=== PATIENT | female | born 1940 | race Hispanic/Latino ===

== ENCOUNTER 2018-05-17 09:57 | Emergency (ER) | payer OTHER ==
--- OUTSIDE RECORDS SUMMARY | 2018-05-17 10:00 | XMS REPORT ---
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 Problem 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
--- OUTSIDE RECORDS SUMMARY | 2018-05-17 10:00 | XMS REPORT ---
:1940 Author Organization eClinicalWorks Care Team Providers Name Role Phone Wills, Na Provider Role Unavailable Allergies, Adverse Reactions, Alerts Substance Reaction Event Type codeine Info Not Available Drug Allergy PCN Info Not Available Drug Allergy Lyrica Info Not Available Drug Allergy Problems Problem Type Condition Code Onset Dates Condition Status Problem Depression with anxiety F41.8 Active Problem Osteoporosis M81.0 Active Problem Psoriasis L40.9 Active Problem Obesity E66.9 Active Assessment Family history of cardiovascular Z82.49 Active disease Problem Rheumatoid arthritis M06.9 Active Assessment 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 Assessment Rheumatoid arthritis M06.9 Active Problem Hyperlipidemia E78.5 Active Problem Hyperglycemia R73.9 Active Problem Anemia D64.9 Active Problem Hypothyroidism E03.9 Active Problem Benign essential HTN I10 Active Assessment Bilateral edema of lower extremity R60.0 Active Problem 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 Assessment Symptomatic spider varicose vein I83.899 Active Assessment Bilateral leg cramps R25.2 Active Problem 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 Problem Tinea versicolor B36.0 Active Problem 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 Problem Degeneration of lumbar or M51.37 Active lumbosacral intervertebral disc Problem 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 Problem Seasonal allergies J30.2 Active Medications Medication Code Code Instructions Start End Status Dosage System Date Levothyroxine [facility] 85857216893 100 MCG Orally Active 1 tablet on Sodium Once a day an empty stomach in the morning Dovonex [facility] 97148764482 0.005 % Nov Active 1 application Externally 21, to affected Twice a day 2018 area Ultram ND 24364891752 50 MG Orally August Active 1 tablet as every 6 hrs 12, 26, needed 2017 2018 Fosamax ND 48036750694 70 MG Orally Active 1 tablet Naprosyn ND 28648093070 500 MG Orally Oct Active 1 tablet with every 12 hrs 11, food or milk 2017 as needed Lasix ND 71472335414 40 MG Orally August Active 1 tablet Once a day 2017 Lisinopril [facility] 47681245736 10 MG Orally Active 1 tablet Once a day Calcipotriene [facility] 23024676311 0.005 % Active 1 application Externally Once to affected a day area Fluticasone [facility] 86017373113 50 MCG/ACT Active USE 2 SPRAY Propionate IN EACH NOSTRIL EVERY DAY Flonase [facility] 51295198116 50 MCG/ACT Active 1 spray in Nasally Once a each nostril day Lidex [facility] 0 Active not defined Zyrtec Allergy [facility] 29873129765 10 MG Orally Active 1 tablet Once a day Pravastatin [facility] 08333108905 20 MG Orally Active 1 tablet Sodium Once a day Coreg [facility] 40392920931 25 MG Orally Active 1 tablet twice daily Protonix [facility] 51382119801 40 MG Orally August Active 1 tablet Once a day 2017 Results No Known Results Summary Purpose eClinicalWorks Submission
--- OUTSIDE RECORDS SUMMARY | 2018-05-17 10:00 | XMS REPORT ---
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
--- OUTSIDE RECORDS SUMMARY | 2018-05-17 10:00 | XMS REPORT ---
[...] Seasonal allergies J30.2 Active Medications Medication Code System Code Instructions Start Date End Date Status Dosage Protonix [facility] 68831268013 40 MG Orally Once August 08, Active 1 tablet a day 2017 Results No Known Results Summary Purpose eClinicalWorks Submission
--- OUTSIDE RECORDS SUMMARY | 2018-05-17 10:00 | XMS REPORT ---
[...] Medications Medication Code System Code Instructions Start End Date Status Dosage Date Naproxen [facility] 84698581275 500 MG Oral Twice Dec 18, Active TAKE 1 a day 2016 TABLET BY MOUTH TWICE A DAY WITH FOOD Results No Known Results Summary Purpose eClinicalWorks Submission
--- OUTSIDE RECORDS SUMMARY | 2018-05-17 10:00 | XMS REPORT ---
[...] Medications Results No Known Results Summary Purpose [employer] Submission
--- OUTSIDE RECORDS SUMMARY | 2018-05-17 10:00 | XMS REPORT ---
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 Assessment Seasonal allergies J30.2 Active Problem Hyperlipidemia E78.5 Active Problem Hyperglycemia R73.9 Active Problem Anemia D64.9 Active Problem Hypothyroidism E03.9 Active Problem Benign essential HTN I10 Active Problem 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 Assessment Benign essential HTN I10 Active Assessment Hypothyroidism E03.9 Active Problem 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 Problem Tinea versicolor B36.0 Active Assessment Rheumatoid arthritis M06.9 Active Problem 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 Problem Degeneration of lumbar or M51.37 Active lumbosacral intervertebral disc Assessment Psoriasis L40.9 Active Problem 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 Problem Seasonal allergies J30.2 Active Medications Medication Code Code Instructions Start End Status Dosage System Date Flonase [facility] 50458879968 50 MCG/ACT Active 1 spray in Nasally Once a each nostril day Levothyroxine ND 87945454294 100 MCG Orally Active 1 tablet on Sodium Once a day an empty stomach in the morning Calcipotriene [facility] 64855486086 0.005 % Active 1 application Externally Once to affected a day area Naprosyn ND 20803117919 500 MG Orally September Active 1 tablet with every 12 hrs 24, food or milk 2018 as needed Pravastatin ND 52922030025 20 MG Orally Active 1 tablet Sodium Once a day Zyrtec Allergy ND 04301049282 10 MG Orally Active 1 tablet Once a day Fosamax ND 77561557618 70 MG Orally Active 1 tablet Lisinopril [facility] 23240820276 10 MG Orally Active 1 tablet Once a day Dovonex [facility] 22298059231 0.005 % Nov Active 1 application Externally 21, to affected Twice a day 2018 area Coreg [facility] 33301222242 25 MG Orally Active 1 tablet twice daily Fluticasone [facility] 65984789019 50 MCG/ACT Active USE 2 SPRAY Propionate IN EACH NOSTRIL EVERY DAY Lidex [facility] 0 Active not defined Results No Known Results Summary Purpose eClinicalWorks Submission
--- OUTSIDE RECORDS SUMMARY | 2018-05-17 10:00 | XMS REPORT ---
:1940 Author Organization eClinicalWorks Care Team Providers Name Role Phone Wills, Na Provider Role Unavailable Allergies No Known Allergies Problems Problem Type Condition Code Onset Dates Condition Status Problem Depression with anxiety F41.8 Active Problem Osteoporosis M81.0 Active Problem Psoriasis L40.9 Active Problem Obesity E66.9 Active Assessment Hyperlipidemia E78.5 Active Problem Rheumatoid arthritis M06.9 Active Assessment Bilateral edema of lower extremity R60.0 Active Problem Hyperlipidemia E78.5 Active Problem Hyperglycemia R73.9 Active Problem Anemia D64.9 Active Problem Hypothyroidism E03.9 Active Problem Benign essential HTN I10 Active Problem 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 Assessment Hypothyroidism E03.9 Active Assessment Benign essential HTN I10 Active Problem 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 Problem Tinea versicolor B36.0 Active Problem 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 Problem Degeneration of lumbar or M51.37 Active lumbosacral intervertebral disc Problem 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 Problem Seasonal allergies J30.2 Active Medications Medication Code Code Instructions Start End Status Dosage System Date Date Fosamax [facility] 10539762846 70 MG Orally Active 1 tablet Once a day Pravastatin [facility] 26564265785 20 MG Orally Active 1 tablet Sodium Once a day Protonix [facility] 64372772430 40 MG Orally Active 1 tablet Once a day Coreg [facility] 16083166559 25 MG Orally Active 1 tablet twice daily Levothyroxine [facility] 46738729130 100 MCG Orally Active 1 tablet Sodium Once a day on an empty stomach in the morning Lasix [facility] 66675885358 40 MG Orally August 13, Active 1 tablet Once a day 2017 Lisinopril [facility] 47414511251 10 MG Orally Active 1 tablet Once a day Results No Known Results Summary Purpose eClinicalWorks Submission
--- OUTSIDE RECORDS SUMMARY | 2018-05-17 10:01 | XMS REPORT ---
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 Problem Primary osteoarthritis of right knee M17.11 Active Problem Rheumatoid arthritis M06.9 Active Problem Hypothyroidism E03.9 Active Problem Hyperlipidemia E78.5 Active Problem Obesity E66.9 Active Problem 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
--- OUTSIDE RECORDS SUMMARY | 2018-05-17 10:01 | XMS REPORT ---
[...] Medications Results No Known Results Summary Purpose [employer] Submission
--- OUTSIDE RECORDS SUMMARY | 2018-05-17 10:01 | XMS REPORT ---
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 Assessment Benign essential HTN I10 Active Problem Primary osteoarthritis of right knee M17.11 Active Problem Rheumatoid arthritis M06.9 Active Problem Hypothyroidism E03.9 Active Problem Hyperlipidemia E78.5 Active Problem Obesity E66.9 Active Problem 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 60813710323 70 MG Oral August 26, Active TAKE 1 Sodium 2017 TABLET BY MOUTH ONCE A WEEK Results No Known Results Summary Purpose [employer]ClinicalWorks Submission
--- OUTSIDE RECORDS SUMMARY | 2018-05-17 10:01 | XMS REPORT ---
[...] Medications Results No Known Results Summary Purpose [employer] Submission
--- OUTSIDE RECORDS SUMMARY | 2018-05-17 10:01 | XMS REPORT ---
[...] Problem Osteoporosis M81.0 Active Medications Medication Code System Code Instructions Start End Date Status Dosage Date Naproxen [facility] 52065575440 500 MG Oral Twice Dec 18, Active TAKE 1 a day prn 2016 TABLET BY MOUTH TWICE A DAY WITH FOOD Results No Known Results Summary Purpose [employer]ClinicalWorks Submission
--- OUTSIDE RECORDS SUMMARY | 2018-05-17 10:01 | XMS REPORT ---
:1940 Author Organization eClinicalWorks Care Team Providers Name Role Phone Wills, Na Provider Role Unavailable Allergies, Adverse Reactions, Alerts Substance Reaction Event Type PCN Info Not Available Drug Allergy Lyrica Info Not Available Drug Allergy Problems Problem Type Condition Code Onset Dates Condition Status Assessment Seasonal allergies J30.2 Active Assessment Elevated alkaline phosphatase level R74.8 Active Assessment CKD stage G3a/A1, GFR 45-59 and N18.3 Active albumin creatinine ratio <30 mg/g Assessment Rheumatoid arthritis M06.9 Active Problem Psoriasis L40.9 Active Assessment Hyperkalemia E87.5 Active Problem Osteoporosis M81.0 Active Assessment Psoriasis L40.9 Active Problem Anemia D64.9 Active Problem Benign essential HTN I10 Active Problem Hyperglycemia R73.9 Active Problem 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 Problem 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 Assessment Benign essential HTN I10 Active Assessment Hyperlipidemia E78.5 Active Problem Primary osteoarthritis of right knee M17.11 Active Assessment 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 Problem Rheumatoid arthritis M06.9 Active Problem Hypothyroidism E03.9 Active Problem Hyperlipidemia E78.5 Active Problem Obesity E66.9 Active Problem 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 Problem 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 Assessment Hypothyroidism E03.9 Active Problem Seasonal allergies J30.2 Active Problem Depression with anxiety F41.8 Active Problem Tinea versicolor B36.0 Active Problem Degeneration of lumbar or M51.37 Active lumbosacral intervertebral disc Medications Medication Code Code Instructions Start End Status Dosage System Date Date Calcipotriene [facility] 70291574033 0.005 % Active 1 application Externally Once to affected a day area Levothyroxine ND 80225464109 100 MCG Orally Active 1 tablet on Sodium Once a day an empty stomach in the morning Protonix ND 21415621514 40 MG Orally Active 1 tablet Once a day Cetirizine HCl ND 27158854391 10 MG Active TAKE 1 TABLET BY MOUTH EVERY DAY NEEDED FOR ALLERGIES Carvedilol [facility] 23532506086 25 MG Orally Active as directed Lasix [facility] 37226455745 40 MG Orally August Active 1 tablet Once a day 2017 Pravastatin [facility] 90323826472 20 MG Orally Active 1 tablet Sodium Once a day Zyrtec Allergy [facility] 98078947272 10 MG Orally Active 1 tablet Once a day Fluticasone [facility] 44985133479 50 MCG/ACT Active USE 2 SPRAY Propionate IN EACH NOSTRIL EVERY DAY Lisinopril [facility] 30202949012 10 MG Orally Active 1 tablet Once a day Fosamax [facility] 10955158022 70 MG Orally Active 1 tablet Once a day Flonase [facility] 32769739931 50 MCG/ACT Active 1 spray in Nasally Once a each nostril day Naproxen [facility] 12983730382 500 MG Oral Dec 18July Active take 1 tablet Twice a day prn 2016 15, by mouth 2018 twice a day with food Lidex ND 0 Active not defined Alendronate [facility] 37463272355 70 MG Oral August Active TAKE 1 TABLET Sodium 25, BY MOUTH ONCE 2016 A WEEK Coreg [facility] 46270470401 25 MG Orally Active 1 tablet twice daily Results No Known Results Summary Purpose eClinicalWorks Submission
--- OUTSIDE RECORDS SUMMARY | 2018-05-17 10:01 | XMS REPORT ---
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 Problem Primary osteoarthritis of right M17.11 Active knee Problem Rheumatoid arthritis M06.9 Active Problem Hypothyroidism E03.9 Active Problem Hyperlipidemia E78.5 Active Problem Obesity E66.9 Active Problem 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 47391010021 10 MG Orally Active 1 tablet Once a day Protonix [facility] 67919261124 40 MG Orally Active 1 tablet Once a day Zyrtec Allergy [facility] 68849260305 10 MG Orally Active 1 tablet Once a day Lidex [facility] 0 Active not defined Levothyroxine [facility] 70357564492 100 MCG Orally Active 1 tablet on Sodium Once a day an empty stomach in the morning Dovonex [facility] 46075367473 0.005 % Nov Active 1 application Externally 21, to affected Twice a day 2018 area Carvedilol [facility] 74637006671 25 MG Orally Active as directed Pravastatin [facility] 82869186842 20 MG Orally Active 1 tablet Sodium Once a day Coreg [facility] 09424125445 25 MG Orally Active 1 tablet twice daily Lasix [facility] 84247805527 40 MG Orally August Active 1 tablet Once a day 2017 Naproxen ND 08775213155 500 MG Oral Dec 18 TAKE 1 TABLET Twice a day 2016 BY MOUTH TWICE A DAY WITH FOOD Cetirizine HCl [facility] 52935409169 10 MG Active TAKE 1 TABLET BY MOUTH EVERY DAY NEEDED FOR ALLERGIES Alendronate ND 26714676680 70 MG Oral August Active TAKE 1 TABLET Sodium 25, BY MOUTH ONCE 2017 A WEEK Calcipotriene [facility] 90247535992 0.005 % Active 1 application Externally Once to affected a day area Fluticasone [facility] 05286462178 50 MCG/ACT Active USE 2 SPRAY Propionate IN EACH NOSTRIL EVERY DAY Fosamax [facility] 01039338347 70 MG Orally Active 1 tablet Once a day Flonase [facility] 44732847856 50 MCG/ACT Active 1 spray in Nasally Once a each nostril day Results No Known Results Summary Purpose eClinicalWorks Submission
--- OUTSIDE RECORDS SUMMARY | 2018-05-17 10:01 | XMS REPORT ---
[...] Start End Status Dosage System Date Date Cetirizine HCl [facility] 77222628805 10 MG Active TAKE 1 TABLET BY MOUTH EVERY DAY NEEDED FOR ALLERGIES Lisinopril [facility] 43732078200 10 MG Orally Active 1 tablet Once a day Fosamax [facility] 75656153790 70 MG Orally Active 1 tablet Once a day Protonix [facility] 62554814499 40 MG Orally Active 1 tablet Once a day Coreg [facility] 44779227711 25 MG Orally Active 1 tablet twice daily Pravastatin [facility] 32141526823 20 MG Orally Active 1 tablet Sodium Once a day Fluticasone [facility] 26921583108 50 MCG/ACT Active USE 2 SPRAY Propionate IN EACH NOSTRIL EVERY DAY Calcipotriene [facility] 21191261531 0.005 % Active 1 application Externally Once to affected a day area Flonase [facility] 95311545531 50 MCG/ACT Active 1 spray in Nasally Once a each nostril day Lidex ND 0 Active not defined Alendronate [facility] 12694784198 70 MG Oral August Active TAKE 1 TABLET Sodium 25, BY MOUTH ONCE 2016 A WEEK Lasix [facility] 55491175373 40 MG Orally August Active 1 tablet Once a day 2017 Levothyroxine [facility] 13117540099 100 MCG Orally Active 1 tablet on Sodium Once a day an empty stomach in the morning Naproxen [facility] 19800874870 500 MG Oral Dec 18July Active take 1 tablet Twice a day prn 2016, by mouth 2018 twice a day with food Carvedilol [facility] 61808483325 25 MG Orally Active as directed Zyrtec Allergy [facility] 80175123416 10 MG Orally Active 1 tablet Once a day Results No Known Results Summary Purpose [employer]Works Submission
--- OUTSIDE RECORDS SUMMARY | 2018-05-17 10:02 | XMS REPORT ---
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 Assessment Hypothyroidism E03.9 Active Assessment Hyperlipidemia E78.5 Active Problem Primary osteoarthritis of right knee M17.11 Active Problem Rheumatoid arthritis M06.9 Active Problem Hypothyroidism E03.9 Active Problem Hyperlipidemia E78.5 Active Problem Obesity E66.9 Active Problem 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 Problem 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 Assessment Seasonal allergies J30.2 Active Problem Seasonal allergies J30.2 Active Problem Depression with anxiety F41.8 Active Problem Tinea versicolor B36.0 Active Problem Psoriasis L40.9 Active Assessment 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 Problem Degeneration of lumbar or M51.37 Active lumbosacral intervertebral disc Problem Osteoporosis M81.0 Active Medications Medication Code Code Instructions Start End Status Dosage System Date Date Fluticasone [facility] 90562136125 50 MCG/ACT Active USE 2 SPRAY Propionate IN EACH NOSTRIL EVERY DAY Calcipotriene ND 09188507179 0.005 % Sept Active 1 application Externally Once , to affected a day 2019 area Naproxen ND 86140418604 500 MG Oral Dec 18August Active take 1 tablet Twice a day prn 2016 05, by mouth 2018 twice a day with food Cetirizine HCl NDC 28613382547 10 MG Orally May Active 1 tablet Once a day 2018 Results No Known Results Summary Purpose eClinicalWorks Submission
--- OUTSIDE RECORDS SUMMARY | 2018-05-17 10:02 | XMS REPORT ---
[...] Start End Date Status Dosage System Date Tizanidine HCl [facility] 48817551822 2 MG Orally at May 13May Active 1 tablet bedtime or every 2018 as needed 12 hrs PRN pain Results No Known Results Summary Purpose eClinicalWorks Submission
[2018-05-17] MEDS ORDERED: ONDANSETRON 4 MG/2 ML VIAL ONE (10:19)
[2018-05-17] MEDS ORDERED: MEPERIDINE HCL 25 MG/0.5 ML ONE (10:19)
[2018-05-17 10:35] LABS: Absolute Lymphocytes (CBC) 1.1 K/uL (0.7-4.9); Absolute Monocytes 0.9 K/uL (0.1-1.3); Absolute Neutrophil 5.5 K/uL (1.8-8.0); Basophils % 0.5 % (0-1.3); Eosinophils % 1.8 % (0-4.4); Lymphocytes % 14.9 % (15.3-44.8); MPV 7.8 fL (7.6-11.3); Monocytes % 11.6 % (3.3-12.3)
[2018-05-17 10:49] LABS: Potassium 4.4 mmol/L (3.5-5.1)
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
[2018-05-17] MEDS ORDERED: MORPHINE 4 MG/ML SYR ONE (12:33)
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
[2018-05-17 15:22] VITALS: BP 179/83; TEMP 97.6; O2SAT 100
== END 2018-05-17 15:12 | disposition short-term general hospital (02) ==
LOC: ER 09:57
DX: S32.512A Fracture of superior rim of left pubis, initial encounter for closed fracture (principal); S32.592A Other specified fracture of left pubis, initial encounter for closed fracture; S32.10XA Unspecified fracture of sacrum, initial encounter for closed fracture; S30.0XXA Contusion of lower back and pelvis, initial encounter; V49.40XA Driver injured in collision with unspecified motor vehicles in traffic accident, initial encounter; I10 Essential (primary) hypertension; Z88.0 Allergy status to penicillin
CPT/HCPCS: 85025; 80048; 36415; 74177; 71045; 72170; 73030; 73552; 51702; 96375; 96374; 99285; Q9967; J2175; J2405

== ENCOUNTER 2021-05-15 09:59 | Emergency (ER) | payer OTHER ==
[2021-05-15] MEDS ORDERED: EPINEPHrine 1 MG/10 ML SYR IV ONE (10:00)
--- OUTSIDE RECORDS SUMMARY | 2021-05-15 10:13 | XMS REPORT | Continuity of Care Document ---
:1940 Author Organization [facility] [place] t Address [address] [place] [address] Care Team Providers Name Role Phone WillsKrzysztof Attending Clinician Unavailable JACQUIE, A Attending Clinician Unavailable Doctor Unassigned, Name Attending Clinician Unavailable Nurse, Surgery Gu Attending Clinician Unavailable Jacquie ENT CONSULTANT, A Attending Clinician Clinic, Cardiology Attending Clinician Leta RAIP, N Attending Clinician LETA N Attending Clinician Unavailable [place] GREY, M Attending Clinician Odilon DORMAN Attending Clinician Carlos PAC, S Attending Clinician Mariel DORMAN, P Attending Clinician Dariusz Quintana MD, J Attending Clinician Hien DORMAN Attending Clinician SHAISTA Attending Clinician Unavailable Dariusz Quintana MD, J Admitting Clinician Payers Payer Name Policy Type Policy Number Effective Date Expiration Date S lonny MEDICARE PART A [id number] 1996 \\T\\ B 00:00:00 [place]ICAID OF [place] [id number] 2004 00:00:00 Problems Condition Condition Condition Status Onset Resolution Last Treating Co mments Source Name Details Category Date Date Treatment Clinician Date Urinary Urinary Disease Active Univers retention retention 5-21 ity of 00:00: [place] 00 Medical Branch History of History of Disease Active U nivers hydronephr hydronephr 5- it y of osis osis 00:00: Medical Branch Cardiac Cardiac Disease Active Univers arrest arrest 06-18 ity of 00:00: Medical Branch Melena Melena Disease Active Overview: Univer s 06-18 Formattin ity of 00:00: g of this note Medical might be Branch different from the original. 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 [place] [facility] [place] Wheel Wheel Disease Active [facility] chair as chair as 11-01 it[place] aid aid 00 [facility] Right knee Right knee Disease Active 2012-03 U nivers pain pain 1-21 ity of 00:00: [place] [facility] Psoriatic Psoriatic Disease Active Uni vers arthritis arthritis 2-21 ity of 00:00: [place] [facility] Diabetic Diabetic Disease Active Unive rs arthropath arthropath 2-21 it y of y y 00:00: Medical Branch Pain in Pain in Disease Active Univers joint, joint, 2- ity of multiple multiple 00:00: [place] sites sites 00 Medical Branch Psoriasis Psoriasis Disease Active Uni vers 2-21 ity of 00:00: Medical Branch HLD HLD Disease Active Overview: Univmello s (hyperlipi (hyperlipi 10-08 Formattin ity of demia) demia) 00:00: g of this [place] 00 note Medical might be Branch different from the original. ICD10 Diagnosis Term Egyptologist Utility Hypothyroi Hypothyroi Disease Active Overview : Univers dism dism 10-08 Formattin ity of 00:00: g of this [place] 00 note Medical might be Branch different from the original. 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 ICD10 Diagnosis Term Egyptologist Utility Essential Essential Disease Active Uni vers hypertensi hypertensi 8-07 it y of on, benign [place], benign 00:[place]: [place] 00 [facility] Allergies, Adverse Reactions, Alerts Allergy Allergy Status Severity Reaction(s) Onset Inactive Treating Comm ents Source Name Type Date Date Clinician Codeine Propensi Active Unknown - 2005-03 Swelling Un mer[place] ty to See comments 2-07 of face ity of adverse 00:00: and body [place] reaction 00 Medical s Branch CODEINE DRUG Active Unknown-Cmnt 2005-03 Uni vers INGREDI 2-07 ity of 00:00: [place] 00 Medical Branch Penicill Propensi Active Unknown - Swelling U nivers ins ty to See comments 6-22 of face ity of adverse 00:00: and body [place] reaction 00 Medical s Branch PENICILL Drug Active Unknown-Cmnt Un [place] INS Class 6-22 ity of 00:00: [place] 00 Medical Branch PCN Adverse Active Info Not [facility] Reaction Available [facility] Lyrica Adverse Active Info Not [facility] Reaction Available [facility] Social History Social Habit Start Date Stop Date Quantity Comments Source Exposure to Not sure [facility] SARS-CoV-2 [facility] (event) [place] History of Cigarette Smoker Universi ty of tobacco use [facility] Tobacco use and 2020-08-17 2020-08-17 Never used Universit y of exposure 00:00:00 00:00:00 [facility] Cigarettes smoked 2020-08-17 2020-08-17 Univers ity of current (pack per 00:00:00 00:00:00 [facility]) - Reported Branch Cigarette 2020-08-17 2020-08-17 University of pack-years 00:00:00 00:00:00 [facility] Alcohol intake 2020-08-17 2020-08-17 Current drinker of Un iversity of 00:00:00 00:00:00 alcohol (finding) [facility] Tobacco Comment 2005-10-08 2005-10-08 quit 3 years ago, Un iversity of 00:00:00 00:00:00 [facility] Alcohol Comment 2005-10-08 2005-10-08 occasionally Univers ity of 00:00:00 00:00:00 [facility] Sex Assigned At [birth year] Universit y of 00:00:00 00:00:00 [facility] Smoking Status Start Date Stop Date Source Former smoker 2020-08-17 00:00:00 2020-08-17 00:00:00 Universi ty [facility] Medications Ordered Filled Start Stop Current Ordering Indication Dosage Frequency Signature Comments Components Source Medication Medication Date Date Medication? Clinician (SIG) Name Name carvedilol Yes [id number] 25mg Take 25 mg Univers (COREG) 6-24 by mouth 2 ity of 12.5 mg 15:19: (two) [place] tablet 12 times Medical daily with Branch meals. pravastatin Yes [id number] 20mg Take 20 mg Univers (PRAVACHOL) 6-24 by mouth ity of 20 mg 15:19: at [place] tablet 12 bedtime. Medical Branch levothyroxi Yes [id number] 100ug Take 100 Univers ne 6-24 mcg by ity of (SYNTHROID) 15:19: mouth [place] 100 mcg 12 daily. Medical tablet Branch alendronate Yes 70mg Take 70 mg Univers (FOSAMAX) 6-24 by mouth ity of 70 mg 15:19: weekly. [place] tablet 12 Medical Branch carvedilol Yes [id number] 25mg Take 25 mg Univers (COREG) 6-24 by mouth 2 ity of 12.5 mg 15:19: (two) [place] tablet 12 times Medical daily with Branch meals. pravastatin 0 Yes [id number] 20mg Take 20 mg Univers (PRAVACHOL) 6-24 by mouth ity of 20 mg 15:19: at [place] tablet 12 bedtime. Medical Branch levothyroxi Yes [id number] 100ug Take 100 Univers ne 6-24 mcg by ity of (SYNTHROID) 15:19: mouth [place] 100 mcg 12 daily. Medical tablet Branch alendronate Yes 70mg Take 70 mg Univers (FOSAMAX) 6-24 by mouth ity of 70 mg 15:19: weekly. [place] tablet 12 Medical Branch traMADoL 50 Yes 50mg Take 50 mg Univers mg tablet 5-21 by mouth ity of 13:51: every 6 [place] 02 (six) Medical hours as Branch needed. traMADoL 50 Yes 50mg Take 50 mg Univers mg tablet 5-21 by mouth ity of 13:51: every 6 [place] 02 (six) Medical hours as Branch needed. traMADoL 50 0 Yes 50mg Take 50 mg Univers mg tablet 5-21 by mouth ity of 13:51: every 6 [place] 02 (six) Medical hours as Branch needed. traMADoL 50 0 Yes 50mg Take 50 mg Univers mg tablet 5-21 by mouth ity of 13:51: every 6 [place] 02 (six) Medical hours as Branch needed. traMADoL 50 0 Yes 50mg Take 50 mg Univers mg tablet 5-21 by mouth ity of 13:51: every 6 [place] 02 (six) Medical hours as Branch needed. traMADoL 50 0 Yes 50mg Take 50 mg Univers mg tablet 5-21 by mouth ity of 13:51: every 6 [place] 02 (six) Medical hours as Branch needed. traMADoL 50 Yes 50mg Take 50 mg Univers mg tablet 5-21 by mouth ity of 13:51: every 6 [place] 02 (six) Medical hours as Branch needed. lanolin Yes Apply to Unive rs alcohol-mo- 4-28 area(s) ity o f w.pet-ceres 00:00: daily. Nicolasa colón Crea cream 00 Medical Branch lidocaine 5 Yes 2{patch Apply 2 Univers % (700 4-28 } Patches to ity of mg/patch) 00:00: area(s) [place] patch 00 daily. Medical Branch polyethylen Yes 17g Take 1 Univ ers e glycol 4-28 Packet by ity of 3350 17 00:00: mouth [place] gram powder 00 daily. Medica l Branch sennosides Yes 8.6mg Take 1 Univ ers 8.6 mg 4-28 tablet by ity of tablet 00:00: mouth [place] 00 daily. Medical Branch tamsulosin Yes .4mg Take 1 Unive rs 0.4 mg 24 4-28 capsule by ity of hr capsule 00:00: mouth [place] 00 daily. Medical Branch lanolin Yes Apply to Unive rs alcohol-mo- 4-28 area(s) ity o f w.pet-ceres 00:00: [place]. [place] Crea cream 00 [facility] lidocaine 5 Yes 2{patch Apply 2 Univers % (700 4-28 } Patches to ity of mg/patch) 00:00: area(s) [place] patch 00 daily. Medical Branch polyethylen Yes 17g Take 1 Univ ers e glycol 4-28 Packet by ity of 3350 17 00:00: mouth [place] gram powder 00 daily. Medica l Branch sennosides Yes 8.6mg Take 1 Univ ers 8.6 mg 4-28 tablet by ity of tablet 00:00: mouth [place] 00 daily. Medical Branch tamsulosin Yes .4mg Take 1 Unive rs 0.4 mg 24 4-28 capsule by ity of hr capsule 00:00: mouth [place] 00 daily. Medical Branch lanolin Yes Apply to Unive rs alcohol-mo- 4-28 area(s) ity o f w.pet-ceres 00:00: daily. [place] Crea cream 00 [facility] Branch lidocaine 5 Yes 2{patch Apply 2 Univers % (700 4-28 } Patches to ity of mg/patch) 00:00: area(s) [place] patch 00 daily. Medical Branch polyethylen Yes 17g Take 1 Univ ers e glycol 4-28 Packet by ity of 3350 17 00:00: mouth [place] gram powder 00 daily. Medica l Branch sennosides Yes 8.6mg Take 1 Univ ers 8.6 mg 4-28 tablet by ity of tablet 00:00: mouth [place] 00 daily. Medical Branch tamsulosin Yes .4mg Take 1 Unive rs 0.4 mg 24 4-28 capsule by ity of hr capsule 00:00: mouth [place] 00 daily. Medical Branch lanolin Yes Apply to Unive rs alcohol-mo- 4-28 area(s) ity o f w.pet-ceres 00:00: daily. [place] Crea cream 00 Medical Branch lidocaine 5 Yes 2{patch Apply 2 Univers % (700 4-28 } Patches to ity of mg/patch) 00:00: area(s) [place] patch 00 daily. Medical Branch polyethylen Yes 17g Take 1 Univ ers e glycol 4-28 Packet by ity of 3350 17 00:00: mouth [place] gram powder 00 daily. Medica l Branch sennosides Yes 8.6mg Take 1 Univ ers 8.6 mg 4-28 tablet by ity of tablet 00:00: mouth [place] 00 daily. Medical Branch tamsulosin Yes .4mg Take 1 Unive rs 0.4 mg 24 4-28 capsule by ity of hr capsule 00:00: mouth [place] 00 daily. Medical Branch lanolin Yes Apply to Unive rs alcohol-mo- 4-28 area(s) ity o f w.pet-ceres 00:00: daily. [place] Crea cream 00 Medical Branch lidocaine 5 Yes 2{patch Apply 2 Univers % (700 4-28 } Patches to ity of mg/patch) 00:00: area(s) [place] patch 00 daily. Medical Branch polyethylen Yes 17g Take 1 Univ ers e glycol 4-28 Packet by ity of 3350 17 00:00: mouth [place] gram powder 00 daily. Medica l Branch sennosides Yes 8.6mg Take 1 Univ ers 8.6 mg 4-28 tablet by ity of tablet 00:00: mouth [place] 00 daily. Medical Branch tamsulosin Yes .4mg Take 1 Unive rs 0.4 mg 24 4-28 capsule by ity of hr capsule 00:00: mouth [place] 00 daily. Medical Branch lanolin Yes Apply to Unive rs alcohol-mo- 4-28 area(s) ity o f w.pet-ceres 00:00: daily. [place] Crea cream 00 [facility] Branch lidocaine 5 Yes 2{patch Apply 2 Univers % (700 4-28 } Patches to ity of mg/patch) 00:00: area(s) [place] patch 00 daily. Medical Branch polyethylen Yes 17g Take 1 Univ ers e glycol 4-28 Packet by ity of 3350 17 00:00: mouth [place] gram powder 00 daily. Medica l Branch sennosides Yes 8.6mg Take 1 Univ ers 8.6 mg 4-28 tablet by ity of tablet 00:00: mouth [place] 00 daily. Medical Branch tamsulosin Yes .4mg Take 1 Unive rs 0.4 mg 24 4-28 capsule by ity of hr capsule 00:00: mouth [place] 00 daily. Medical Branch lanolin Yes Apply to Unive rs alcohol-mo- 4-28 area(s) ity o f w.pet-ceres 00:00: daily. [place] Crea cream 00 Medical Branch lidocaine 5 Yes 2{patch Apply 2 Univers % (700 4-28 } Patches to ity of mg/patch) 00:00: area(s) [place] patch 00 daily. Medical Branch polyethylen Yes 17g Take 1 Univ ers e glycol 4-28 Packet by ity of 3350 17 00:00: mouth [place] gram powder 00 daily. Medica l Branch sennosides Yes 8.6mg Take 1 Univ ers 8.6 mg 4-28 tablet by ity of tablet 00:00: mouth [place] 00 daily. Medical Branch tamsulosin Yes .4mg Take 1 Unive rs 0.4 mg 24 4-28 capsule by ity of hr capsule 00:00: mouth [place] 00 daily. Medical Branch lanolin Yes Apply to Unive rs alcohol-mo- 4-28 area(s) ity o f w.pet-ceres 00:00: daily. [place] Crea cream 00 Medical Branch lidocaine 5 Yes 2{patch Apply 2 Univers % (700 4-28 } Patches to ity of mg/patch) 00:00: area(s) [place] patch 00 daily. Medical Branch polyethylen Yes 17g Take 1 Univ ers e glycol 4-28 Packet by ity of 3350 17 00:00: mouth [place] gram powder 00 daily. Medica l Branch sennosides Yes 8.6mg Take 1 Univ ers 8.6 mg 4-28 tablet by ity of tablet 00:00: mouth [place] 00 daily. Medical Branch tamsulosin Yes .4mg Take 1 Unive rs 0.4 mg 24 4-28 capsule by ity of hr capsule 00:00: mouth [place] 00 daily. Medical Branch lanolin Yes Apply to Unive rs alcohol-mo- 4-28 area(s) ity o f w.pet-ceres 00:00: daily. [place] Crea cream 00 [facility] lidocaine 5 Yes 2{patch Apply 2 Univers % (700 4-28 } Patches to ity of mg/patch) 00:00: area(s) [place] patch 00 daily. Medical Branch polyethylen 0 Yes 17g Take 1 Univ ers e glycol 4-28 Packet by ity of 3350 17 00:00: mouth [place] gram powder 00 daily. Medica l Branch sennosides Yes 8.6mg Take 1 Univ ers 8.6 mg 4-28 tablet by ity of tablet 00:00: mouth [place] 00 daily. Medical Branch tamsulosin Yes .4mg Take 1 Unive rs 0.4 mg 24 4-28 capsule by ity of hr capsule 00:00: mouth [place] 00 daily. Medical Branch lanolin Yes Apply to Unive rs alcohol-mo- 4-28 area(s) ity o f w.pet-ceres 00:00: daily. [place] Crea cream 00 [facility] Branch lidocaine 5 Yes 2{patch Apply 2 Univers % (700 4-28 } Patches to ity of mg/patch) 00:00: area(s) [place] patch 00 daily. Medical Branch polyethylen Yes 17g Take 1 Univ ers e glycol 4-28 Packet by ity of 3350 17 00:00: mouth [place] gram powder 00 daily. Medica l Branch sennosides Yes 8.6mg Take 1 Univ ers 8.6 mg 4-28 tablet by ity of tablet 00:00: mouth [place] 00 daily. Medical Branch tamsulosin Yes .4mg Take 1 Unive rs 0.4 mg 24 4-28 capsule by ity of hr capsule 00:00: mouth [place] 00 daily. Medical Branch lanolin Yes Apply to Unive rs alcohol-mo- 4-28 area(s) ity o f w.pet-ceres 00:00: daily. [place] Crea cream 00 [facility] Branch lidocaine 5 Yes 2{patch Apply 2 Univers % (700 4-28 } Patches to ity of mg/patch) 00:00: area(s) [place] patch 00 daily. Medical Branch polyethylen Yes 17g Take 1 Univ ers e glycol 4-28 Packet by ity of 3350 17 00:00: mouth [place] gram powder 00 daily. Medica l Branch sennosides 0 Yes 8.6mg Take 1 Univ ers 8.6 mg 4-28 tablet by ity of tablet 00:00: mouth [place] 00 daily. Medical Branch tamsulosin Yes .4mg Take 1 Unive rs 0.4 mg 24 4-28 capsule by ity of hr capsule 00:00: mouth [place] 00 daily. Medical Branch carvedilol Yes [id number] 25mg Take 25 mg Univers (COREG) 4-27 by mouth 2 ity of 12.5 mg 23:19: (two) [place] tablet 09 times Medical daily with Branch meals. pravastatin Yes [id number] 20mg Take 20 mg Univers (PRAVACHOL) 4-27 by mouth ity of 20 mg 23:19: at [place] tablet 09 bedtime. Medical Branch levothyroxi Yes [id number] 100ug Take 100 Univers ne 4-27 mcg by ity of (SYNTHROID) 23:19: mouth [place] 100 mcg 09 daily. Medical tablet Branch Cetirizine Yes Take by Uni vers (ZYRTEC) 10 4-27 mouth. ity of mg capsule 23:19: [place] 09 Medical Branch alendronate Yes 70mg Take 70 mg Univers (FOSAMAX) 4-27 by mouth ity of 70 mg 23:19: weekly. [place] tablet 09 Medical Branch traMADoL 50 Yes 50mg Take 50 mg Univers mg tablet 4-27 by mouth ity of 23:19: every 6 [place] 09 (six) Medical hours as Branch needed. carvedilol Yes [id number] 25mg Take 25 mg Univers (COREG) 4-27 by mouth 2 ity of 12.5 mg 23:19: (two) [place] tablet 09 times Medical daily with Branch meals. pravastatin Yes [id number] 20mg Take 20 mg Univers (PRAVACHOL) 4-27 by mouth ity of 20 mg 23:19: at [place] tablet 09 bedtime. Medical Branch levothyroxi 2021-0 Yes [id number] 100ug Take 100 Univers ne 4-27 mcg by ity of (SYNTHROID) 23:19: mouth [place] 100 mcg 09 daily. Medical tablet Branch Cetirizine Yes Take by Uni vers (ZYRTEC) 10 4-27 mouth. ity of mg capsule 23:19: Medical Branch alendronate 0 Yes 70mg Take 70 mg Univers (FOSAMAX) 4-27 by mouth ity of 70 mg 23:19: weekly. [place] tablet Medical Branch traMADoL 50 0 Yes 50mg Take 50 mg Univers mg tablet 4-27 by mouth ity of 23:19: every 6 [place] 09 (six) Medical hours as Branch needed. carvedilol 0 Yes [id number] 25mg Take 25 mg Univers (COREG) 4-27 by mouth 2 ity of 12.5 mg 23:19: (two) [place] tablet 09 times Medical daily with Branch meals. pravastatin 0 Yes [id number] 20mg Take 20 mg Univers (PRAVACHOL) 4-27 by mouth ity of 20 mg 23:19: at [place] tablet 09 bedtime. Medical Branch levothyroxi 0 Yes [id number] 100ug Take 100 Univers ne 4-27 mcg by ity of (SYNTHROID) 23:19: mouth [place] 100 mcg 09 daily. Medical tablet Branch Cetirizine Yes Take by Uni vers (ZYRTEC) 10 4-27 mouth. ity of mg capsule 23:19: Medical Branch alendronate Yes 70mg Take 70 mg Univers (FOSAMAX) 4-27 by mouth ity of 70 mg 23:19: weekly. [place] tablet Medical Branch traMADoL 50 0 Yes 50mg Take 50 mg Univers mg tablet 4-27 by mouth ity of 23:19: every 6 [place] 09 (six) Medical hours as Branch needed. carvedilol 0 Yes [id number] 25mg Take 25 mg Univers (COREG) 4-27 by mouth 2 ity of 12.5 mg 23:19: (two) [place] tablet 09 times Medical daily with Branch meals. pravastatin 0 Yes [id number] 20mg Take 20 mg Univers (PRAVACHOL) 4-27 by mouth ity of 20 mg 23:19: at [place] tablet 09 bedtime. Medical Branch levothyroxi Yes [id number] 100ug Take 100 Univers ne 4-27 mcg by ity of (SYNTHROID) 23:19: mouth [place] 100 mcg 09 daily. Medical tablet Branch Cetirizine Yes Take by Uni vers (ZYRTEC) 10 4-27 mouth. ity of mg capsule 23:19: [place] Medical Branch alendronate Yes 70mg Take 70 mg Univers (FOSAMAX) 4-27 by mouth ity of 70 mg 23:19: weekly. [place] tablet Medical Branch traMADoL 50 Yes 50mg Take 50 mg Univers mg tablet 4-27 by mouth ity of 23:19: every 6 [place] (six) Medical hours as Branch needed. carvedilol Yes [id number] 25mg Take 25 mg Univers (COREG) 4-27 by mouth 2 ity of 12.5 mg 23:19: (two) [place] tablet 09 times Medical daily with Branch meals. pravastatin 0 Yes [id number] 20mg Take 20 mg Univers (PRAVACHOL) 4-27 by mouth ity of 20 mg 23:19: at [place] tablet 09 bedtime. Medical Branch levothyroxi Yes [id number] 100ug Take 100 Univers ne 4-27 mcg by ity of (SYNTHROID) 23:19: mouth [place] 100 mcg 09 daily. Medical tablet Branch Cetirizine Yes Take by Uni vers (ZYRTEC) 10 4-27 mouth. ity of mg capsule 23:19: Medical Branch alendronate Yes 70mg Take 70 mg Univers (FOSAMAX) 4-27 by mouth ity of 70 mg 23:19: weekly. [place] tablet Medical Branch carvedilol Yes [id number] 25mg Take 25 mg Univers (COREG) 4-27 by mouth 2 ity of 12.5 mg 23:19: (two) [place] tablet 09 times Medical daily with Branch meals. pravastatin 2020-0 Yes [id number] 20mg Take 20 mg Univers (PRAVACHOL) 4-27 by mouth ity of 20 mg 23:19: at [place] tablet 09 bedtime. Medical Branch levothyroxi Yes [id number] 100ug Take 100 Univers ne 4-27 mcg by ity of (SYNTHROID) 23:19: mouth [place] 100 mcg 09 daily. Medical tablet Branch Cetirizine Yes Take by Uni vers (ZYRTEC) 10 4-27 mouth. ity of mg capsule 23:19: Medical Branch alendronate Yes 70mg Take 70 mg Univers (FOSAMAX) 4-27 by mouth ity of 70 mg 23:19: weekly. tablet Medical Branch carvedilol Yes [id number] 25mg Take 25 mg Univers (COREG) 4-27 by mouth 2 ity of 12.5 mg 23:19: (two) [place] tablet 09 times Medical daily with Branch meals. pravastatin 0 Yes [id number] 20mg Take 20 mg Univers (PRAVACHOL) 4-27 by mouth ity of 20 mg 23:19: at [place] tablet 09 bedtime. Medical Branch levothyroxi Yes [id number] 100ug Take 100 Univers ne 4-27 mcg by ity of (SYNTHROID) 23:19: mouth [place] 100 mcg 09 daily. Medical tablet Branch Cetirizine Yes Take by Uni vers (ZYRTEC) 10 4-27 mouth. ity of mg capsule 23:19: Medical Branch alendronate Yes 70mg Take 70 mg Univers (FOSAMAX) 4-27 by mouth ity of 70 mg 23:19: weekly. Medical Branch carvedilol Yes [id number] 25mg Take 25 mg Univers (COREG) 4-27 by mouth 2 ity of 12.5 mg 23:19: (two) [place] tablet 09 times Medical daily with Branch meals. pravastatin 2020-0 Yes [id number] 20mg Take 20 mg Univers (PRAVACHOL) 4-27 by mouth ity of 20 mg 23:19: at [place] tablet 09 bedtime. Medical Branch levothyroxi Yes [id number] 100ug Take 100 Univers ne 4-27 mcg by ity of (SYNTHROID) 23:19: mouth [place] 100 mcg 09 daily. Medical tablet Branch Cetirizine Yes Take by Uni vers (ZYRTEC) 10 4-27 mouth. ity of mg capsule 23:19: Medical Branch alendronate Yes 70mg Take 70 mg Univers (FOSAMAX) 4-27 by mouth ity of 70 mg 23:19: weekly. [facility] Branch carvedilol Yes [id number] 25mg Take 25 mg Univers (COREG) 4-27 by mouth 2 ity of 12.5 mg 23:19: (two) [place] tablet 09 times Medical daily with Branch meals. pravastatin Yes [id number] 20mg Take 20 mg Univers (PRAVACHOL) 4-27 by mouth ity of 20 mg 23:19: at [place] tablet 09 bedtime. Medical Branch levothyroxi Yes [id number] 100ug Take 100 Univers ne 4-27 mcg by ity of (SYNTHROID) 23:19: mouth [place] 100 mcg 09 daily. Medical tablet Branch Cetirizine Yes Take by Uni vers (ZYRTEC) 10 4-27 mouth. ity of mg capsule 23:19: [address] alendronate Yes 70mg Take 70 mg Univers (FOSAMAX) 4-27 by mouth ity of 70 mg 23:19: weekly. [place] tablet [facility] Cetirizine Yes Take by Uni vers (ZYRTEC) 10 4-27 mouth. ity of mg capsule 23:19: [address] Cetirizine Yes Take by Uni vers (ZYRTEC) 10 4-27 mouth. ity of mg capsule 23:19: [address] furosemide 2020- No [id number] 40mg Take 40 mg Univers (LASIX) 40 -27 04-27 by mouth ity of mg tablet 18:55: 00:00 daily. [place] 19 :00 [facility] naproxen 2020- No 500mg Take 500 Uni vers (NAPROSYN) 4-27 04-27 mg by ity of 500 mg 18:55: 00:00 mouth 2 [place] tablet 19 :00 (two) Medical times [place] daily with meals. sennosides Yes 8.6mg 8.6 mg, Uni vers (SENOKOT) 4-27 Oral, ity of tablet 8.6 14:15: DAILY, [place] mg 00 First dose Medical on [place] 4/27/21 at 0915, Until Discontinu ed, Routine lanolin 2020-0 Yes Topical, Univer s alcohol-mo- 4-27 DAILY, ity of wWisampet-ceres 14:15: First dose [place] (EUCERIN) 00 on Tue Medical cream 06/28/20 at Branch 0915, Until Discontinu ed, Routine acetaminoph 2021-0 Yes 650mg Take 2 Uni vers en 325 mg 4-27 tablets by ity of tablet 00:00: mouth [place] 00 every 8 Medical (eight) Branch hours. pantoprazol 202-0 Yes 40mg Take 1 Univ ers e 40 mg EC 4-27 tablet by ity of tablet 00:00: mouth 2 [place] 00 (two) Medical times Branch daily. doxycycline 2021-0 Yes 100mg Take 1 Uni vers hyclate 100 4-27 capsule by it y of mg capsule 00:00: mouth [place] 00 every 12 Medical (twelve) Branch hours. furosemide 2020-0 Yes [id number] 40mg Take 1 U nivers (LASIX) 40 4-27 tablet by ity of mg tablet 00:00: mouth once [place] 00 daily as Medical needed Branch (take as needed for edema or SOB). acetaminoph 202-0 Yes 650mg Take 2 Uni vers en 325 mg 4-27 tablets by ity of tablet 00:00: mouth [place] 00 every 8 Medical (eight) Branch hours. pantoprazol 1-0 Yes 40mg Take 1 Univ ers e 40 mg EC 4-27 tablet by ity of tablet 00:00: mouth 2 [place] 00 (two) Medical times Branch daily. doxycycline 1-0 Yes 100mg Take 1 Uni vers hyclate 100 4-27 capsule by it y of mg capsule 00:00: mouth [place] 00 every 12 Medical (twelve) Branch hours. furosemide 2021-0 Yes [id number] 40mg Take 1 U nivers (LASIX) 40 4-27 tablet by ity of mg tablet 00:00: mouth once [place] 00 daily as Medical needed Branch (take as needed for edema or SOB). acetaminoph 2021-0 Yes 650mg Take 2 Uni vers en 325 mg 4-27 tablets by ity of tablet 00:00: mouth [place] 00 every 8 Medical (eight) Branch hours. pantoprazol 2021-0 Yes 40mg Take 1 Univ ers e 40 mg EC 4-27 tablet by ity of tablet 00:00: mouth (two) Medical times Branch daily. doxycycline 2021-0 Yes 100mg Take 1 Uni vers hyclate 100 4-27 capsule by it y of mg capsule 00:00: mouth 00 every 12 Medical (twelve) Branch hours. furosemide 2021-0 Yes [id number] 40mg Take 1 U nivers (LASIX) 40 4-27 tablet by ity of mg tablet 00:00: mouth once [place] 00 daily as Medical needed Branch (take as needed for edema or SOB). acetaminoph 2021-0 Yes 650mg Take 2 Uni vers en 325 mg 4-27 tablets by ity of tablet 00:00: mouth 00 every 8 Medical (eight) Branch hours. pantoprazol 2021-0 Yes 40mg Take 1 Univ ers e 40 mg EC 4-27 tablet by ity of tablet 00:00: mouth (two) Medical times Branch daily. doxycycline 1-0 Yes 100mg Take 1 Uni vers hyclate 100 4-27 capsule by it y of mg capsule 00:00: mouth 00 every 12 Medical (twelve) Branch hours. furosemide 1-0 Yes [id number] 40mg Take 1 U nivers (LASIX) 40 4-27 tablet by ity of mg tablet 00:00: mouth once [place] 00 daily as Medical needed Branch (take as needed for edema or SOB). acetaminoph 2021-0 Yes 650mg Take 2 Uni vers en 325 mg 4-27 tablets by ity of tablet 00:00: mouth 00 every 8 Medical (eight) Branch hours. pantoprazol 2021-0 Yes 40mg Take 1 Univ ers e 40 mg EC 4-27 tablet by ity of tablet 00:00: mouth 2 (two) Medical times Branch daily. doxycycline 2021-0 Yes 100mg Take 1 Uni vers hyclate 100 4-27 capsule by it y of mg capsule 00:00: mouth [place] 00 every 12 Medical (twelve) Branch hours. furosemide 2021-0 Yes [id number] 40mg Take 1 U nivers (LASIX) 40 4-27 tablet by ity of mg tablet 00:00: mouth once [place] 00 daily as Medical needed Branch (take as needed for edema or SOB). acetaminoph 2021-0 Yes 650mg Take 2 Uni vers en 325 mg 4-27 tablets by ity of tablet 00:00: mouth [place] 00 every 8 Medical (eight) Branch hours. pantoprazol 2021-0 Yes 40mg Take 1 Univ ers e 40 mg EC 4-27 tablet by ity of tablet 00:00: mouth 2 (two) Medical times Branch daily. doxycycline 2021-0 Yes 100mg Take 1 Uni vers hyclate 100 4-27 capsule by it y of mg capsule 00:00: mouth [place] 00 every 12 Medical (twelve) Branch hours. furosemide 2021-0 Yes [id number] 40mg Take 1 U nivers (LASIX) 40 4-27 tablet by ity of mg tablet 00:00: mouth once [place] 00 daily as Medical needed Branch (take as needed for edema or SOB). acetaminoph 2021-0 Yes 650mg Take 2 Uni vers en 325 mg 4-27 tablets by ity of tablet 00:00: mouth [place] 00 every 8 Medical (eight) Branch hours. pantoprazol 2021-0 Yes 40mg Take 1 Univ ers e 40 mg EC 4-27 tablet by ity of tablet 00:00: mouth (two) Medical times Branch daily. doxycycline 2021-0 Yes 100mg Take 1 Uni vers hyclate 100 4-27 capsule by it y of mg capsule 00:00: mouth [place] 00 every 12 Medical (twelve) Branch hours. furosemide 2021-0 Yes [id number] 40mg Take 1 U nivers (LASIX) 40 4-27 tablet by ity of mg tablet 00:00: mouth once [place] 00 daily as Medical needed Branch (take as needed for edema or SOB). acetaminoph 2021-0 Yes 650mg Take 2 Uni vers en 325 mg 4-27 tablets by ity of tablet 00:00: mouth [place] 00 every 8 Medical (eight) Branch hours. pantoprazol 2021-0 Yes 40mg Take 1 Univ ers e 40 mg EC 4-27 tablet by ity of tablet 00:00: mouth 2 (two) Medical times Branch daily. doxycycline 2021-0 Yes 100mg Take 1 Uni vers hyclate 100 4-27 capsule by it y of mg capsule 00:00: mouth [place] 00 every 12 Medical (twelve) Branch hours. furosemide 2021-0 Yes [id number] 40mg Take 1 U nivers (LASIX) 40 4-27 tablet by ity of mg tablet 00:00: mouth once [place] 00 daily as Medical needed Branch (take as needed for edema or SOB). acetaminoph 2021-0 Yes 650mg Take 2 Uni vers en 325 mg 4-27 tablets by ity of tablet 00:00: mouth [place] 00 every 8 Medical (eight) Branch hours. pantoprazol 2021-0 Yes 40mg Take 1 Univ ers e 40 mg EC 4-27 tablet by ity of tablet 00:00: mouth 2 (two) Medical times Branch daily. doxycycline 2021-0 Yes 100mg Take 1 Uni vers hyclate 100 4-27 capsule by it y of mg capsule 00:00: mouth 00 every 12 Medical (twelve) Branch hours. furosemide 2021-0 Yes [id number] 40mg Take 1 U nivers (LASIX) 40 4-27 tablet by ity of mg tablet 00:00: mouth once [place] 00 daily as Medical needed Branch (take as needed for edema or SOB). acetaminoph 2021-0 Yes 650mg Take 2 Uni vers en 325 mg 4-27 tablets by ity of tablet 00:00: mouth [place] 00 every 8 Medical (eight) Branch hours. pantoprazol 2021-0 Yes 40mg Take 1 Univ ers e 40 mg EC 4-27 tablet by ity of tablet 00:00: mouth (two) Medical times Branch daily. doxycycline 2021-0 Yes 100mg Take 1 Uni vers hyclate 100 4-27 capsule by it y of mg capsule 00:00: mouth [place] 00 every 12 Medical (twelve) Branch hours. furosemide 2021-0 Yes [id number] 40mg Take 1 U nivers (LASIX) 40 4-27 tablet by ity of mg tablet 00:00: mouth once [place] 00 daily as Medical needed Branch (take as needed for edema or SOB). acetaminoph 2021-0 Yes 650mg Take 2 Uni vers en 325 mg 4-27 tablets by ity of tablet 00:00: mouth [place] 00 every 8 Medical (eight) Branch hours. pantoprazol 2021-0 Yes 40mg Take 1 Univ ers e 40 mg EC 4-27 tablet by ity of tablet 00:00: mouth 2 (two) Medical times Branch daily. doxycycline 2021-0 Yes 100mg Take 1 Uni vers hyclate 100 4-27 capsule by it y of mg capsule 00:00: mouth [place] 00 every 12 Medical (twelve) Branch hours. furosemide Yes [id number] 40mg Take 1 U nivers (LASIX) 40 4-27 tablet by ity of mg tablet 00:00: mouth once [place] 00 daily as Medical needed Branch (take as needed for edema or SOB). doxycycline Yes 100mg 100 mg, [place] hyclate 06-27 Oral, ity of (Vibramycin 23:00: Q12HA2, [place] ) capsule 00 First dose Medi jocelyne 100 mg on Sat Branch 06/27/20 at 1800, Until Discontinu ed, CATIA
Re ason for Anti-Infec tive: Documented Infection< br>Documen farzad Infection Site: Urine
D uration of Therapy: 7 days doxycycline 2020- No 100mg 100 mg, U nivers hyclate 06-26 Oral, ity of (Vibramycin 23:00: 16:45 Q12HA2, 6 [place] ) capsule 00 :45 doses, Medical 100 mg First dose Branch on [place] 06/26/20 at 1800, Last dose on Sat06/29/20 at 0600, CATIA
Re ason for Anti-Infec tive: Empiric Therapy for Suspected Infection< br>Empiric Therapy Site: Urine
D uration of therapy: 7 days cefTRIAXone No 1000mg 1,000 mg, Univers (ROCEPHIN) 06-26 IV ity of 1,000 mg in 20:30: 16:47 [place], [place] NaCl 0.9% 00 :54 Q24H ABX, Medic al (NS) 50 mL First dose Bra nch MINI-BAG on [place] 06/26/20 at 1530, Until Discontinu ed, 50 mL
R mami for Anti-Infec tive: Documented Infection< br>Documen farzad Infection Site: Urine<br&g t;Duration of Therapy: 7 days polyethylen Yes 17g 17 g, Unive rs e glycol - Oral, ity of 3350 powder 15:45: DAILY, [place] 17 g 00 First dose Medical on [facility] 06/26/20 at 1045, Until Discontinu ed, Routine pantoprazol Yes 40mg 40 mg, Univ ers e 4-25 Oral, BID, ity of (PROTONIX) 13:00: First dose [place] EC tablet 00 on [place] Medical 40 mg 06/26/20 at Branch 0800, Until Discontinu ed, Routine tamsulosin Yes .4mg 0.4 mg, Univ ers (FLOMAX) 24 Oral, ity of capsule 0.4 14:00: DAILY, [place] mg 00 First dose Medical on [facility] [place] [facility] 06/25/20 at 0900, Until Discontinu ed, Routine benzonatate 2020- No 100mg 100 mg, U nivers (TESSALON 06-25 Oral, TID, ity of PERLES) 13:45: 15:01 First dose [place] capsule 100 00 :24 on [facility] Medica l mg 06/25/20 at Branch 0845, Until Discontinu ed, Routine guaiFENesin 2020- No 400mg 400 mg, U nivers (FENESIN 06-23 Oral, Q6H, ity of IR) tablet 17:00: 12:03 First dose [place] 400 mg 00 :39 (after Medical last Branch modificati on) on [facility] 06/23/20 at 1200, Until Discontinu ed, Routine lactated No 1000mL at 125 [facility] ers ringers IV 06-23 mL/hr, ity of infusion 16:30: 19:55 1,000 mL, [place] 1,000 mL 00 :00 IV Medical Infusion, [place] ONCE, 1 dose, [facility] 06/23/20 at 1130, Routine guaiFENesin 2020- No 400mg 400 mg, U nivers (FENESIN 06-23 Oral, Q4H, ity of IR) tablet 13:45: 15:22 First dose [place] 400 mg 00 :27 on [facility] 06/23/20 at Branch 0845, Until Discontinu ed, Routine traMADoL Yes 50mg 50 mg, Univers (ULTRAM) 06-22 Oral, ity of tablet 50 19:14: Q6HPRN, [place] mg 43 Starting Medical Sat06/22/20 at 1414, Until Discontinu ed, Routine, Pain (scale 4-6) acetaminoph 0 Yes 650mg 650 mg, [place] en - Oral, Q8H, ity of (TYLENOL) 16:15: First dose [place] tablet 650 00 (after Medical mg last Branch modificati on) on Sat06/22/20 at 1115, Until Discontinu ed, Routine ipratropium Yes 3mL 3 mL, Unive rs -albuteroL 06-22 Inhalation ity of (DUONEB) 01:00: , QID, [place] 0.5 mg-3 00 First dose Medic al mg(2.5 mg on Sat)/3 mL 06/21/20 at nebulizer 2000, solution 3 Until mL Discontinu ed, Routine benzocaine 2020-0 2021- No 1{spray 1 [place], Univers (HURRICAINE 06-21-20 } Oral, ity of ONE) 20 % 23:30: 22:47 ONCE, 1 [place] mucosal 00 :00 dose, Sat Medical spray 1 06/21/20 at Branch [place] 1830, Routine sodium 0 Yes 4mL 4 mL, Univers chloride 7% -20 Inhalation it y of (HYPER-FRANCHESKA) 17:00: , QID, [place] nebulizer 00 First dose Medi jocelyne solution 4 (after Branch mL last modificati on) on Sat06/21/20 at 1200, Until Discontinu ed, Routine sodium 2020-0 2020- No 4mL 4 mL, Univers chloride 7% 06-21 Inhalation i ty of (HYPER-FRANCHESKA) 17:00: 19:15 , QID, [place] nebulizer 00 :38 First dose Medi jocelyne solution 4 (after Branch mL last modificati on) on Sat06/21/20 at 1200, Until Discontinu ed, Routine lidocaine 2020-0 Yes 2{patch 2 Patch, U nivers (LIDODERM) 06-21 } Topical, ity o f 5 % (700 14:00: Administer [place] mg/patch) 00 over 12 Medical patch 2 Hours, Branch Patch DAILY, First dose on Sat06/21/20 at 0900, Until Discontinu ed, Routine lidocaine 2020-0 Yes 2{patch 2 Patch, U nivers (LIDODERM) 06-21 } Topical, ity o f 5 % (700 14:00: Administer [place] mg/patch) 00 over 12 Medical patch 2 Hours, Branch Patch DAILY, First dose on Sat06/21/20 at 0900, Until Discontinu ed, Routine pantoprazol Yes 40mg 40 mg, Univ ers e 06-21 Enteral, ity of (PROTONIX) 13:00: BID, First [place] 2 mg/mL 00 dose on Medical oral Tue Branch suspension 06/21/20 at 40 mg 0800, Until Discontinu ed, Routine pantoprazol 2020- No 40mg 40 mg, Uni vers e 06-21 Enteral, ity of (PROTONIX) 13:00: 11:56 BID, First [place] 2 mg/mL 00 :11 dose on Medical oral Tue Branch suspension 06/21/20 at 40 mg 0800, Until Discontinu ed, Routine acetaminoph Yes 650mg 650 mg, [place] en 06-21 Oral, ity of (TYLENOL) 06:04: Q6HPRN, [place] tablet 650 49 Starting Medic al mg e Branch 06/21/20 at 0104, Until Discontinu ed, Routine, Pain (scale 1-3), Pain (scale 4-6) acetaminoph 2020- No 650mg 650 mg, U nivers en 06-21 Oral, ity of (TYLENOL) 06:04: 16:12 Q6HPRN, [place] tablet 650 49 :24 Starting Medic al mg Tue Branch 06/21/20 at 0104, Until Sat06/22/20 at 1112, Routine, Pain (scale 1-3), Pain (scale 4-6) sodium 2020- No 4mL 4 mL, Univers chloride 7% 06-21 Inhalation i ty of (HYPER-FRANCHESKA) 01:00: 13:21 , BID, [place] nebulizer 00 :11 First dose Medi jocelyne solution 4 (after Branch mL last modificati on) on 06/20/20 at 2000, Until Discontinu ed, Routine pantoprazol 2020- No 40mg 40 mg, IV Univers e 06-21 Piggyback, ity of (PROTONIX) 01:00: 12:54 Q12H, [place] 40 mg in 00 :42 First dose Medic al NaCl 0.9% on Sat Branch (NS) 100 mL 06/20/20 at MINI-BAG 2000, Until Discontinu ed, 100 mL phenol 0 Yes 1{spray 1 [place], Univ ers (SORE -20 } Oral, PRN, ity of THROAT 00:05: Starting [place] (PHENOL)) 37 Mon Medical 1.4 % spray 06/20/20 at Br anch bottle 1 1905, [place] Until Discontinu ed, Routine, Sore throat nitroglycer 2020-0 Yes .4mg 0.4 mg, Uni vers in 06-20 Sublingual ity of (NITROSTAT) 21:12: , Q5MIN [place] sublingual 55 PRN, Medical tablet 0.4 Starting Branc h mg 06/20/20 at 1612, Until Discontinu ed, Routine, Chest pain nitroglycer 2020-0 Yes .4mg 0.4 mg, Uni vers in 06-20 Sublingual ity of (NITROSTAT) 21:12: , Q5MIN [place] sublingual 55 PRN, Medical tablet 0.4 Starting Branc h mg [facility] 06/20/20 at 1612, Until Discontinu ed, Routine, Chest pain perflutren 2020- No [id number] 2mL 2 mL, IV Univers lipid 06-20 Push, ity of microsphere 16:00: 15:36 ONCE, 1 [place] 00 :00 dose, [facility] Medical (DEFINITY) 06/20/20 at [facility] injection 2 1100, mL Routine propofoL IV 2020- No 5ug/kg/ 5-50 [place] infusion 06-20 min mcg/kg/min ity of 14:40: 15:17 ?59 kg [place] 27 :07 (1.77-17.7 Medical mL/hr), IV Branch Infusion, TITRATE, Sedation-R ASS score (0 to -1), Starting Sat06/20/20 at 0940
In itiate infusion at 5 mcg/kg/min and titrate by 5 mcg/kg/min every 30 seconds to 10 minutes to goal sedation score. Maximum dose = 50 mcg/kg/min . If goal not maintained at maximum allowed dose, contact prescriber . &nbs p;Tubing and unused portions of vials should be discarded after 12 hours.
pravastatin Yes 20mg 20 mg, Univ ers (PRAVACHOL) - Enteral, ity of tablet 20 02:00: QHS, First [place] mg [address] [facility] 06/19/20 at 2100, Until Discontinu ed, Routine pravastatin Yes 20mg 20 mg, Univ ers (PRAVACHOL) 06-20 Enteral, ity of tablet 20 02:00: QHS, First [place] mg [address] [facility] 06/19/20 at 2100, Until Discontinu ed, Routine midazolam No 1mg 1 mg, Slow U nivers (VERSED) 06-19 IV Push, ity of injection 1 21:35: 00:06 Q6HPRN, [place] mg 58 :[address] [facility] 06/19/20 at 1635, Until 06/20/20 at 1906, Routine, Sedation to RASS score 0 to -1 FENTanyl PF Yes 50ug 50 mcg, Uni vers (SUBLIMAZE 06-19 Slow IV ity of (PF)) 21:35: Push, [place] injection 46 Q6HPRN, Medical 50 mcg Starting [facility] 06/19/20 at 1635, Until Discontinu ed, Routine, Sedation FENTanyl PF No 50ug 50 mcg, [place] (SUBLIMAZE 06-19 Slow IV ity o f (PF)) 21:35: 23:19 Push, [place] injection 46 :39 Q6HPRN, Medical 50 mcg Starting [facility] 06/19/20 at 1635, Until 06/21/20 at 1819, Routine, Sedation Vancomycin 2020-2020- No 15mg/kg 750 mg U nivers 750 mg in 06-19 (rounded ity o f NaCl 0.9% 20:00: 23:03 from 885 [place] (NS) 250 mL 00 :51 mg = 15 Medic al VIAL-MATE mg/kg ?59 Branc h kg), IV Piggyback, Q24H, First dose on [place] 06/19/20 at 1500, Until Discontinu ed, 250 mL
Reas on for Anti-Infec tive: Empiric Therapy for Suspected Infection< br>Empiric Therapy Site: Abdominal< br>Duratio n of therapy: 72 hours furosemide 2020-0 2020- No 20mg 20 mg, Univ ers (LASIX) 06-19-18 Slow IV ity of injection 16:15: 17:08 [place], [place] 20 mg 00 :00 ONCE, 1 Medical dose, [facility] 06/19/20 at 1115, Routine levothyroxi Yes 100ug 100 mcg, U nivers ne 18 Enteral, ity of (SYNTHROID) 11:00: QAM-0600, [place] tablet 100 00 First dose Med ical mcg on [facility] 06/19/20 at 0600, Until Discontinu ed, Routine levothyroxi Yes 100ug 100 mcg, U nivers ne 06-19 Enteral, ity of (SYNTHROID) 11:00: QAM-0600, [place] tablet 100 00 First dose Med ical mcg on [facility] 06/19/20 at 0600, Until Discontinu ed, Routine meropenem Yes 500mg 500 mg, IV U nivers (MERREM) 06-19 Piggyback, ity o f 500 mg in 07:30: Administer [place] NaCl 0.9% 00 over 60 Medical (NS) 100 mL Minutes, Bran ch MINI-BAG Q12H ABX, First dose on [place] 06/19/20 at 0230, Until Discontinu ed, Routine
Restricte d use approved by: AMARJIT 8TH FLOOR
R mami for Anti-Infec tive: Documented Infection< br>Documen farzad Infection Site: Abdominal< br>Duratio n of Therapy: 7 days meropenem 2020- No 500mg 500 mg, IV Univers (MERREM) 06-19 Piggyback, ity of 500 mg in 07:30: 18:31 Administer [place] NaCl 0.9% 00 :27 over 60 Medical (NS) 100 mL Minutes, Bran ch MINI-BAG Q12H ABX, First dose on [place] 06/19/20 at 0230, Until Discontinu ed, Routine
Restricte d use approved by: AMARJIT 8TH FLOOR
R mami for Anti-Infec tive: Documented Infection< br>Documen farzad Infection Site: Abdominal< br>Duratio n of Therapy: 7 days NaCl 0.9% 0 2020- No 500mL at 100 Univ ers (NS) IV 4-18 04-18 mL/hr, IV ity of infusion 04:25: 09:00 Infusion, [place] 500 mL 00 :00 ONCE, 1 Medical dose, [facility] [place] [facility] 06/18/20 at 2330, Routine Sliding Yes Subcutaneo Univ ers Scale 4-18 us, TID ity of Insulin - 02:00: MEALS+HS, [place] Lispro 00 First dose Medical (HumaLOG) + on [facility] [place] [facility] 06/18/20 at Testing 2100, Until Discontinu ed, Routine atropine Yes 1mg 1 mg, IV Unive rs injection 1 4-18 Push, PRN, it y of mg 01:49: 1 dose, [place] [id number] Starting [facility] 06/18/20 at 204, Until Discontinu ed, Routine, Symptomati c Bradycardi a, below 30 atropine Yes 1mg 1 mg, IV Unive rs injection 1 4-18 Push, PRN, it y of mg 01:49: 1 dose, [place] [id number] Starting [facility] 06/18/20 at 204, Until Discontinu ed, Routine, Symptomati c Bradycardi a, below 30 pravastatin Yes [id number] 20mg Take 20 mg Univers (PRAVACHOL) 4-17 by mouth ity of 20 mg 23:29: at [place] tablet 19 bedtime. Medical Branch levothyroxi Yes [id number] 100ug Take 100 Univers ne 4-17 mcg by ity of (SYNTHROID) 23:29: mouth [place] 100 mcg 19 daily. Medical tablet Branch carvedilol Yes [id number] 25mg Take 25 mg Univers (COREG) 4-17 by mouth 2 ity of 12.5 mg 23:26: (two) [place] tablet 06 times Medical daily with Branch meals. furosemide Yes [id number] 40mg Take 40 mg Univers (LASIX) 40 4-17 by mouth ity o f mg tablet 23:26: daily. [address] Branch Cetirizine Yes Take by Uni vers (ZYRTEC) 10 4-17 mouth. ity of mg capsule 23:26: [address] Branch alendronate Yes 70mg Take 70 mg Univers (FOSAMAX) -17 by mouth ity of 70 mg 23:26: weekly. [place] tablet [address] [place] [address] Branch traMADoL 50 Yes 50mg Take 50 mg Univers mg tablet -17 by mouth ity of 23:26: every 6 [place] [address] (six) Medical hours as Branch needed. naproxen Yes 500mg Take 500 Univ ers (NAPROSYN) 4-17 mg by ity of 500 mg 23:26: mouth 2 [place] tablet (two) Medical times Branch daily with meals. glucagon Yes 1mg 1 mg, Univers (GLUCAGEN 06-18 Intramuscu ity of DIAGNOSTIC 23:20: lar, PRN, [place] KIT) 45 Starting Medical injection 1 [facility] Branch mg 06/18/20 at 1820, Until Discontinu ed, CATIA, Blood Glucose < or = 70 mg/dL and patient is unable to swallow or has mental changes. dextrose 50 Yes 25mL 25 mL, Univ ers % in water 06-18 Slow IV ity of (D50W) 23:20: Push, PRN, [place] injection 45 Starting Medica l 25 mL Sat Branch 06/18/20 at 1820, Until Discontinu ed, CATIA, Blood Glucose < or = 70 mg/dL and patient is unable to swallow or has mental status changes. dextrose 50 0 2020- No 25mL 25 mL, Uni vers % in water 06-1820 Slow IV ity o f (D50W) 23:20: 23:19 Push, PRN, [place] injection 45 :39 Starting Medica l 25 mL Sat Branch 06/18/20 at 1820, Until 06/21/20 at 1819, CATIA, Blood Glucose < or = 70 mg/dL and patient is unable to swallow or has mental status changes. iohexol 0 2020- No [id number] 120mL 120 mL, [place] (OMNIPAQUE 06-18 Intravenou it y of 350 21:00: 20:35 s, ONCE, 1 [place] BULK-150 00 :00 dose, Sat Medica l mL) 06/18/20 at Branch injection 1600, 120 mL Routine pantoprazol 2020- No 8mg/h 8 mg/hr U nivers e 06-18 (50 ity of (PROTONIX) 20:00: 15:16 mL/hr), IV [place] 80 mg in 00 :55 Infusion, Medica l NaCl 0.9% CONTINUOUS Bran ch (NS) 500 mL , Starting infusion 06/18/20 at 1500 meropenem 2020- No 500mg 500 mg, IV Univers (MERREM) 06-18 Piggyback, ity of 500 mg in 20:00: 20:39 Administer [place] NaCl 0.9% 00 :00 over 60 Medical (NS) 100 mL Minutes, Bran ch MINI-BAG ONCE, 1 dose, 06/18/20 at 1500, CATIA
Re stricted use approved by: ADC PROVIDER<b r>Reason for Anti-Infec tive: Documented Infection< br>Documen farzad Infection Site: Urine
D uration of Therapy: Other (see Comments) Vancomycin 2020- No 15mg/kg 750 mg U nivers 750 mg in 06-18 (rounded ity o f NaCl 0.9% 20:00: 20:56 from 885 [place] (NS) 250 mL 00 :00 mg = 15 Medic al VIAL-MATE mg/kg ?59 Branc h kg), IV Piggyback, ONCE, 1 dose, 06/18/20 at 1500, 250 mL
Reas on for Anti-Infec tive: Documented Infection< br>Documen farzad Infection Site: Urine
D uration of Therapy: Other (see Comments) pantoprazol 2020- No 80mg 80 mg, IV Univers e 06-18 Push, ity of (PROTONIX) 20:00: 20:02 ONCE, 1 [place] 80 mg in 00 :00 dose, Sat Medica l NaCl 0.9% 06/18/20 at Bran ch (NS) 20 mL 1500, 20 syringe mL Gabapentin Gabapentin Yes Na [facility] [address] [facility] 10[facility]04 [facility] MethylPREDN MethylPREDN Yes Na [facility] as [facility] ISolone ISolone 1-15 directed [facility]: [facility] Cetirizine Cetirizine Yes Na [facility] [address] [facility] HCl HCl 3-05 [facility] - 00:[facility]: [facility] 00 l [facility] hydroxychlo Yes 200mg Take 1 Uni vers roquine 200 9-10 tablet by ity of mg tablet 00:00: mouth [place] 00 daily. Medical Branch hydroxychlo 2020- No 200mg Take 1 [place] roquine 200 9-10 04-17 tablet by it y of mg tablet 00:00: 00:00 mouth [place] 00 :00 daily. Medical Branch hydroxychlo 2020- No 200mg Take 1 [place] roquine 200 9-10 04-17 tablet by it y of mg tablet 00:00: 00:00 mouth [place] 00 :00 daily. Medical Branch furosemide Yes [id number] 40mg Take 40 mg Univers (LASIX) 40 8-31 by mouth ity o f mg tablet 16:26: daily. [place] 18 Medical Branch pravastatin Yes [id number] 20mg Take 20 mg Univers (PRAVACHOL) 8-31 by mouth ity of 20 mg 15:50: at [place] tablet 47 bedtime. Medical Branch levothyroxi Yes [id number] 100ug Take 100 Univers ne 8-31 mcg by ity of (SYNTHROID) 15:50: mouth [place] 100 mcg 43 daily. Medical tablet Branch carvedilol Yes [id number] 12.5mg Take 12.5 Univers (COREG) 8-31 mg by ity of 12.5 mg 15:50: mouth 2 [place] tablet 40 (two) Medical times Branch daily with meals. tramadol-ac Yes [id number] 1{tbl} Take 1 Univers etaminophen 8-31 tablet by ity of (ULTRACET) 00:00: mouth [place] 37.5-325 mg 00 every 8 Medic al per tablet (eight) Branch hours as needed for Pain. tramadol-ac 2020- No [id number] 1{tbl} Take 1 Univers etaminophen 8-31 04-17 tablet by it y of (ULTRACET) 00:00: 00:00 mouth [place] 37.5-325 mg 00 :00 every 8 Medic al per tablet (eight) Branch hours as needed for Pain. tramadol-ac 2020- No [id number] 1{tbl} Take 1 Univers etaminophen 11-01 04-17 tablet by it y of (ULTRACET) 00:00: 00:00 mouth [place] 37.5-325 mg 00 :00 every 8 Medic al per tablet (eight) Branch hours as needed for Pain. Alendronate Alendronate Yes Na [place] TAKE [address] [facility] Sodium Sodium 6-25 TABLET BY [facility] - 00:00: MOUTH ONCE [facility] 00 A WEEK l [facility] gabapentin 2012-03 Yes 100mg Take 1 Tab Univers (NEURONTIN) 1-21 by mouth ity of 100 mg 00:00: at [place] tablet 00 bedtime. Medical Branch gabapentin 2012-03- No 100mg Take 1 Tab Univers (NEURONTIN) -22 06-17 by mouth ity of 100 mg 00:00: 00:00 at [place] tablet 00 :00 bedtime. Medical Branch gabapentin 2012-03- No 100mg Take 1 Tab Univers (NEURONTIN) -22 06-17 by mouth ity of 100 mg 00:00: 00:00 at [place] tablet 00 :00 bedtime. Medical Branch acetaminoph Yes [id number] 1000mg Take 2 Univers en 2-21 Tabs by ity of (TYLENOL) 00:00: mouth 2 [place] 500 mg 00 (two) Medical tablet times Branch daily as needed for Pain. acetaminoph 2020- No [id number] 1000mg Take 2 Univers en 2-21 04-17 Tabs by ity of (TYLENOL) 00:00: 00:00 mouth 2 [place] 500 mg 00 :00 (two) Medical tablet times Branch daily as needed for Pain. acetaminoph 2020- No [id number] 1000mg Take 2 Univers en 2-21 04-17 Tabs by ity of (TYLENOL) 00:00: 00:00 mouth 2 [place] 500 mg 00 :00 (two) Medical tablet times Branch daily as needed for Pain. Naproxen Naproxen Yes Na [facility] [address] [facility] with food [facility] - or milk as [facility] needed l Outpati ent Clinics Tizanidine Tizanidine Yes Na [facility] [address] [facility] HCl HCl as needed [facility] Acetaminoph Acetaminoph Yes Na [facility] [address] [facility] en en as needed [facility] Lidoderm Lidoderm Yes Na [facility] [address] [facility] skin [facility] - remove [facility] after 12 l hours Outpati ent Clinics Lasix Lasix Yes Na [facility] 2 tabs [facility] and [facility] - then 1 tab [facility] daily x 3 l days prn Outpati swelling ent Clinics Coreg Coreg Yes Na [facility]ills [address] [facility] Fluticasone Fluticasone Yes Na [facility] use [address] [facility] Propionate Propionate spray in [facility] - each [facility] nostril l every day Outpati ent Clinics Keppra Keppra Yes Na [facility] [address] [facility] Protonix Protonix Yes Na [facility] [address] [facility] Lisinopril Lisinopril Yes Na [facility] [address] [facility] Zyrtec Zyrtec Yes Na [facility] [address] [facility] Allergy Allergy [facility] Triamcinolo Triamcinolo Yes Na Wills [address] [facility] ne ne applicatio [facility] Acetonide Acetonide n to [facility] affected l [facility] Levothyroxi Levothyroxi Yes Na Wills [address] [facility] ne Sodium ne Sodium on an Luke s - empty [facility] stomach in l the Outpati morning ent Clinics Gabapentin Gabapentin Yes Na Wills [address] [facility] Fosamax Fosamax Yes Na Wills [address] [facility] HydrOXYzine HydrOXYzine Yes Na Wills TAKE BY [facility] HCl HCl MOUTH 1 [facility] TABLET AT [facility] BEDTIME l NEEDED FOR Outpati ITCHING ent Clinics Furosemide Furosemide Yes Na Wills TAKE [address] [facility] TABLET [facility] ONCE A DAY [facility] NEEDED l FOR LEG Outpati SWELLING X ent 3 DAYS MAY Clinics REPEAT NEEDED Dovonex Dovonex Yes Na Wills [address] [facility] applic[facility] to [facility] affected [facility] Lidex Lidex Yes Na Wills not [facility] defined [facility] Pravastatin Pravastatin Yes Na Wills [address] [facility] Sodium Sodium [facility] Immunizations Ordered Filled Immunization Date Status Comments [facility] e Immunization Name Name FluAD FluAD 2019-01-[address] [facility] Influenza High Dose 2012-02-29 Completed Unive rsity of 00:00:00 [facility] Influenza High Dose 2012-02-29 Completed Unive rsity of 00:00:00 [facility] Influenza High Dose 2012-02-29 Completed Unive rsity of 00:00:00 [facility] Influenza High Dose 2012-02-29 Completed Unive rsity of 00:00:00 [facility] Influenza High Dose 2012-02-29 Completed Unive rsity of 00:00:00 [facility] Influenza High Dose 2012-02-29 Completed Unive rsity of 00:00:00 [facility] Influenza High Dose 2012-02-29 Completed Unive rsity of 00:00:00 [facility] Influenza High Dose 2012-02-29 Completed Unive rsity of 00:00:00 [facility] Influenza High Dose 2012-02-29 Completed Unive rsity of 00:00:00 [facility] Influenza High Dose 2012-02-29 Completed Unive rsity of 00:00:00 [facility] Influenza High Dose 2012-02-29 Completed Unive rsity of 00:00:00 [facility] Influenza High Dose 2012-02-29 Completed Unive rsity of 00:00:00 [facility] Influenza High Dose 2012-02-29 Completed Unive rsity of 00:00:00 [facility] Influenza Virus 2006-01-29 Completed Universit y of Vaccine 00:00:00 [facility] Influenza Virus 2006-01-29 Completed Universit y of Vaccine 00:00:00 [facility] Influenza Virus 2006-01-29 Completed Universit y of Vaccine 00:00:00 [facility] Influenza Virus 2006-01-29 Completed Universit y of Vaccine 00:00:00 [facility] Influenza Virus 2006-01-29 Completed Universit y of Vaccine 00:00:00 [facility] Influenza Virus 2006-01-29 Completed Universit y of Vaccine 00:00:00 [facility] Influenza Virus 2006-01-29 Completed Universit y of Vaccine 00:00:00 [facility] Influenza Virus 2006-01-29 Completed Universit y of Vaccine 00:00:00 [facility] Influenza Virus 2006-01-29 Completed Universit y of Vaccine 00:00:00 [facility] Influenza Virus 2006-01-29 Completed Universit y of Vaccine 00:00:00 [facility] Influenza Virus 2006-01-29 Completed Universit y of Vaccine 00:00:00 [facility] Influenza Virus 2006-01-29 Completed Universit y of Vaccine 00:00:00 [facility] Influenza Virus 2006-01-29 Completed Universit y of Vaccine 00:00:00 [facility] Pneumococcal 2003-12-03 Completed University o f Polysaccharide, 00:00:00 [place] [facility] PPSV23 (PNEUMOVAX) [facility] Pneumococcal 2003-12-03 Completed University o f Polysaccharide, 00:00:00 [place] [facility] PPSV23 (PNEUMOVAX) Branch Pneumococcal 2003-12-03 Completed University o f Polysaccharide, 00:00:00 [place] [facility] PPSV23 (PNEUMOVAX) Branch Pneumococcal 2003-12-03 Completed University o f Polysaccharide, 00:00:00 [place] [facility] PPSV23 (PNEUMOVAX) Branch Pneumococcal 2003-12-03 Completed University o f Polysaccharide, 00:00:00 [place] [facility] PPSV23 (PNEUMOVAX) Branch Pneumococcal 2003-12-03 Completed University o f Polysaccharide, 00:00:00 [place] [facility] PPSV23 (PNEUMOVAX) Branch Pneumococcal 2003-12-03 Completed University o f Polysaccharide, 00:00:00 [place] [facility] PPSV23 (PNEUMOVAX) Branch Pneumococcal 2003-12-03 Completed University o f Polysaccharide, 00:00:00 [place] [facility] PPSV23 (PNEUMOVAX) Branch Pneumococcal 2003-12-03 Completed University o f Polysaccharide, 00:00:00 [place] [facility] PPSV23 (PNEUMOVAX) Branch Pneumococcal 2003-12-03 Completed University o f Polysaccharide, 00:00:00 [place] [facility] PPSV23 (PNEUMOVAX) Branch Pneumococcal 2003-12-03 Completed University o f Polysaccharide, 00:00:00 [place] [facility] PPSV23 (PNEUMOVAX) Branch Pneumococcal 2003-12-03 Completed University o f Polysaccharide, 00:00:00 [place] [facility] PPSV23 (PNEUMOVAX) Branch Pneumococcal 2003-12-03 Completed University o f Polysaccharide, 00:00:00 [facility] ical PPSV23 (PNEUMOVAX) [place] Vital Signs Vital Name Observation Time Observation Value Comments Source Systolic blood 2020-08-25 132 mm[Hg] University of pressure 15:12:00 [facility] Diastolic blood 2020-08-25 69 mm[Hg] University o f pressure 15:12:00 [facility] Heart rate 2020-08-25 74 /min [facility] 15:12:00 [facility] Body temperature 2020-08-25 35.89 Ester University of 15:12:00 [facility] Respiratory rate 2020-08-25 14 /min [place] of 15:12:00 [facility] Oxygen saturation 2020-08-25 99 /min [facility] Arterial blood 15:12:00 [facility] by Pulse oximetry Branch Systolic blood 2020-08-17 146 mm[Hg] University of pressure 18:39:00 [facility] Diastolic blood 2020-08-17 70 mm[Hg] University o f pressure 18:39:00 [facility] Heart rate 2020-08-17 72 /min University of 18:39:00 [facility] Body temperature 2020-08-17 36.44 Ester University of 18:39:00 [facility] Respiratory rate 2020-08-17 18 /min University of 18:39:00 [facility] Body height 2020-08-17 160 cm University of 18:39:00 [facility] Systolic blood 2020-07-22 195 mm[Hg] christiano [facility] [place] of pressure 13:49:00 headache. [facility] Diastolic blood 2020-07-22 78 mm[Hg] christiano SOB, [place] o f pressure 13:49:00 headache. [facility] Heart rate 2020-07-22 70 /min University of 13:49:00 [facility] Body temperature 2020-07-22 36.56 E[place] University of 13:44:00 [facility] Body height 2020-07-22 165.1 cm University of 13:44:00 [facility] Body weight 2020-07-22 74.844 kg University of 13:44:00 [facility] BMI 2020-07-22 27.46 kg/m2 University of 13:44:00 [facility] Heart rate 2020-06-28 75 /min [facility] 21:16:00 [facility] Respiratory rate 2020-06-28 18 /min University of 21:16:00 [facility] Oxygen saturation 2020-06-28 99 /min [facility] in Arterial blood 21:16:00 [facility] by Pulse oximetry Branch Systolic blood 2020-06-28 146 mm[Hg] University of pressure 20:05:00 [facility] Diastolic blood 2020-06-28 73 mm[Hg] University o f pressure 20:05:00 [facility] Body temperature 2020-06-28 35.56 Ester [facility] 20:05:00 [facility] Body weight 2020-06-25 81.9 kg University of 12:30:00 [facility] BMI 2020-06-25 33.23 kg/m2 University of 12:30:00 [facility] Body height 2020-06-21 157 cm [place] of 13:00:00 [facility] Systolic blood 2020-06-20 136 mm[Hg] University of pressure 15:00:00 [facility] Diastolic blood 2020-06-20 59 mm[Hg] University o f pressure 15:00:00 [facility] Heart rate 2020-06-20 63 /min University of 15:00:00 [facility] Respiratory rate 2020-06-20 15 /min [facility] 15:00:00 [facility] Oxygen saturation 2020-06-20 100 /min [facility] in Arterial blood 15:00:00 [facility] by Pulse oximetry Branch Body temperature 2020-06-20 36.61 Ester [facility] 13:50:00 [facility] Body height 2020-06-20 157 cm University of 13:00:00 [facility] Body weight 2020-06-20 86 kg University of 13:00:00 [facility] BMI 2020-06-20 34.08 kg/m2 University 13:00:00 [facility] Procedures Procedure Date / Time Performing Source Performed Clinician REFERRAL- REQUEST/RESPONSE 2020-08-29 [facility] of 05:01:00 Unassigned, No [facility] CONSENT/REFUSAL FOR DIAGNOSIS AND 2020-07-22 [facility] 13:29:59 Unassigned, No [facility] DNR 2020-07-05 [facility] 05:01:00 Unassigned, No [facility] COVID-19 (ID NOW RAPID TESTING) 2020-06-28 [facility] of 19:07:00 [facility] POCT GLUCOSE (AUTOMATED) 2020-06-28 Per Arzola sity of 17:10:00 [facility] POCT GLUCOSE (AUTOMATED) 2020-06-28 Per Arzola sity of 13:10:00 [facility] BASIC METABOLIC PANEL (NA, K, CL, 2020-06-28 Reza Miller [facility] of CO2, GLUCOSE, BUN, CREATININE, CA) 10:21:00 [facility] CBC WITH DIFF 2020-06-28 Jon[facility]ly [facility] of 10:21:00 [facility] POCT GLUCOSE (AUTOMATED) 2020-06-28 Per Arzola sity of 02:58:00 [facility] US RETROPERITONEAL COMPLETE 2020-06-28 [facility] 01:20:07 [facility] POCT GLUCOSE (AUTOMATED) 2020-06-27 Per Arzola sity of 22:50:00 [facility] POCT GLUCOSE (AUTOMATED) 2020-06-27 Per Arzola sity of 18:08:00 [facility] POCT GLUCOSE (AUTOMATED) 2020-06-27 Per Arzola sity of 13:40:00 [facility] BASIC METABOLIC PANEL (NA, K, CL, 2020-06-27 DunlapAkanksha [place] of CO2, GLUCOSE, BUN, CREATININE, CA) 09:56:00 [facility] POCT GLUCOSE (AUTOMATED) 2020-06-27 Per Arzola Univer sity of 08:40:00 [facility] POCT GLUCOSE (AUTOMATED) 2020-06-27 Per Arzola sity of 04:40:00 [facility] POCT GLUCOSE (AUTOMATED) 2020-06-27 Per Arzola sity of 00:35:00 [facility] POCT GLUCOSE (AUTOMATED) 2020-06-26 Per Arzola sity of 16:58:00 [facility] POCT GLUCOSE (AUTOMATED) 2020-06-26 Per Arzola sity of 13:14:00 [facility] SPUTUM CULTURE 2020-06-26 [facility] of 12:32:00 [facility] CBC WITH DIFF 2020-06-26 [facility] of 09:53:00 [facility] BASIC METABOLIC PANEL (NA, K, CL, 2020-06-26 [facility] CO2, GLUCOSE, BUN, CREATININE, CA) 09:52:00 [facility] POCT GLUCOSE (AUTOMATED) 2020-06-26 Per Arzola Univer sity of 09:40:00 [facility] POCT GLUCOSE (AUTOMATED) 2020-06-26 Per Arzola Univer sity of 06:08:00 [facility] POCT GLUCOSE (AUTOMATED) 2020-06-26 Per Arzola sity of 00:48:00 [facility] POCT GLUCOSE (AUTOMATED) 2020-06-25 Per Arzolaer sity of 20:22:00 [facility] POCT GLUCOSE (AUTOMATED) 2020-06-25 Per Arzola Univer sity of 16:11:00 [facility] POCT GLUCOSE (AUTOMATED) 2020-06-25 Per Arzola sity of 12:23:00 [facility] BLOOD CULTURE SCREEN 2020-06-25 [facility] of 10:35:00 [facility] BASIC METABOLIC PANEL (NA, K, CL, 2020-06-25 [facility] CO2, GLUCOSE, BUN, CREATININE, CA) 10:33:00 [facility] CBC WITH DIFF 2020-06-25 [facility] of 10:33:00 [facility] POCT GLUCOSE (AUTOMATED) 2020-06-25 Per Arzola Univer sity of 09:44:00 [facility] POCT GLUCOSE (AUTOMATED) 2020-06-25 Per Arzolaer sity of 04:36:00 [facility] POCT GLUCOSE (AUTOMATED) 2020-06-25 Per Arzola sity of 01:25:00 [facility] POCT GLUCOSE (AUTOMATED) 2020-06-24 Per Arzola Univmello sity of 22:15:00 [facility] CT ABDOMEN PELVIS WO CONTRAST 2020-06-24 [place], [facility] iversity of 19:02:03 [facility] URINE CULTURE 2020-06-24 [place], [facility] of 18:30:00 [facility] FUNGUS (ROUTINE) CULTURE 2020-06-24 [place], [facility] ity of 18:30:00 [facility] BLOOD CULTURE SCREEN 2020-06-24 [place], [facility] of 18:15:00 [facility] PROCALCITONIN 2020-06-24 [place], [facility] of 18:15:00 [facility] POCT GLUCOSE (AUTOMATED) 2020-06-24 Per Arzola sity of 15:02:00 [facility] BASIC METABOLIC PANEL (NA, K, CL, 2020-06-24 [place], [facility] CO2, GLUCOSE, BUN, CREATININE, CA) 10:32:00 [facility] CBC WITH DIFF 2020-06-24 [place], [facility] of 10:32:00 [facility] POCT GLUCOSE (AUTOMATED) 2020-06-24 Per Arzolaer sity of 08:58:00 [facility] POCT GLUCOSE (AUTOMATED) 2020-06-24 Per Arzola sity of 05:13:00 [facility] POCT GLUCOSE (AUTOMATED) 2020-06-24 Per Arzola sity of 02:33:00 [facility] POCT GLUCOSE (AUTOMATED) 2020-06-23 Per Arzola sity of 21:45:00 [facility] POCT GLUCOSE (AUTOMATED) 2020-06-23 Per Arzola sity of 16:36:00 [facility] URINALYSIS 2020-06-23 Angela [facility] of 15:53:00 [facility] URINE CULTURE 2020-06-23 Angela [facility] of 15:53:00 [facility] CREATININE, URINE RANDOM 2020-06-23 [facility]:53[facility]00 [facility] UREA NITROGEN, URINE RANDOM 2020-06-23 [facility], [facility] 15:53:00 [facility] SODIUM, URINE RANDOM 2020-06-23 [place], [facility] of 15:53:00 [facility] POCT GLUCOSE (AUTOMATED) 2020-06-23 Per Arzola [facility] sity of 15:02:00 J [facility] FECES CULTURE 2020-06-23 [facility], [facility] of 14:46:00 [facility] FECAL LEUKOCYTES 2020-06-23 [facility], [facility] of 14:46:00 [facility] CLOSTRIDIUM DIFFICILE TOXIN 2020-06-23 [facility], [facility] ersity of 14:46:00 [facility] FECAL PATHOGENS BY PCR 2020-06-23 [facility], [facility] y of 14:46:00 [facility] XR CHEST 1 VW 2020-06-23 [facility], [facility] of 14:02:00 [facility] BASIC METABOLIC PANEL (NA, K, CL, 2020-06-23 AngelaReza you [facility] of CO2, GLUCOSE, BUN, CREATININE, CA) 13:25:00 [facility] CBC WITHOUT DIFF 2020-06-23 [facility] of 13:25:00 [facility] TROPONIN I 2020-06-22 [facility], [facility] of 09:41:00 [facility] THYROID STIMULATING HORMONE 2020-06-22 [place], [facility] ersity of 09:41:00 [facility] BASIC METABOLIC PANEL (NA, K, CL, 2020-06-22 Emma Ricci [place] of CO2, GLUCOSE, BUN, CREATININE, CA) 09:41:00 [facility] CBC WITH DIFF 2020-06-22 [place], [facility] of 09:41:00 [facility] PROTHROMBIN TIME / INR 2020-06-22 [facility] y of 09:41:00 [facility] POCT GLUCOSE (AUTOMATED) 2020-06-22 Per Arzola [facility] sity of 01:29:00 [facility] POCT GLUCOSE (AUTOMATED) 2020-06-21 Per Arzola [facility] sity of 21:07:00 J [facility] POCT GLUCOSE (AUTOMATED) 2020-06-21 Deena Dinh Univers ity of 17:15:00 [facility] POCT GLUCOSE (AUTOMATED) 2020-06-21 Deena Dinh Univers ity of 17:15:00 [facility] CBC WITHOUT DIFF 2020-06-21 Emma Ricci [place] of 16:06:00 [facility] CBC WITHOUT DIFF 2020-06-21 [facility] of 16:06:00 [facility] POCT GLUCOSE (AUTOMATED) 2020-06-21 Deena Dinh Univers ity of 12:44:00 [facility] POCT GLUCOSE (AUTOMATED) 2020-06-21 Deena Dinh Univers ity of 12:44:00 [facility] TROPONIN I 2020-06-21 [facility] 11:15:00 [facility] TROPONIN I 2020-06-21 Salina Son [facility] 11:15:00 [facility] HB ECG ROUTINE & RHYTHM STRIP 2020-06-21 Salina Son Un iversity of 11:07:29 [facility] POCT GLUCOSE (AUTOMATED) 2020-06-21 Deena Dinh Univers ity of 08:14:00 [facility] POCT GLUCOSE (AUTOMATED) 2020-06-21 Deena Dinh Univers ity of 08:14:00 [facility] TROPONIN I 2020-06-21 Salina Son [facility] 05:08:00 [facility] BASIC METABOLIC PANEL (NA, K, CL, 2020-06-21 [facility] of CO2, GLUCOSE, BUN, CREATININE, CA) 05:08:00 [facility] CBC WITHOUT DIFF 2020-06-21 [facility] 05:08:00 [facility] TROPONIN I 2020-06-21 Salina Son [facility] 05:08:00 [facility] BASIC METABOLIC PANEL (NA, K, CL, 2020-06-21 Keiry [facility] of CO2, GLUCOSE, BUN, CREATININE, CA) 05:08:00 [facility] CBC WITHOUT DIFF 2020-06-21 [facility] of 05:08:00 [facility] POCT GLUCOSE (AUTOMATED) 2020-06-21 Deena Dinh Univers ity of 01:39:00 [facility] POCT GLUCOSE (AUTOMATED) 2020-06-21 Deena Dinh Univers ity of 01:39:00 [facility] POCT GLUCOSE (AUTOMATED) 2020-06-20 Deena Dinh Univers ity of 21:41:00 [facility] POCT GLUCOSE (AUTOMATED) 2020-06-20 Deena Dinh Univers ity of 21:41:00 [facility] TROPONIN I 2020-06-20 Emma Ricci [place] of 21:23:00 [facility] LIPID PANEL (03862)(TOTAL 2020-06-20 Emma Ricci [facility] of CHOLESTEROL, TRIGLYCERIDES, HDL) 21:23:00 [facility] TROPONIN I 2020-06-20 Emma Ricci [place] of 21:23:00 [facility] LIPID PANEL ([id number])(TOTAL 2020-06-20 Emma Ricci [facility] of CHOLESTEROL, TRIGLYCERIDES, HDL) 21:23:00 [facility] HB ECG ROUTINE & RHYTHM STRIP 2020-06-20 Emma Ricci Un iversity of 20:13:53 [facility] ACUTE CARE ARTERIAL BLOOD GAS 2020-06-20 Emma Ricci iversity of 19:22:00 [facility] ACUTE CARE ARTERIAL BLOOD GAS 2020-06-20 Emma Ricci Un iversity of 19:22:00 [facility] ACUTE CARE ARTERIAL BLOOD GAS 2020-06-20 Emma Ricci iversity of 18:47:00 [facility] EGD (ENDO) 2020-06-20 Deena Dinh [place] of 16:54:15 [facility] EGD (ENDO) 2020-06-20 Deena Dinh [place] of 16:54:15 [facility] POCT GLUCOSE (AUTOMATED) 2020-06-20 Deena Dinh Univers ity of 16:42:00 [facility] POCT GLUCOSE (AUTOMATED) 2020-06-20 Deena Dinh Univers ity of 16:42:00 [facility] CBC WITHOUT DIFF 2020-06-20 Viridiana [facility] 16:10:00 [facility] CBC WITHOUT DIFF 2020-06-20 Viridiana [place] of 16:10:00 [facility] TRANSTHORACIC ECHO (TTE) COMPLETE 2020-06-20 Emma Ricci [place] of W/ CONTRAST 15:40:00 [facility] TRANSTHORACIC ECHO (TTE) COMPLETE 2020-06-20 [facility] W/ CONTRAST 15:40:00 [facility] ESOPHAGOGASTRODUODENOSCOPY 2020-06-20 Livan [facility] rsity of 14:35:00 [facility] ESOPHAGOGASTRODUODENOSCOPY 2020-06-20 Livan [facility] rsity of 14:35:00 [facility] POCT GLUCOSE (AUTOMATED) 2020-06-20 Deena Dinh Univers ity of 12:46:00 [facility] POCT GLUCOSE (AUTOMATED) 2020-06-20 Deena Dihn Univers ity of 12:46:00 [facility] PREPARE PACKED RBC 2020-06-20 [facility] 10:42:44 [facility] PREPARE PACKED RBC 2020-06-20 [facility] 10:42:44 [facility] CBC WITHOUT DIFF 2020-06-20 [facility] of 09:58:00 [facility] CBC WITHOUT DIFF 2020-06-20 Keiry [facility] of 09:58:00 [facility] CBC WITHOUT DIFF 2020-06-20 Keiry [facility] of 08:38:00 [facility] CBC WITHOUT DIFF 2020-06-20 Keiry [facility] of 08:38:00 [facility] BASIC METABOLIC PANEL (NA, K, CL, 2020-06-20 Keiry [facility] of CO2, GLUCOSE, BUN, CREATININE, CA) 08:37:00 [facility] TROPONIN I 2020-06-20 [facility] of 08:37:00 [facility] BASIC METABOLIC PANEL (NA, K, CL, 2020-06-20 Keiry [facility] of CO2, GLUCOSE, BUN, CREATININE, CA) 08:37:00 [facility] CBC WITHOUT DIFF 2020-06-20 Keiry [facility] of 01:36:00 [facility] CBC WITHOUT DIFF 2020-06-20 Keiry [facility] of 01:36:00 [facility] POCT GLUCOSE (AUTOMATED) 2020-06-20 Deena Dinh Univers ity of 01:35:00 [facility] POCT GLUCOSE (AUTOMATED) 2020-06-20 Deena Dinh Univers ity of 01:35:00 [facility] SPUTUM CULTURE 2020-06-20 Emma Ricci [place] of 01:24:00 [facility] SPUTUM CULTURE 2020-06-20 Keiry [facility] of 01:24:00 [facility] URINE CULTURE 2020-06-19 Keiry [facility] of 19:43:00 [facility] URINE CULTURE 2020-06-19 Keiry [facility] of 19:43:00 [facility] TROPONIN I 2020-06-19 Salina Son, [facility] 19:14:00 [facility] BASIC METABOLIC PANEL (NA, K, CL, 2020-06-19 [facility], [place] of CO2, GLUCOSE, BUN, CREATININE, CA) 19:14:00 [facility] CBC WITHOUT DIFF 2020-06-19 Keiry [facility] of 19:14:00 [facility] TROPONIN I 2020-06-19 [facility] 19:14[facility]00 [facility] BASIC METABOLIC PANEL (NA, K, CL, 2020-06-19 [facility], [place] of CO2, GLUCOSE, BUN, CREATININE, CA) 19:14:00 [facility] CBC WITHOUT DIFF 2020-06-19 Keiry [facility] of 19:14:00 [facility] POCT GLUCOSE (AUTOMATED) 2020-06-19 Deena Dinh [facility] of 17:02:00 [facility] POCT GLUCOSE (AUTOMATED) 2020-06-19 Deena Dinh [facility] of 17:02:00 [facility] TROPONIN I 2020-06-19 Salina Son [facility] 12:52:00 [facility] CBC WITHOUT DIFF 2020-06-19 Emma Ricci [place] of 12:52:00 [facility] TROPONIN I 2020-06-19 Salina Son [facility] 12:52:00 [facility] CBC WITHOUT DIFF 2020-06-19 Emma Ricci [place] of 12:52:00 [facility] POCT GLUCOSE (AUTOMATED) 2020-06-19 Deena Dinh [facility] of 12:43:00 [facility] POCT GLUCOSE (AUTOMATED) 2020-06-19 Deena Dinh [facility] of 12:43:00 [facility] US RETROPERITONEAL LIMITED 2020-06-19 Sharee Patel rsity [facility] 10:40[facility] 2020-06-19 Sharee Patel rsity of 10:40:00 [facility] TROPONIN I 2020-06-19 Keiry [facility] of 06:33:00 [facility] BASIC METABOLIC PANEL (NA, K, CL, 2020-06-19 Keiry, [facility] of CO2, GLUCOSE, BUN, CREATININE, CA) 06:33:00 [facility] CBC WITHOUT DIFF 2020-06-19 Keiry [facility] of 06:33:00 [facility] PROTHROMBIN TIME / INR 2020-06-19 Keiry, [facility] y of 06:33:00 [facility] FIBRINOGEN 2020-06-19 Keiry, [facility] of 06:33:00 [facility] TROPONIN I 2020-06-19 Keiry, [facility] of 06:33:00 [facility] BASIC METABOLIC PANEL (NA, K, CL, 2020-06-19 Keiry, [facility] of CO2, GLUCOSE, BUN, CREATININE, CA) 06:33:00 [facility] CBC WITHOUT DIFF 2020-06-19 Keiry [facility] of 06:33:00 [facility] PROTHROMBIN TIME / INR 2020-06-19 Keiry [facility] y of 06:33:00 [facility] FIBRINOGEN 2020-06-19 Keiry [facility] of 06:33:00 [facility] URINE DRUG (IMMUNOASSAY) - 2020-06-19 Emma Ricci [facility] rsity of COMPREHENSIVE DRUG SCREEN 01:10:00 [facility] URINALYSIS 2020-06-19 Keiry [facility] of 01:10:00 [facility] CREATININE, URINE RANDOM 2020-06-19 [facility] of 01:10:00 [facility] UREA NITROGEN, URINE RANDOM 2020-06-19 Keiry [facility] ersity of 01:10:00 [facility] URINE DRUG (IMMUNOASSAY) - 2020-06-19 [facility] of COMPREHENSIVE DRUG SCREEN 01:10:00 [facility] URINALYSIS 2020-06-19 Keiry [facility] of 01:10:00 [facility] CREATININE, URINE RANDOM 2020-06-19 Keiry Count includes the [facility] of 01:10:00 [facility] UREA NITROGEN, URINE RANDOM 2020-06-19 Emma Ricci [facility] ersity of 01:10:00 [facility] POCT GLUCOSE (AUTOMATED) 2020-06-19 Deena Dinh [facility] of 01:02:00 [facility] POCT GLUCOSE (AUTOMATED) 2020-06-19 Deena Dinh [facility] of 01:02:00 [facility] XR ABDOMEN 1 VW 2020-06-18 Keiry Emma [place] of 23:50:00 [facility] XR CHEST 1 VW 2020-06-18 Keiry [facility] of 23:50:00 [facility] XR ABDOMEN 1 VW 2020-06-18 Keiry, [facility] of 23:50:00 [facility] XR CHEST 1 VW 2020-06-18 Keiry Emma [place] of 23:50:00 [facility] AC PANEL 20 + LACTIC ACID 2020-06-18 Keiry [facility] sity of 23:34:00 [facility] AC PANEL 20 + LACTIC ACID 2020-06-18 Keiry [facility] sity of 23:34:00 [facility] AMMONIA, PLASMA 2020-06-18 Keiry [facility] of 23:31:00 [facility] VITAMIN B12, LEVEL 2020-06-18 Keiry [facility] of 23:31:00 [facility] FOLATE 2020-06-18 Keiry [facility] of 23:31:00 [facility] TROPONIN I 2020-06-18 Keiry [facility] of 23:31:00 [facility] HEPATIC FUNCTION PANEL (74672) 2020-06-18 Emma Ricci niversity of (ALB,T.PRO,BILI 23:31:00 [facility],BU/BC,ALT,AST,ALK PHOS) Branch BASIC METABOLIC PANEL (NA, K, CL, 2020-06-18 Emma Ricci of CO2, GLUCOSE, BUN, CREATININE, CA) 23:31:00 [facility] ACETAMINOPHEN 2020-06-18 Keiry [facility] of 23:31:00 [facility] CBC WITH DIFF 2020-06-18 Keiry [facility] of 23:31:00 [facility] GLYCOSYLATED HEMOGLOBIN (A1C) 2020-06-18 Emma Ricci iversity of 23:31:00 [facility] PROTHROMBIN TIME / INR 2020-06-[address] [facility] y of 23:31:00 [facility] ACTIVATED PARTIAL THRMPLAS CATRINA 2020-06-18 Emma Ricci niversity of 23:31:00 [facility] FIBRINOGEN 2020-06-18 Keiry, [facility] of 23:31:00 [facility] PROCALCITONIN 2020-06-18 Keiry, [facility] of 23:31:00 [facility] MRSA / MSSA SCREEN BY PCR, NARBERTIN 2020-06-18 Keiry, [facility] of 23:31:00 [facility] AMMONIA, PLASMA 2020-06-18 Keiry, [facility] of 23:31:00 [facility] VITAMIN B12, LEVEL 2020-06-18 Keiry, [facility] of 23:31:00 [facility] FOLATE 2020-06-18 Keiry, [facility] of :31:00 [facility] TROPONIN I 2020-06-18 Keiry, [facility] of 23:31:00 [facility] HEPATIC FUNCTION PANEL ([id number]) 2020-06-18 Emma Ricci niversity of (ALB,T.PRO,BILI 23:31:00 [facility],BU/BC,ALT,AST,ALK PHOS) [place] BASIC METABOLIC PANEL (NA, K, CL, 2020-06-18 Emma Ricci of CO2, GLUCOSE, BUN, CREATININE, CA) 23:31:00 [facility] ACETAMINOPHEN 2020-06-18 Keiry [facility] of 23:31:00 [facility] CBC WITH DIFF 2020-06-18 Keiry [facility] of 23:31:00 [facility] GLYCOSYLATED HEMOGLOBIN (A1C) 2020-06-18 Emma Ricci iversity of 23:31:00 [facility] PROTHROMBIN TIME / INR 2020-06-[address] [facility] y of 23:31:00 [facility] ACTIVATED PARTIAL THRMPLAS CATRINA 2020-06-18 Emma Ricci niversity of 23:31:00 [facility] FIBRINOGEN 2020-06-18 Keiry [facility] of 23:31:00 [facility] PROCALCITONIN 2020-06-18 Keiry [facility] of 23:31:00 [facility] MRSA / MSSA SCREEN BY PCR, PENELOPE 2020-06-18 Keiry, [facility] of 23:31:00 [facility] HB ABO GROUPING 2020-06-18 Keiry [facility] of 23:30:00 [facility] HB ABO GROUPING 2020-06-18 Keiry Emma [place] of 23:30:00 [facility] TRANSFUSE PACKED RBC 2020-06-18 Sanjay Day [place] of 22:12:13 [facility] TRANSFUSE PACKED RBC 2020-06-18 Sanjay Day [place] of 22:12:13 [facility] AC PANEL 20 + LACTIC ACID 2020-06-18 Isaias Donald [facility] sity of 21:35:00 [facility] AC PANEL 20 + LACTIC ACID 2020-06-18 Isaias Donald [facility] sity of 21:35:00 [facility] TX INSERT EMERGENCY ENDOTRACH 2020-06-18 Isaias Donald Un iversity of AIRWAY 21:34:37 [facility] TX INSERT EMERGENCY ENDOTRACH 2020-06-18 Isaias Donald Un iversity of AIRWAY 21:34:37 [facility] MAGNESIUM 2020-06-18 [facility] of 21:13:00 [facility] FERRITIN SERUM 2020-06-18 Emma Ricci [place] of 21:13:00 [facility] TROPONIN I 2020-06-18 Sanjay Day [place] of 21:13:00 [facility] BASIC METABOLIC PANEL (NA, K, CL, 2020-06-18 Sanjay Day [place] of CO2, GLUCOSE, BUN, CREATININE, CA) 21:13:00 [facility] CBC WITH DIFF 2020-06-18 Sanjay Day [place] of 21:13:00 [facility] MAGNESIUM 2020-06-18 [facility] of 21:13:00 [facility] FERRITIN SERUM 2020-06-18 Emma Ricci [place] of 21:13:00 [facility] TROPONIN I 2020-06-18 Sanjay Day [place] of 21:13:00 [facility] BASIC METABOLIC PANEL (NA, K, CL, 2020-06-18 Sanjay Day [place] of CO2, GLUCOSE, BUN, CREATININE, CA) 21:13:00 [facility] CBC WITH DIFF 2020-06-18 Sanjay Day [place] of 21:13:00 [facility] XR CHEST 1 VW 2020-06-18 Sanjay Day [place] of 21:05:58 [facility] XR CHEST 1 VW 2020-06-18 Sanjay Day [place] of 21:05:58 [facility] PREPARE PACKED RBC 2020-06-18 Sanjay Day [place] of 21:02:40 [facility] PREPARE PACKED RBC 2020-06-18 Sanjay Day [place] of 21:02:40 [facility] POCT GLUCOSE (AUTOMATED) 2020-06-18 Sanjay Day [facility] it[facility] of 20:52:00 [facility] POCT GLUCOSE (AUTOMATED) 2020-06-18 Sanjay Day [facility] ity of 20:52:00 [facility] CT ABDOMEN PELVIS W WO CONTRAST 2020-06-18 Sanjay Day [place] of 20:48:58 [facility] CT ABDOMEN PELVIS W WO CONTRAST 2020-06-18 Sanjay Day [place] of 20:48:58 [facility] CT CERVICAL SPINE WO CONTRAST 2020-06-18 Sanjay Day Un iversity of 20:48:31 [facility] CT HEAD WO CONTRAST 2020-06-18 Sanjay Day [place] o f 20:48:31 [facility] CT LUMBAR SPINE WO CONTRAST 2020-06-18 Sanjay Day Univ ersity of 20:48:31 [facility] CT THORACIC SPINE WO CONTRAST 2020-06-18 Sanjay Day Un iversity of 20:48:31 [facility] CT THORAX WO CONTRAST 2020-06-18 Sanjay Day [place] of 20:48:31 [facility] CT CERVICAL SPINE WO CONTRAST 2020-06-18 Sanjay Day Un iversity of 20:48:31 [facility] CT HEAD WO CONTRAST 2020-06-18 Sanjay Day [place] o f 20:48:31 [facility] CT LUMBAR SPINE WO CONTRAST 2020-06-18 Sanjay Day Univ ersity of 20:48:31 [facility] CT THORACIC SPINE WO CONTRAST 2020-06-18 Sanjay Day Un iversity of 20:48:31 [facility] CT THORAX WO CONTRAST 2020-06-18 Sanjay Day [place] of 20:48:31 [facility] CRITICAL CARE 2020-06-18 Isaias Donald of 19:57:42 [facility] CRITICAL CARE 2020-06-18 Isaias Donald of 19:57:42 [facility] [place] INSERT NON-TUNNEL CV CATH 2020-06-18 Isaias Donald Uni versity of 19:47:24 [facility] TX INSERT NON-TUNNEL CV CATH 2020-06-18 Isaias Donald Uni versity of 19:47:24 [facility] XR CHEST 1 VW 2020-06-18 Sanjay Day of 19:39:30 [facility] XR CHEST 1 VW 2020-06-18 Sanjay Day of 19:39:30 [facility] ABORH CONFIRMATION 2020-06-18 Isaias Donald of 19:10:00 [facility] ABORH CONFIRMATION 2020-06-18 Isaias Donald of 19:10:00 [facility] XR CHEST 1 VW 2020-06-18 Sanjay Day [place] of 17:51:57 [facility] XR CHEST 1 VW 2020-06-18 Sanjay Day [place] of 17:51:57 [facility] LACTIC ACID WHOLE BLOOD 2020-06-18 Sanjay Day [facility] ty of 17:42:00 [facility] LACTIC ACID WHOLE BLOOD 2020-06-18 Sanjay Day [facility] ty of 17:42:00 [facility] BLOOD CULTURE SCREEN 2020-06-18 Sanjay Day [place] of 17:41:00 [facility] LIPASE 2020-06-18 Sanjay Day [place] of 17:41:00 [facility] TROPONIN I 2020-06-18 Sanjay Day [place] of 17:41:00 [facility] COMP. METABOLIC PANEL (37294) 2020-06-18 Sanjay Day Un iversity of 17:41:00 [facility] CBC WITH DIFF 2020-06-18 Sanjay Day [place] of 17:41:00 [facility] N-TERMINAL PRO-BNP 2020-06-18 Sanjay Day [place] of 17:41:00 [facility] COVID-19 (ID NOW RAPID TESTING) 2020-06-18 Sanjay Day [place] of 17:41:00 [facility] LAB ONLY COVID INTERPRETATION 2020-06-18 Sanjay Day Un iversity of 17:41:00 [facility] BLOOD CULTURE SCREEN 2020-06-18 Sanjay Day University of 17:41:00 [facility] LIPASE 2020-06-18 Sanjay Day [place] of 17:41:00 [facility] TROPONIN I 2020-06-18 Sanjay Day [place] of 17:41:00 [facility] COMP. METABOLIC PANEL ([id number]) 2020-06-18 Sanjay Day Un iversity of 17:41:00 [facility] CBC WITH DIFF 2020-06-18 Sanjay Day [place] of 17:41:00 [facility] N-TERMINAL PRO-BNP 2020-06-18 Sanjay Day [place] of 17:41:00 [facility] COVID-19 (ID NOW RAPID TESTING) 2020-06-18 Sanjay Day [place] of 17:41:00 [facility] LAB ONLY COVID INTERPRETATION 2020-06-18 Sanjay Day Un iversity of 17:41:00 [facility] URINALYSIS 2020-06-18 Sanjay Day [place] of 17:40:00 [facility] HB ABO GROUPING 2020-06-18 Sanjay Day [place] of 17:40:00 [facility] URINALYSIS 2020-06-18 Sanjay Day [place] of 17:40:00 [facility] HB ABO GROUPING 2020-06-18 Sanjay Day [place] of 17:40:00 [facility] BLOOD CULTURE SCREEN 2020-06-18 Sanjay Day [place] of 17:30:00 [facility] BLOOD CULTURE SCREEN 2020-06-18 Sanjay Day [facility] 17:30:00 [facility] EMERGENCY DEPARTMENT DOCUMENTS 2020-06-18 Doctor U niversity of 05:01:00 Unassigned, No [facility] EMERGENCY DEPARTMENT DOCUMENTS 2020-06-18 Doctor U niversity of 05:01:00 Unassigned, No [facility] DISCLOSURE AND CONSENT, MEDICAL 2020-06-18 Doctor [place] of AND SURGICAL PROCEDURES 05:01:00 Unassigned, No [facility] EXTERNAL PROVIDER RECORDS 2019-08-24 Doctor Macarena ray of 05:01:00 Unassigned, No [place] [facility] Encounters Start End Encounter Admission Attending Care Care Encounter Source Date/Time Date/Time Type Type Clinicians Facility Department ID 2021-05-11 Outpatient Shobha Wills [facility]ML[facility] ST[facility] [id number] [facility] 08:25:01 [id number] [facility] 2021-04-19 Outpatient Elma Na STLMLC STLMLC [id number] [facility] 08:55:00 [id number] [facility] 2021-03-29 Outpatient Elma, Na STLMLC STLMLC [id number] [facility] 14:31:09 [facility] 2021-03-29 Outpatient Elma, Na STLMLC STLMLC [id number] [facility] 14:23:25 [id number] [facility] 2021-03-29 Outpatient Elma, Na STLMLC STLMLC [id number] [facility] 14:20:23 [id number] [facility] 2021-03-29 Outpatient Elma, Na STLMLC STLMLC [id number] [facility] 14:19:35 [id number] [facility] 2021-03-29 Outpatient Elma, Na STLMLC STLMLC [id number] [facility] 14:03:01 [id number] [facility] 2021-03-29 Outpatient Elma, Na STLMLC STLMLC [id number] [facility] 13:59:36 [id number] [facility] 2021-03-29 Outpatient Wills, Na STLMLC STLMLC [id number] [facility] 13:41:28 [id number] [facility] 2021-03-29 Outpatient Wills, Na STLMLC STLMLC [id number] [facility] 13:40:46 [id number] [facility] 2021-03-29 Outpatient Wills, Na STLMLC STLMLC [id number] [facility] 13:40:32 [id number] [facility] 2021-03-29 Outpatient Wills, Na STLMLC STLMLC [id number] [facility] 13:38:30 [id number] [facility] 2021-03-29 Outpatient Wills, Na STLMLC STLMLC [id number] [facility] 13:36:07 [id number] [facility] 2021-03-29 Outpatient Wills, Na STLMLC STLMLC [id number] [facility] [address] 12:37:47 [id number] [facility] 2021-03-29 Outpatient Wills, Na STLMLC STLMLC [id number] [facility] 12:37:09 [id number] [facility] 2021-03-29 Outpatient Wills, Na STLMLC STLMLC [id number] [facility] 12:10:40 [id number] [facility] 2021-03-29 Outpatient Wills, Na STLMLC STLMLC [id number] [facility] 11:53:41 [id number] [facility] 2021-03-29 Outpatient Wills, Na STLMLC STLMLC [id number] [facility] [address] 11:37:05 [id number] [facility] 2021-03-29 Outpatient Wills, Na STLMLC STLMLC [id number] 11:32:59 [id number] [facility] 2021-03-29 Outpatient Wills, Na STLMLC STLMLC [id number] [facility] 11:26:40 [id number] [facility] 2021-03-29 Outpatient Wills, Na STLMLC STLMLC [id number] [facility] 11:17:39 [id number] [facility] 2021-03-29 Outpatient Wills, Na STLMLC STLMLC [id number] [facility] 11:08:12 [id number] [facility] 2021-03-29 Outpatient Wills, Na STLMLC STLMLC [id number] 11:00:23 [id number] [facility] 2021-01-01 Emergency [facility] [id number] Univers 13:34:55 [facility] 2021-05-12 2021-05-12 ambulatory [facility] [id number] [facility]00 [facility] 2021-04-17 2021-04-17 ambulatory [facility] [id number] [facility]00 [facility] 2021-03-29 2021-03-29 ambulatory [facility] [id number] [facility]00 [facility] 2021-03-16 2021-03-16 ambulatory [facility] [id number] [facility]00 [facility] 2021-03-16 2021-03-16 ambulatory [facility] [id number] [facility]00 [facility] 2021-03-06 2021-03-06 ambulatory [facility] [id number] [facility]00 [facility] 2021-02-13 2021-02-13 ambulatory [facility] [id number] [facility]00 [facility] 2021-02-01 2021-02-01 ambulatory [facility] [id number] [facility]00 [facility] 2021-01-13 2021-01-13 ambulatory [facility] [id number] [facility]00 [facility] 2021-01-10 2021-01-10 ambulatory [facility] [id number] [facility]00 [facility] 2021-01-09 2021-01-09 ambulatory [facility] [id number] [facility] 2020-12-19 2020-12-19 Outpatient [facility] [id number] [facility] 2020-12-15 2020-12-15 Outpatient [facility] [id number] [facility] 2020-12-08 2020-12-08 Outpatient [facility] [id number] [facility] 2020-12-01 2020-12-01 Outpatient [facility] [id number] Univers 00:00:00 00:00:00 [facility] 2020-11-29 2020-11-29 Outpatient [facility] [id number] [facility]00 [facility] 2020-11-18 2020-11-18 Outpatient [facility] [id number] [facility]00 [facility] 2020-11-14 2020-11-14 Outpatient [facility] [id number] [facility]00 [facility] 2020-11-08 2020-11-08 Outpatient [facility] [id number] [facility]00 [facility] 2020-11-04 2020-11-04 Outpatient [facility] [id number] [facility]00 [facility] 2020-11-03 2020-11-03 Outpatient [facility] [id number] [facility]00 [facility] 2020-11-03 2020-11-03 Outpatient [facility] [id number] [facility] 2020-10-31 2020-10-31 Outpatient [facility] [id number] [facility]00 [facility] 2020-10-27 2020-10-27 Outpatient [facility] [id number] [facility] 2020-10-19 2020-10-19 Outpatient R GRAMM, [facility] [id number] Univers 10:00:00 10:00:00 NEREYDA [id number] [facility] 2020-10-19 2020-10-19 Outpatient R GRAMM, [facility] [id number] Univers 10:00:00 10:00:00 [facility] 2020-10-14 2020-10-14 Outpatient [facility] [id number] [facility]00 [facility] 2020-10-12 2020-10-12 Outpatient R GRAMM, [facility] [id number] Univers 13:00:00 13:00:00 NEREYDA [id number] [facility] 2020-10-12 2020-10-12 Outpatient R GRAMM, [facility] [id number] Univers 13:00:00 13:00:00 [facility] 2020-10-10 2020-10-10 Outpatient [facility] [id number] [facility]00 [facility] 2020-10-04 2020-10-04 Outpatient [facility] [id number] [facility]00 [facility] 2020-08-29 2020-08-29 Orders Doctor NINOSKA [id number] Univers 00:00:00 00:00:00 Only Unassigned, DESIRE [id number] [facility] [id number] Caleb as [id number] [address] 2020-08-25 2020-08-25 Nurse Nurse, [facility] Surgery [facility] 1.2. [id number] Univers 09:27:10 10:09:53 Visit Nereyda Carrillo Jean Claude [id number] [place] [id number] [place] [id number] Ak dical nal [address] [facility] 2020-08-25 2020-08-25 Outpatient R [facility] [id number] Univers 09:30:00 09:30:00 [id number] ity [facility] 2020-08-25 2020-08-25 Outpatient R [facility] [id number] Univers 09:30:00 09:30:00 ity of [facility] 2020-08-24 2020-08-24 Outpatient R [facility] [id number] Univers 10:30:00 10:30:00 [id number] ity [facility] 2020-08-24 2020-08-24 Outpatient R JACQUIE, [facility] [id number] Univers 10:30:00 10:30:00 NEREYDA ity [facility] 2020-08-17 2020-08-17 Outpatient R GRAMM, [facility] [id number] Univers 15:30:00 15:30:00 NEREYDA [id number] [facility] 2020-08-17 2020-08-17 Outpatient R GRAMM, [facility] [id number] Univers 15:30:00 15:30:00 [facility]-08-17 2020-08-17 [facility] [id number] Univers 13:29:06 13:52:45 Visit Nereyda [place] Jean Claude [id number] it[place] Profess[place] [phone] Ak dical nal 204 [facility] 2020-07-27 2020-07-27 Letter Clinic, UNIVERSIT [id number] Univers 00:00:00 00:00:00 (Out) [facility] HEALTH [id number] i ty of Cardiology CLINICS 4.2.7.2.686 [place] [phone] [facility] 059 Branch 2020-07-22 2020-07-22 Office ADRIAN PisanoIT 1.2.840.114 [id number] Univers 08:33:40 09:52:28 Visit Serena [place] [id number] it[place] of CLINICS [place] [phone] [facility] 204 Branch 2020-07-22 2020-07-22 Outpatient R [facility] [id number] Univers 08:00:00 08:00:00 SERENA [id number] ity [facility] 2020-07-22 2020-07-22 Outpatient R [facility] [id number] Univers 08:00:00 08:00:00 SERENA [facility] 2020-07-22 2020-07-22 Orders Doctor NINOSKA [id number] [id number] Univers 00:00:00 00:00:00 Only Unassigned, DESIRE 350.1.13.10 [facility] 4.2.7.2.686 Caleb as [phone] [facility] 009 Branch 2020-07-07 2020-07-07 Outpatient STLMLC [facility] [id number] [facility]00 [facility] 2020-07-05 2020-07-05 Orders Doctor NINOSKA [id number] [id number] Univers 00:00:00 00:00:00 Only Unassigned, DESIRE 350.1.13.10 [facility] 4.2.7.2.686 Caleb as [phone] [facility] 009 Branch 2020-06-29 2020-06-29 Transition Alex Ghotra 1.2.840.114 [id number] Univers 00:00:00 00:00:00 of Care Bernie Tran 350.1.13.10 i ty of [place]2.7.2.[place] [phone] [facility] 403 Branch 2020-06-18 2020-06-28 Hospital Isaias Donald [id number] Univers 11:52:00 18:15:00 Encounter Sanjay Dayy 350.1.13.10 ity [facility] 4.2.7.2.686 Per Hassan [phone] Medical 100 Branch 2020-06-20 2020-06-20 Surgery Hien, [facility] [id number] Univers 09:35:00 10:09:00 Livan ICAL 350.1.13.10 it of [facility] 4.2.7.2.686 [facility] BLDG [phone] [place] [address] Branch 2020-05-18 2020-05-18 Outpatient STLMLC [facility] [id number] [facility] 2020-05-17 2020-05-17 Outpatient STLMLC [facility] [id number] [facility] 2020-05-10 2020-05-10 Outpatient [facility]MLC [facility] [id number] [facility] 2020-04-14 2020-04-14 Outpatient [facility]MLC [facility] [id number] [facility] 2020-03-28 2020-03-28 Outpatient STLMLC [facility] [id number] [facility] 2020-03-16 2020-03-16 Outpatient [facility]LMLC [facility] [id number] [facility] 2020-03-07 2020-03-07 Outpatient [facility]MLC [facility] [id number] [facility] 2020-02-19 2020-02-19 Outpatient [facility]LMLC [facility] [id number] [facility] 2020-02-15 2020-02-15 Outpatient STLMLC [facility] [id number] [facility] 2020-02-11 2020-02-11 Outpatient [facility]LMLC [facility] [id number] [facility] 2020-02-04 2020-02-04 Outpatient [facility]LMLC [facility] [id number] [facility] 2020-02-01 2020-02-01 Outpatient STLMLC [facility] [id number] [facility] 2020-01-26 2020-01-26 Outpatient STLMLC [facility] [id number] [facility] 2020-01-25 2020-01-25 Outpatient [facility]MLC [facility] [id number] [facility] 2020-01-22 2020-01-22 Outpatient [facility]LMLC [facility] [id number] [facility] 2020-01-11 2020-01-11 Outpatient [facility]MLC [facility] [id number] [facility] 2020-01-09 2020-01-09 Outpatient [facility]MLC [facility] [id number] [facility] 2020-01-09 2020-01-09 Outpatient [facility]MLC [facility] [id number] [facility] 2020-01-07 2020-01-07 Outpatient [facility]LMLC [facility] [id number] [facility] 2020-01-04 2020-01-04 Outpatient STLMLC [facility] [id number] [facility] 2020-01-01 2020-01-01 Outpatient STLMLC STLC [id number] [facility] 2019-12-29 2019-12-29 Outpatient STLMLC [facility] [id number] [facility] 2019-12-17 2019-12-17 Outpatient STLMLC [facility] [id number] [facility] 2019-12-02 2019-12-02 Outpatient STLMLC STLC [id number] [facility] 2019-11-20 2019-11-20 Outpatient STLMLC STLC [id number] [facility] 2019-11-10 2019-11-10 [facility] [id number] [address] 08:20:00 08:20:00 t Cylinder Lagiar s - Drive [facility] Medicine l Medicine Outpati ent Clinics 2019-10-30 2019-10-30 [facility] [id number] 10:30:00 10:30:00 t Vizibility s - [email or web address] [facility] Medicine l Medicine Outpati ent Clinics 2019-10-28 2019-10-28 [facility] [id number] 09:58:00 09:58:00 t Cylinder Lagiar s - Drive [facility] Family Medicine l Medicine Outpati ent Clinics 2019-10-23 2019-10-23 [facility] [id number] 09:27:00 09:27:00 t Cylinder Lagiar s - Drive [facility] Family Medicine l Medicine Outpati ent Clinics 2019-10-21 2019-10-21 [facility] [id number] 08:48:00 08:48:00 t Cylinder Lagiar s - [email or web address] [facility] Medicine l Medicine Outpati ent Clinics 2019-10-19 2019-10-19 [facility] [id number] 12:17:00 12:17:00 t Cylinder Lagiar s - Drive [facility] Family Medicine l Medicine Outpati ent Clinics 2019-10-09 2019-10-09 Outpatient Mayito NOONAN [facility] [id number] Univers 09:45:00 09:45:00 DAYAN young [facility] 2019-10-09 2019-10-09 Outpatient Mayito NOONAN [facility] [id number] Univers 09:45:00 09:45:00 DAYAN young [facility] 2019-10-05 2019-10-05 [facility] [id number] [facility] 14:31:00 14:31:00 t Cylinder [facility] [employer] s - Drive [facility] Medicine l Medicine Outpati ent Clinics 2019-10-05 2019-10-05 [facility] [id number] [facility] 10:25:00 10:25:00 [facility] [address] [facility] Medicine l Medicine Outpati ent Clinics 2019-09-29 2019-09-29 [facility] [id number] 09:40:00 09:40:00 t Cylinder [facility] Luke s - Drive [facility] Family Medicine l Medicine Outpati ent Clinics 2019-09-25 2019-09-25 [facility] [id number] [facility] 10:36:00 10:36:00 t Cylinder [facility] [employer] s - Drive [facility] Medicine l Medicine Outpati ent Clinics 2019-09-24 2019-09-24 [facility] [id number] 16:17:00 16:17:00 t Cylinder [facility] Luke s - Drive [facility] Medicine l Medicine Outpati ent Clinics 2019-09-23 2019-09-23 [facility] [id number] 16:46:00 16:46:00 t Cylinder [facility] [employer] s - Drive [facility] Medicine l Medicine Outpati ent Clinics 2019-09-15 2019-09-15 [facility] [id number] 08:47:00 08:47:00 t Cylinder [facility] [employer] s - Drive [facility] Medicine l Medicine Outpati ent Clinics 2019-09-04 2019-09-04 Outpatient Mayito NOONAN [facility] [id number] Univers 09:00:00 09:00:00 DAYAN rosey o f [facility] 2019-09-04 2019-09-04 Outpatient Mayito NOONAN [facility] [id number] Univers 09:00:00 09:00:00 DAYAN young [facility] 2019-09-02 2019-09-02 [facility] [id number] 15:56:00 15:56:00 t Vizibility s - [email or web address] [facility] Medicine Outpati ent Clinics 2019-08-28 2019-08-28 [facility] [id number] 15:32:00 15:32:00 t Vizibility s [place] [facility] Medicine Outpati ent Clinics 2019-08-24 2019-08-24 Orders Doctor XIAO [id number] 00:00:00 00:00:00 Only Unassigned, DESIRE 350.1.13.10 [place] [facility] 4.2.7.2.686 Caleb as [phone] [address] 2019-08-18 2019-08-18 [facility] [id number] 14:08:00 14:08:00 t Vizibility s - [email or web address] [facility] Medicine Outpati ent Clinics 2019-07-16 2019-07-16 [facility] [id number] [address] 11:35:00 11:35:00 t Vizibility s - [email or web address] [facility] Medicine Medicine Outpati ent Clinics 2019-06-17 2019-06-17 [facility] [id number] [facility] 15:30:00 15:30:00 t Vizibility s [place] [facility] Medicine Medicine Outpati ent Clinics 2019-06-16 2019-06-16 [facility] [id number] 09:40:00 09:40:00 t [employer] [facility] Medicine Outpati ent Clinics 2019-05-27 2019-05-27 [facility] [id number] 08:37:00 08:37:00 t Vizibility s - [email or web address] [facility] Medicine Outpati ent Clinics 2019-05-21 2019-05-21 [facility] [id number] 16:46:00 16:46:00 t Cylinder Lagiar s - Drive [facility] Family Medicine l Medicine Outpati ent Clinics 2019-05-15 2019-05-15 [facility] [id number] 09:20:00 09:20:00 t Cylinder Lagiar s - Drive [facility] Medicine l Medicine Outpati ent Clinics 2019-04-29 2019-04-29 [facility] [id number] 16:16:00 16:16:00 t Cylinder Lagiar s - Drive [facility] Medicine l Medicine Outpati ent Clinics 2019-04-07 2019-04-07 [facility] [id number] 09:16:00 09:16:00 t Cylinder Lagiar s - [email or web address] [facility] l Medicine Outpati ent Clinics 2019-03-25 2019-03-25 [facility] [id number] 15:49:00 15:49:00 t Cylinder Lagiar s - [email or web address] [facility] Medicine l Medicine Outpati ent Clinics 2019-03-18 2019-03-18 [facility] [id number] 09:36:00 09:36:00 t Cylinder Lagiar s - [email or web address] [facility] Medicine l Medicine Outpati ent Clinics 2019-03-17 2019-03-17 [facility] [id number] 09:40:00 09:40:00 t Cylinder Lagiar s - [email or web address] [facility] Medicine l Medicine Outpati ent Clinics 2019-03-11 2019-03-11 [facility] [id number] 08:28:00 08:28:00 t Cylinder Lagiar s - Drive [facility] Medicine l Medicine Outpati ent Clinics 2019-02-23 2019-02-23 [facility] [id number] [facility] 10:01:00 10:01:00 t Cylinder Lagiar s - Drive [facility] Medicine l Medicine Outpati ent Clinics 2019-02-12 2019-02-12 [facility] [id number] 10:37:00 10:37:00 t Cylinder Lagiar s [place] [facility] Medicine Outpati ent Clinics 2019-01-23 2019-01-23 [facility] [id number] [facility] 08:41:00 08:41:[address] Luke s - Drive [facility] Medicine Outpati ent Clinics 2019-01-20 2019-01-20 [facility] [id number] [facility] 09:20:00 09:20:[address] Luke s - Drive [facility] Medicine Outpati ent Clinics 2018-12-24 2018-12-24 [facility] [id number] 09:03:00 09:03:[address] Luke s - Drive [facility] Medicine Outpati ent Clinics 2018-12-18 2018-12-18 [facility] [id number] [facility] 08:43:00 08:43:[address] Luke s - Drive [facility] Medicine Outpati ent Clinics 2018-12-11 2018-12-11 [facility] [id number] 09:21:00 09:21:[address] Luke s - Drive [facility] Medicine Outpati ent Clinics 2018-11-17 2018-11-17 [facility] [id number] 11:04:00 11:04:00 t Cylinder Cylinder [email or web address] Luke s - Drive [facility] Medicine Outpati ent Clinics 2018-09-29 2018-09-29 [facility] [id number] [facility] 09:00:00 09:00:00 t [facility] 2018-09-10 2018-09-10 [facility] [id number] 14:53:00 14:53:00 [facility] 2018 2018 [facility] [id number] 13:37:00 13:37:[address] Luke s - Drive [facility] Medicine Outpati ent Clinics 2018-09-02 2018-09-02 [facility] [id number] 14:43:00 14:43:00 t Urgent Urgent Care L uk - Care Clinic [facility] l Outpati ent Clinics 2018-09-02 2018-09-02 [facility] [id number] 13:00:00 13:00:00 t Cylinder Cylinder [email or web address] s - Drive [facility] Medicine l Medicine Outpati ent Clinics 2018-09-02 2018-09-02 [facility] [id number] 08:54:00 08:54:00 t Cylinder Cylinder [email or web address] s - Drive [facility] Medicine l Medicine Outpati ent Clinics 2018-08-08 2018-08-08 [facility] [id number] 09:19:00 09:19:00 t Cylinder Cylinder [employer] s - Drive [facility] l Medicine Outpati ent Clinics 2018-07-11 2018-07-11 [facility] [id number] 10:02:00 10:02:00 t Cylinder Cylinder [employer] s - Drive [facility] l Medicine Outpati ent Clinics 2018-07-07 2018-07-07 [facility] [id number] 08:16:00 08:16:00 t Cylinder Cylinder [employer] s - Drive [facility] Medicine l Medicine Outpati ent Clinics 2018-06-13 2018-06-13 [facility] [id number] 11:20:00 11:20:00 t Cylinder Cylinder [employer] s - Drive [facility] l Medicine Outpati ent Clinics 2018-05-30 2018-05-30 [facility] [id number] [facility] 10:00:00 10:00:00 t Cylinder Cylinder [employer] s - Drive [facility] Medicine l Medicine Outpati ent Clinics 2018-05-21 2018-05-21 [facility] [id number] [facility] 09:19:00 09:19:00 t Cylinder Cylinder [employer] s - Drive [facility] Medicine l Medicine Outpati ent Clinics 2018-05-13 2018-05-13 [facility] [id number] [facility] 11:20:00 11:20:00 t Cylinder Cylinder [email or web address] s - Drive [facility] Medicine l Medicine Outpati ent Clinics 2018-05-13 2018-05-13 [facility] [id number] 09:24:00 09:24:00 t [employer] [facility] ent Clinics 2018-05-06 2018-05-06 [facility] [id number] 13:08:00 13:08:00 t [employer] [facility] ent Clinics 2018-04-21 2018-04-21 [facility] [id number] [facility] 11:00:00 11:00:00 t [facility] ent Clinics 2018-04-17 2018-04-17 [facility] [id number] 11:15:00 11:15:00 t [employer] [facility] ent Clinics 2018-04-02 2018-04-02 [facility] [id number] [facility] 16:08:00 16:08:00 t Cylinder [facility] ent Clinics 2018-03-28 2018-03-28 [facility] [id number] 08:47:00 08:47:00 t Bone [facility] ent Clinics 2018-02-10 2018-02-10 [facility] [id number] 08:35:00 08:35:00 t [employer] [facility] ent Clinics 2018-02-10 2018-02-10 [facility] [id number] 08:28:00 08:28:00 t Cylinder [facility] ent Clinics 2017-12-09 2017-12-09 [facility] [id number] [facility] 10:00:00 10:00:00 t Bone [facility] ent Clinics 2017-10-25 2017-10-25 [facility] [id number] [facility] 08:09:00 08:09:[address] Luke s - Drive [facility] Medicine Medicine Outpati ent Clinics 2017-10-17 2017-10-17 [facility] [id number] [facility] 15:03:00 15:03:[address] Luke s - Drive [facility] Medicine l Medicine Outpati ent Clinics 2017-10-15 2017-10-15 [facility] [id number] 13:40:00 13:40:00 t Cylinder Cylinder [email or web address] Luke s - Drive [facility] Medicine Medicine Outpati ent Clinics 2017-09-13 2017-09-13 [facility] [id number] 14:52:00 14:52:00 t Cylinder Cylinder [email or web address] s - Drive [facility] Medicine Outpati ent Clinics 2017-09-10 2017-09-10 [facility] [id number] 16:37:00 16:37:00 t Cylinder Cylinder [email or web address] s - Drive [facility] Medicine Outpati ent Clinics 2017-08-20 2017-08-20 [facility] [id number] 10:34:00 10:34:00 t Cylinder Cylinder [email or web address] Luke s - Drive [facility] Medicine Medicine Outpati ent Clinics 2017-08-13 2017-08-13 [facility] [id number] 10:00:00 10:00:00 t Cylinder Cylinder [email or web address] s - Drive [facility] Medicine Outpati ent Clinics 2017-08-12 2017-08-12 [facility] [id number] 08:45:00 08:45:00 t Cylinder Cylinder [email or web address] Luke s - Drive [facility] Medicine Medicine Outpati ent Clinics 2017-08-06 2017-08-06 [facility] [id number] [facility] 08:33:00 08:33:00 t Cylinder Cylinder [email or web address] s - Drive [facility] Medicine Outpati ent Clinics 2017-07-26 2017-07-26 [facility] [id number] 10:45:00 10:45:00 t Cylinder Cylinder [employer] s - Drive [facility] Medicine Outpati ent Clinics Results Test Description Test Time Test Comments Results Result Comments Source COVID-19 (ID NOW RAPID TESTING) 2020-06-28 19:45:24 Test Item Value Reference Range Interpretation Comme nts SARS-CoV-2 Rapid ID NOW (test code Not Detected Not Detected = 60398-5) AMANDA (test code = AMANDA) ID NOW COVID-19 Assay is an isothermal nucleic acid amplification test intended for the qualitative detection of nucleic acid from SARS-CoV-2 viral RNA in nasopharyngeal (ORTHOTIC FITTER) specimens. It is used under Emergency Use Authorization (EUA) by FDA. The limit of detection (LOD) of the assay is 125 Genome Equivalents/mL. A positive result is indicative of the presence of SARS-CoV-2 RNA. ?Clinical correlation with patient history and other diagnostic information is necessary to determine patient infection status. A negative (Not Detected) result does not preclude SARS-CoV-2 infection. In patients with clinical symptoms and other tests that are consistent with SARS-CoV-2 infection, negative results should be treated as presumptive negative and a new specimen should be tested with alternative PCR molecular test. Invalid: Please collect a new specimen for repeat patient testing if clinically indicated. Lab Interpretation (test code = Normal 03968-3) [facility] [id number] 18:22:06 Test Item Value Reference Range Interpretation Comments SPUTUM CULTURE 3+ Respiratory mohsen: (test code = 622-1) Commensal upper respiratory microorganisms only. Gram stain (test Occasional (Rare) code = 664-3) Epithelial cells AMANDA (test code = Bacterial pathogens AMANDA) associated with lower respiratory infections were not identified, which include Pseudomonas aeruginosa and Staphylococcus aureus (MRSA or MSSA). [facility] Center[facility] GL[facility]SE (AUTOMATED)2020-06-28 17:13:43 Test Item Value Reference Range Interpretation Comments POCT GLU (test code = 9751764662) 110 mg/dL 70-110 Lab Interpretation (test code = Normal 86499-6) [facility] CenterUS RETROPERITONEAL [id number] 15:27:16 Limited exam due to patient body habitus and reported inability to holdbreath. Interval improvement with near resolution of bilateral hydronephrosis. Mildresidual right hydronephrosis versus pelviectasis. Preliminary Report Dictated by Resident: Terence Oliveros MD., have reviewed this study and agree with theabove report.HISTORY: evaluation of hydronephrosis post day . RENAL ULTRASOUND COMPARISON: CT abdomen pelvis dated 06/24/2020. FINDINGS: The kidneys are slightly echogenic. The right kidney measures 8.9 x 5.0 x 6.7 cm and the left kidney mpizpqhy87.1 x 4.7 x 4.0 cm.There has been interval improvement in the previouslydepicted bilateral hydronephrosis with residualmild pelviectasis on theright. The urinary bladder is decompressed with a Day catheter. [facility], Radiant Results Inft User - 06/28/2020 10:28 AM CDTHISTORY: evaluation of hydronephrosis post day . RENAL ULTRASOUNDCOMPARISON: CT abdomen pelvis dated 06/24/2020.FINDINGS: The kidneys are slightly echogenic.The right kidney measures 8.9 x 5.0 x 6.7 cm and the left kidney .1 x 4.7 x 4.0 cm. There has been interval improvement in the previouslydepicted bilateral hydronephrosis with residual mildpelviectasis on theright.The urinary bladder is decompressed with a Day catheter.IMPRESSIONLimitedexam due to patient body habitus and reported inability to holdbreath.Interval improvement with nearresolution of bilateral hydronephrosis. Mildresidual right hydronephrosis versus pelviectasis.Prelimi nary Report Dictated by Resident: Yossi Calvo, Terence Ruiz MD., have reviewed this study and agree with theabove report.[facility] 13:12:24 Test Item Value Reference Range Interpretation Comments POCT GLU (test code = 3653034581) 95 mg/dL 70-110 Lab Interpretation (test code = Normal 08819-8) [facility] (NA, K, CL, CO2, GLUCOSE, BUN, CREATININE, CA)2020-06-28 11:29:41 Test Item Value Reference Range Interpretation Comments NA (test code = 140 mmol/L 135-145 1044970821) K (test code = 4.6 mmol/L 3.5-5.0 2472191600) CL (test code = 107 mmol/L 98-108 6684601079) CO2 TOTAL (test code = 29 mmol/L 23-31 4980190195) AGAP (test code = 2-16 8947560226) BUN (test code = 29 mg/dL 7-23 H 5984680777) GLUCOSE (test code = 101 mg/dL 70-110 7606388336) CREATININE (test code = 1.16 mg/dL 0.50-1.04 H 8803220790) CALCIUM (test code = 8.6 mg/dL 8.6-10.6 3280001792) eGFR (test code = mL/min/1.73m2 3411412794) AMANDA (test code = AMANDA) Association of Glomerular Filtration Rate (GFR) and Staging of Kidney Disease* + --+ --+ ------+| GFR (mL/min/1.73 m2) ?| With Kidney Damage ?| ?Without Kidney Damage+ --------+ --------+ +| ?>90 ?| ?Stage one ?| ? Normal ?+ ---+ ---+ -------+| ?60-89 ?| ?Stage two ?| ? Decreased GFR ? + --+ --+ ------+| ?30-59 ?| ?Stage three ?| ? Stage three ? + --+ --+ ------+| ?15-29 ?| ?Stage four ? | ? Stage four ?+ ---+ ---+ -------+| ?<15 (or dialysis) ? ?| ?Stage five ? | ? Stage five ?+ ---+ ---+ -------+ *Each stage assumes the associated GFR level has been in effect for at least three months. ?Stages 1 to 5, with or without kidney disease, indicate chronic kidney disease. Notes: Determination of stages one and two (with eGFR >59mL/min/1.73 m2) requires estimation of kidney damage for at least three months as defined by structural or functional abnormalities of the kidney, manifested by either:Pathological abnormalities or Markers of kidney damage (including abnormalities in the composition of the blood or urine or abnormalities in imaging tests). Lab Interpretation Abnormal (test code = 57633-0) [facility] WITH [id number] 11:02:34 Test Item Value Reference Range Interpretation Comments WBC (test code = See_Comment [Automated 0790-2) message] The sy stem which generated this result transmitted reference range : 4.30 - 11.10 10*3/?L. The reference range was not used to interpret this result as normal/abnormal . RBC (test code = See_Comment L [Automated 789-8) message] The sy stem which generated this result transmitted reference range : 3.93 - 5.25 10*6/?L. The reference range was not used to interpret this result as normal/abnormal . HGB (test code = 8.0 g/dL 11.6-15.0 L 718-7) HCT (test code = 24.7 % 35.7-45.2 L 4544-3) MCV (test code = 93.9 fL 80.6-95.5 787-2) MCH (test code = 30.4 pg 25.9-32.8 785-6) MCHC (test code = 32.4 g/dL 31.6-35.1 786-4) RDW-SD (test code = 50.3 fL 39.0-49.9 H 84810-4) RDW-CV (test code = 14.7 % 12.0-15.5 788-0) PLT (test code = See_Comment [Automated 777-3) message] The sy stem which generated this result transmitted reference range : 166 - 358 10*3/ ?L. The reference r jourdan was not used to interpret this result as normal/abnormal . MPV (test code = 9.1 fL 9.5-12.9 L 45004-8) NRBC/100 WBC (test See_Comment [Automat ed code = 2470392578) message] The system which generated this result transmitted reference range : 0.0 - 10.0 /100 WBCs. The refer ence range was not u sed to interpret th is result as normal/abnormal . NRBC x10^3 (test code <0.01 See_Comment [Auto mated = 6452642373) message] The s ystem which generated this result transmitted reference range : 10*3/?L. The reference range was not used to interpret this result as normal/abnormal . GRAN MAT (NEUT) % 65.3 % (test code = 770-8) IMM GRAN % (test code 0.40 % = 6116448907) LYMPH % (test code = 18.8 % 736-9) MONO % (test code = 9.4 % 5905-5) EOS % (test code = 5.5 % 713-8) BASO % (test code = 0.6 % 706-2) GRAN MAT x10^3(ANC) 4.60 10*3/uL 1.88-7.09 (test code = 7681414429) IMM GRAN x10^3 (test 0.03 10*3/uL 0.00-0.06 code = 8011440406) LYMPH x10^3 (test code 1.32 10*3/uL 1.32-3.29 = 731-0) MONO x10^3 (test code 0.66 10*3/uL 0.33-0.92 = 742-7) EOS x10^3 (test code = 0.39 10*3/uL 0.03-0.39 711-2) BASO x10^3 (test code 0.04 10*3/uL 0.01-0.07 = 704-7) Lab Interpretation Abnormal (test code = 76680-4) [facility] GLUCOSE (AUTOMATED)2020-06-28 02:58:45 Test Item Value Reference Range Interpretation Comments POCT GLU (test code = 2744987598) 120 mg/dL 70-110 H Lab Interpretation (test code = Abnormal 00033-0) [facility] GLUCOSE (AUTOMATED)2020-06-27 22:53:12 Test Item Value Reference Range Interpretation Comments POCT GLU (test code = 2551427265) 116 mg/dL 70-110 H Lab Interpretation (test code = Abnormal 93008-4) [facility] GLUCOSE (AUTOMATED)2020-06-27 18:10:13 Test Item Value Reference Range Interpretation Comments POCT GLU (test code = 0644955105) 113 mg/dL 70-110 H Lab Interpretation (test code = Abnormal 68315-6) [facility] GLUCOSE (AUTOMATED)2020-06-27 13:49:09 Test Item Value Reference Range Interpretation Comments POCT GLU (test code = 9389640201) 109 mg/dL 70-110 Lab Interpretation (test code = Normal 91819-6) [facility] METABOLIC PANEL (NA, K, CL, CO2, GLUCOSE, BUN, CREATININE, CA)2020-06-27 10:36:44 Test Item Value Reference Range Interpretation Comments NA (test code = 139 mmol/L 135-145 9264633781) K (test code = 5.0 mmol/L 3.5-5.0 6671255265) CL (test code = 106 mmol/L 98-108 2849974926) CO2 TOTAL (test code = 28 mmol/L 23-31 5669070548) AGAP (test code = 2-16 4107691032) BUN (test code = 37 mg/dL 7-23 H 3540579926) GLUCOSE (test code = 108 mg/dL 70-110 9550977359) CREATININE (test code = 1.39 mg/dL 0.50-1.04 H 4883560653) CALCIUM (test code = 8.5 mg/dL 8.6-10.6 L 1204640680) eGFR (test code = mL/min/1.73m2 4454173701) AMANDA (test code = AMANDA) Association of Glomerular Filtration Rate (GFR) and Staging of Kidney Disease* + --+ --+ ------+| GFR (mL/min/1.73 m2) ?| With Kidney Damage ?| ?Without Kidney Damage+ --------+ --------+ +| ?>90 ?| ?Stage one ?| ? Normal ?+ ---+ ---+ -------+| ?60-89 ?| ?Stage two ?| ? Decreased GFR ? + --+ --+ ------+| ?30-59 ?| ?Stage three ?| ? Stage three ? + --+ --+ ------+| ?15-29 ?| ?Stage four ? | ? Stage four ?+ ---+ ---+ -------+| ?<15 (or dialysis) ? ?| ?Stage five ? | ? Stage five ?+ ---+ ---+ -------+ *Each stage assumes the associated GFR level has been in effect for at least three months. ?Stages 1 to 5, with or without kidney disease, indicate chronic kidney disease. Notes: Determination of stages one and two (with eGFR >59mL/min/1.73 m2) requires estimation of kidney damage for at least three months as defined by structural or functional abnormalities of the kidney, manifested by either:Pathological abnormalities or Markers of kidney damage (including abnormalities in the composition of the blood or urine or abnormalities in imaging tests). Lab Interpretation Abnormal (test code = 11760-5) [facility] GLUCOSE (AUTOMATED)2020-06-27 08:41:43 Test Item Value Reference Range Interpretation Comments POCT GLU (test code = 9236954824) 122 mg/dL 70-110 H Lab Interpretation (test code = Abnormal 59496-8) [facility] GLUCOSE (AUTOMATED)2020-06-27 04:40:39 Test Item Value Reference Range Interpretation Comments POCT GLU (test code = 7656016043) 116 mg/dL 70-110 H Lab Interpretation (test code = Abnormal 37827-6) [facility] GLUCOSE (AUTOMATED)2020-06-27 00:35:48 Test Item Value Reference Range Interpretation Comments POCT GLU (test code = 6273618526) 139 mg/dL 70-110 H Lab Interpretation (test code = Abnormal 04005-2) [facility] GLUCOSE (AUTOMATED)2020-06-26 16:59:38 Test Item Value Reference Range Interpretation Comments POCT GLU (test code = 3255212025) 135 mg/dL 70-110 H Lab Interpretation (test code = Abnormal 31841-3) [facility] [place] [id number] 15:31:02 Test Item Value Reference Range Interpretation Comments Feces Culture (test No Salmonella, No code = 625-4) Shigella, No Campylobacter, and No E. coli 0157 isolated. AMANDA (test code = AMANDA) Feces specimens are routinely cultured for Salmonella, Shigella, Campylobacter, and E. coli 0157. [facility] GLUCOSE (AUTOMATED)2020-06-26 13:16:16 Test Item Value Reference Range Interpretation Comments POCT GLU (test code = 6202693533) 127 mg/dL 70-110 H Lab Interpretation (test code = Abnormal 02562-2) [facility] (NA, K, CL, CO2, GLUCOSE, BUN, CREATININE, CA)2020-06-26 10:30:02 Test Item Value Reference Range Interpretation Comments NA (test code = 138 mmol/L 135-145 6893450884) K (test code = 4.7 mmol/L 3.5-5.0 7689641779) CL (test code = 106 mmol/L 98-108 7063767643) CO2 TOTAL (test code = 27 mmol/L 23-31 6991767304) AGAP (test code = 2-16 8840583246) BUN (test code = 48 mg/dL 7-23 H 1468434787) GLUCOSE (test code = 126 mg/dL 70-110 H 1766015569) CREATININE (test code = 1.81 mg/dL 0.50-1.04 H 5040263307) CALCIUM (test code = 8.4 mg/dL 8.6-10.6 L 0570448938) eGFR (test code = mL/min/1.73m2 7393985595) AMANDA (test code = AMANDA) Association of Glomerular Filtration Rate (GFR) and Staging of Kidney Disease* + --+ --+ ------+| GFR (mL/min/1.73 m2) ?| With Kidney Damage ?| ?Without Kidney Damage+ --------+ --------+ +| ?>90 ?| ?Stage one ?| ? Normal ?+ ---+ ---+ -------+| ?60-89 ?| ?Stage two ?| ? Decreased GFR ? + --+ --+ ------+| ?30-59 ?| ?Stage three ?| ? Stage three ? + --+ --+ ------+| ?15-29 ?| ?Stage four ? | ? Stage four ?+ ---+ ---+ -------+| ?<15 (or dialysis) ? ?| ?Stage five ? | ? Stage five ?+ ---+ ---+ -------+ *Each stage assumes the associated GFR level has been in effect for at least three months. ?Stages 1 to 5, with or without kidney disease, indicate chronic kidney disease. Notes: Determination of stages one and two (with eGFR >59mL/min/1.73 m2) requires estimation of kidney damage for at least three months as defined by structural or functional abnormalities of the kidney, manifested by either:Pathological abnormalities or Markers of kidney damage (including abnormalities in the composition of the blood or urine or abnormalities in imaging tests). Lab Interpretation Abnormal (test code = 38355-7) [facility] WITH [id number] 10:10:59 Test Item Value Reference Range Interpretation Comments WBC (test code = See_Comment [Automated 6690-2) message] The sy stem which generated this result transmitted reference range : 4.30 - 11.10 10*3/?L. The reference range was not used to interpret this result as normal/abnormal . RBC (test code = See_Comment L [Automated 789-8) message] The sy stem which generated this result transmitted reference range : 3.93 - 5.25 10*6/?L. The reference range was not used to interpret this result as normal/abnormal . HGB (test code = 7.9 g/dL 11.6-15.0 L 718-7) HCT (test code = 24.0 % 35.7-45.2 L 4544-3) MCV (test code = 94.1 fL 80.6-95.5 787-2) MCH (test code = 31.0 pg 25.9-32.8 785-6) MCHC (test code = 32.9 g/dL 31.6-35.1 786-4) RDW-SD (test code = 50.6 fL 39.0-49.9 H 48304-8) RDW-CV (test code = 14.9 % 12.0-15.5 788-0) PLT (test code = See_Comment [Automated 777-3) message] The sy stem which generated this result transmitted reference range : 166 - 358 10*3/ ?L. The reference r jourdan was not used to interpret this result as normal/abnormal . MPV (test code = 9.4 fL 9.5-12.9 L 30933-2) NRBC/100 WBC (test See_Comment [Automat ed code = 6475676577) message] The system which generated this result transmitted reference range : 0.0 - 10.0 /100 WBCs. The refer ence range was not u sed to interpret th is result as normal/abnormal . NRBC x10^3 (test code See_Comment [Auto mated = 7754016576) message] The s ystem which generated this result transmitted reference range : 10*3/?L. The reference range was not used to interpret this result as normal/abnormal . GRAN MAT (NEUT) % 77.4 % (test code = 770-8) IMM GRAN % (test code 0.60 % = 8194270806) LYMPH % (test code = 11.9 % 736-9) MONO % (test code = 6.4 % 5905-5) EOS % (test code = 3.2 % 713-8) BASO % (test code = 0.5 % 706-2) GRAN MAT x10^3(ANC) 8.36 10*3/uL 1.88-7.09 H (test code = 7588595015) IMM GRAN x10^3 (test 0.07 10*3/uL 0.00-0.06 H code = 4388829954) LYMPH x10^3 (test code 1.28 10*3/uL 1.32-3.29 L = 731-0) MONO x10^3 (test code 0.69 10*3/uL 0.33-0.92 = 742-7) EOS x10^3 (test code = 0.34 10*3/uL 0.03-0.39 711-2) BASO x10^3 (test code 0.05 10*3/uL 0.01-0.07 = 704-7) Lab Interpretation Abnormal (test code = 00219-2) [facility] GLUCOSE (AUTOMATED)2020-06-26 09:41:56 Test Item Value Reference Range Interpretation Comments POCT GLU (test code = 3161584992) 153 mg/dL 70-110 H Lab Interpretation (test code = Abnormal 09912-0) [facility] GLUCOSE (AUTOMATED)2020-06-26 06:09:14 Test Item Value Reference Range Interpretation Comments POCT GLU (test code = 3168014484) 148 mg/dL 70-110 H Lab Interpretation (test code = Abnormal 91723-4) [facility] GLUCOSE (AUTOMATED)2020-06-26 00:55:30 Test Item Value Reference Range Interpretation Comments POCT GLU (test code = 9790291203) 136 mg/dL 70-110 H Lab Interpretation (test code = Abnormal 06073-8) [facility] GLUCOSE (AUTOMATED)2020-06-25 20:31:00 Test Item Value Reference Range Interpretation Comments POCT GLU (test code = 0029827129) 122 mg/dL 70-110 H Lab Interpretation (test code = Abnormal 99928-3) [facility] GLUCOSE (AUTOMATED)2020-06-25 16:12:46 Test Item Value Reference Range Interpretation Comments POCT GLU (test code = 9071996552) 99 mg/dL 70-110 Lab Interpretation (test code = Normal 76450-4) [facility] GLUCOSE (AUTOMATED)2020-06-25 12:24:31 Test Item Value Reference Range Interpretation Comments POCT GLU (test code = 2612543358) 96 mg/dL 70-110 Lab Interpretation (test code = Normal 66848-5) [facility] METABOLIC PANEL (NA, K, CL, CO2, GLUCOSE, BUN, CREATININE, CA)2020-06-25 12:11:14 Test Item Value Reference Range Interpretation Comments NA (test code = 135 mmol/L 135-145 6068905325) K (test code = 4.6 mmol/L 3.5-5.0 4517065482) CL (test code = 107 mmol/L 98-108 4072595654) CO2 TOTAL (test code = 22 mmol/L 23-31 L 3290896051) AGAP (test code = 2-16 0380873852) BUN (test code = 60 mg/dL 7-23 H 9745300278) GLUCOSE (test code = 80 mg/dL 70-110 4512645221) CREATININE (test code = 2.19 mg/dL 0.50-1.04 H 1469380327) CALCIUM (test code = 8.2 mg/dL 8.6-10.6 L 1590609182) eGFR (test code = mL/min/1.73m2 4356426043) AMANDA (test code = AMANDA) Association of Glomerular Filtration Rate (GFR) and Staging of Kidney Disease* + --+ --+ ------+| GFR (mL/min/1.73 m2) ?| With Kidney Damage ?| ?Without Kidney Damage+ --------+ --------+ +| ?>90 ?| ?Stage one ?| ? Normal ?+ ---+ ---+ -------+| ?60-89 ?| ?Stage two ?| ? Decreased GFR ? + --+ --+ ------+| ?30-59 ?| ?Stage three ?| ? Stage three ? + --+ --+ ------+| ?15-29 ?| ?Stage four ? | ? Stage four ?+ ---+ ---+ -------+| ?<15 (or dialysis) ? ?| ?Stage five ? | ? Stage five ?+ ---+ ---+ -------+ *Each stage assumes the associated GFR level has been in effect for at least three months. ?Stages 1 to 5, with or without kidney disease, indicate chronic kidney disease. Notes: Determination of stages one and two (with eGFR >59mL/min/1.73 m2) requires estimation of kidney damage for at least three months as defined by structural or functional abnormalities of the kidney, manifested by either:Pathological abnormalities or Markers of kidney damage (including abnormalities in the composition of the blood or urine or abnormalities in imaging tests). Lab Interpretation Abnormal (test code = 70057-8) [facility] WITH [id number] 11:53:55 Test Item Value Reference Range Interpretation Comments WBC (test code = See_Comment H [Automated 2490-2) message] The system which generated this result transmit farzad reference range : 4.30 - 11.10 10*3/?L. The reference range was not used to interpret this result as normal/abnormal . RBC (test code = See_Comment L [Automated 139-8) message] The system which generated this result transmit farzad reference range : 3.93 - 5.25 10*6/?L. The reference range was not used to interpret this result as normal/abnormal . HGB (test code = 8.0 g/dL 11.6-15.0 L 718-7) HCT (test code = 24.5 % 35.7-45.2 L 4544-3) MCV (test code = 94.2 fL 80.6-95.5 787-2) MCH (test code = 30.8 pg 25.9-32.8 785-6) MCHC (test code = 32.7 g/dL 31.6-35.1 786-4) RDW-SD (test code = 49.7 fL 39.0-49.9 42556-1) RDW-CV (test code = 14.9 % 12.0-15.5 788-0) PLT (test code = See_Comment [Automated 777-3) message] The system which generated this result transmit farzad reference range : 166 - 358 10*3/ ?L. The reference range was not u sed to interpret th is result as normal/abnormal . MPV (test code = 9.6 fL 9.5-12.9 63534-1) NRBC/100 WBC (test See_Comment [Automat ed code = 9948721574) message] The system which generated this result transmit farzad reference range : 0.0 - 10.0 /100 WBCs. The reference range was not used to interpret this result as normal/abnormal . NRBC x10^3 (test code <0.01 See_Comment [Auto mated = 8552554210) message] The system which generated this result transmit farzad reference range : 10*3/?L. The reference range was not used to interpret this result as normal/abnormal . GRAN MAT (NEUT) % 82.0 % (test code = 770-8) IMM GRAN % (test code 0.70 % = 3810800479) LYMPH % (test code = 9.0 % 736-9) MONO % (test code = 5.7 % 5905-5) EOS % (test code = 2.2 % 713-8) BASO % (test code = 0.4 % 706-2) GRAN MAT x10^3(ANC) 12.29 10*3/uL 1.88-7.09 H (test code = 7341397925) IMM GRAN x10^3 (test 0.10 10*3/uL 0.00-0.06 H code = 8159735054) LYMPH x10^3 (test code 1.35 10*3/uL 1.32-3.29 = 731-0) MONO x10^3 (test code 0.85 10*3/uL 0.33-0.92 = 742-7) EOS x10^3 (test code = 0.33 10*3/uL 0.03-0.39 711-2) BASO x10^3 (test code 0.06 10*3/uL 0.01-0.07 = 704-7) Lab Interpretation Abnormal (test code = 24946-0) [facility] GLUCOSE (AUTOMATED)2020-06-25 09:45:28 Test Item Value Reference Range Interpretation Comments POCT GLU (test code = 4591627493) 97 mg/dL 70-110 Lab Interpretation (test code = Normal 29038-0) [facility] GLUCOSE (AUTOMATED)2020-06-25 04:37:24 Test Item Value Reference Range Interpretation Comments POCT GLU (test code = 0838397462) 104 mg/dL 70-110 Lab Interpretation (test code = Normal 59939-0) [facility] GLUCOSE (AUTOMATED)2020-06-25 01:26:12 Test Item Value Reference Range Interpretation Comments POCT GLU (test code = 8837132549) 116 mg/dL 70-110 H Lab Interpretation (test code = Abnormal 90439-0) [facility] [id number] 01:17:42 Test Item Value Reference Range Interpretation Comments NA URINE (test code = 3310777070) 65 mmol/L [facility] CenterCREAT[facility], URINE [id number] 01:17:42 Test Item Value Reference Range Interpretation Comments CREAT U (test code = 8572870084) 41.1 mg/dL [facility] CenterUREA NITROGEN, URINE [id number] 01:17:42 Test Item Value Reference Range Interpretation Comments UREA N UR (test code = 3458507286) 510 mg/dL [facility] GLUCOSE (AUTOMATED)2020-06-24 22:16:15 Test Item Value Reference Range Interpretation Comments POCT GLU (test code = 4541022688) 114 mg/dL 70-110 H Lab Interpretation (test code = Abnormal 56956-9) [facility] ABDOMEN PELVIS WO [id number] 22:14:46 1. ?Interval development of bilateral hydronephrosis, right greater thanleft; with distended urinary bladder can be seen with acute urinaryretention or outlet obstruction. No nephrolithiasis. 2. ?Interval development of bilateral small pleural effusions and abdominalwall edema. 3. ?Severe osteoarthrosis of the bilateral hips as described above. Chronicdeformity of the right proximal femur with suspected right hip jointeffusion. Preliminary Report Dictated by Resident: Bharti Liu ?MD. Ynady, have reviewed this study and agree with theabove report.EXAM: CT ABDOMEN PELVIS WO CONTRAST HISTORY: 79 years -old Female , ?requesting evaluation for hydronephrosis,patient with unexplained UA+ but UCx neg COMPARISON: Correlation with CT abdomen pelvis with and without contrastfrom 06/18/2020TECHNIQUE AND FINDINGS: Contiguous axial imaging from the level of the lungbases through the mid thighs was performed without the intravenousadministration of contrast. Coronal and sagittal reconstructions wereobtained. ?Auto mA and/or iterative reconstruction were used to reduceradiation dose. FINDINGS: LOWER THORAX: Interval development of bilateral pleural effusions withassociated atelectasis of the lower lobes. Cardiomegaly appears stable. Limited evaluation of solid organs in the absence of IV contrast. LIVER: Normal liver contour. GALLBLADDER AND BILIARY TREE: No biliary ductal dilation. Priorcholecystectomy and prominent extra hepatic CBD. SPLEEN: No splenomegaly. A splenule is present in the splenic hilum. PANCREAS: Atrophic pancreas. No ductal dilation or masses. ADRENAL GLANDS: No adrenal nodules. KIDNEYS: Moderate right and mild left hydronephrosis with moderatedistention of the urinary bladder. Distention of the right urinary pelvisappears out of proportion to the hydronephrosis and may be secondary to acrossing vessel. No nephrolithiasis. Perinephric stranding about bilateralkidneys appear similar to prior. GI TRACT: No dilation or wall thickening. Scattered colon diverticulosis without evidence of diverticulitis. PERITONEUM AND RETROPERITONEUM: Small amount of fluid is seen inthepelvis. No extraluminal free air. LYMPH NODES: No lymphadenopathy. PELVIS/BLADDER: The urinary bladder is moderately distended with thesuperior wall extending to the L5 vertebral body. Hyperdense con tentslikely represents excreted contrast material from prior CT. VESSELS: Moderate atherosclerotic calcified plaque affects the aortoiliacvessels and their branches. BONES AND SOFT TISSUES: Diffuse body wall edema. Compression deformity ofL1 and L2 again seen. 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 Chronic deformity of the rightproximal femur with suspected right hip joint effusion.Widening joint spaceand likely synovial proliferation. Right acetabular protrusio. Remotefracture of the left inferior pubic ramus and chronic remodeling withsuspected remote fracture of the right superior pubic ramus. [facility], Radiant Results Inft User - 06/24/2020 5:15 PM CDTEXAM: CT ABDOMEN PELVIS WO CONTRASTHISTORY: 79 years -old Female , requesting evaluation for hy dronephrosis,patient with unexplained UA+ but UCx neg COMPARISON: Correlation with CT abdomen pelviswith and without contrastfrom 06/18/2020TECHNIQUE AND FINDINGS: Contiguous axial imaging from the level of the lungbases through the mid thighs was performed without the intravenousadministration of contrast. Coronal and sagittal reconstructions wereobtained. Auto mA and/or iterative reconstruction were used to reduceradiation dose.FINDINGS:LOWER THORAX: Interval development of bilateral pleural effusions withassociated atelectasis of the lower lobes. Cardiomegaly appears stable. Limited evaluation of solid organs in the absence of IV contrast.LIVER: Normal liver contour.GALLBLADDER AND BILIARY TREE: No biliary ductal dilation. Priorcholecystectomy and prominent extra hepatic CBD.SPLEEN: No splenomegaly. A splenule is present in the splenic hilum.PANCREAS: Atrophic pancreas. No ductal dilation ormasses.ADRENAL GLANDS: No adrenal nodules.KIDNEYS: Moderate right and mild left hydronephrosis with m oderatedistention of the urinary bladder. Distention of the right urinary pelvisappears out of proportion to the hydronephrosis and may be secondary to acrossing vessel. No nephrolithiasis. Perinephricstranding about bilateralkidneys appear similar to prior. GI TRACT: No dilation or wall thickening. Scattered colon diverticulosiswithout evidence of diverticulitis.PERITONEUM AND RETROPERITONEUM: Small amount of fluid is seen in thepelvis. No extraluminal free air.LYMPH NODES: No lymphadenopathy.PELVI S/BLADDER: The urinary bladder is moderately distended with thesuperior wall extending to the L5 vertebral body. Hyperdense contentslikely represents excreted contrast material from prior CT.VESSELS: Moderate atherosclerotic calcified plaque affects the aortoiliacvessels and their branches.BONES AND SOFT TISSUES: Diffuse body wall edema. Compression deformity ofL1 and L2 again seen. 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 Chronic deformity of the rightproximal femur with suspected right hip joint effusion.Widening joint spaceand likely synovial proliferation. Right acetabular protrusio. Remotefracture of the left inferior pubic ramus and chronic remodeling withsuspected remote fracture of the right superior pubic ramus.IMPRESSION1. Interval development of bilateral hydronephrosis, right greater thanleft; with distended urinary bladder can be seenwith acute urinaryretention or outlet obstruction. No nephrolithiasis.2. Interval development of bilateral small pleural effusions and abdominalwall edema.3. Severe osteoarthrosis of the bilateral hips as described above. Chronicdeformity of the right proximal femur with suspected right hip jointeffusion.Preliminary Report Dictated by Resident: Bharti Isabel MD., have reviewed this study and agree with theabove report.[facility] [id number] 19:56:14 Test Item Value Reference Range Interpretation Comments Procalcitonin (test 0.22 ng/mL <0.07 H code = 8338862141) AMANDA (test code = AMANDA) INTERPRETATION OF PROCALCITONIN RESULTS IN ADULTS >= 18 YEARS OF AGE Initiation and discontinuation of antibiotics on patients with suspected or confirmed Lower Respiratory Tract Infection in Adults >= 18 years of age. + +-------- --------+ + -----+|Procalcitonin |Interpretation ?|Antibiotic ? ? |Considerations ? |ng/mL ? | ?|recommendation | ? + +-------- --------+ + -----+| <0.1 ? | Bacterial ? ? ?| Strongly ? ? ?| ? | ?| infection very | discouraged ? | Overruling: ? | ?| unlikely ? ? ? | ? | ? Clinically unstable ? ? ? + +-------- --------+ + ? High risk for adverse ? ? | <0.25 ?| Bacterial ? ? ?| Discouraged ? | ? outcome ? | ?| infection ? ? ?| ? | ? SEE IMPORTANT NOTE ?| ?| unlikely ? ? ? | ? | ? + +-------- --------+ + -----+| >=0.25 ? ? ? | Bacterial ? ? ?| Encouraged ? ?| ? | ?| infection ? ? ?| ? | ? | ?| likely ? | ? | Consider treatment failure ?+ +------- ---------+ -+ if levels does not decrease | >0.5 ? | Bacterial ? ? ?| Strongly ? ? ?| appropriately ? | ?| infection very | encouraged ? ?| ? | ?| likely ? | ? | ? + +-------- --------+ + -----+ Discontinuation of antibiotics in high-acuity patients with suspected or confirmed sepsis in Adults >= 18 years of age. + +-------- --------+ + -----+|Procalcitonin |Interpretation ?|Antibiotic ? ? |Considerations ? |ng/mL ? | ?|recommendation | ? + +-------- --------+ + -----+| <0.25 ?| Bacterial ? ? ?| Strongly ? ? ?| ? | ?| infection very | discouraged ? | Overruling: ? | ?| unlikely ? ? ? | ? | ? Clinically unstable ? ? ? + +-------- --------+ + ? High risk for adverse ? ? | <0.5 or drop | Bacterial ? ? ?| Discouraged ? | ? outcome ? | >80% from ? ?| infection ? ? ?| ? | ? SEE IMPORTANT NOTE ?| highest PCT ?| unlikely ? ? ? | ? | ? | level ?| ?| ? | ? + +-------- --------+ + -----+| >=0.5 ?| Bacterial ? ? ?| Encouraged ? ?| ? | ?| infection ? ? ?| ? | ? | ?| likely ? | ? | Consider treatment failure ?+ +------- ---------+ -+ if levels does not decrease | >1.0 ? | Bacterial ? ? ?| Strongly ? ? ?| appropriately ? | ?| infection very | encouraged ? ?| ? | ?| likely ? | ? | ? + +-------- --------+ + -----+ Percentage of drop of Procalcitonin calculation for Discontinuation of antibiotics in high-acuity patients with suspected or confirmed sepsis in Adults >= 18 years of age. ? Procalcitonin highest{}-Procalcitonin current{}Delta Procalcitonin = x100% ? Procalcitonin current {} IMPORTANT NOTE: Procalcitonin may be elevated without bacterial infection by physiologic stress related to trauma, aguilar, chronic dialysis, metastatic cancer, surgery in the past seven days, malaria, some fungal infections, and some forms of vasculitis. The interpretation algorithm may not apply to patients with immunosuppression (equivalent of >10 mg of prednisone daily), HIV with CD4 cell count < 350 cells/mm3, active malignancy on systemic chemotherapy, solid organ transplant or hematopoietic stem cell transplantation, or hospital acquired pneumonia. Additionally, some clinical trials of procalcitonin have excluded patients with shock requiring vasopressor use, acute respiratory failure requiring mechanical ventilation, or those with known lung abscess/empyema. For further information please refer to:[email or web address] Lab Interpretation Abnormal (test code = 27443-8) [facility] CenterCLOSTRIDIUM DIFFICILE [id number] 17:58:49 Test Item Value Reference Range Interpretation Comments Clostridioides (Clostridium) Negative Negative difficile (test code = 45781-5) Lab Interpretation (test code = Normal 43169-8) [facility] CenterFECAL PATHOGENS BY [id number] 16:39:46 Test Item Value Reference Range Interpretation Comments Campylobacter (jejuni, Negative Negative, coli and upsaliensis) Indeterminate, (test code = 18833-1) See comment Plesiomonas shigelloides Negative Negative, (test code = 83138-3) Indeterminate, See comment Salmonella (test code = Negative Negative, 36694-9) Indeterminate, See comment Yersinia enterocolitica Negative Negative, (test code = 86452-8) Indeterminate, See comment Vibrio (test code = Negative Negative, 53398-8) Indeterminate, See comment Vibrio cholerae (test Negative Negative, code = 64880-2) Indeterminate, See comment Enteroaggregative E. coli Negative Negative, (EAEC) (test code = Indeterminate, 50017-7) See comment Enteropathogenic E. coli Negative Negative, N/A, (EPEC) (test code = Indeterminate, 96038-7) See comment Enterotoxigenic E. coli Negative Negative, (ETEC) (test code = Indeterminate, 99246-4) See comment Shiga toxin-Producing E. Negative Negative, coli (STEC) (test code = Indeterminate, 27251-3) See comment Shigella/Enteroinvasive Negative Negative, E. coli (EIEC) (test code Indeterminate, = 16768-5) See comment Cryptosporidium (test Negative Negative, code = 12355-2) Indeterminate, See comment Cyclospora cayetanensis Negative Negative, (test code = 21783-7) Indeterminate, See comment Entamoeba histolytica Negative Negative, (test code = 02314-4) Indeterminate, See comment Giardia lamblia (test Negative Negative, code = 48368-2) Indeterminate, See comment Adenovirus F 40/41 (test Negative Negative, code = 30069-4) Indeterminate, See comment Astrovirus (test code = Negative Negative, 83222-3) Indeterminate, See comment Norovirus GI/GII (test Negative Negative, code = 98996-8) Indeterminate, See comment Rotavirus A (test code = Negative Negative, 01616-6) Indeterminate, See comment Sapovirus (test code = Negative Negative, 46583-0) Indeterminate, See comment AMANDA (test code = AMANDA) Negative:A negative result does not rule-out infection. ?This assay does not test for all potential infectious agents of diarrheal disease. Positive:A positive test result does not necessarily indicate the presence of viable organism. Lab Interpretation (test Normal code = 35062-1) [facility] CenterPO[facility] GLUCOSE (AUTOMATED)2020-06-24 15:04:00 Test Item Value Reference Range Interpretation Comments POCT GLU (test code = 3514250585) 113 mg/dL 70-110 H Lab Interpretation (test code = Abnormal 97746-3) [facility] CenterURINE [id number] 12:21:30 Test Item Value Reference Range Interpretation Comments URINE CULTURE (test No aerobic growth (< code = 630-4) 1000 CFU/mL) [facility] WITH [id number] 11:25:44 Test Item Value Reference Range Interpretation Comments WBC (test code = See_Comment H [Automated 6690-2) message] The system which generated this result transmit farzad reference range : 4.30 - 11.10 10*3/?L. The reference range was not used to interpret this result as normal/abnormal . RBC (test code = See_Comment L [Automated 789-8) message] The system which generated this result transmit farzad reference range : 3.93 - 5.25 10*6/?L. The reference range was not used to interpret this result as normal/abnormal . HGB (test code = 8.4 g/dL 11.6-15.0 L 718-7) HCT (test code = 25.3 % 35.7-45.2 L 4544-3) MCV (test code = 91.7 fL 80.6-95.5 787-2) MCH (test code = 30.4 pg 25.9-32.8 785-6) MCHC (test code = 33.2 g/dL 31.6-35.1 786-4) RDW-SD (test code = 49.8 fL 39.0-49.9 38608-2) RDW-CV (test code = 15.2 % 12.0-15.5 788-0) PLT (test code = See_Comment [Automated 777-3) message] The system which generated this result transmit farzad reference range : 166 - 358 10*3/ ?L. The reference range was not u sed to interpret th is result as normal/abnormal . MPV (test code = 9.3 fL 9.5-12.9 L 98252-1) NRBC/100 WBC (test See_Comment [Automat ed code = 2240179855) message] The system which generated this result transmit farzad reference range : 0.0 - 10.0 /100 WBCs. The reference range was not used to interpret this result as normal/abnormal . NRBC x10^3 (test code <0.01 See_Comment [Auto mated = 6233431707) message] The system which generated this result transmit farzad reference range : 10*3/?L. The reference range was not used to interpret this result as normal/abnormal . GRAN MAT (NEUT) % 84.3 % (test code = 770-8) IMM GRAN % (test code 1.00 % = 6754249348) LYMPH % (test code = 7.0 % 736-9) MONO % (test code = 5.6 % 5905-5) EOS % (test code = 1.9 % 713-8) BASO % (test code = 0.2 % 706-2) GRAN MAT x10^3(ANC) 17.24 10*3/uL 1.88-7.09 H (test code = 8312790789) IMM GRAN x10^3 (test 0.20 10*3/uL 0.00-0.06 H code = 3486579131) LYMPH x10^3 (test code 1.44 10*3/uL 1.32-3.29 = 731-0) MONO x10^3 (test code 1.15 10*3/uL 0.33-0.92 H = 742-7) EOS x10^3 (test code = 0.39 10*3/uL 0.03-0.39 711-2) BASO x10^3 (test code 0.05 10*3/uL 0.01-0.07 = 704-7) BASO STIPPLING (test Present A code = 703-9) TOXIC CHANGES (test Present A code = 803-7) Lab Interpretation Abnormal (test code = 14391-2) [facility] METABOLIC PANEL (NA, K, CL, CO2, GLUCOSE, BUN, CREATININE, CA)2020-06-24 11:22:30 Test Item Value Reference Range Interpretation Comments NA (test code = 135 mmol/L 135-145 9375405860) K (test code = 4.4 mmol/L 3.5-5.0 2737033173) CL (test code = 106 mmol/L 98-108 6053164376) CO2 TOTAL (test code = 20 mmol/L 23-31 L 9789932726) AGAP (test code = 2-16 8748112073) BUN (test code = 66 mg/dL 7-23 H 8128237906) GLUCOSE (test code = 97 mg/dL 70-110 9882573638) CREATININE (test code = 2.31 mg/dL 0.50-1.04 H 3849955095) CALCIUM (test code = 8.5 mg/dL 8.6-10.6 L 3283373618) eGFR (test code = mL/min/1.73m2 2720556658) AMANDA (test code = AMANDA) Association of Glomerular Filtration Rate (GFR) and Staging of Kidney Disease* + --+ --+ ------+| GFR (mL/min/1.73 m2) ?| With Kidney Damage ?| ?Without Kidney Damage+ --------+ --------+ +| ?>90 ?| ?Stage one ?| ? Normal ?+ ---+ ---+ -------+| ?60-89 ?| ?Stage two ?| ? Decreased GFR ? + --+ --+ ------+| ?30-59 ?| ?Stage three ?| ? Stage three ? + --+ --+ ------+| ?15-29 ?| ?Stage four ? | ? Stage four ?+ ---+ ---+ -------+| ?<15 (or dialysis) ? ?| ?Stage five ? | ? Stage five ?+ ---+ ---+ -------+ *Each stage assumes the associated GFR level has been in effect for at least three months. ?Stages 1 to 5, with or without kidney disease, indicate chronic kidney disease. Notes: Determination of stages one and two (with eGFR >59mL/min/1.73 m2) requires estimation of kidney damage for at least three months as defined by structural or functional abnormalities of the kidney, manifested by either:Pathological abnormalities or Markers of kidney damage (including abnormalities in the composition of the blood or urine or abnormalities in imaging tests). Lab Interpretation Abnormal (test code = 22610-1) [facility] GLUCOSE (AUTOMATED)2020-06-24 08:59:09 Test Item Value Reference Range Interpretation Comments POCT GLU (test code = 1432308535) 125 mg/dL 70-110 H Lab Interpretation (test code = Abnormal 34292-2) [facility] GLUCOSE (AUTOMATED)2020-06-24 05:14:11 Test Item Value Reference Range Interpretation Comments POCT GLU (test code = 6325503027) 89 mg/dL 70-110 Lab Interpretation (test code = Normal 28892-8) [facility] GLUCOSE (AUTOMATED)2020-06-24 02:34:02 Test Item Value Reference Range Interpretation Comments POCT GLU (test code = 0921785168) 93 mg/dL 70-110 Lab Interpretation (test code = Normal 11365-4) [facility] GLUCOSE (AUTOMATED)2020-06-23 21:46:50 Test Item Value Reference Range Interpretation Comments POCT GLU (test code = 5674347863) 104 mg/dL 70-110 Lab Interpretation (test code = Normal 40199-8) [facility] [id number] 20:48:06 Test Item Value Reference Range Interpretation Comments Fecal Leukocytes (test code = Negative Negative 1570182433) Lab Interpretation (test code = Normal 19897-8) [facility] CULTURE [id number] 18:01:38 Test Item Value Reference Range Interpretation Comments Blood Culture-Aerobic No organisms No growth Previo us (test code = 59471-9) isolated prelim inary verified result was Culture In Progress on 06/18/2020 at 16 CDTPrevious preliminary verified result was No growth a t 24 hours on 06/19/2020 at 13 CDTPrevious preliminary verified result was No growth a t 48 hours on 06/20/2020 at 13 02 CDTPrevious preliminary verified result was No growth a t 72 hours on 06/21/2020 at 13 01 CDT Blood No organisms No growth Previous Culture-Anaerobic isolated preliminar y (test code = 75012-0) verifi ed result was Culture In Progress on 06/18/2020 at 16 01 CDTPrevious preliminary verified result was No growth a t 24 hours on 06/19/2020 at 13 01 CDTPrevious preliminary verified result was No growth a t 48 hours on 06/20/2020 at 13 02 CDTPrevious preliminary verified result was No growth a t 72 hours on 06/21/2020 at 13 01 CDT Lab Interpretation Normal (test code = 20660-4) [facility] CULTURE [id number] 18:01:38 Test Item Value Reference Range Interpretation Comments Blood Culture-Aerobic No organisms No growth Previo us (test code = 10090-4) isolated prelim inary verified result was Culture In Progress on 06/18/2020 at 16 01 CDTPrevious preliminary verified result was No growth a t 24 hours on 06/19/2020 at 13 01 CDTPrevious preliminary verified result was No growth a t 48 hours on 06/20/2020 at 13 02 CDTPrevious preliminary verified result was No growth a t 72 hours on 06/21/2020 at 13 01 CDT Blood No organisms No growth Previous Culture-Anaerobic isolated preliminar y (test code = 26471-4) verifi ed result was Culture In Progress on 06/18/2020 at 16 01 CDTPrevious preliminary verified result was No growth a t 24 hours on 06/19/2020 at 13 01 CDTPrevious preliminary verified result was No growth a t 48 hours on 06/20/2020 at 13 02 CDTPrevious preliminary verified result was No growth a t 72 hours on 06/21/2020 at 13 01 CDT Lab Interpretation Normal (test code = 53492-8) [facility] Center[facility] GLU[facility]SE (AUTOMATED)2020-06-23 16:36:49 Test Item Value Reference Range Interpretation Comments POCT GLU (test code = 1740410276) 89 mg/dL 70-110 Lab Interpretation (test code = Normal 51991-1) [facility] CenterURINALYSIS2021-04-22 16:15:01 Test Item Value Reference Range Interpretation Comments APPEARANCE (test code = Cloudy Clear A 2649029694) COLOR (test code = Mary Yellow A 1943698487) PH (test code = 4.8-8.0 3692466754) SP GRAVITY (test code = 1.003-1.030 3190293632) GLU U QUAL (test code = Normal Normal 3853783789) BLOOD (test code = 3+ Negative A 0578859165) KETONES (test code = Negative Negative 4558388641) PROTEIN (test code = 100 mg/dL Negative A 2887-8) UROBILIN (test code = Normal Normal 2731494720) BILIRUBIN (test code = Negative Negative 3213457566) NITRITE (test code = Negative Negative 0013096416) LEUK ROCHELLE (test code = 500/uL Negative A 0139172891) RBC/HPF (test code = >182 See_Comment H [Autom ated message] 7018901457) The system [employer] generated this result transmit farzad reference range : 0 - 3 HPF. The refe rence range was not u sed to interpret th is result as normal/abnormal . WBC/HPF (test code = >182 See_Comment H [Autom ated message] 5255232704) The system [employer] generated this result transmit farzad reference range : 0 - 5 HPF. The refe rence range was not u sed to interpret th is result as normal/abnormal . BACTERIA (test code = Many Negative A 5401509196) WBC CLUMPS (test code = See_Comment H [Au tomated message] 3078627464) The system [employer] generated this result transmit farzad reference range : <=1 HPF. The refere nce range was not u sed to interpret th is result as normal/abnormal . Lab Interpretation (test Abnormal code = 30830-0) [facility] CenterXR CHEST 1 [id number] 15:46:27EXAM: XR CHEST 1 VW HISTORY: cough with sputum COMPARISON: None. FINDINGS: The heart is slightly enlarged to the left. Mild hilar vascular congestionmay be present but the lungs are satisfactorily expanded and clearotherwise. ? [facility], Radiant Results Inft User - 06/23/2020 10:47 AM CDTEXAM: XR CHEST 1 VWHISTORY: cough with sputum COMPARISON: None.FINDINGS:The heart is slightly enlarged to the lef t. Mild hilar vascular congestionmay be present but the lungs are satisfactorily expanded and clearotherwise.[facility] Center[facility] GLU[facility] (AUTOMATED)2020-06-23 15:05:56 Test Item Value Reference Range Interpretation Comments POCT GLU (test code = 7666482090) 96 mg/dL 70-110 Lab Interpretation (test code = Normal 36325-7) [facility] CenterBASIC METABOLIC PANEL (NA, K, CL, CO2, GLUCOSE, BUN, CREATININE, CA)2020-06-23 14:13:01 Test Item Value Reference Range Interpretation Comments NA (test code = 134 mmol/L 135-145 L 4019660636) K (test code = 4.4 mmol/L 3.5-5.0 0273396046) CL (test code = 106 mmol/L 98-108 2410882362) CO2 TOTAL (test code = 19 mmol/L 23-31 L 1397469866) AGAP (test code = 2-16 7112141688) BUN (test code = 69 mg/dL 7-23 H 3222658342) GLUCOSE (test code = 37 mg/dL 70-110 LL 9683858750) CREATININE (test code = 2.33 mg/dL 0.50-1.04 H 8918251182) CALCIUM (test code = 8.4 mg/dL 8.6-10.6 L 3309002223) eGFR (test code = mL/min/1.73m2 7294044186) AMANDA (test code = AMANDA) Association of Glomerular Filtration Rate (GFR) and Staging of Kidney Disease* + --+ --+ ------+| GFR (mL/min/1.73 m2) ?| With Kidney Damage ?| ?Without Kidney Damage+ --------+ --------+ +| ?>90 ?| ?Stage one ?| ? Normal ?+ ---+ ---+ -------+| ?60-89 ?| ?Stage two ?| ? Decreased GFR ? + --+ --+ ------+| ?30-59 ?| ?Stage three ?| ? Stage three ? + --+ --+ ------+| ?15-29 ?| ?Stage four ? | ? Stage four ?+ ---+ ---+ -------+| ?<15 (or dialysis) ? ?| ?Stage five ? | ? Stage five ?+ ---+ ---+ -------+ *Each stage assumes the associated GFR level has been in effect for at least three months. ?Stages 1 to 5, with or without kidney disease, indicate chronic kidney disease. Notes: Determination of stages one and two (with eGFR >59mL/min/1.73 m2) requires estimation of kidney damage for at least three months as defined by structural or functional abnormalities of the kidney, manifested by either:Pathological abnormalities or Markers of kidney damage (including abnormalities in the composition of the blood or urine or abnormalities in imaging tests). Lab Interpretation Abnormal (test code = 98614-0) [facility] WITHOUT [id number] 13:32:57 Test Item Value Reference Range Interpretation Comments WBC (test code = 6690-2) See_Comment H [A utomated message] The system [employer] generated this result transmit farzad reference range : 4.30 - 11.10 10*3/?L. The reference range was not used to interpret this result as normal/abnormal . RBC (test code = 789-8) See_Comment L [Au tomated message] The system [employer] generated this result transmit farzad reference range : 3.93 - 5.25 10* 6/?L. The reference r jourdan was not used to interpret this result as normal/abnormal . HGB (test code = 718-7) 8.8 g/dL 11.6-15.0 L HCT (test code = 4544-3) 26.7 % 35.7-45.2 L MCH (test code = 785-6) 30.6 pg 25.9-32.8 MCV (test code = 787-2) 92.7 fL 80.6-95.5 MCHC (test code = 786-4) 33.0 g/dL 31.6-35.1 PLT (test code = 777-3) See_Comment [Au tomated message] The system [facility] generated this result transmit farzad reference range : 166 - 358 10*3/?L. The reference range was not used to interpret this result as normal/abnormal . MPV (test code = 9.3 fL 9.5-12.9 L 22297-1) RDW-CV (test code = 15.0 % 12.0-15.5 788-0) RDW-SD (test code = 50.4 fL 39.0-49.9 H 80003-3) NRBC x10^3 (test code = See_Comment [Au tomated message] 0520429946) The system [facility] generated this result transmit farzad reference range : 10*3/?L. The reference range was not used to interpret this result as normal/abnormal . NRBC/100 WBC (test code See_Comment [Au tomated message] = 9901032651) The system [facility] generated this result transmit farzad reference range : 0.0 - 10.0 /100 WBC s. The reference r jourdan was not used to interpret this result as normal/abnormal . IPF % (test code = 6959575527) Lab Interpretation (test Abnormal code = 90637-8) [facility] CenterTHYROID STIMULATING [id number] 06:16:16 Test Item Value Reference Range Interpretation Comments TSH (test code = See_Comment Biotin has been 1935242374) reported to cau se a negative bias, interpret resul ts relative to naomie gardner's use of biotin. [Automated mess age] The system [employer] generated this result transmitted ref erence range: 0.45 - 4 .70 mIU/L. The refe rence range was not u sed to interpret this result as normal/abnor mal. Lab Interpretation (test Normal code = 46357-1) [facility] Center[facility].2020-06-23 04:04:32 Test Item Value Reference Range Interpretation Comments PH (test code = 2) 7.35-7.45 L PCO2 (test code = See_Comment [Automat ed message] 5957784579) The system [employer] generated this result transmitted ref erence range: 35 - 45 mmHg. The reference r jourdan was not used to interpret this result as normal/abnor mal. PO2 (test code = See_Comment LL [Automated message] 7930178222) The system [employer] generated this result transmitted ref erence range: 80 - 100 mmHg. The reference r jourdan was not used to interpret this result as normal/abnor mal. HCO3 (test code = See_Comment L [Automate d message] 3261921444) The system [employer] generated this result transmitted ref erence range: 22 - 26 mEq/L. The reference r jourdan was not used to interpret this result as normal/abnor mal. BE (test code = See_Comment L [Automated message] 0403538693) The system [employer] generated this result transmitted ref erence range: -3.0 - 3 .0 mEq/L. The refe rence range was not u sed to interpret this result as normal/abnor mal. Lab Interpretation (test Abnormal code = 01244-4) [facility] CenterTROPONIN [id number] 14:29:07 Test Item Value Reference Range Interpretation Comments TROPONIN I (test 0.113 ng/mL See_Comment H [Automated code = [id number]) message] The system which generated this result transmitted reference range : <=0.034. The reference range was not used to interpret this result as normal/abnormal . AMANDA (test code = Equal or Less than AMANDA) 0.034 ng/ml---Normal ?Note: Cardiac troponin begins to rise 3-4 hours after the onset of ischemia. Repeat in 4-6 hours if the sample was drawn within 3-4 hours of the onset of the symptom and found normal. Between 0.035 and 0.120 ng/mL--- Borderline. Questionable myocardial injury or necrosis ? ?Note: Serial measurement may be necessary to confirm or exclude the diagnosis of myocardial injury or necrosis; Clinical correlation (symptoms, EKGs, imaging studies, and others) required; Repeat in 4-6 hours if clinically indicated. ? Equal or Higher than 0.121 ng/mL---Abnormal. Myocardial Injury or Necrosis Likely ? Biotin has been reported to cause a negative bias, interpret results relative to patient's use of biotin. ? Lab Interpretation Abnormal (test code = 75392-2) [facility] [id number] 14:23:31 Test Item Value Reference Range Interpretation Comments SPUTUM CULTURE 2+ Respiratory mohsen: (test code = 622-1) Commensal upper respiratory microorganisms only. Gram stain (test Moderate Epithelial cells code = 664-3) AMANDA (test code = Bacterial pathogens AMANDA) associated with lower respiratory infections were not identified, which include Pseudomonas aeruginosa and Staphylococcus aureus (MRSA or MSSA). [facility] WITH [id number] 10:45:45 Test Item Value Reference Range Interpretation Comments WBC (test code = See_Comment H [Automated 9790-2) message] The system which generated this result transmit farzad reference range : 4.30 - 11.10 10*3/?L. The reference range was not used to interpret this result as normal/abnormal . RBC (test code = See_Comment L [Automated 739-8) message] The system which generated this result transmit farzad reference range : 3.93 - 5.25 10*6/?L. The reference range was not used to interpret this result as normal/abnormal . HGB (test code = 7.8 g/dL 11.6-15.0 L 718-7) HCT (test code = 23.3 % 35.7-45.2 L 4544-3) MCV (test code = 92.5 fL 80.6-95.5 787-2) MCH (test code = 31.0 pg 25.9-32.8 785-6) MCHC (test code = 33.5 g/dL 31.6-35.1 786-4) RDW-SD (test code = 50.3 fL 39.0-49.9 H 60134-8) RDW-CV (test code = 15.0 % 12.0-15.5 788-0) PLT (test code = See_Comment [Automated 777-3) message] The system which generated this result transmit farzad reference range : 166 - 358 10*3/ ?L. The reference range was not u sed to interpret th is result as normal/abnormal . MPV (test code = 9.9 fL 9.5-12.9 18554-0) NRBC/100 WBC (test See_Comment [Automat ed code = 8252738769) message] The system which generated this result transmit farzad reference range : 0.0 - 10.0 /100 WBCs. The reference range was not used to interpret this result as normal/abnormal . NRBC x10^3 (test code See_Comment [Auto mated = 4446344801) message] The system which generated this result transmit farzad reference range : 10*3/?L. The reference range was not used to interpret this result as normal/abnormal . GRAN MAT (NEUT) % 84.7 % (test code = 770-8) IMM GRAN % (test code 1.00 % = 9793613366) LYMPH % (test code = 6.9 % 736-9) MONO % (test code = 6.0 % 5905-5) EOS % (test code = 1.2 % 713-8) BASO % (test code = 0.2 % 706-2) GRAN MAT x10^3(ANC) 15.15 10*3/uL 1.88-7.09 H (test code = 1900498315) IMM GRAN x10^3 (test 0.17 10*3/uL 0.00-0.06 H code = 1226869306) LYMPH x10^3 (test code 1.23 10*3/uL 1.32-3.29 L = 731-0) MONO x10^3 (test code 1.08 10*3/uL 0.33-0.92 H = 742-7) EOS x10^3 (test code = 0.21 10*3/uL 0.03-0.39 711-2) BASO x10^3 (test code 0.03 10*3/uL 0.01-0.07 = 704-7) REACT LYMPHS (test Rare code = 6243088817) TOXIC CHANGES (test Present A code = 803-7) Lab Interpretation Abnormal (test code = 76515-6) [facility] METABOLIC PANEL (NA, K, CL, CO2, GLUCOSE, BUN, CREATININE, CA)2020-06-22 10:11:39 Test Item Value Reference Range Interpretation Comments NA (test code = 134 mmol/L 135-145 L 7353757432) K (test code = 4.4 mmol/L 3.5-5.0 3037361261) CL (test code = 108 mmol/L 98-108 6837828025) CO2 TOTAL (test code = 20 mmol/L 23-31 L 7901636890) AGAP (test code = 2-16 7297984629) BUN (test code = 75 mg/dL 7-23 H 7214820050) GLUCOSE (test code = 68 mg/dL 70-110 L 3850596473) CREATININE (test code = 1.97 mg/dL 0.50-1.04 H 2249226416) CALCIUM (test code = 8.2 mg/dL 8.6-10.6 L 3483603388) eGFR (test code = mL/min/1.73m2 6393938251) AMANDA (test code = AMANDA) Association of Glomerular Filtration Rate (GFR) and Staging of Kidney Disease* + --+ --+ ------+| GFR (mL/min/1.73 m2) ?| With Kidney Damage ?| ?Without Kidney Damage+ --------+ --------+ +| ?>90 ?| ?Stage one ?| ? Normal ?+ ---+ ---+ -------+| ?60-89 ?| ?Stage two ?| ? Decreased GFR ? + --+ --+ ------+| ?30-59 ?| ?Stage three ?| ? Stage three ? + --+ --+ ------+| ?15-29 ?| ?Stage four ? | ? Stage four ?+ ---+ ---+ -------+| ?<15 (or dialysis) ? ?| ?Stage five ? | ? Stage five ?+ ---+ ---+ -------+ *Each stage assumes the associated GFR level has been in effect for at least three months. ?Stages 1 to 5, with or without kidney disease, indicate chronic kidney disease. Notes: Determination of stages one and two (with eGFR >59mL/min/1.73 m2) requires estimation of kidney damage for at least three months as defined by structural or functional abnormalities of the kidney, manifested by either:Pathological abnormalities or Markers of kidney damage (including abnormalities in the composition of the blood or urine or abnormalities in imaging tests). Lab Interpretation Abnormal (test code = 47016-4) [facility] CenterPROTHROMBIN TIME / [id number] 10:00:33 Test Item Value Reference Range Interpretation Comments PROTIME PATIENT (test See_Comment H [Auto mated message] code = 5964-2) The system wh ich generated this result transmitted ref erence range: 10.1 - 1 2.6 Seconds. The reference range was not used to int erpret this result as normal/abnormal . INR (test code = 6301-6) Nor mal INR <1.1; Warfarin Therap eutic range 2.0 to 3. 0 or 2.5 to 3.5, dep ending upon the indica tions. Lab Interpretation (test Abnormal code = 21274-4) [facility]2020-06-22 01:30:17 Test Item Value Reference Range Interpretation Comments POCT GLU (test code = 3256463467) 97 mg/dL 70-110 Lab Interpretation (test code = Normal 11360-5) [facility] CenterTROPONIN [id number] 00:13:45 Test Item Value Reference Range Interpretation Comments TROPONIN I (test 0.049 ng/mL See_Comment H [Automated code = 3891793375) message] The system which generated this result transmitted reference range : <=0.034. The reference range was not used to interpret this result as normal/abnormal . AMANDA (test code = Equal or Less than AMANDA) 0.034 ng/ml---Normal ?Note: Cardiac troponin begins to rise 3-4 hours after the onset of ischemia. Repeat in 4-6 hours if the sample was drawn within 3-4 hours of the onset of the symptom and found normal. Between 0.035 and 0.120 ng/mL--- Borderline. Questionable myocardial injury or necrosis ? ?Note: Serial measurement may be necessary to confirm or exclude the diagnosis of myocardial injury or necrosis; Clinical correlation (symptoms, EKGs, imaging studies, and others) required; Repeat in 4-6 hours if clinically indicated. ? Equal or Higher than 0.121 ng/mL---Abnormal. Myocardial Injury or Necrosis Likely ? Biotin has been reported to cause a negative bias, interpret results relative to patient's use of biotin. ? Lab Interpretation Abnormal (test code = 36298-6) [facility] GLUCOSE (AUTOMATED)2020-06-21 21:08:23 Test Item Value Reference Range Interpretation Comments POCT GLU (test code = 0450609093) 82 mg/dL 70-110 Lab Interpretation (test code = Normal 53337-3) [facility] GLUCOSE (AUTOMATED)2020-06-21 17:17:29 Test Item Value Reference Range Interpretation Comments POCT GLU (test code = 1943352650) 101 mg/dL 70-110 Lab Interpretation (test code = Normal 60280-5) [facility] GLUCOSE (AUTOMATED)2020-06-21 17:17:29 Test Item Value Reference Range Interpretation Comments POCT GLU (test code = 9583591443) 101 mg/dL 70-110 Lab Interpretation (test code = Normal 73979-5) [facility] Center[facility] 1 View - To confirm nasogastric tube placement.2020-06-21 16:33:39FINDINGS / IMPRESSION: The enteric tube with the tip and sidehole terminates at the gastric body. Preliminary Report Dictated by Resident: May Yan I reviewed this study and agree. I, Ozzy Tavares MD., have reviewed this study and agree with theabove report.EXAM: XR ABDOMEN 1 VW HISTORY: 79years-old Female presenting with NGT verification S/SX, Dx: ?Toconfirm nasogastric tube tube placement. COMPARISON: No prior studies available for comparison. TECHNIQUE: Single abdominal view. [facility], Radiant Results Inft User - 06/21/2020 11:34 AM CDTEXAM: XR ABDOMEN 1 VWHISTORY: 79 years-old Female presenting with NGT verification S/SX, Dx: Toconfirm nasogastric tube tube placement.COMPARISON: No prior studies available for comparison. TECHNIQUE: Single abdominal view.IMPRESSIONFINDINGS / IMPRESSION:The enteric tube with the tip and sidehole terminates at the gastric body.Preliminary Report Dictated by Resident: May Dotson reviewed this study and agree.Ozzy Graham MD., have reviewed this study and agree with theabove report.[facility] - To confirm nasogastric tube placement.2020-06-21 16:33:39FINDINGS / IMPRESSION: The enteric tube with the tip and sidehole terminates at the gastric body. Preliminary Report Dictated by Resident: May Yan I reviewed this study and agree. Ozzy Graham MD., have reviewed this study and agree with theabove report.EXAM: XR ABDOMEN 1 VW HISTORY: 79years-old Female presenting with NGT verification S/SX, Dx: ?Toconfirm nasogastric tube tube placement. COMPARISON: No prior studies available for comparison. TECHNIQUE: Single abdominal view. [facility], Radiant Results Inft User - 06/21/2020 11:34 AM CDTEXAM: XR ABDOMEN 1 VWHISTORY: 79 years-old Female presenting with NGT verification S/SX, Dx: Toconfirm nasogastric tube tube placement.COMPARISON: No prior studies available for comparison. TECHNIQUE: Single abdominal view.IMPRESSIONFINDINGS / IMPRESSIO N:The enteric tube with the tip and sidehole terminates at the gastric body.Preliminary Report Dictated by Resident: May Dotson reviewed this study and agree.Ozzy Graham MD., have reviewed this study and agree with theabove report.[facility] WITHOUT [id number] 16:17:16 Test Item Value Reference Range Interpretation Comments WBC (test code = 6690-2) See_Comment H [A utomated message] The system [facility] generated this result transmit farzad reference range : 4.30 - 11.10 10*3/?L. The reference range was not used to interpret this result as normal/abnormal . RBC (test code = 789-8) See_Comment L [Au tomated message] The system [facility] generated this result transmit farzad reference range : 3.93 - 5.25 10* 6/?L. The reference r jourdan was not used to interpret this result as normal/abnormal . HGB (test code = 718-7) 8.0 g/dL 11.6-15.0 L HCT (test code = 4544-3) 24.3 % 35.7-45.2 L MCH (test code = 785-6) 30.7 pg 25.9-32.8 MCV (test code = 787-2) 93.1 fL 80.6-95.5 MCHC (test code = 786-4) 32.9 g/dL 31.6-35.1 PLT (test code = 777-3) See_Comment [Au tomated message] The system [facility] generated this result transmit farzad reference range : 166 - 358 10*3/?L. The reference range was not used to interpret this result as normal/abnormal . MPV (test code = 10.0 fL 9.5-12.9 04436-0) RDW-CV (test code = 15.0 % 12.0-15.5 788-0) RDW-SD (test code = 51.0 fL 39.0-49.9 H 56450-9) NRBC x10^3 (test code = See_Comment [Au tomated message] 2561214456) The system [facility] generated this result transmit farzad reference range : 10*3/?L. The reference range was not used to interpret this result as normal/abnormal . NRBC/100 WBC (test code See_Comment [Au tomated message] = 2133279049) The system [facility] generated this result transmit farzad reference range : 0.0 - 10.0 /100 WBC s. The reference r jourdan was not used to interpret this result as normal/abnormal . IPF % (test code = 8064804428) Lab Interpretation (test Abnormal code = 16639-7) [facility] WITHOUT [id number] 16:17:16 Test Item Value Reference Range Interpretation Comments WBC (test code = 6690-2) See_Comment H [A utomated message] The system [employer] generated this result transmit farzad reference range : 4.30 - 11.10 10*3/?L. The reference range was not used to interpret this result as normal/abnormal . RBC (test code = 789-8) See_Comment L [Au tomated message] The system [employer] generated this result transmit farzad reference range : 3.93 - 5.25 10* 6/?L. The reference r jourdan was not used to interpret this result as normal/abnormal . HGB (test code = 718-7) 8.0 g/dL 11.6-15.0 L HCT (test code = 4544-3) 24.3 % 35.7-45.2 L MCH (test code = 785-6) 30.7 pg 25.9-32.8 MCV (test code = 787-2) 93.1 fL 80.6-95.5 MCHC (test code = 786-4) 32.9 g/dL 31.6-35.1 PLT (test code = 777-3) See_Comment [Au tomated message] The system [employer] generated this result transmit farzad reference range : 166 - 358 10*3/?L. The reference range was not used to interpret this result as normal/abnormal . MPV (test code = 10.0 fL 9.5-12.9 01128-0) RDW-CV (test code = 15.0 % 12.0-15.5 788-0) RDW-SD (test code = 51.0 fL 39.0-49.9 H 25113-0) NRBC x10^3 (test code = See_Comment [Au tomated message] 6569741847) The system [employer] generated this result transmit farzad reference range : 10*3/?L. The reference range was not used to interpret this result as normal/abnormal . NRBC/100 WBC (test code See_Comment [Au tomated message] = 1785296506) The system [facility] generated this result transmit farzad reference range : 0.0 - 10.0 /100 WBC s. The reference r jourdan was not used to interpret this result as normal/abnormal . IPF % (test code = 9248820723) Lab Interpretation (test Abnormal code = 70989-9) [facility] GLUCOSE (AUTOMATED)2020-06-21 12:46:18 Test Item Value Reference Range Interpretation Comments POCT GLU (test code = 4651084450) 83 mg/dL 70-110 Lab Interpretation (test code = Normal 51040-3) [facility] GLUCOSE (AUTOMATED)2020-06-21 12:46:18 Test Item Value Reference Range Interpretation Comments POCT GLU (test code = 7004193392) 83 mg/dL 70-110 Lab Interpretation (test code = Normal 16982-0) [id number] 12:12[facility]46 Test Item Value Reference Range Interpretation Comments TROPONIN I (test 0.140 ng/mL See_Comment H [Automated code = 3572634585) message] The system which generated this result transmitted reference range : <=0.034. The reference range was not used to interpret this result as normal/abnormal . AMANDA (test code = Equal or Less than AMANDA) 0.034 ng/ml---Normal ?Note: Cardiac troponin begins to rise 3-4 hours after the onset of ischemia. Repeat in 4-6 hours if the sample was drawn within 3-4 hours of the onset of the symptom and found normal. Between 0.035 and 0.120 ng/mL--- Borderline. Questionable myocardial injury or necrosis ? ?Note: Serial measurement may be necessary to confirm or exclude the diagnosis of myocardial injury or necrosis; Clinical correlation (symptoms, EKGs, imaging studies, and others) required; Repeat in 4-6 hours if clinically indicated. ? Equal or Higher than 0.121 ng/mL---Abnormal. Myocardial Injury or Necrosis Likely ? Biotin has been reported to cause a negative bias, interpret results relative to patient's use of biotin. ? Lab Interpretation Abnormal (test code = 23040-8) [facility] [id number] 12:12:46 Test Item Value Reference Range Interpretation Comments TROPONIN I (test 0.140 ng/mL See_Comment H [Automated code = 9993205208) message] The system which generated this result transmitted reference range : <=0.034. The reference range was not used to interpret this result as normal/abnormal . AMANDA (test code = Equal or Less than AMANDA) 0.034 ng/ml---Normal ?Note: Cardiac troponin begins to rise 3-4 hours after the onset of ischemia. Repeat in 4-6 hours if the sample was drawn within 3-4 hours of the onset of the symptom and found normal. Between 0.035 and 0.120 ng/mL--- Borderline. Questionable myocardial injury or necrosis ? ?Note: Serial measurement may be necessary to confirm or exclude the diagnosis of myocardial injury or necrosis; Clinical correlation (symptoms, EKGs, imaging studies, and others) required; Repeat in 4-6 hours if clinically indicated. ? Equal or Higher than 0.121 ng/mL---Abnormal. Myocardial Injury or Necrosis Likely ? Biotin has been reported to cause a negative bias, interpret results relative to patient's use of biotin. ? Lab Interpretation Abnormal (test code = 71218-4) [facility] GLUCOSE (AUTOMATED)2020-06-21 08:18:28 Test Item Value Reference Range Interpretation Comments POCT GLU (test code = 6436231718) 86 mg/dL 70-110 Lab Interpretation (test code = Normal 66801-1) [facility] GLUCOSE (AUTOMATED)2020-06-21 08:18:28 Test Item Value Reference Range Interpretation Comments POCT GLU (test code = 1866822913) 86 mg/dL 70-110 Lab Interpretation (test code = Normal 83916-9) [facility] [id number] 06:15:38 Test Item Value Reference Range Interpretation Comments TROPONIN I (test 0.139 ng/mL See_Comment H [Automated code = 9441479475) message] The system which generated this result transmitted reference range : <=0.034. The reference range was not used to interpret this result as normal/abnormal . AMANDA (test code = Equal or Less than AMANDA) 0.034 ng/ml---Normal ?Note: Cardiac troponin begins to rise 3-4 hours after the onset of ischemia. Repeat in 4-6 hours if the sample was drawn within 3-4 hours of the onset of the symptom and found normal. Between 0.035 and 0.120 ng/mL--- Borderline. Questionable myocardial injury or necrosis ? ?Note: Serial measurement may be necessary to confirm or exclude the diagnosis of myocardial injury or necrosis; Clinical correlation (symptoms, EKGs, imaging studies, and others) required; Repeat in 4-6 hours if clinically indicated. ? Equal or Higher than 0.121 ng/mL---Abnormal. Myocardial Injury or Necrosis Likely ? Biotin has been reported to cause a negative bias, interpret results relative to patient's use of biotin. ? Lab Interpretation Abnormal (test code = 82976-9) [facility] [id number] 06:15:38 Test Item Value Reference Range Interpretation Comments TROPONIN I (test 0.139 ng/mL See_Comment H [Automated code = 6337974196) message] The system which generated this result transmitted reference range : <=0.034. The reference range was not used to interpret this result as normal/abnormal . AMANDA (test code = Equal or Less than AMANDA) 0.034 ng/ml---Normal ?Note: Cardiac troponin begins to rise 3-4 hours after the onset of ischemia. Repeat in 4-6 hours if the sample was drawn within 3-4 hours of the onset of the symptom and found normal. Between 0.035 and 0.120 ng/mL--- Borderline. Questionable myocardial injury or necrosis ? ?Note: Serial measurement may be necessary to confirm or exclude the diagnosis of myocardial injury or necrosis; Clinical correlation (symptoms, EKGs, imaging studies, and others) required; Repeat in 4-6 hours if clinically indicated. ? Equal or Higher than 0.121 ng/mL---Abnormal. Myocardial Injury or Necrosis Likely ? Biotin has been reported to cause a negative bias, interpret results relative to patient's use of biotin. ? Lab Interpretation Abnormal (test code = 08324-4) [facility] METABOLIC PANEL (NA, K, CL, CO2, GLUCOSE, BUN, CREATININE, CA)2020-06-21 05:49:55 Test Item Value Reference Range Interpretation Comments NA (test code = 138 mmol/L 135-145 3486102621) K (test code = 4.4 mmol/L 3.5-5.0 3501190558) CL (test code = 111 mmol/L 98-108 H 0169125211) CO2 TOTAL (test code = 19 mmol/L 23-31 L 1686869656) AGAP (test code = 2-16 9690159229) BUN (test code = 85 mg/dL 7-23 H 3840357711) GLUCOSE (test code = 60 mg/dL 70-110 L 4919204128) CREATININE (test code = 2.43 mg/dL 0.50-1.04 H 2846640717) CALCIUM (test code = 8.1 mg/dL 8.6-10.6 L 8054628412) eGFR (test code = mL/min/1.73m2 5512770599) AMANDA (test code = AMANDA) Association of Glomerular Filtration Rate (GFR) and Staging of Kidney Disease* + --+ --+ ------+| GFR (mL/min/1.73 m2) ?| With Kidney Damage ?| ?Without Kidney Damage+ --------+ --------+ +| ?>90 ?| ?Stage one ?| ? Normal ?+ ---+ ---+ -------+| ?60-89 ?| ?Stage two ?| ? Decreased GFR ? + --+ --+ ------+| ?30-59 ?| ?Stage three ?| ? Stage three ? + --+ --+ ------+| ?15-29 ?| ?Stage four ? | ? Stage four ?+ ---+ ---+ -------+| ?<15 (or dialysis) ? ?| ?Stage five ? | ? Stage five ?+ ---+ ---+ -------+ *Each stage assumes the associated GFR level has been in effect for at least three months. ?Stages 1 to 5, with or without kidney disease, indicate chronic kidney disease. Notes: Determination of stages one and two (with eGFR >59mL/min/1.73 m2) requires estimation of kidney damage for at least three months as defined by structural or functional abnormalities of the kidney, manifested by either:Pathological abnormalities or Markers of kidney damage (including abnormalities in the composition of the blood or urine or abnormalities in imaging tests). Lab Interpretation Abnormal (test code = 97928-6) [facility] METABOLIC PANEL (NA, K, CL, CO2, GLUCOSE, BUN, CREATININE, CA)2020-06-21 05:49:55 Test Item Value Reference Range Interpretation Comments NA (test code = 138 mmol/L 135-145 3541846262) K (test code = 4.4 mmol/L 3.5-5.0 8712910242) CL (test code = 111 mmol/L 98-108 H 8855984993) CO2 TOTAL (test code = 19 mmol/L 23-31 L 2640234891) AGAP (test code = 2-16 1055501346) BUN (test code = 85 mg/dL 7-23 H 5059222370) GLUCOSE (test code = 60 mg/dL 70-110 L 9221390007) CREATININE (test code = 2.43 mg/dL 0.50-1.04 H 9791800988) CALCIUM (test code = 8.1 mg/dL 8.6-10.6 L 7701967746) eGFR (test code = mL/min/1.73m2 6861254274) AMANDA (test code = AMANDA) Association of Glomerular Filtration Rate (GFR) and Staging of Kidney Disease* + --+ --+ ------+| GFR (mL/min/1.73 m2) ?| With Kidney Damage ?| ?Without Kidney Damage+ --------+ --------+ +| ?>90 ?| ?Stage one ?| ? Normal ?+ ---+ ---+ -------+| ?60-89 ?| ?Stage two ?| ? Decreased GFR ? + --+ --+ ------+| ?30-59 ?| ?Stage three ?| ? Stage three ? + --+ --+ ------+| ?15-29 ?| ?Stage four ? | ? Stage four ?+ ---+ ---+ -------+| ?<15 (or dialysis) ? ?| ?Stage five ? | ? Stage five ?+ ---+ ---+ -------+ *Each stage assumes the associated GFR level has been in effect for at least three months. ?Stages 1 to 5, with or without kidney disease, indicate chronic kidney disease. Notes: Determination of stages one and two (with eGFR >59mL/min/1.73 m2) requires estimation of kidney damage for at least three months as defined by structural or functional abnormalities of the kidney, manifested by either:Pathological abnormalities or Markers of kidney damage (including abnormalities in the composition of the blood or urine or abnormalities in imaging tests). Lab Interpretation Abnormal (test code = 70085-8) [facility] WITHOUT [id number] 05:25:11 Test Item Value Reference Range Interpretation Comments WBC (test code = 6690-2) See_Comment H [A utomated message] The system [employer] generated this result transmit farzad reference range : 4.30 - 11.10 10*3/?L. The reference range was not used to interpret this result as normal/abnormal . RBC (test code = 789-8) See_Comment L [Au tomated message] The system [employer] generated this result transmit farzad reference range : 3.93 - 5.25 10* 6/?L. The reference r jourdan was not used to interpret this result as normal/abnormal . HGB (test code = 718-7) 7.8 g/dL 11.6-15.0 L HCT (test code = 4544-3) 23.9 % 35.7-45.2 L MCH (test code = 785-6) 30.4 pg 25.9-32.8 MCV (test code = 787-2) 93.0 fL 80.6-95.5 MCHC (test code = 786-4) 32.6 g/dL 31.6-35.1 PLT (test code = 777-3) See_Comment [Au tomated message] The system [employer] generated this result transmit farzad reference range : 166 - 358 10*3/?L. The reference range was not used to interpret this result as normal/abnormal . MPV (test code = 9.7 fL 9.5-12.9 96064-1) RDW-CV (test code = 14.9 % 12.0-15.5 788-0) RDW-SD (test code = 50.1 fL 39.0-49.9 H 83949-5) NRBC x10^3 (test code = See_Comment [Au tomated message] [id number]) The system [employer] generated this result transmit farzad reference range : 10*3/?L. The reference range was not used to interpret this result as normal/abnormal . NRBC/100 WBC (test code See_Comment [Au tomated message] = [id number]) The system [facility] generated this result transmit farzad reference range : 0.0 - 10.0 /100 WBC s. The reference r jourdan was not used to interpret this result as normal/abnormal . IPF % (test code = 7858628221) Lab Interpretation (test Abnormal code = 62190-9) [facility] WITHOUT [id number] 05:25:11 Test Item Value Reference Range Interpretation Comments WBC (test code = 6690-2) See_Comment H [A utomated message] The system [facility] generated this result transmit farzad reference range : 4.30 - 11.10 10*3/?L. The reference range was not used to interpret this result as normal/abnormal . RBC (test code = 789-8) See_Comment L [Au tomated message] The system [facility] generated this result transmit farzad reference range : 3.93 - 5.25 10* 6/?L. The reference r jourdan was not used to interpret this result as normal/abnormal . HGB (test code = 718-7) 7.8 g/dL 11.6-15.0 L HCT (test code = 4544-3) 23.9 % 35.7-45.2 L MCH (test code = 785-6) 30.4 pg 25.9-32.8 MCV (test code = 787-2) 93.0 fL 80.6-95.5 MCHC (test code = 786-4) 32.6 g/dL 31.6-35.1 PLT (test code = 777-3) See_Comment [Au tomated message] The system [employer] generated this result transmit farzad reference range : 166 - 358 10*3/?L. The reference range was not used to interpret this result as normal/abnormal . MPV (test code = 9.7 fL 9.5-12.9 83855-3) RDW-CV (test code = 14.9 % 12.0-15.5 788-0) RDW-SD (test code = 50.1 fL 39.0-49.9 H 13409-7) NRBC x10^3 (test code = See_Comment [Au tomated message] [id number]) The system [employer] generated this result transmit farzad reference range : 10*3/?L. The reference range was not used to interpret this result as normal/abnormal . NRBC/100 WBC (test code See_Comment [Au tomated message] = [id number]) The system [employer] generated this result transmit farzad reference range : 0.0 - 10.0 /100 WBC s. The reference r jourdan was not used to interpret this result as normal/abnormal . IPF % (test code = 9826160710) Lab Interpretation (test Abnormal code = 22935-3) [facility] [id number] 02:48:08COVID DMT InterpretationInterpretation/Recommendations: Molecular NAAT Tests for Active Infection with the SARS-CoV-2 Virus: The patient has currently tested negative for the SARS-CoV-2 virus that causes COVID-19 illness. This most likely indicates that the patient does not have an active infection with the SARS-CoV-2 virus. However, infection is not completely ruled out as the false negative rate for molecular NAAT testing using a nasopharyngeal sample can be up to 30%, mostly dependent on the timing of sample collection in relation to illness onset and any deficiencies in sampling techniques. If the patient has symptoms concerning for COVID-19 illness, a repeat NAAT test (PCR, Rapid ID Now, etc.) should be performed, at which time the SARS-CoV-2 virus - if present - may have reached a detectable viral load (usually peaking by the end of the first week of symptoms). Tests for IgM and/or IgGAntibodies to the SARS-CoV-2 Virus: If the patient develops COVID-19 illness in the future, testingfor IgM and IgG antibodies approximately 3 weeks after illness onset will likely indicate if the patient has produced antibodies to the SARS-CoV-2 virus. However, some patients may take longer to develop detectable antibodies, while some patients who were infected with SARS-CoV-2 may never develop antibodies. While antibodies to SARS-CoV-2 may provide some degree of immunity, at this time the strength and duration of the antibody response is unknown. ? ? Interpretation Result Comments:These interpretation comments are based upon all COVID-19 testing the patient has had at [facility], including molecular NAAT testing (more commonlyknown as PCR testing and Rapid ID Now testing) and antibody testing. It does not take into account any testing that a patient has had outside of the [facility] medical record. [facility] LABORATORY SERVICESCOVID FxyuyrvOTIX-KfL-5 Rapid ID NOW (no units) ? ? Date ? Value ? 06/18/2020 ? Not Detected ? [facility]Un[facility] COVID INTERPRETATION 2020-06-21 02:48:08COVID DMT InterpretationInterpretation/Recommendations: Molecular NAAT Tests for Active Infection with the SARS-CoV-2 Virus: The patient has currently tested negative for the SARS-CoV-2 virus that causes COVID-19 illness. This most likely indicates that the patient does not have an active infection with the SARS-CoV-2 virus. However, infection is not completely ruled out as the false negative rate for molecular NAAT testing using a nasopharyngeal sample can be up to 30%, mostly dependent on the timing of sample collection in relation to illness onset and any deficiencies in sampling techniques. If the patient has symptoms concerning for COVID-19 illness, a repeat NAAT test (PCR, Rapid ID Now, etc.) should be performed, at which time the SARS-CoV-2 virus - if present - may have reached a detectable viral load (usually peaking by the end of the first week of symptoms). Tests for IgM and/or IgGAntibodies to the SARS-CoV-2 Virus: If the patient develops COVID-19 illness in the future, testingfor IgM and IgG antibodies approximately 3 weeks after illness onset will likely indicate if the patient has produced antibodies to the SARS-CoV-2 virus. However, some patients may take longer to develop detectable antibodies, while some patients who were infected with SARS-CoV-2 may never develop antibodies. While antibodies to SARS-CoV-2 may provide some degree of immunity, at this time the strength and duration of the antibody response is unknown. ? ? Interpretation Result Comments:These interpretation comments are based upon all COVID-19 testing the patient has had at [facility], including molecular NAAT testing (more commonlyknown as PCR testing and Rapid ID Now testing) and antibody testing. It does not take into account any testing that a patient has had outside of the [facility] medical record. [facility] LABORATORY [id number]-OlK-9 Rapid ID NOW (no units) ? ? Date ? Value ? 06/18/2020 ? Not Detected ? [facility] 2020-06-21 01:40:15 Test Item Value Reference Range Interpretation Comments POCT GLU (test code = 2369402481) 75 mg/dL 70-110 Lab Interpretation (test code = Normal 97807-0) [facility] GLUCOSE (AUTOMATED)2020-06-21 01:40:15 Test Item Value Reference Range Interpretation Comments POCT GLU (test code = 4772876399) 75 mg/dL 70-110 Lab Interpretation (test code = Normal 54957-4) [facility] Center[facility]IP[facility] (85691)(TOTAL CHOLESTEROL, TRIGLYCERIDES, HDL)2020-06-20 22:53:29 Test Item Value Reference Range Interpretation Comments CHOL (test code = 73 mg/dL 120-200 L 0454065155) HDL (test code = 20 mg/dL >50 L 7172765254) HDLC RATIO (test code = See_Comment [Au tomated message] 7080187357) The system [employer] generated this result transmit farzad reference range : <=4.5. The refe rence range was not u sed to interpret th is result as normal/abnormal . TRIG (test code = 126 mg/dL 30-170 8727824285) LDL CHOL (test code = 28 mg/dL See_Comment [Auto mated message] 06712-2) The system [employer] generated this result transmit farzad reference range : <=160. The refe rence range was not u sed to interpret th is result as normal/abnormal . VLDL (test code = 25 mg/dL 5-60 3283941359) Lab Interpretation (test Abnormal code = 29545-5) [facility] CenterLIP[facility] PAN[facility] (30467)(TOTAL CHOLESTEROL, TRIGLYCERIDES, HDL)2020-06-20 22:53:29 Test Item Value Reference Range Interpretation Comments CHOL (test code = 73 mg/dL 120-200 L 1937751519) HDL (test code = 20 mg/dL >50 L 9817589957) HDLC RATIO (test code = See_Comment [Au tomated message] 9489426215) The system [employer] generated this result transmit farzad reference range : <=4.5. The refe rence range was not u sed to interpret th is result as normal/abnormal . TRIG (test code = 126 mg/dL 30-170 5606070860) LDL CHOL (test code = 28 mg/dL See_Comment [Auto mated message] 64490-4) The system [employer] generated this result transmit farzad reference range : <=160. The refe rence range was not u sed to interpret th is result as normal/abnormal . VLDL (test code = 25 mg/dL 5-60 2717412511) Lab Interpretation (test Abnormal code = 16414-0) [facility] CenterTROPONIN [id number] 21:55:30 Test Item Value Reference Range Interpretation Comments TROPONIN I (test 0.075 ng/mL See_Comment H [Automated code = 0364533979) message] The system which generated this result transmitted reference range : <=0.034. The reference range was not used to interpret this result as normal/abnormal . AMANDA (test code = Equal or Less than AMANDA) 0.034 ng/ml---Normal ?Note: Cardiac troponin begins to rise 3-4 hours after the onset of ischemia. Repeat in 4-6 hours if the sample was drawn within 3-4 hours of the onset of the symptom and found normal. Between 0.035 and 0.120 ng/mL--- Borderline. Questionable myocardial injury or necrosis ? ?Note: Serial measurement may be necessary to confirm or exclude the diagnosis of myocardial injury or necrosis; Clinical correlation (symptoms, EKGs, imaging studies, and others) required; Repeat in 4-6 hours if clinically indicated. ? Equal or Higher than 0.121 ng/mL---Abnormal. Myocardial Injury or Necrosis Likely ? Biotin has been reported to cause a negative bias, interpret results relative to patient's use of biotin. ? Lab Interpretation Abnormal (test code = 24228-3) [facility] CenterTRCHASEKarlie [id number] 21:55:30 Test Item Value Reference Range Interpretation Comments TROPONIN I (test 0.075 ng/mL See_Comment H [Automated code = 6002669367) message] The system which generated this result transmitted reference range : <=0.034. The reference range was not used to interpret this result as normal/abnormal . AMANDA (test code = Equal or Less than AMANDA) 0.034 ng/ml---Normal ?Note: Cardiac troponin begins to rise 3-4 hours after the onset of ischemia. Repeat in 4-6 hours if the sample was drawn within 3-4 hours of the onset of the symptom and found normal. Between 0.035 and 0.120 ng/mL--- Borderline. Questionable myocardial injury or necrosis ? ?Note: Serial measurement may be necessary to confirm or exclude the diagnosis of myocardial injury or necrosis; Clinical correlation (symptoms, EKGs, imaging studies, and others) required; Repeat in 4-6 hours if clinically indicated. ? Equal or Higher than 0.121 ng/mL---Abnormal. Myocardial Injury or Necrosis Likely ? Biotin has been reported to cause a negative bias, interpret results relative to patient's use of biotin. ? Lab Interpretation Abnormal (test code = 06154-6) [facility] GLUCOSE (AUTOMATED)2020-06-20 21:42:37 Test Item Value Reference Range Interpretation Comments POCT GLU (test code = 6068196568) 84 mg/dL 70-110 Lab Interpretation (test code = Normal 85491-1) [facility] GLUCOSE (AUTOMATED)2020-06-20 21:42:37 Test Item Value Reference Range Interpretation Comments POCT GLU (test code = 4552685721) 84 mg/dL 70-110 Lab Interpretation (test code = Normal 77359-3) [facility] Arterial Blood Gas.2020-06-20 19:28:08 Test Item Value Reference Range Interpretation Comments PH (test code = 2) 7.35-7.45 PCO2 (test code = See_Comment L [Automat ed message] 3697025709) The system [employer] generated this result transmitted ref erence range: 35 - 45 mmHg. The reference r jourdan was not used to interpret this result as normal/abnor mal. PO2 (test code = See_Comment H [Automated message] 1168100733) The system [facility] [facility] generated this result transmitted ref erence range: 80 - 100 mmHg. The reference r jourdan was not used to interpret this result as normal/abnor mal. HCO3 (test code = See_Comment L [Automate d message] 0871284596) The system [facility] generated this result transmitted ref erence range: 22 - 26 mEq/L. The reference r jourdan was not used to interpret this result as normal/abnor mal. BE (test code = See_Comment L [Automated message] 7945499424) The system [employer] generated this result transmitted ref erence range: -3.0 - 3 .0 mEq/L. The refe rence range was not u sed to interpret this result as normal/abnor mal. Lab Interpretation (test Abnormal code = 53888-5) [facility] Arterial Blood Gas.2020-06-20 19:28:08 Test Item Value Reference Range Interpretation Comments PH (test code = 2) 7.35-7.45 PCO2 (test code = See_Comment L [Automat ed message] 7310322107) The system [employer] generated this result transmitted ref erence range: 35 - 45 mmHg. The reference r jourdan was not used to interpret this result as normal/abnor mal. PO2 (test code = See_Comment H [Automated message] 1654852056) The system [employer] generated this result transmitted ref erence range: 80 - 100 mmHg. The reference r jourdan was not used to interpret this result as normal/abnor mal. HCO3 (test code = See_Comment L [Automate d message] 0057604026) The system [employer] generated this result transmitted ref erence range: 22 - 26 mEq/L. The reference r jourdan was not used to interpret this result as normal/abnor mal. BE (test code = See_Comment L [Automated message] 9088649162) The system [employer] generated this result transmitted ref erence range: -3.0 - 3 .0 mEq/L. The refe rence range was not u sed to interpret this result as normal/abnor mal. Lab Interpretation (test Abnormal code = 32513-6) [facility] CenterURINE [id number] 17:08:35 Test Item Value Reference Range Interpretation Comments URINE CULTURE (test No aerobic growth (< code = 630-4) 1000 CFU/mL) [facility] [id number] 17:08:35 Test Item Value Reference Range Interpretation Comments URINE CULTURE (test No aerobic growth (< code = 630-4) 1000 CFU/mL) [facility] GLUCOSE (AUTOMATED)2020-06-20 16:44:35 Test Item Value Reference Range Interpretation Comments POCT GLU (test code = 3064146264) 86 mg/dL 70-110 Lab Interpretation (test code = Normal 87715-2) [facility] CenterPO[facility] (AUTOMATED)2020-06-20 16:44:35 Test Item Value Reference Range Interpretation Comments POCT GLU (test code = 4487194893) 86 mg/dL 70-110 Lab Interpretation (test code = Normal 77103-6) [facility] CenterCBC WITHOUT [id number] 16:37:46 Test Item Value Reference Range Interpretation Comments WBC (test code = 6690-2) See_Comment H [A utomated message] The system [employer] generated this result transmit farzad reference range : 4.30 - 11.10 10*3/?L. The reference range was not used to interpret this result as normal/abnormal . RBC (test code = 789-8) See_Comment L [Au tomated message] The system [employer] generated this result transmit farzad reference range : 3.93 - 5.25 10* 6/?L. The reference r jourdan was not used to interpret this result as normal/abnormal . HGB (test code = 718-7) 8.2 g/dL 11.6-15.0 L HCT (test code = 4544-3) 24.7 % 35.7-45.2 L MCH (test code = 785-6) 30.4 pg 25.9-32.8 MCV (test code = 787-2) 91.5 fL 80.6-95.5 MCHC (test code = 786-4) 33.2 g/dL 31.6-35.1 PLT (test code = 777-3) See_Comment [Au tomated message] The system [employer] generated this result transmit farzad reference range : 166 - 358 10*3/?L. The reference range was not used to interpret this result as normal/abnormal . MPV (test code = 10.0 fL 9.5-12.9 89935-7) RDW-CV (test code = 14.5 % 12.0-15.5 788-0) RDW-SD (test code = 48.3 fL 39.0-49.9 11869-6) NRBC x10^3 (test code = <0.01 See_Comment [Au tomated message] 5438246133) The system [employer] generated this result transmit farzad reference range : 10*3/?L. The reference range was not used to interpret this result as normal/abnormal . NRBC/100 WBC (test code See_Comment [Au tomated message] = 8968129912) The system [employer] generated this result transmit farzad reference range : 0.0 - 10.0 /100 WBC s. The reference r jourdan was not used to interpret this result as normal/abnormal . IPF % (test code = 4031621614) Lab Interpretation (test Abnormal code = 79750-9) [facility] WITHOUT [id number] 16:37:46 Test Item Value Reference Range Interpretation Comments WBC (test code = 6690-2) See_Comment H [A utomated message] The system [employer] generated this result transmit farzad reference range : 4.30 - 11.10 10*3/?L. The reference range was not used to interpret this result as normal/abnormal . RBC (test code = 789-8) See_Comment L [Au tomated message] The system [employer] generated this result transmit farzad reference range : 3.93 - 5.25 10* 6/?L. The reference r jourdan was not used to interpret this result as normal/abnormal . HGB (test code = 718-7) 8.2 g/dL 11.6-15.0 L HCT (test code = 4544-3) 24.7 % 35.7-45.2 L MCH (test code = 785-6) 30.4 pg 25.9-32.8 MCV (test code = 787-2) 91.5 fL 80.6-95.5 MCHC (test code = 786-4) 33.2 g/dL 31.6-35.1 PLT (test code = 777-3) See_Comment [Au tomated message] The system [employer] generated this result transmit farzad reference range : 166 - 358 10*3/?L. The reference range was not used to interpret this result as normal/abnormal . MPV (test code = 10.0 fL 9.5-12.9 64904-0) RDW-CV (test code = 14.5 % 12.0-15.5 788-0) RDW-SD (test code = 48.3 fL 39.0-49.9 42802-7) NRBC x10^3 (test code = <0.01 See_Comment [Au tomated message] [id number]) The system [employer] generated this result transmit farzad reference range : 10*3/?L. The reference range was not used to interpret this result as normal/abnormal . NRBC/100 WBC (test code See_Comment [Au tomated message] = 4283401266) The system [employer] generated this result transmit farzad reference range : 0.0 - 10.0 /100 WBC s. The reference r jourdan was not used to interpret this result as normal/abnormal . IPF % (test code = 7732096807) Lab Interpretation (test Abnormal code = 07754-8) [facility] RETROPERITONEAL [id number] 15:28:05 Unremarkable sonographic appearance of the kidneys. No nephrolithiasis orhydronephrosis. IBarbara MD., have reviewed this study and agree with the abovereport.EXAM: US RETROPERITONEAL LIMITEDHISTORY: 79 years-old Female with alina vs ckd . TECHNIQUE: Survey ultrasound of the kidneys was performed with grayscaleand selected color Doppler imaging. Video Coordinator images were obtained forthe record. COMPARISON: CT abdomen pelvis with and without contrast 06/18/2020. FINDINGS: RIGHT KIDNEY:Size:The right kidney measures 9.5 x 4.1 x 4.1 cm.Parenchyma: The renal parenchyma exhibits normal cortical echogenicity andthickness. The kidney shows a lobulated contour. No focal solid or cysticrenal lesion is detected.Collecting System: No hydronephrosis is seen. LEFT KIDNEY:Size: The left kidney measures 9.8 x 3.6 x 4.2 cm.Parenchyma: The renal parenchyma exhibits normal cortical echogenicity andthickness. The kidney shows a lobulated contour. No focal solid or cysticrenal lesion is detected.Collecting System: No hydronephrosis is seen. OTHER: None. [facility], Radiant Results Inft User - 06/20/2020 10:29 AM CDTEXAM: US RETROPERITONEAL LIMITEDHISTORY: 79 years-old Female with alina vs ckd .TECHNIQUE: Survey ultrasound of the kidneys was performed with grayscaleand selected color Doppler imaging. Video Coordinator images were obtained forthe record.COMPARISON: CT abdomen pelvis with and without contrast 06/18/2020.FINDINGS: RIGHT KIDNEY:Size: The right kidney measures 9.5 x 4.1 x 4.1 cm.Parenchyma: The renal parenchyma exhibits normal cortical echogenicity andthickness. The kidney shows a lobulated contour. No focal solid or cysticrenal lesion is detected.Collecting System: No hydronephrosis is seen.LEFT KIDNEY:Size: The left kidney measures 9.8 x 3.6 x 4.2 cm.Parenchyma: The renal parenchyma exhibits normal cortical echogenicity andthickness. The kidney shows a lobulated contour. No focal solid or cysti crenal lesion is detected.Collecting System: No hydronephrosis is seen.OTHER: None.IMPRESSIONUnremarkable sonographic appearance of the kidneys. No nephrolithiasis orhydronephrosis.Barbara Graham MD., have reviewed this study and agree with the abovereport.[facility] RETROPERITONEAL [id number] 15:28:05 Unremarkable sonographic appearance of the kidneys. No nephrolithiasis orhydronephrosis. Barbara Graham MD., have reviewed this study and agree with the abovereport.EXAM: US RETROPERITONEAL LIMITEDHISTORY: 79 years-old Female with alina vs ckd . TECHNIQUE: Survey ultrasound of the kidneys was performed with grayscaleand selected color Doppler imaging. Video Coordinator images were obtained forthe record. COMPARISON: CT abdomen pelvis with and without contrast 06/18/2020. FINDINGS: RIGHT KIDNEY:Size:The right kidney measures 9.5 x 4.1 x 4.1 cm.Parenchyma: The renal parenchyma exhibits normal cortical echogenicity andthickness. The kidney shows a lobulated contour. No focal solid or cysticrenal lesion is detected.Collecting System: No hydronephrosis is seen. LEFT KIDNEY:Size: The left kidney measures 9.8 x 3.6 x 4.2 cm.Parenchyma: The renal parenchyma exhibits normal cortical echogenicity andthickness. The kidney shows a lobulated contour. No focal solid or cysticrenal lesion is detected.Collecting System: No hydronephrosis is seen. OTHER: None. [facility], Radiant Results Inft User - 06/20/2020 10:29 AM CDTEXAM: US RETROPERITONEAL LIMITEDHISTORY: 79 years-old Female with alina vs ckd .TECHNIQUE: Survey ultrasound of the kidneys was performed with grayscaleand selected color Doppler imaging. Video Coordinator images were obtained forthe record.COMPARISON: CT abdomen pelvis with and without contrast 06/18/2020.FINDINGS: RIGHT KIDNEY:Size: The right kidney measures 9.5 x 4.1 x 4.1 cm.Parenchyma: The renal parenchyma exhibits normal cortical echogenicity andthickness. The kidney shows a lobulated contour. No focal solid or cysticrenal lesion is detected.Collecting System: No hydronephrosis is seen.LEFT KIDNEY:Size: The left kidney measures 9.8 x 3.6 x 4.2 cm.Parenchyma: The renal parenchyma exhibits normal cortical echogenicity andthickness. The kidney shows a lobulated contour. No focal solid or cysticrenal lesion is detected.Collecting System: No hydronephrosis is seen.OTHER: None.IMPRESSIONUnremarkable sonographic appearance of the kidneys. No nephrolithiasis orhydronephrosis.I, Barbara Abreu MD., have reviewed this study and agree with the abovereport.[facility] [id number] 14:12:00 Test Item Value Reference Range Interpretation Comments Procalcitonin (test 0.45 ng/mL <0.07 H code = 9719065900) AMANDA (test code = AMANDA) INTERPRETATION OF PROCALCITONIN RESULTS IN ADULTS >= 18 YEARS OF AGE Initiation and discontinuation of antibiotics on patients with suspected or confirmed Lower Respiratory Tract Infection in Adults >= 18 years of age. + +-------- --------+ + -----+|Procalcitonin |Interpretation ?|Antibiotic ? ? |Considerations ? |ng/mL ? | ?|recommendation | ? + +-------- --------+ + -----+| <0.1 ? | Bacterial ? ? ?| Strongly ? ? ?| ? | ?| infection very | discouraged ? | Overruling: ? | ?| unlikely ? ? ? | ? | ? Clinically unstable ? ? ? + +-------- --------+ + ? High risk for adverse ? ? | <0.25 ?| Bacterial ? ? ?| Discouraged ? | ? outcome ? | ?| infection ? ? ?| ? | ? SEE IMPORTANT NOTE ?| ?| unlikely ? ? ? | ? | ? + +-------- --------+ + -----+| >=0.25 ? ? ? | Bacterial ? ? ?| Encouraged ? ?| ? | ?| infection ? ? ?| ? | ? | ?| likely ? | ? | Consider treatment failure ?+ +------- ---------+ -+ if levels does not decrease | >0.5 ? | Bacterial ? ? ?| Strongly ? ? ?| appropriately ? | ?| infection very | encouraged ? ?| ? | ?| likely ? | ? | ? + +-------- --------+ + -----+ Discontinuation of antibiotics in high-acuity patients with suspected or confirmed sepsis in Adults >= 18 years of age. + +-------- --------+ + -----+|Procalcitonin |Interpretation ?|Antibiotic ? ? |Considerations ? |ng/mL ? | ?|recommendation | ? + +-------- --------+ + -----+| <0.25 ?| Bacterial ? ? ?| Strongly ? ? ?| ? | ?| infection very | discouraged ? | Overruling: ? | ?| unlikely ? ? ? | ? | ? Clinically unstable ? ? ? + +-------- --------+ + ? High risk for adverse ? ? | <0.5 or drop | Bacterial ? ? ?| Discouraged ? | ? outcome ? | >80% from ? ?| infection ? ? ?| ? | ? SEE IMPORTANT NOTE ?| highest PCT ?| unlikely ? ? ? | ? | ? | level ?| ?| ? | ? + +-------- --------+ + -----+| >=0.5 ?| Bacterial ? ? ?| Encouraged ? ?| ? | ?| infection ? ? ?| ? | ? | ?| likely ? | ? | Consider treatment failure ?+ +------- ---------+ -+ if levels does not decrease | >1.0 ? | Bacterial ? ? ?| Strongly ? ? ?| appropriately ? | ?| infection very | encouraged ? ?| ? | ?| likely ? | ? | ? + +-------- --------+ + -----+ Percentage of drop of Procalcitonin calculation for Discontinuation of antibiotics in high-acuity patients with suspected or confirmed sepsis in Adults >= 18 years of age. ? Procalcitonin highest{}-Procalcitonin current{}Delta Procalcitonin = x100% ? Procalcitonin current {} IMPORTANT NOTE: Procalcitonin may be elevated without bacterial infection by physiologic stress related to trauma, aguilar, chronic dialysis, metastatic cancer, surgery in the past seven days, malaria, some fungal infections, and some forms of vasculitis. The interpretation algorithm may not apply to patients with immunosuppression (equivalent of >10 mg of prednisone daily), HIV with CD4 cell count < 350 cells/mm3, active malignancy on systemic chemotherapy, solid organ transplant or hematopoietic stem cell transplantation, or hospital acquired pneumonia. Additionally, some clinical trials of procalcitonin have excluded patients with shock requiring vasopressor use, acute respiratory failure requiring mechanical ventilation, or those with known lung abscess/empyema. For further information please refer to:[email or web address] Lab Interpretation Abnormal (test code = 92345-4) [facility] 14:12:00 Test Item Value Reference Range Interpretation Comments Procalcitonin (test 0.45 ng/mL <0.07 H code = 9043092493) AMANDA (test code = AMANDA) INTERPRETATION OF PROCALCITONIN RESULTS IN ADULTS >= 18 YEARS OF AGE Initiation and discontinuation of antibiotics on patients with suspected or confirmed Lower Respiratory Tract Infection in Adults >= 18 years of age. + +-------- --------+ + -----+|Procalcitonin |Interpretation ?|Antibiotic ? ? |Considerations ? |ng/mL ? | ?|recommendation | ? + +-------- --------+ + -----+| <0.1 ? | Bacterial ? ? ?| Strongly ? ? ?| ? | ?| infection very | discouraged ? | Overruling: ? | ?| unlikely ? ? ? | ? | ? Clinically unstable ? ? ? + +-------- --------+ + ? High risk for adverse ? ? | <0.25 ?| Bacterial ? ? ?| Discouraged ? | ? outcome ? | ?| infection ? ? ?| ? | ? SEE IMPORTANT NOTE ?| ?| unlikely ? ? ? | ? | ? + +-------- --------+ + -----+| >=0.25 ? ? ? | Bacterial ? ? ?| Encouraged ? ?| ? | ?| infection ? ? ?| ? | ? | ?| likely ? | ? | Consider treatment failure ?+ +------- ---------+ -+ if levels does not decrease | >0.5 ? | Bacterial ? ? ?| Strongly ? ? ?| appropriately ? | ?| infection very | encouraged ? ?| ? | ?| likely ? | ? | ? + +-------- --------+ + -----+ Discontinuation of antibiotics in high-acuity patients with suspected or confirmed sepsis in Adults >= 18 years of age. + +-------- --------+ + -----+|Procalcitonin |Interpretation ?|Antibiotic ? ? |Considerations ? |ng/mL ? | ?|recommendation | ? + +-------- --------+ + -----+| <0.25 ?| Bacterial ? ? ?| Strongly ? ? ?| ? | ?| infection very | discouraged ? | Overruling: ? | ?| unlikely ? ? ? | ? | ? Clinically unstable ? ? ? + +-------- --------+ + ? High risk for adverse ? ? | <0.5 or drop | Bacterial ? ? ?| Discouraged ? | ? outcome ? | >80% from ? ?| infection ? ? ?| ? | ? SEE IMPORTANT NOTE ?| highest PCT ?| unlikely ? ? ? | ? | ? | level ?| ?| ? | ? + +-------- --------+ + -----+| >=0.5 ?| Bacterial ? ? ?| Encouraged ? ?| ? | ?| infection ? ? ?| ? | ? | ?| likely ? | ? | Consider treatment failure ?+ +------- ---------+ -+ if levels does not decrease | >1.0 ? | Bacterial ? ? ?| Strongly ? ? ?| appropriately ? | ?| infection very | encouraged ? ?| ? | ?| likely ? | ? | ? + +-------- --------+ + -----+ Percentage of drop of Procalcitonin calculation for Discontinuation of antibiotics in high-acuity patients with suspected or confirmed sepsis in Adults >= 18 years of age. ? Procalcitonin highest{}-Procalcitonin current{}Delta Procalcitonin = x100% ? Procalcitonin current {} IMPORTANT NOTE: Procalcitonin may be elevated without bacterial infection by physiologic stress related to trauma, aguilar, chronic dialysis, metastatic cancer, surgery in the past seven days, malaria, some fungal infections, and some forms of vasculitis. The interpretation algorithm may not apply to patients with immunosuppression (equivalent of >10 mg of prednisone daily), HIV with CD4 cell count < 350 cells/mm3, active malignancy on systemic chemotherapy, solid organ transplant or hematopoietic stem cell transplantation, or hospital acquired pneumonia. Additionally, some clinical trials of procalcitonin have excluded patients with shock requiring vasopressor use, acute respiratory failure requiring mechanical ventilation, or those with known lung abscess/empyema. For further information please refer to:[email or web address] Lab Interpretation Abnormal (test code = 51811-6) [facility] WO [id number] 13:42:55 No acute thoracic traumatic injury. Preliminary Report Dictated by Resident: Zohra Gan MD., have reviewed this study and agree with theabove report.PROCEDURE: CT CHEST WITHOUT CONTRAST - CHEST PROTOCOL CLINICAL INDICATION: Chest pain or SOB, pleurisy or effusion suspected.Head trauma. Comparison: ?None TECHNIQUE: Volumetric images of the chest were acquired (from lung apicesto bases) without administration of intravenous contrast. Images werereconstructed at 1.25 mm slice thickness. MIP axial images, coronal andsagittal reformats were also submitted for interpretation. FINDINGS: Devices: The right subclavian approach central line terminates in thecavoatrial junction. LUNGS AND PLEURA: The lungs are well-expanded and clear. Subsegmentalatelectasis in the left lowerlobe. Scattered micronodules (less than 3 mm.A 3 mm subpleural calcified granuloma in the left lowerlobe (2:44). Nopleural abnormality detected. LYMPH NODES: No evidence of intrathoracic lymphadenopathy. MEDIASTINUM AND LOWER NECK: No central airway lesions are detected. Theesophagus is within normallimits. The included thyroid gland appearsnormal. HEART AND GREAT VESSELS: Mild cardiomegaly with biatrial enlargement..Decreased attenuation of cardiac chambers compared to myometrium suggestiveof anemia. No pericardial abnormalities are identified. The RV to LV isnormal. Mild aortic annular calcifications. Atherosclerotic calcificationsaffect the thoracic aorta, which is normal in caliber. The pulmo nary trunkis normal in caliber. Severe multivessel coronary artery calcifications. VISUALIZED UPPER ABDOMEN: Prior cholecystectomy. A splenule is seen in thesplenic hilum. Small type I hiatal hernia. Please refer to the concurrentlyobtained, separately dictated, CT abdomen/pelvis report for detailedintra-abdominal findings. OSSEOUS STRUCTURES AND SOFT TISSUES: Bilateral supraclavicular subcutaneousand venous gas bubbles are likely iatrogenic related to intra-venousinjection. Multiple remote upper left posterior and lateral rib fractures.No acute osseous abnormality. The soft tissues are unremarkable. [facility], Radiant Results Inft User - 06/20/2020 8:44 AM CDTPROCEDURE: CT CHEST WITHOUT CONTRAST - CHEST PROTOCOLCLINICAL INDICATION: Chest pain or SOB, pleurisy or effusion suspected .Head trauma.Comparison: NoneTECHNIQUE: Volumetric images of the chest were acquired (from lung apicesto bases) without administration of intravenous contrast. Images werereconstructed at 1.25 mm slice thickness. MIP axial images, coronal andsagittal reformats were also submitted for interpretation.FINDINGS:Devices: The right subclavian approach central line terminates in thecavoatrial junction. LUNGS AND PLEURA: The lungs are well- expanded and clear. Subsegmentalatelectasis in the left lower lobe. Scattered micronodules (less than 3 mm.A 3 mm subpleural calcified granuloma in the left lower lobe (2:44). Nopleural abnormality detected.LYMPH NODES: No evidence of intrathoracic lymphadenopathy.MEDIASTINUM AND LOWER NECK: No central airway lesions are detected. Theesophagus is within normal limits. The included thyroid gland appearsnormal.HEART AND GREAT VESSELS: Mild cardiomegaly with biatrial enlargement..Decreased attenuation of cardiac chambers compared to myometrium suggestiveof anemia. No pericardial abnormalities are identified. The RV to LV isnormal. Mild aortic annular calcifications. Atherosclerotic calci ficationsaffect the thoracic aorta, which is normal in caliber. The pulmonary trunkis normal in caliber. Severe multivessel coronary artery calcifications.VISUALIZED UPPER ABDOMEN: Prior cholecystectomy. A splenule is seen in thesplenic hilum. Small type I hiatal hernia. Please refer to the concurrentlyobtained, separately dictated, CT abdomen/pelvis report for detailedintra-abdominal findings.OSSEOUS STRUCTURES AND SOFT TISSUES: Bilateral supraclavicular subcutaneousand venous gas bubbles are likely iatrogenic related to intra-venousinjection. Multiple remote upper left posterior and lateral rib fractures.No acute osseous abnormality. The soft tissues are unremarkable.IMPRESSIONNo acute thoracic traumatic injury.Preliminary Report Dictated by Resident: Elton Charles, Zohra Pitts MD., have reviewed this study and agree with theabove report.[facility] TH[facility] [id number] 13:42:55 No acute thoracic traumatic injury. Preliminary Report Dictated by Resident: Elton Zamarripa I, Zohra ?MD Hong., have reviewed this study and agree with theabove report.PROCEDURE: CT CHEST WITHOUT CONTRAST - CHEST PROTOCOL CLINICAL INDICATION: Chest pain or SOB, pleurisy or effusion suspected.Head trauma. Comparison: ?None TECHNIQUE: Volumetric images of the chest were acquired (from lung apicesto bases) without administration of intravenous contrast. Images werereconstructed at 1.25 mm sl ice thickness. MIP axial images, coronal andsagittal reformats were also submitted for interpretation. FINDINGS: Devices: The right subclavian approach central line terminates in thecavoatrial junction. LUNGS AND PLEURA: The lungs are well-expanded and clear. Subsegmentalatelectasis in the left lowerlobe. Scattered micronodules (less than 3 mm.A 3 mm subpleural calcified granuloma in the left lowerlobe (2:44). Nopleural abnormality detected. LYMPH NODES: No evidence of intrathoracic lymphadenopathy. MEDIASTINUM AND LOWER NECK: No central airway lesions are detected. Theesophagus is within normallimits. The included thyroid gland appearsnormal. HEART AND GREAT VESSELS: Mild cardiomegaly with biatrial enlargement..Decreased attenuation of cardiac chambers compared to myometrium suggestiveof anemia. No pericardial abnormalities are identified. The RV to LV isnormal. Mild aortic annular calcifications. Atherosclerotic calcificationsaffect the thoracic aorta, which is normal in caliber. The pulmo nary trunkis normal in caliber. Severe multivessel coronary artery calcifications. VISUALIZED UPPER ABDOMEN: Prior cholecystectomy. A splenule is seen in thesplenic hilum. Small type I hiatal hernia. Please refer to the concurrentlyobtained, separately dictated, CT abdomen/pelvis report for detailedintra-abdominal findings. OSSEOUS STRUCTURES AND SOFT TISSUES: Bilateral supraclavicular subcutaneousand venous gas bubbles are likely iatrogenic related to intra-venousinjection. Multiple remote upper left posterior and lateral rib fractures.No acute osseous abnormality. The soft tissues are unremarkable. [facility], Radiant Results Inft User - 06/20/2020 8:44 AM CDTPROCEDURE: CT CHEST WITHOUT CONTRAST - CHEST PROTOCOLCLINICAL INDICATION: Chest pain or SOB, pleurisy or effusion suspected .Head trauma.Comparison: NoneTECHNIQUE: Volumetric images of the chest were acquired (from lung apicesto bases) without administration of intravenous contrast. Images werereconstructed at 1.25 mm slice thickness. MIP axial images, coronal andsagittal reformats were also submitted for interpretation.FINDINGS:Devices: The right subclavian approach central line terminates in thecavoatrial junction. LUNGS AND PLEURA: The lungs are well- expanded and clear. Subsegmentalatelectasis in the left lower lobe. Scattered micronodules (less than 3 mm.A 3 mm subpleural calcified granuloma in the left lower lobe (2:44). Nopleural abnormality detected.LYMPH NODES: No evidence of intrathoracic lymphadenopathy.MEDIASTINUM AND LOWER NECK: No central airway lesions are detected. Theesophagus is within normal limits. The included thyroid gland appearsnormal.HEART AND GREAT VESSELS: Mild cardiomegaly with biatrial enlargement..Decreased attenuation of cardiac chambers compared to myometrium suggestiveof anemia. No pericardial abnormalities are identified. The RV to LV isnormal. Mild aortic annular calcifications. Atherosclerotic calci ficationsaffect the thoracic aorta, which is normal in caliber. The pulmonary trunkis normal in caliber. Severe multivessel coronary artery calcifications.VISUALIZED UPPER ABDOMEN: Prior cholecystectomy. A splenule is seen in thesplenic hilum. Small type I hiatal hernia. Please refer to the concurrentlyobtained, separately dictated, CT abdomen/pelvis report for detailedintra-abdominal findings.OSSEOUS STRUCTURES AND SOFT TISSUES: Bilateral supraclavicular subcutaneousand venous gas bubbles are likely iatrogenic related to intra-venousinjection. Multiple remote upper left posterior and lateral rib fractures.No acute osseous abnormality. The soft tissues are unremarkable.IMPRESSIONNo acute thoracic traumatic injury.Preliminary Report Dictated by Resident: Zohra Mcmahan MD., have reviewed this study and agree with theabove report.[facility] GLUCOSE (AUTOMATED)2020-06-20 12:52:53 Test Item Value Reference Range Interpretation Comments POCT GLU (test code = 5340304168) 94 mg/dL 70-110 Lab Interpretation (test code = Normal 34524-1) [facility] GLUCOSE (AUTOMATED)2020-06-20 12:52:53 Test Item Value Reference Range Interpretation Comments POCT GLU (test code = 0670554221) 94 mg/dL 70-110 Lab Interpretation (test code = Normal 67540-0) [facility] Packed RBC (in units), 1 Units 2020-06-20 10:42:44 Test Item Value Reference Range Interpretation Comments Cross Match Result Compatible (test code = 4409) ISBT Blood Type Code (test code = 434305) Unit Blood Type (test O Pos code = 4410) Unit Number (test [id number] code = 4411) Blood Expiration Date & Time (test code = 432635) Status Information Issued (test code = 4412) Product Red Blood Cells Identification (test code = 4413) Product Code (test [id number] Performed at [facility] code = 4414) Laboratory Services [facility] Blood [address] [place] [address] Free: [phone] A No. [id number] [facility] Packed RBC (in units), 1 Units 2020-06-20 10:42:44 Test Item Value Reference Range Interpretation Comments Cross Match Result Compatible (test code = 4409) ISBT Blood Type Code (test code = 406166) Unit Blood Type (test O Pos code = 4410) Unit Number (test [id number] code = 4411) Blood Expiration Date & Time (test code = 743171) Status Information Issued (test code = 4412) Product Red Blood Cells Identification (test code = 4413) Product Code (test [id number] Performed at [facility] code = 4414) Laboratory Services [facility] Blood [address] [place] [address] Free: [phone] A No. [id number] [facility] WITHOUT [id number] 10:07:50 Test Item Value Reference Range Interpretation Comments WBC (test code = 6690-2) See_Comment H [A utomated message] The system [employer] generated this result transmit farzad reference range : 4.30 - 11.10 10*3/?L. The reference range was not used to interpret this result as normal/abnormal . RBC (test code = 789-8) See_Comment L [Au tomated message] The system [employer] generated this result transmit farzad reference range : 3.93 - 5.25 10* 6/?L. The reference r jourdan was not used to interpret this result as normal/abnormal . HGB (test code = 718-7) 7.0 g/dL 11.6-15.0 L HCT (test code = 4544-3) 20.2 % 35.7-45.2 L MCH (test code = 785-6) 31.8 pg 25.9-32.8 MCV (test code = 787-2) 91.8 fL 80.6-95.5 MCHC (test code = 786-4) 34.7 g/dL 31.6-35.1 PLT (test code = 777-3) See_Comment [Au tomated message] The system [employer] generated this result transmit farzad reference range : 166 - 358 10*3/?L. The reference range was not used to interpret this result as normal/abnormal . MPV (test code = 10.2 fL 9.5-12.9 89577-1) RDW-CV (test code = 14.5 % 12.0-15.5 788-0) RDW-SD (test code = 48.6 fL 39.0-49.9 91844-3) NRBC x10^3 (test code = <0.01 See_Comment [Au tomated message] [id number]) The system [employer] generated this result transmit farzad reference range : 10*3/?L. The reference range was not used to interpret this result as normal/abnormal . NRBC/100 WBC (test code See_Comment [Au tomated message] = 8903552084) The system [facility] generated this result transmit farzad reference range : 0.0 - 10.0 /100 WBC s. The reference r jourdan was not used to interpret this result as normal/abnormal . IPF % (test code = 9021281397) Lab Interpretation (test Abnormal code = 66612-5) [facility] WITHOUT [id number] 10:07:50 Test Item Value Reference Range Interpretation Comments WBC (test code = 6690-2) See_Comment H [A utomated message] The system [employer] generated this result transmit farzad reference range : 4.30 - 11.10 10*3/?L. The reference range was not used to interpret this result as normal/abnormal . RBC (test code = 789-8) See_Comment L [Au tomated message] The system [employer] generated this result transmit farzad reference range : 3.93 - 5.25 10* 6/?L. The reference r jourdan was not used to interpret this result as normal/abnormal . HGB (test code = 718-7) 7.0 g/dL 11.6-15.0 L HCT (test code = 4544-3) 20.2 % 35.7-45.2 L MCH (test code = 785-6) 31.8 pg 25.9-32.8 MCV (test code = 787-2) 91.8 fL 80.6-95.5 MCHC (test code = 786-4) 34.7 g/dL 31.6-35.1 PLT (test code = 777-3) See_Comment [Au tomated message] The system [facility] generated this result transmit farzad reference range : 166 - 358 10*3/?L. The reference range was not used to interpret this result as normal/abnormal . MPV (test code = 10.2 fL 9.5-12.9 86752-3) RDW-CV (test code = 14.5 % 12.0-15.5 788-0) RDW-SD (test code = 48.6 fL 39.0-49.9 16150-5) NRBC x10^3 (test code = <0.01 See_Comment [Au tomated message] [id number]) The system [facility] generated this result transmit farzad reference range : 10*3/?L. The reference range was not used to interpret this result as normal/abnormal . NRBC/100 WBC (test code See_Comment [Au tomated message] = 1677100746) The system [facility] generated this result transmit farzad reference range : 0.0 - 10.0 /100 WBC s. The reference r jourdan was not used to interpret this result as normal/abnormal . IPF % (test code = 3183347811) Lab Interpretation (test Abnormal code = 87507-9) [facility] METABOLIC PANEL (NA, K, CL, CO2, GLUCOSE, BUN, CREATININE, CA)2020-06-20 09:35:49 Test Item Value Reference Range Interpretation Comments NA (test code = 136 mmol/L 135-145 3480105456) K (test code = 4.3 mmol/L 3.5-5.0 2682941266) CL (test code = 108 mmol/L 98-108 2507892759) CO2 TOTAL (test code = 20 mmol/L 23-31 L 8623951373) AGAP (test code = 2-16 5448152579) BUN (test code = 93 mg/dL 7-23 H 1249018214) GLUCOSE (test code = 85 mg/dL 70-110 8995405622) CREATININE (test code = 2.60 mg/dL 0.50-1.04 H 2417620501) CALCIUM (test code = 7.9 mg/dL 8.6-10.6 L 5408912578) eGFR (test code = mL/min/1.73m2 6869269865) AMANDA (test code = AMANDA) Association of Glomerular Filtration Rate (GFR) and Staging of Kidney Disease* + --+ --+ ------+| GFR (mL/min/1.73 m2) ?| With Kidney Damage ?| ?Without Kidney Damage+ --------+ --------+ +| ?>90 ?| ?Stage one ?| ? Normal ?+ ---+ ---+ -------+| ?60-89 ?| ?Stage two ?| ? Decreased GFR ? + --+ --+ ------+| ?30-59 ?| ?Stage three ?| ? Stage three ? + --+ --+ ------+| ?15-29 ?| ?Stage four ? | ? Stage four ?+ ---+ ---+ -------+| ?<15 (or dialysis) ? ?| ?Stage five ? | ? Stage five ?+ ---+ ---+ -------+ *Each stage assumes the associated GFR level has been in effect for at least three months. ?Stages 1 to 5, with or without kidney disease, indicate chronic kidney disease. Notes: Determination of stages one and two (with eGFR >59mL/min/1.73 m2) requires estimation of kidney damage for at least three months as defined by structural or functional abnormalities of the kidney, manifested by either:Pathological abnormalities or Markers of kidney damage (including abnormalities in the composition of the blood or urine or abnormalities in imaging tests). Lab Interpretation Abnormal (test code = 00696-3) [facility] METABOLIC PANEL (NA, K, CL, CO2, GLUCOSE, BUN, CREATININE, CA)2020-06-20 09:35:49 Test Item Value Reference Range Interpretation Comments NA (test code = 136 mmol/L 135-145 9498664534) K (test code = 4.3 mmol/L 3.5-5.0 0581943478) CL (test code = 108 mmol/L 98-108 2667619976) CO2 TOTAL (test code = 20 mmol/L 23-31 L 5889615838) AGAP (test code = 2-16 2367517291) BUN (test code = 93 mg/dL 7-23 H 0985213491) GLUCOSE (test code = 85 mg/dL 70-110 4095469117) CREATININE (test code = 2.60 mg/dL 0.50-1.04 H 5197462089) CALCIUM (test code = 7.9 mg/dL 8.6-10.6 L 4080675593) eGFR (test code = mL/min/1.73m2 9719464482) AMANDA (test code = AMANDA) Association of Glomerular Filtration Rate (GFR) and Staging of Kidney Disease* + --+ --+ ------+| GFR (mL/min/1.73 m2) ?| With Kidney Damage ?| ?Without Kidney Damage+ --------+ --------+ +| ?>90 ?| ?Stage one ?| ? Normal ?+ ---+ ---+ -------+| ?60-89 ?| ?Stage two ?| ? Decreased GFR ? + --+ --+ ------+| ?30-59 ?| ?Stage three ?| ? Stage three ? + --+ --+ ------+| ?15-29 ?| ?Stage four ? | ? Stage four ?+ ---+ ---+ -------+| ?<15 (or dialysis) ? ?| ?Stage five ? | ? Stage five ?+ ---+ ---+ -------+ *Each stage assumes the associated GFR level has been in effect for at least three months. ?Stages 1 to 5, with or without kidney disease, indicate chronic kidney disease. Notes: Determination of stages one and two (with eGFR >59mL/min/1.73 m2) requires estimation of kidney damage for at least three months as defined by structural or functional abnormalities of the kidney, manifested by either:Pathological abnormalities or Markers of kidney damage (including abnormalities in the composition of the blood or urine or abnormalities in imaging tests). Lab Interpretation Abnormal (test code = 03875-3) [facility] WITHOUT [id number] 09:19:09 Test Item Value Reference Range Interpretation Comments WBC (test code = 6690-2) See_Comment H [A utomated message] The system [employer] generated this result transmit farzad reference range : 4.30 - 11.10 10*3/?L. The reference range was not used to interpret this result as normal/abnormal . RBC (test code = 789-8) See_Comment L [Au tomated message] The system [employer] generated this result transmit farzad reference range : 3.93 - 5.25 10* 6/?L. The reference r juordan was not used to interpret this result as normal/abnormal . HGB (test code = 718-7) 6.7 g/dL 11.6-15.0 L HCT (test code = 4544-3) 19.8 % 35.7-45.2 L MCH (test code = 785-6) 31.0 pg 25.9-32.8 MCV (test code = 787-2) 91.7 fL 80.6-95.5 MCHC (test code = 786-4) 33.8 g/dL 31.6-35.1 PLT (test code = 777-3) See_Comment [Au tomated message] The system [employer] generated this result transmit farzad reference range : 166 - 358 10*3/?L. The reference range was not used to interpret this result as normal/abnormal . MPV (test code = 10.3 fL 9.5-12.9 24346-2) RDW-CV (test code = 14.5 % 12.0-15.5 788-0) RDW-SD (test code = 47.8 fL 39.0-49.9 52283-4) NRBC x10^3 (test code = <0.01 See_Comment [Au tomated message] [id number]) The system [employer] generated this result transmit farzad reference range : 10*3/?L. The reference range was not used to interpret this result as normal/abnormal . NRBC/100 WBC (test code See_Comment [Au tomated message] = 9446167119) The system [facility] [facility] generated this result transmit farzad reference range : 0.0 - 10.0 /100 WBC s. The reference r jourdan was not used to interpret this result as normal/abnormal . IPF % (test code = 7827652796) Lab Interpretation (test Abnormal code = 88605-4) [facility] WITHOUT [id number] 09:19:09 Test Item Value Reference Range Interpretation Comments WBC (test code = 6690-2) See_Comment H [A utomated message] The system [employer] generated this result transmit farzad reference range : 4.30 - 11.10 10*3/?L. The reference range was not used to interpret this result as normal/abnormal . RBC (test code = 789-8) See_Comment L [Au tomated message] The system [employer] generated this result transmit farzad reference range : 3.93 - 5.25 10* 6/?L. The reference r jourdan was not used to interpret this result as normal/abnormal . HGB (test code = 718-7) 6.7 g/dL 11.6-15.0 L HCT (test code = 4544-3) 19.8 % 35.7-45.2 L MCH (test code = 785-6) 31.0 pg 25.9-32.8 MCV (test code = 787-2) 91.7 fL 80.6-95.5 MCHC (test code = 786-4) 33.8 g/dL 31.6-35.1 PLT (test code = 777-3) See_Comment [Au tomated message] The system [employer] generated this result transmit farzad reference range : 166 - 358 10*3/?L. The reference range was not used to interpret this result as normal/abnormal . MPV (test code = 10.3 fL 9.5-12.9 34777-9) RDW-CV (test code = 14.5 % 12.0-15.5 788-0) RDW-SD (test code = 47.8 fL 39.0-49.9 54183-6) NRBC x10^3 (test code = <0.01 See_Comment [Au tomated message] [id number]) The system [employer] generated this result transmit farzad reference range : 10*3/?L. The reference range was not used to interpret this result as normal/abnormal . NRBC/100 WBC (test code See_Comment [Au tomated message] = 8427052137) The system [facility] generated this result transmit farzad reference range : 0.0 - 10.0 /100 WBC s. The reference r jourdan was not used to interpret this result as normal/abnormal . IPF % (test code = 0037300625) Lab Interpretation (test Abnormal code = 32751-5) [facility] WITHOUT [id number] 01:51:37 Test Item Value Reference Range Interpretation Comments WBC (test code = 6690-2) See_Comment H [A utomated message] The system [employer] generated this result transmit farzad reference range : 4.30 - 11.10 10*3/?L. The reference range was not used to interpret this result as normal/abnormal . RBC (test code = 789-8) See_Comment L [Au tomated message] The system [employer] generated this result transmit farzad reference range : 3.93 - 5.25 10* 6/?L. The reference r jourdan was not used to interpret this result as normal/abnormal . HGB (test code = 718-7) 8.0 g/dL 11.6-15.0 L HCT (test code = 4544-3) 23.7 % 35.7-45.2 L MCH (test code = 785-6) 30.9 pg 25.9-32.8 MCV (test code = 787-2) 91.5 fL 80.6-95.5 MCHC (test code = 786-4) 33.8 g/dL 31.6-35.1 PLT (test code = 777-3) See_Comment [Au tomated message] The system [employer] generated this result transmit farzad reference range : 166 - 358 10*3/?L. The reference range was not used to interpret this result as normal/abnormal . MPV (test code = 10.1 fL 9.5-12.9 85939-6) RDW-CV (test code = 14.3 % 12.0-15.5 788-0) RDW-SD (test code = 47.2 fL 39.0-49.9 98714-5) NRBC x10^3 (test code = <0.01 See_Comment [Au tomated message] [id number]) The system [employer] generated this result transmit farzad reference range : 10*3/?L. The reference range was not used to interpret this result as normal/abnormal . NRBC/100 WBC (test code See_Comment [Au tomated message] = 5600727143) The system [employer] generated this result transmit farzad reference range : 0.0 - 10.0 /100 WBC s. The reference r jourdan was not used to interpret this result as normal/abnormal . IPF % (test code = 6603200474) Lab Interpretation (test Abnormal code = 80574-8) [facility] WITHOUT [id number] 01:51:37 Test Item Value Reference Range Interpretation Comments WBC (test code = 6690-2) See_Comment H [A utomated message] The system [employer] generated this result transmit farzad reference range : 4.30 - 11.10 10*3/?L. The reference range was not used to interpret this result as normal/abnormal . RBC (test code = 789-8) See_Comment L [Au tomated message] The system [employer] generated this result transmit farzad reference range : 3.93 - 5.25 10* 6/?L. The reference r jourdan was not used to interpret this result as normal/abnormal . HGB (test code = 718-7) 8.0 g/dL 11.6-15.0 L HCT (test code = 4544-3) 23.7 % 35.7-45.2 L MCH (test code = 785-6) 30.9 pg 25.9-32.8 MCV (test code = 787-2) 91.5 fL 80.6-95.5 MCHC (test code = 786-4) 33.8 g/dL 31.6-35.1 PLT (test code = 777-3) See_Comment [Au tomated message] The system [employer] generated this result transmit farzad reference range : 166 - 358 10*3/?L. The reference range was not used to interpret this result as normal/abnormal . MPV (test code = 10.1 fL 9.5-12.9 78627-9) RDW-CV (test code = 14.3 % 12.0-15.5 788-0) RDW-SD (test code = 47.2 fL 39.0-49.9 78318-1) NRBC x10^3 (test code = <0.01 See_Comment [Au tomated message] [id number]) The system [employer] generated this result transmit farzad reference range : 10*3/?L. The reference range was not used to interpret this result as normal/abnormal . NRBC/100 WBC (test code See_Comment [Au tomated message] = 5089055105) The system [employer] generated this result transmit farzad reference range : 0.0 - 10.0 /100 WBC s. The reference r jourdan was not used to interpret this result as normal/abnormal . IPF % (test code = 3172068291) Lab Interpretation (test Abnormal code = 34915-0) [facility] GLUCOSE (AUTOMATED)2020-06-20 01:46:55 Test Item Value Reference Range Interpretation Comments POCT GLU (test code = 9598386670) 92 mg/dL 70-110 Lab Interpretation (test code = Normal 20574-9) [facility] GLUCOSE (AUTOMATED)2020-06-20 01:46:55 Test Item Value Reference Range Interpretation Comments POCT GLU (test code = 3436952242) 92 mg/dL 70-110 Lab Interpretation (test code = Normal 24764-6) [facility] [id number] 19:46:58 Test Item Value Reference Range Interpretation Comments TROPONIN I (test 0.055 ng/mL See_Comment H [Automated code = 5340298682) message] The system which generated this result transmitted reference range : <=0.034. The reference range was not used to interpret this result as normal/abnormal . AMANDA (test code = Equal or Less than AMANDA) 0.034 ng/ml---Normal ?Note: Cardiac troponin begins to rise 3-4 hours after the onset of ischemia. Repeat in 4-6 hours if the sample was drawn within 3-4 hours of the onset of the symptom and found normal. Between 0.035 and 0.120 ng/mL--- Borderline. Questionable myocardial injury or necrosis ? ?Note: Serial measurement may be necessary to confirm or exclude the diagnosis of myocardial injury or necrosis; Clinical correlation (symptoms, EKGs, imaging studies, and others) required; Repeat in 4-6 hours if clinically indicated. ? Equal or Higher than 0.121 ng/mL---Abnormal. Myocardial Injury or Necrosis Likely ? Biotin has been reported to cause a negative bias, interpret results relative to patient's use of biotin. ? Lab Interpretation Abnormal (test code = 13792-1) [facility] [id number] 19:46:58 Test Item Value Reference Range Interpretation Comments TROPONIN I (test 0.055 ng/mL See_Comment H [Automated code = 9810293790) message] The system which generated this result transmitted reference range : <=0.034. The reference range was not used to interpret this result as normal/abnormal . AMANDA (test code = Equal or Less than AMANDA) 0.034 ng/ml---Normal ?Note: Cardiac troponin begins to rise 3-4 hours after the onset of ischemia. Repeat in 4-6 hours if the sample was drawn within 3-4 hours of the onset of the symptom and found normal. Between 0.035 and 0.120 ng/mL--- Borderline. Questionable myocardial injury or necrosis ? ?Note: Serial measurement may be necessary to confirm or exclude the diagnosis of myocardial injury or necrosis; Clinical correlation (symptoms, EKGs, imaging studies, and others) required; Repeat in 4-6 hours if clinically indicated. ? Equal or Higher than 0.121 ng/mL---Abnormal. Myocardial Injury or Necrosis Likely ? Biotin has been reported to cause a negative bias, interpret results relative to patient's use of biotin. ? Lab Interpretation Abnormal (test code = 91701-2) [facility] METABOLIC PANEL (NA, K, CL, CO2, GLUCOSE, BUN, CREATININE, CA)2020-06-19 19:32:35 Test Item Value Reference Range Interpretation Comments NA (test code = 134 mmol/L 135-145 L 9926131506) K (test code = 4.8 mmol/L 3.5-5.0 3397170926) CL (test code = 106 mmol/L 98-108 9162841954) CO2 TOTAL (test code = 20 mmol/L 23-31 L 3281832848) AGAP (test code = 2-16 2824305948) BUN (test code = 94 mg/dL 7-23 H 0827680846) GLUCOSE (test code = 102 mg/dL 70-110 2600285169) CREATININE (test code = 2.60 mg/dL 0.50-1.04 H 6576819085) CALCIUM (test code = 8.2 mg/dL 8.6-10.6 L 6268289324) eGFR (test code = mL/min/1.73m2 4848047512) AMANDA (test code = AMANDA) Association of Glomerular Filtration Rate (GFR) and Staging of Kidney Disease* + --+ --+ ------+| GFR (mL/min/1.73 m2) ?| With Kidney Damage ?| ?Without Kidney Damage+ --------+ --------+ +| ?>90 ?| ?Stage one ?| ? Normal ?+ ---+ ---+ -------+| ?60-89 ?| ?Stage two ?| ? Decreased GFR ? + --+ --+ ------+| ?30-59 ?| ?Stage three ?| ? Stage three ? + --+ --+ ------+| ?15-29 ?| ?Stage four ? | ? Stage four ?+ ---+ ---+ -------+| ?<15 (or dialysis) ? ?| ?Stage five ? | ? Stage five ?+ ---+ ---+ -------+ *Each stage assumes the associated GFR level has been in effect for at least three months. ?Stages 1 to 5, with or without kidney disease, indicate chronic kidney disease. Notes: Determination of stages one and two (with eGFR >59mL/min/1.73 m2) requires estimation of kidney damage for at least three months as defined by structural or functional abnormalities of the kidney, manifested by either:Pathological abnormalities or Markers of kidney damage (including abnormalities in the composition of the blood or urine or abnormalities in imaging tests). Lab Interpretation Abnormal (test code = 65680-9) [facility] METABOLIC PANEL (NA, K, CL, CO2, GLUCOSE, BUN, CREATININE, CA)2020-06-19 19:32:35 Test Item Value Reference Range Interpretation Comments NA (test code = 134 mmol/L 135-145 L 9084983178) K (test code = 4.8 mmol/L 3.5-5.0 5808132135) CL (test code = 106 mmol/L 98-108 8542634906) CO2 TOTAL (test code = 20 mmol/L 23-31 L 7661978613) AGAP (test code = 2-16 9250375440) BUN (test code = 94 mg/dL 7-23 H 8283552461) GLUCOSE (test code = 102 mg/dL 70-110 0035184582) CREATININE (test code = 2.60 mg/dL 0.50-1.04 H 3027624707) CALCIUM (test code = 8.2 mg/dL 8.6-10.6 L 2225255463) eGFR (test code = mL/min/1.73m2 7579943001) AMANDA (test code = AMANDA) Association of Glomerular Filtration Rate (GFR) and Staging of Kidney Disease* + --+ --+ ------+| GFR (mL/min/1.73 m2) ?| With Kidney Damage ?| ?Without Kidney Damage+ --------+ --------+ +| ?>90 ?| ?Stage one ?| ? Normal ?+ ---+ ---+ -------+| ?60-89 ?| ?Stage two ?| ? Decreased GFR ? + --+ --+ ------+| ?30-59 ?| ?Stage three ?| ? Stage three ? + --+ --+ ------+| ?15-29 ?| ?Stage four ? | ? Stage four ?+ ---+ ---+ -------+| ?<15 (or dialysis) ? ?| ?Stage five ? | ? Stage five ?+ ---+ ---+ -------+ *Each stage assumes the associated GFR level has been in effect for at least three months. ?Stages 1 to 5, with or without kidney disease, indicate chronic kidney disease. Notes: Determination of stages one and two (with eGFR >59mL/min/1.73 m2) requires estimation of kidney damage for at least three months as defined by structural or functional abnormalities of the kidney, manifested by either:Pathological abnormalities or Markers of kidney damage (including abnormalities in the composition of the blood or urine or abnormalities in imaging tests). Lab Interpretation Abnormal (test code = 24705-9) [facility] WITHOUT [id number] 19:23:16 Test Item Value Reference Range Interpretation Comments WBC (test code = 6690-2) See_Comment H [A utomated message] The system [employer] generated this result transmit farzad reference range : 4.30 - 11.10 10*3/?L. The reference range was not used to interpret this result as normal/abnormal . RBC (test code = 789-8) See_Comment L [Au tomated message] The system [employer] generated this result transmit farzad reference range : 3.93 - 5.25 10* 6/?L. The reference r ojurdan was not used to interpret this result as normal/abnormal . HGB (test code = 718-7) 7.1 g/dL 11.6-15.0 L HCT (test code = 4544-3) 21.0 % 35.7-45.2 L MCH (test code = 785-6) 30.7 pg 25.9-32.8 MCV (test code = 787-2) 90.9 fL 80.6-95.5 MCHC (test code = 786-4) 33.8 g/dL 31.6-35.1 PLT (test code = 777-3) See_Comment [Au tomated message] The system [employer] generated this result transmit farzad reference range : 166 - 358 10*3/?L. The reference range was not used to interpret this result as normal/abnormal . MPV (test code = 9.9 fL 9.5-12.9 43894-9) RDW-CV (test code = 14.2 % 12.0-15.5 788-0) RDW-SD (test code = 47.2 fL 39.0-49.9 92810-7) NRBC x10^3 (test code = See_Comment [Au tomated message] 1595791253) The system [employer] generated this result transmit farzad reference range : 10*3/?L. The reference range was not used to interpret this result as normal/abnormal . NRBC/100 WBC (test code See_Comment [Au tomated message] = 7715969808) The system [employer] generated this result transmit farzad reference range : 0.0 - 10.0 /100 WBC s. The reference r jourdan was not used to interpret this result as normal/abnormal . IPF % (test code = 3139044483) Lab Interpretation (test Abnormal code = 79746-3) [facility] WITHOUT [id number] 19:23:16 Test Item Value Reference Range Interpretation Comments WBC (test code = 6690-2) See_Comment H [A utomated message] The system [employer] generated this result transmit farzad reference range : 4.30 - 11.10 10*3/?L. The reference range was not used to interpret this result as normal/abnormal . RBC (test code = 789-8) See_Comment L [Au tomated message] The system [employer] generated this result transmit farzad reference range : 3.93 - 5.25 10* 6/?L. The reference r jourdan was not used to interpret this result as normal/abnormal . HGB (test code = 718-7) 7.1 g/dL 11.6-15.0 L HCT (test code = 4544-3) 21.0 % 35.7-45.2 L MCH (test code = 785-6) 30.7 pg 25.9-32.8 MCV (test code = 787-2) 90.9 fL 80.6-95.5 MCHC (test code = 786-4) 33.8 g/dL 31.6-35.1 PLT (test code = 777-3) See_Comment [Au tomated message] The system [employer] generated this result transmit farzad reference range : 166 - 358 10*3/?L. The reference range was not used to interpret this result as normal/abnormal . MPV (test code = 9.9 fL 9.5-12.9 72380-1) RDW-CV (test code = 14.2 % 12.0-15.5 788-0) RDW-SD (test code = 47.2 fL 39.0-49.9 29639-1) NRBC x10^3 (test code = See_Comment [Au tomated message] 7713551461) The system [employer] generated this result transmit farzad reference range : 10*3/?L. The reference range was not used to interpret this result as normal/abnormal . NRBC/100 WBC (test code See_Comment [Au tomated message] = 1778490838) The system [employer] generated this result transmit farzad reference range : 0.0 - 10.0 /100 WBC s. The reference r jourdan was not used to interpret this result as normal/abnormal . IPF % (test code = 0148407466) Lab Interpretation (test Abnormal code = 16656-5) [facility] GLUCOSE (AUTOMATED)2020-06-19 17:07:11 Test Item Value Reference Range Interpretation Comments POCT GLU (test code = 9894619342) 107 mg/dL 70-110 Lab Interpretation (test code = Normal 93549-6) [facility] GLUCOSE (AUTOMATED)2020-06-19 17:07:11 Test Item Value Reference Range Interpretation Comments POCT GLU (test code = 1734764622) 107 mg/dL 70-110 Lab Interpretation (test code = Normal 05016-3) [facility]A [facility] by PCR, [id number] 17:04:08 Test Item Value Reference Range Interpretation Comments MSSA Screen by PCR, Nares (test code Negative Negative = 20418-1) MRSA/MSSA Positive? (test code = No No 8931945272) Lab Interpretation (test code = Normal 05844-6) [facility] MSSA Screen by PCR, [id number] 17:04:08 Test Item Value Reference Range Interpretation Comments MSSA Screen by PCR, Nares (test code Negative Negative = 77828-1) MRSA/MSSA Positive? (test code = No No 7872314600) Lab Interpretation (test code = Normal 75406-3) [facility] CenterXR CHEST 1 [id number] 15:50:37 Minimal interstitial abnormality bilaterally is nonspecific and mayrepresent small degree of interstitial edema with central vascularcongestion. Atypical infection can have similar appearance. Preliminary Report Dictated by Resident: Terence Abad MD., have reviewed this study and agree with theabove report.EXAM: XR CHEST 1 VW COMPARISON: None. HISTORY: cough ? TECHNIQUE: Frontal view of the chest was obtained. FINDINGS: Lungs/pleura: ?Minimal bilateral interstitial abnormalities nonspecific. Nofocal consolidation identified. No pleural effusion or pneumothorax isidentified. Heart/Mediastinum: Heart is enlarged. No acute osseous abnormality. Chronic deformities of left lateral upper andmid ribs. Subchondral cystic changes at the left glenoid. [facility], [facility] Results Inft User- 06/19/2020 10:51 AM CDTEXAM: XR CHEST 1 VWCOMPARISON: None.HISTORY: cough TECHNIQUE: Frontal viewof the chest was obtained.FINDINGS:Lungs/pleura: Minimal bilateral interstitial abnormalities nonspecific. Nofocal consolidation identified. No pleural effusion or pneumothorax isidentified.Heart/Mediastinum: Heart is enlarged.No acute osseous abnormality. Chronic deformities of left lateral upper andmid ribs. Subchondral cystic changes at the left glenoid.IMPRESSIONMinimal interstitial abnormality b ilaterally is nonspecific and mayrepresent small degree of interstitial edema with central vascularcongestion. Atypical infection can have similar appearance. Preliminary Report Dictated by Resident: Terence Mo MD., have reviewed this study and agree with theabove report.[facility] 1 [id number] 15:50:37 Minimal interstitial abnormality bilaterally is nonspecific and mayrepresent small degree of interstitial edema with central vascularcongestion. Atypical infection can have similar appearance. Preliminary Report Dictated by Resident: Terence Abad MD., have reviewed this study and agree with theabove report.EXAM: XR CHEST 1 VW COMPARISON: None. HISTORY: cough ? TECHNIQUE: Frontal view of the chest was obtained. FINDINGS: Lungs/pleura: ?Minimal bilateral interstitial abnormalities nonspecific. Nofocal consolidation identified. No pleural effusion or pneumothorax isidentified. Heart/Mediastinum: Heart is enlarged. No acute osseous abnormality. Chronic deformities of left lateral upper andmid ribs. Subchondral cystic changes at the left glenoid. [facility], [facility] Results Inft User- 06/19/2020 10:51 AM CDTEXAM: XR CHEST 1 VWCOMPARISON: None.HISTORY: cough TECHNIQUE: Frontal viewof the chest was obtained.FINDINGS:Lungs/pleura: Minimal bilateral interstitial abnormalities nonspecific. Nofocal consolidation identified. No pleural effusion or pneumothorax isidentified.Heart/Mediastinum: Heart is enlarged.No acute osseous abnormality. Chronic deformities of left lateral upper andmid ribs. Subchondral cystic changes at the left glenoid.IMPRESSIONMinimal interstitial abnormality bilaterally is nonspecific and mayrepresent small degree of interstitial edema with central vascularco ngestion. Atypical infection can have similar appearance. Preliminary Report Dictated by Resident: Terence Mo MD., have reviewed this study and agree with theabove report.[facility] [id number] 13:54:48 Test Item Value Reference Range Interpretation Comments TROPONIN I (test 0.058 ng/mL See_Comment H [Automated code = 8496183047) message] The system which generated this result transmitted reference range : <=0.034. The reference range was not used to interpret this result as normal/abnormal . AMANDA (test code = Equal or Less than AMANDA) 0.034 ng/ml---Normal ?Note: Cardiac troponin begins to rise 3-4 hours after the onset of ischemia. Repeat in 4-6 hours if the sample was drawn within 3-4 hours of the onset of the symptom and found normal. Between 0.035 and 0.120 ng/mL--- Borderline. Questionable myocardial injury or necrosis ? ?Note: Serial measurement may be necessary to confirm or exclude the diagnosis of myocardial injury or necrosis; Clinical correlation (symptoms, EKGs, imaging studies, and others) required; Repeat in 4-6 hours if clinically indicated. ? Equal or Higher than 0.121 ng/mL---Abnormal. Myocardial Injury or Necrosis Likely ? Biotin has been reported to cause a negative bias, interpret results relative to patient's use of biotin. ? Lab Interpretation Abnormal (test code = 58017-9) [facility] [id number] 13:54:48 Test Item Value Reference Range Interpretation Comments TROPONIN I (test 0.058 ng/mL See_Comment H [Automated code = 2977634943) message] The system which generated this result transmitted reference range : <=0.034. The reference range was not used to interpret this result as normal/abnormal . AMANDA (test code = Equal or Less than AMANDA) 0.034 ng/ml---Normal ?Note: Cardiac troponin begins to rise 3-4 hours after the onset of ischemia. Repeat in 4-6 hours if the sample was drawn within 3-4 hours of the onset of the symptom and found normal. Between 0.035 and 0.120 ng/mL--- Borderline. Questionable myocardial injury or necrosis ? ?Note: Serial measurement may be necessary to confirm or exclude the diagnosis of myocardial injury or necrosis; Clinical correlation (symptoms, EKGs, imaging studies, and others) required; Repeat in 4-6 hours if clinically indicated. ? Equal or Higher than 0.121 ng/mL---Abnormal. Myocardial Injury or Necrosis Likely ? Biotin has been reported to cause a negative bias, interpret results relative to patient's use of biotin. ? Lab Interpretation Abnormal (test code = 33571-4) [facility] WITHOUT [id number] 13:05:46 Test Item Value Reference Range Interpretation Comments WBC (test code = 6690-2) See_Comment H [A utomated message] The system [employer] generated this result transmit farzad reference range : 4.30 - 11.10 10*3/?L. The reference range was not used to interpret this result as normal/abnormal . RBC (test code = 789-8) See_Comment L [Au tomated message] The system [employer] generated this result transmit farzad reference range : 3.93 - 5.25 10* 6/?L. The reference r jourdan was not used to interpret this result as normal/abnormal . HGB (test code = 718-7) 7.1 g/dL 11.6-15.0 L HCT (test code = 4544-3) 20.7 % 35.7-45.2 L MCH (test code = 785-6) 31.1 pg 25.9-32.8 MCV (test code = 787-2) 90.8 fL 80.6-95.5 MCHC (test code = 786-4) 34.3 g/dL 31.6-35.1 PLT (test code = 777-3) See_Comment [Au tomated message] The system [facility] generated this result transmit farzad reference range : 166 - 358 10*3/?L. The reference range was not used to interpret this result as normal/abnormal . MPV (test code = 9.9 fL 9.5-12.9 91671-8) RDW-CV (test code = 14.1 % 12.0-15.5 788-0) RDW-SD (test code = 46.5 fL 39.0-49.9 12645-7) NRBC x10^3 (test code = See_Comment [Au tomated message] [id number]) The system [facility] generated this result transmit farzad reference range : 10*3/?L. The reference range was not used to interpret this result as normal/abnormal . NRBC/100 WBC (test code See_Comment [Au tomated message] = 0679929571) The system [facility] generated this result transmit farzad reference range : 0.0 - 10.0 /100 WBC s. The reference r jourdan was not used to interpret this result as normal/abnormal . IPF % (test code = 5453253063) Lab Interpretation (test Abnormal code = 23118-5) [facility] WITHOUT [id number] 13:05:46 Test Item Value Reference Range Interpretation Comments WBC (test code = 6690-2) See_Comment H [A utomated message] The system [facility] generated this result transmit farzad reference range : 4.30 - 11.10 10*3/?L. The reference range was not used to interpret this result as normal/abnormal . RBC (test code = 789-8) See_Comment L [Au tomated message] The system [employer] generated this result transmit farzad reference range : 3.93 - 5.25 10* 6/?L. The reference r jourdan was not used to interpret this result as normal/abnormal . HGB (test code = 718-7) 7.1 g/dL 11.6-15.0 L HCT (test code = 4544-3) 20.7 % 35.7-45.2 L MCH (test code = 785-6) 31.1 pg 25.9-32.8 MCV (test code = 787-2) 90.8 fL 80.6-95.5 MCHC (test code = 786-4) 34.3 g/dL 31.6-35.1 PLT (test code = 777-3) See_Comment [Au tomated message] The system [employer] generated this result transmit farzad reference range : 166 - 358 10*3/?L. The reference range was not used to interpret this result as normal/abnormal . MPV (test code = 9.9 fL 9.5-12.9 93600-2) RDW-CV (test code = 14.1 % 12.0-15.5 788-0) RDW-SD (test code = 46.5 fL 39.0-49.9 00234-1) NRBC x10^3 (test code = See_Comment [Au tomated message] [id number]) The system [employer] generated this result transmit farzad reference range : 10*3/?L. The reference range was not used to interpret this result as normal/abnormal . NRBC/100 WBC (test code See_Comment [Au tomated message] = 8741174557) The system [employer] generated this result transmit farzad reference range : 0.0 - 10.0 /100 WBC s. The reference r jourdan was not used to interpret this result as normal/abnormal . IPF % (test code = 9122739847) Lab Interpretation (test Abnormal code = 11095-5) [facility] (AUTOMATED)2020-06-19 12:48:51 Test Item Value Reference Range Interpretation Comments POCT GLU (test code = 5148238223) 112 mg/dL 70-110 H Lab Interpretation (test code = Abnormal 60734-3) [facility] CenterPONM GLUCOSE (AUTOMATED)2020-06-19 12:48:51 Test Item Value Reference Range Interpretation Comments POCT GLU (test code = 1216579182) 112 mg/dL 70-110 H Lab Interpretation (test code = Abnormal 45668-0) [facility] [id number] 07:17:14 Test Item Value Reference Range Interpretation Comments TROPONIN I (test 0.051 ng/mL See_Comment H [Automated code = 4557725160) message] The system which generated this result transmitted reference range : <=0.034. The reference range was not used to interpret this result as normal/abnormal . AMANDA (test code = Equal or Less than AMANDA) 0.034 ng/ml---Normal ?Note: Cardiac troponin begins to rise 3-4 hours after the onset of ischemia. Repeat in 4-6 hours if the sample was drawn within 3-4 hours of the onset of the symptom and found normal. Between 0.035 and 0.120 ng/mL--- Borderline. Questionable myocardial injury or necrosis ? ?Note: Serial measurement may be necessary to confirm or exclude the diagnosis of myocardial injury or necrosis; Clinical correlation (symptoms, EKGs, imaging studies, and others) required; Repeat in 4-6 hours if clinically indicated. ? Equal or Higher than 0.121 ng/mL---Abnormal. Myocardial Injury or Necrosis Likely ? Biotin has been reported to cause a negative bias, interpret results relative to patient's use of biotin. ? Lab Interpretation Abnormal (test code = 93352-2) [facility] E0080 07:17:14 Test Item Value Reference Range Interpretation Comments TROPONIN I (test 0.051 ng/mL See_Comment H [Automated code = 7893533128) message] The system which generated this result transmitted reference range : <=0.034. The reference range was not used to interpret this result as normal/abnormal . AMANDA (test code = Equal or Less than AMANDA) 0.034 ng/ml---Normal ?Note: Cardiac troponin begins to rise 3-4 hours after the onset of ischemia. Repeat in 4-6 hours if the sample was drawn within 3-4 hours of the onset of the symptom and found normal. Between 0.035 and 0.120 ng/mL--- Borderline. Questionable myocardial injury or necrosis ? ?Note: Serial measurement may be necessary to confirm or exclude the diagnosis of myocardial injury or necrosis; Clinical correlation (symptoms, EKGs, imaging studies, and others) required; Repeat in 4-6 hours if clinically indicated. ? Equal or Higher than 0.121 ng/mL---Abnormal. Myocardial Injury or Necrosis Likely ? Biotin has been reported to cause a negative bias, interpret results relative to patient's use of biotin. ? Lab Interpretation Abnormal (test code = 30617-6) [facility] (NA, K, CL, CO2, GLUCOSE, BUN, CREATININE, CA)2020-06-19 07:03:34 Test Item Value Reference Range Interpretation Comments NA (test code = 136 mmol/L 135-145 9504599667) K (test code = 5.3 mmol/L 3.5-5.0 H 3680478710) CL (test code = 106 mmol/L 98-108 8195435282) CO2 TOTAL (test code = 20 mmol/L 23-31 L 3866453896) AGAP (test code = 2-16 1265496406) BUN (test code = 97 mg/dL 7-23 H 8140038618) GLUCOSE (test code = 131 mg/dL 70-110 H 5039803981) CREATININE (test code = 2.56 mg/dL 0.50-1.04 H 4146826064) CALCIUM (test code = 8.3 mg/dL 8.6-10.6 L 5254941885) eGFR (test code = mL/min/1.73m2 4074786824) AMANDA (test code = AMANDA) Association of Glomerular Filtration Rate (GFR) and Staging of Kidney Disease* + --+ --+ ------+| GFR (mL/min/1.73 m2) ?| With Kidney Damage ?| ?Without Kidney Damage+ --------+ --------+ +| ?>90 ?| ?Stage one ?| ? Normal ?+ ---+ ---+ -------+| ?60-89 ?| ?Stage two ?| ? Decreased GFR ? + --+ --+ ------+| ?30-59 ?| ?Stage three ?| ? Stage three ? + --+ --+ ------+| ?15-29 ?| ?Stage four ? | ? Stage four ?+ ---+ ---+ -------+| ?<15 (or dialysis) ? ?| ?Stage five ? | ? Stage five ?+ ---+ ---+ -------+ *Each stage assumes the associated GFR level has been in effect for at least three months. ?Stages 1 to 5, with or without kidney disease, indicate chronic kidney disease. Notes: Determination of stages one and two (with eGFR >59mL/min/1.73 m2) requires estimation of kidney damage for at least three months as defined by structural or functional abnormalities of the kidney, manifested by either:Pathological abnormalities or Markers of kidney damage (including abnormalities in the composition of the blood or urine or abnormalities in imaging tests). Lab Interpretation Abnormal (test code = 83875-1) [facility] METABOLIC PANEL (NA, K, CL, CO2, GLUCOSE, BUN, CREATININE, CA)2020-06-19 07:03:34 Test Item Value Reference Range Interpretation Comments NA (test code = 136 mmol/L 135-145 3837250653) K (test code = 5.3 mmol/L 3.5-5.0 H 9654535599) CL (test code = 106 mmol/L 98-108 5218226591) CO2 TOTAL (test code = 20 mmol/L 23-31 L 5246106942) AGAP (test code = 2-16 3790914585) BUN (test code = 97 mg/dL 7-23 H 8088971905) GLUCOSE (test code = 131 mg/dL 70-110 H 5136747577) CREATININE (test code = 2.56 mg/dL 0.50-1.04 H 4153019498) CALCIUM (test code = 8.3 mg/dL 8.6-10.6 L 1787402221) eGFR (test code = mL/min/1.73m2 5084229302) AMANDA (test code = AMANDA) Association of Glomerular Filtration Rate (GFR) and Staging of Kidney Disease* + --+ --+ ------+| GFR (mL/min/1.73 m2) ?| With Kidney Damage ?| ?Without Kidney Damage+ --------+ --------+ +| ?>90 ?| ?Stage one ?| ? Normal ?+ ---+ ---+ -------+| ?60-89 ?| ?Stage two ?| ? Decreased GFR ? + --+ --+ ------+| ?30-59 ?| ?Stage three ?| ? Stage three ? + --+ --+ ------+| ?15-29 ?| ?Stage four ? | ? Stage four ?+ ---+ ---+ -------+| ?<15 (or dialysis) ? ?| ?Stage five ? | ? Stage five ?+ ---+ ---+ -------+ *Each stage assumes the associated GFR level has been in effect for at least three months. ?Stages 1 to 5, with or without kidney disease, indicate chronic kidney disease. Notes: Determination of stages one and two (with eGFR >59mL/min/1.73 m2) requires estimation of kidney damage for at least three months as defined by structural or functional abnormalities of the kidney, manifested by either:Pathological abnormalities or Markers of kidney damage (including abnormalities in the composition of the blood or urine or abnormalities in imaging tests). Lab Interpretation Abnormal (test code = 51479-7) [facility] CenterPROTHROMBIN TIME / [id number] 06:50:34 Test Item Value Reference Range Interpretation Comments PROTIME PATIENT (test See_Comment H [Auto mated message] code = 5964-2) The system [employer] generated this result transmitted ref erence range: 10.1 - 1 2.6 Seconds. The reference range was not used to int erpret this result as normal/abnormal . INR (test code = 6301-6) Nor mal INR <1.1; Warfarin Therap eutic range 2.0 to 3. 0 or 2.5 to 3.5, dep ending upon the indica tions. Lab Interpretation (test Abnormal code = 00342-4) [facility] CenterFIBRINOGEN2021-04-18 06:50:34 Test Item Value Reference Range Interpretation Comments Fibrinogen (test code = 8587864827) 278 mg/dL 167-453 Lab Interpretation (test code = Normal 15646-8) [facility] CenterPROTHROMBIN TIME / [id number] 06:50:34 Test Item Value Reference Range Interpretation Comments PROTIME PATIENT (test See_Comment H [Auto mated message] code = 5964-2) The system [employer] generated this result transmitted ref erence range: 10.1 - 1 2.6 Seconds. The reference range was not used to int erpret this result as normal/abnormal . INR (test code = 6301-6) Nor mal INR <1.1; Warfarin Therap eutic range 2.0 to 3. 0 or 2.5 to 3.5, dep ending upon the indica tions. Lab Interpretation (test Abnormal code = 33920-7) [facility] CenterFIBRINOGEN2021-04-18 06:50:34 Test Item Value Reference Range Interpretation Comments Fibrinogen (test code = 0538794426) 278 mg/dL 167-453 Lab Interpretation (test code = Normal 57625-6) [facility] CenterCBC WITHOUT [id number] 06:43:53 Test Item Value Reference Range Interpretation Comments WBC (test code = 6690-2) See_Comment H [A utomated message] The system [employer] generated this result transmit farzad reference range : 4.30 - 11.10 10*3/?L. The reference range was not used to interpret this result as normal/abnormal . RBC (test code = 789-8) See_Comment L [Au tomated message] The system [employer] generated this result transmit farzad reference range : 3.93 - 5.25 10* 6/?L. The reference r jourdan was not used to interpret this result as normal/abnormal . HGB (test code = 718-7) 7.8 g/dL 11.6-15.0 L HCT (test code = 4544-3) 23.2 % 35.7-45.2 L MCH (test code = 785-6) 31.0 pg 25.9-32.8 MCV (test code = 787-2) 92.1 fL 80.6-95.5 MCHC (test code = 786-4) 33.6 g/dL 31.6-35.1 PLT (test code = 777-3) See_Comment [Au tomated message] The system [employer] generated this result transmit farzad reference range : 166 - 358 10*3/?L. The reference range was not used to interpret this result as normal/abnormal . MPV (test code = 10.2 fL 9.5-12.9 71975-9) RDW-CV (test code = 13.9 % 12.0-15.5 788-0) RDW-SD (test code = 46.9 fL 39.0-49.9 43057-8) NRBC x10^3 (test code = <0.01 See_Comment [Au tomated message] 2513231618) The system [employer] generated this result transmit farzad reference range : 10*3/?L. The reference range was not used to interpret this result as normal/abnormal . NRBC/100 WBC (test code See_Comment [Au tomated message] = 7795321981) The system [facility] generated this result transmit farzad reference range : 0.0 - 10.0 /100 WBC s. The reference r jourdan was not used to interpret this result as normal/abnormal . IPF % (test code = 5458043848) Lab Interpretation (test Abnormal code = 56817-0) [facility] WITHOUT [id number] 06:43:53 Test Item Value Reference Range Interpretation Comments WBC (test code = 6690-2) See_Comment H [A utomated message] The system [facility] generated this result transmit farzad reference range : 4.30 - 11.10 10*3/?L. The reference range was not used to interpret this result as normal/abnormal . RBC (test code = 789-8) See_Comment L [Au tomated message] The system [facility] generated this result transmit farzad reference range : 3.93 - 5.25 10* 6/?L. The reference r jourdan was not used to interpret this result as normal/abnormal . HGB (test code = 718-7) 7.8 g/dL 11.6-15.0 L HCT (test code = 4544-3) 23.2 % 35.7-45.2 L MCH (test code = 785-6) 31.0 pg 25.9-32.8 MCV (test code = 787-2) 92.1 fL 80.6-95.5 MCHC (test code = 786-4) 33.6 g/dL 31.6-35.1 PLT (test code = 777-3) See_Comment [Au tomated message] The system [employer] generated this result transmit farzad reference range : 166 - 358 10*3/?L. The reference range was not used to interpret this result as normal/abnormal . MPV (test code = 10.2 fL 9.5-12.9 32612-8) RDW-CV (test code = 13.9 % 12.0-15.5 788-0) RDW-SD (test code = 46.9 fL 39.0-49.9 35549-1) NRBC x10^3 (test code = <0.01 See_Comment [Au tomated message] 6977886310) The system [employer] generated this result transmit farzad reference range : 10*3/?L. The reference range was not used to interpret this result as normal/abnormal . NRBC/100 WBC (test code See_Comment [Au tomated message] = 5378622689) The system [employer] generated this result transmit farzad reference range : 0.0 - 10.0 /100 WBC s. The reference r jourdan was not used to interpret this result as normal/abnormal . IPF % (test code = 6937633614) Lab Interpretation (test Abnormal code = 64003-8) [facility] CenterFERPATIN [id number] 06:39:12 Test Item Value Reference Range Interpretation Comments FERRITIN (test code = 122.0 ng/mL 11.0-264.0 1960580535) AMANDA (test code = AMANDA) Biotin has been reported to cause a negative bias, interpret results relative to patient's use of biotin. Lab Interpretation (test Normal code = 65446-0) [facility] [id number] 06:39:12 Test Item Value Reference Range Interpretation Comments FERRITIN (test code = 122.0 ng/mL 11.0-264.0 2315306266) AMANDA (test code = AMANDA) Biotin has been reported to cause a negative bias, interpret results relative to patient's use of biotin. Lab Interpretation (test Normal code = 07148-2) [facility] CenterXR CHEST 1 [id number] 02:36:01 1. Support lines and tubes in place as described above with no evidence ofpneumothorax.2. Left lower lobe atelectasis versus infiltrate. RL: 135 [facility]: [id number] ORDERING PHYSICIAN: Shelly MILLER HISTORY: s/p intubation and CVC placement ? COMPARISON: none FINDINGS: Single frontal view of the chest. Endotracheal tube is seen in place withtip 4 cm above the level of the daxa. NG tube is seen in place with tipin the stomach. Right subclavian central venous catheter seen in place withtip in the SVC. Heart is normal in size. ?There is no pulmonary edema. Left lower lobeatelectasis versus infiltrate is seen. There is no pneumothorax. ?Thereareno pleural effusions. Osseous structures are unremarkable. ? Please note that chest radiography is not a sensitive modality for thedetection of masses. [facility], Radiant Results Inft User - 19:37 PM CDTORDERING PHYSICIAN: DEENA DINH HISTORY: s/p intubation and CVC placement COMPARISON:noneFINDINGS:Single frontal view of the chest. Endotracheal tube is seen in place withtip 4 cm above the level of the daxa. NG tube is seen in place with tipin the stomach. Right subclavian central venous catheter seen in place withtip in the SVC.Heart is normal in size. There is no pulmonary edema. Left lower lobeatelectasis versus infiltrate is seen. There is no pneumothorax. There areno pleural effusions. Osseous structures are unremarkable. Please note that chest radiography is not a sensitive modality for thedetection of masses.IMPRESSION1. Support lines and tubes in place as described above with no evidence ofpneumothorax.2. Left lower lobe atelectasis versus infiltrate.RL: 135[facility]: [id number] signed by Karie Wu MD at 06/18/2020 9:36 PMUnF[facility] ClinicXR [facility] 1 [id number] 02:36:01 1. Support lines and tubes in place as described above with no evidence ofpneumothorax.2. Left lower lobe atelectasis versus infiltrate. RL: 135 [facility]: [id number] ORDERING PHYSICIAN: Shelly MILLER HISTORY: s/p intubation and CVC placement ? COMPARISON: none FINDINGS: Single frontal view of the chest. Endotracheal tube is seen in place withtip 4 cm above the level of the daxa. NG tube is seen in place with tipin the stomach. Right subclavian central venous catheter seen in place withtip in the SVC. Heart is normal in size. ?There is no pulmonary edema. Left lower lobeatelectasis versus infiltrate is seen. There is no pneumothorax. ?Thereareno pleural effusions. Osseous structures are unremarkable. ? Please note that chest radiography is not a sensitive modality for thedetection of masses. [facility], Radiant Results Inft User - 19:37 PM CDTORDERING PHYSICIAN: DEENA DINH HISTORY: s/p intubation and CVC placement COMPARISON:noneFINDINGS:Single frontal view of the chest. Endotracheal tube is seen in place withtip 4 cm abovethe level of the daxa. NG tube is seen in place with tipin the stomach. Right subclavian central venous catheter seen in place withtip in the SVC.Heart is normal in size. There is no pulmonary edema. Left lower lobeatelectasis versus infiltrate is seen. There is no pneumothorax. There areno pleural effusions. Osseous structures are unremarkable. Please note that chest radiography is not a sensitive modality for thedetection of masses.IMPRESSION1. Support lines and tubes in place as described above with no evidence ofpneumothorax.2. Left lower lobe atelectasis versus infiltrate.RL: 135C: [id number] signed by Karie Wu MD at 06/18/2020 9:36 PM [facility] CenterURINE DRUG (IMMUNOASSAY) - COMPREHENSIVE DRUG [id number] 02:24:15 Test Item Value Reference Range Interpretation Comments AMPHET (test code = Negative Negative 3099129256) RODY U (test code = Negative Negative 4301956309) BENZO U (test code = Negative Negative 8457925203) Cocaine Metabolite (test Negative Negative code = 2464149738) METHADONE (test code = Negative Negative 6753279733) OPIATES (test code = Negative Negative 5374538702) PCP (test code = Negative Negative 0468543381) THC (test code = Negative Negative 9399567576) AAMNDA (test code = AMANDA) Urine Drug Cutoff Ranges Cocaine: ? 150 ng/mLBenzodiazepines: ? ? 200 ng/mLMethadone: ? 300 ng/mLAmphetamine: ? 1,000 ng/mLOpiates: ? 300 ng/mLCannabinoids: ?50 ng/mLPhencyclidine: ? ? ? 25 ng/mLBarbiturates: ?200 ng/mL The results are to be used only for medical (i.e., treatment) purposes. Unconfirmed screening results must not be used for non-medical purposes (e.g., employment testing, legal testing). Lab Interpretation (test Normal code = 90306-1) [facility] Center[facility] (IMMUNOASSAY) - COMPREHENSIVE DRUG [id number] 02:24:15 Test Item Value Reference Range Interpretation Comments AMPHET (test code = Negative Negative 9224155961) RODY U (test code = Negative Negative 9989449550) BENZO U (test code = Negative Negative 6760333025) Cocaine Metabolite (test Negative Negative code = 6532448349) METHADONE (test code = Negative Negative 2997636701) OPIATES (test code = Negative Negative 5579390383) PCP (test code = Negative Negative 6060800478) THC (test code = Negative Negative 7175013883) AMANDA (test code = AMANDA) Urine Drug Cutoff Ranges Cocaine: ? 150 ng/mLBenzodiazepines: ? ? 200 ng/mLMethadone: ? 300 ng/mLAmphetamine: ? 1,000 ng/mLOpiates: ? 300 ng/mLCannabinoids: ?50 ng/mLPhencyclidine: ? ? ? 25 ng/mLBarbiturates: ?200 ng/mL The results are to be used only for medical (i.e., treatment) purposes. Unconfirmed screening results must not be used for non-medical purposes (e.g., employment testing, legal testing). Lab Interpretation (test Normal code = 43174-4) [facility] CenterFOLATE2021-04-18 02:06:04 Test Item Value Reference Range Interpretation Comments FOLATE SER (test code = 10.0 ng/mL 3.0-20.0 1429704764) Lab Interpretation (test code = Normal 39538-7) [facility] CenterFOLATE2021-04-18 02:06:04 Test Item Value Reference Range Interpretation Comments FOLATE SER (test code = 10.0 ng/mL 3.0-20.0 5411495329) Lab Interpretation (test code = Normal 31482-9) [facility] CenterUREA NITROGEN, URINE [id number] 01:39:20 Test Item Value Reference Range Interpretation Comments UREA N UR (test code = 2756757289) 411 mg/dL [facility] CenterCREATININE, URINE [id number] 01:39:20 Test Item Value Reference Range Interpretation Comments CREAT U (test code = 9963399135) 42.1 mg/dL [facility] CenterUREA NITROGEN, URINE [id number] 01:39:20 Test Item Value Reference Range Interpretation Comments UREA N UR (test code = 0035738204) 411 mg/dL [facility] CenterCREATININE, URINE [id number] 01:39:20 Test Item Value Reference Range Interpretation Comments CREAT U (test code = 0826679924) 42.1 mg/dL [facility] CenterVITAMIN B12, [id number] 01:31:02 Test Item Value Reference Range Interpretation Comments VIT B12 (test code = 939 pg/mL 240-930 H 5106704556) AMANDA (test code = AMANDA) Biotin has been reported to cause a positive bias, interpret results relative to patient's use of biotin. Lab Interpretation (test Abnormal code = 27822-0) [facility], [id number] 01:31:02 Test Item Value Reference Range Interpretation Comments VIT B12 (test code = 939 pg/mL 240-930 H 5719460120) AMANDA (test code = AMANDA) Biotin has been reported to cause a positive bias, interpret results relative to patient's use of biotin. Lab Interpretation (test Abnormal code = 89104-8) [facility] 01:25:19 Test Item Value Reference Range Interpretation Comments APPEARANCE (test code = Cloudy Clear A 2343650352) COLOR (test code = Yellow Yellow 5171407889) PH (test code = 4.8-8.0 3369077938) SP GRAVITY (test code = 1.003-1.030 0699652656) GLU U QUAL (test code = Normal Normal 7851902527) BLOOD (test code = 3+ Negative A 3056177344) KETONES (test code = Negative Negative 5137724087) PROTEIN (test code = 100 mg/dL Negative A 2887-8) UROBILIN (test code = Normal Normal 7291449115) BILIRUBIN (test code = Negative Negative 3492118548) NITRITE (test code = Negative Negative 2391763689) LEUK ROCHELLE (test code = 250/uL Negative A 0131110966) RBC/HPF (test code = See_Comment H [Autom ated message] 4475811152) The system [employer] generated this result transmit farzad reference range : 0 - 3 HPF. The refe rence range was not u sed to interpret th is result as normal/abnormal . WBC/HPF (test code = >182 See_Comment H [Autom ated message] 9389932440) The system [employer] generated this result transmit farzad reference range : 0 - 5 HPF. The refe rence range was not u sed to interpret th is result as normal/abnormal . BACTERIA (test code = Moderate Negative A 4575461436) WBC CLUMPS (test code = See_Comment H [Au tomated message] 3612131849) The system [employer] generated this result transmit farzad reference range : <=1 HPF. The refere nce range was not u sed to interpret th is result as normal/abnormal . Lab Interpretation (test Abnormal code = 13390-1) [facility] 01:25:19 Test Item Value Reference Range Interpretation Comments APPEARANCE (test code = Cloudy Clear A 5083662545) COLOR (test code = Yellow Yellow 0368635891) PH (test code = 4.8-8.0 0873148311) SP GRAVITY (test code = 1.003-1.030 2794876477) GLU U QUAL (test code = Normal Normal 2501505846) BLOOD (test code = 3+ Negative A 6490000721) KETONES (test code = Negative Negative 5373175894) PROTEIN (test code = 100 mg/dL Negative A 2887-8) UROBILIN (test code = Normal Normal 9266839522) BILIRUBIN (test code = Negative Negative 6396792599) NITRITE (test code = Negative Negative 8274941365) LEUK ROCHELLE (test code = 250/uL Negative A 0536101880) RBC/HPF (test code = See_Comment H [Autom ated message] 5821253447) The system [employer] generated this result transmit farzad reference range : 0 - 3 HPF. The refe rence range was not u sed to interpret th is result as normal/abnormal . WBC/HPF (test code = >182 See_Comment H [Autom ated message] 1346777996) The system [employer] generated this result transmit farzad reference range : 0 - 5 HPF. The refe rence range was not u sed to interpret th is result as normal/abnormal . BACTERIA (test code = Moderate Negative A 9252484588) WBC CLUMPS (test code = See_Comment H [Au tomated message] 2632491122) The system [employer] generated this result transmit farzad reference range : <=1 HPF. The refere nce range was not u sed to interpret th is result as normal/abnormal . Lab Interpretation (test Abnormal code = 57623-9) [facility] CenterGLYCOSYLATED HEMOGLOBIN (A1C)2020-06-19 01:19:02 Test Item Value Reference Range Interpretation Comments HGB A1C (test code = 5.6 % 4.0-5.7 4548-4) AMANDA (test code = AMANDA) Reference RangesNormal: <5.7%Prediabetes: 5.7 - 6.4%Diabetes: > 6.5% Lab Interpretation (test Normal code = 64226-2) [facility] CenterGLYCOSYLATED HEMOGLOBIN (A1C)2020-06-19 01:19:02 Test Item Value Reference Range Interpretation Comments HGB A1C (test code = 5.6 % 4.0-5.7 4548-4) AMANDA (test code = AMANDA) Reference RangesNormal: <5.7%Prediabetes: 5.7 - 6.4%Diabetes: > 6.5% Lab Interpretation (test Normal code = 47971-4) [facility] GLUCOSE (AUTOMATED)2020-06-19 01:03:17 Test Item Value Reference Range Interpretation Comments POCT GLU (test code = 7785734187) 172 mg/dL 70-110 H Lab Interpretation (test code = Abnormal 37579-2) [facility] GLUCOSE (AUTOMATED)2020-06-19 01:03:17 Test Item Value Reference Range Interpretation Comments POCT GLU (test code = 6024376380) 172 mg/dL 70-110 H Lab Interpretation (test code = Abnormal 27556-4) [facility] [id number] 00:53:02 Test Item Value Reference Range Interpretation Comments TROPONIN I (test 0.021 ng/mL See_Comment [Automated code = 1067804709) message] The system which generated this result transmitted reference range : <=0.034. The reference range was not used to interpret this result as normal/abnormal . AMANDA (test code = Equal or Less than AMANDA) 0.034 ng/ml---Normal ?Note: Cardiac troponin begins to rise 3-4 hours after the onset of ischemia. Repeat in 4-6 hours if the sample was drawn within 3-4 hours of the onset of the symptom and found normal. Between 0.035 and 0.120 ng/mL--- Borderline. Questionable myocardial injury or necrosis ? ?Note: Serial measurement may be necessary to confirm or exclude the diagnosis of myocardial injury or necrosis; Clinical correlation (symptoms, EKGs, imaging studies, and others) required; Repeat in 4-6 hours if clinically indicated. ? Equal or Higher than 0.121 ng/mL---Abnormal. Myocardial Injury or Necrosis Likely ? Biotin has been reported to cause a negative bias, interpret results relative to patient's use of biotin. ? Lab Interpretation Normal (test code = 75807-0) [facility] [id number] 00:53:02 Test Item Value Reference Range Interpretation Comments TROPONIN I (test 0.021 ng/mL See_Comment [Automated code = 9190766488) message] The system which generated this result transmitted reference range : <=0.034. The reference range was not used to interpret this result as normal/abnormal . AMANDA (test code = Equal or Less than AMANDA) 0.034 ng/ml---Normal ?Note: Cardiac troponin begins to rise 3-4 hours after the onset of ischemia. Repeat in 4-6 hours if the sample was drawn within 3-4 hours of the onset of the symptom and found normal. Between 0.035 and 0.120 ng/mL--- Borderline. Questionable myocardial injury or necrosis ? ?Note: Serial measurement may be necessary to confirm or exclude the diagnosis of myocardial injury or necrosis; Clinical correlation (symptoms, EKGs, imaging studies, and others) required; Repeat in 4-6 hours if clinically indicated. ? Equal or Higher than 0.121 ng/mL---Abnormal. Myocardial Injury or Necrosis Likely ? Biotin has been reported to cause a negative bias, interpret results relative to patient's use of biotin. ? Lab Interpretation Normal (test code = 83205-8) [facility] CenterACETAMINOPHEN2021-04-18 00:43:48 Test Item Value Reference Range Interpretation Comments ACETAMINOP (test code = <10.0 10.0-30.0 L 9448196356) AMANDA (test code = AMANDA) Toxic: Greater than 200 ug/mL @ 4 hour post ingestion or greater than 50 ug/mL @ 12 hour post ingestion Lab Interpretation (test Abnormal code = 24239-8) [facility] CenterACETAMINOPHEN2021-04-18 00:43:48 Test Item Value Reference Range Interpretation Comments ACETAMINOP (test code = <10.0 10.0-30.0 L 1340077076) AMANDA (test code = AMANDA) Toxic: Greater than 200 ug/mL @ 4 hour post ingestion or greater than 50 ug/mL @ 12 hour post ingestion Lab Interpretation (test Abnormal code = 10139-0) [facility] CenterHEPATIC FUNCTION PANEL (04369) (ALB,T.PRO,BILI T,BU/BC,ALT,AST,ALK PHOS)2020-06-19 00:41:03 Test Item Value Reference Range Interpretation Comments TOTAL BILI (test code = 4043684712) 1.4 mg/dL 0.1-1.1 H BILI UNCON (test code = 2063308988) 0.3 mg/dL 0.1-1.1 BILI CONJ (test code = 7132229238) 0.0 mg/dL 0.0-0.3 T PROTEIN (test code = 8013262801) 5.5 g/dL 6.3-8.2 L ALBUMIN (test code = 0295554816) 2.5 g/dL 3.5-5.0 L ALK PHOS (test code = 2733052846) 117 U/L 34-122 ALTv (test code = 1742-6) 21 U/L 5-35 AST(SGOT) (test code = 9472655581) 72 U/L 13-40 H Lab Interpretation (test code = Abnormal 34571-9) [facility] CenterHEP[facility] FUNCTION PAN[facility] (75804) (ALB,T.PRO,BILI T,BU/BC,ALT,AST,ALK PHOS)2020-06-19 00:41:03 Test Item Value Reference Range Interpretation Comments TOTAL BILI (test code = 6371391365) 1.4 mg/dL 0.1-1.1 H BILI UNCON (test code = 2019307171) 0.3 mg/dL 0.1-1.1 BILI CONJ (test code = 4944298714) 0.0 mg/dL 0.0-0.3 T PROTEIN (test code = 7144731350) 5.5 g/dL 6.3-8.2 L ALBUMIN (test code = 2976588320) 2.5 g/dL 3.5-5.0 L ALK PHOS (test code = 5618137115) 117 U/L 34-122 ALTv (test code = 1742-6) 21 U/L 5-35 AST(SGOT) (test code = 4763363976) 72 U/L 13-40 H Lab Interpretation (test code = Abnormal 40806-1) [facility] CenterBASIC METABOLIC PANEL (NA, K, CL, CO2, GLUCOSE, BUN, CREATININE, CA)2020-06-19 00:40:57 Test Item Value Reference Range Interpretation Comments NA (test code = 133 mmol/L 135-145 L 9613402981) K (test code = 5.4 mmol/L 3.5-5.0 H 8407554920) CL (test code = 103 mmol/L 98-108 6024462949) CO2 TOTAL (test code = 17 mmol/L 23-31 L 0369179699) AGAP (test code = 2-16 9850642009) BUN (test code = 93 mg/dL 7-23 H 3161764353) GLUCOSE (test code = 152 mg/dL 70-110 H 2413921224) CREATININE (test code = 2.53 mg/dL 0.50-1.04 H 8284531939) CALCIUM (test code = 8.5 mg/dL 8.6-10.6 L 9637228173) eGFR (test code = mL/min/1.73m2 4283784016) AMANDA (test code = AMANDA) Association of Glomerular Filtration Rate (GFR) and Staging of Kidney Disease* + --+ --+ ------+| GFR (mL/min/1.73 m2) ?| With Kidney Damage ?| ?Without Kidney Damage+ --------+ --------+ +| ?>90 ?| ?Stage one ?| ? Normal ?+ ---+ ---+ -------+| ?60-89 ?| ?Stage two ?| ? Decreased GFR ? + --+ --+ ------+| ?30-59 ?| ?Stage three ?| ? Stage three ? + --+ --+ ------+| ?15-29 ?| ?Stage four ? | ? Stage four ?+ ---+ ---+ -------+| ?<15 (or dialysis) ? ?| ?Stage five ? | ? Stage five ?+ ---+ ---+ -------+ *Each stage assumes the associated GFR level has been in effect for at least three months. ?Stages 1 to 5, with or without kidney disease, indicate chronic kidney disease. Notes: Determination of stages one and two (with eGFR >59mL/min/1.73 m2) requires estimation of kidney damage for at least three months as defined by structural or functional abnormalities of the kidney, manifested by either:Pathological abnormalities or Markers of kidney damage (including abnormalities in the composition of the blood or urine or abnormalities in imaging tests). Lab Interpretation Abnormal (test code = 72163-2) [facility] METABOLIC PANEL (NA, K, CL, CO2, GLUCOSE, BUN, CREATININE, CA)2020-06-19 00:40:57 Test Item Value Reference Range Interpretation Comments NA (test code = 133 mmol/L 135-145 L 4057856450) K (test code = 5.4 mmol/L 3.5-5.0 H 2052820404) CL (test code = 103 mmol/L 98-108 2722970054) CO2 TOTAL (test code = 17 mmol/L 23-31 L 7994246033) AGAP (test code = 2-16 4471375630) BUN (test code = 93 mg/dL 7-23 H 9354974054) GLUCOSE (test code = 152 mg/dL 70-110 H 1335486173) CREATININE (test code = 2.53 mg/dL 0.50-1.04 H 3643136343) CALCIUM (test code = 8.5 mg/dL 8.6-10.6 L 1764924075) eGFR (test code = mL/min/1.73m2 0912993812) AMANDA (test code = AMANDA) Association of Glomerular Filtration Rate (GFR) and Staging of Kidney Disease* + --+ --+ ------+| GFR (mL/min/1.73 m2) ?| With Kidney Damage ?| ?Without Kidney Damage+ --------+ --------+ +| ?>90 ?| ?Stage one ?| ? Normal ?+ ---+ ---+ -------+| ?60-89 ?| ?Stage two ?| ? Decreased GFR ? + --+ --+ ------+| ?30-59 ?| ?Stage three ?| ? Stage three ? + --+ --+ ------+| ?15-29 ?| ?Stage four ? | ? Stage four ?+ ---+ ---+ -------+| ?<15 (or dialysis) ? ?| ?Stage five ? | ? Stage five ?+ ---+ ---+ -------+ *Each stage assumes the associated GFR level has been in effect for at least three months. ?Stages 1 to 5, with or without kidney disease, indicate chronic kidney disease. Notes: Determination of stages one and two (with eGFR >59mL/min/1.73 m2) requires estimation of kidney damage for at least three months as defined by structural or functional abnormalities of the kidney, manifested by either:Pathological abnormalities or Markers of kidney damage (including abnormalities in the composition of the blood or urine or abnormalities in imaging tests). Lab Interpretation Abnormal (test code = 76471-2) [facility] CenterPROTHROMBIN TIME / [id number] 00:35:36 Test Item Value Reference Range Interpretation Comments PROTIME PATIENT (test See_Comment H [Auto mated message] code = 5964-2) The system [employer] generated this result transmitted ref erence range: 10.1 - 1 2.6 Seconds. The reference range was not used to int erpret this result as normal/abnormal . INR (test code = 6301-6) Nor mal INR <1.1; Warfarin Therap eutic range 2.0 to 3. 0 or 2.5 to 3.5, dep ending upon the indica tions. Lab Interpretation (test Abnormal code = 69832-5) [facility] CenterFIBRINOGEN2021-04-18 00:35:36 Test Item Value Reference Range Interpretation Comments Fibrinogen (test code = 4851076018) 282 mg/dL 167-453 Lab Interpretation (test code = Normal 06332-0) [facility] CenterACTIVATED PARTIAL THRMPLAS [id number] 00:35:36 Test Item Value Reference Range Interpretation Comments APTT Patient (test code = See_Comment [ Automated message] 3173-2) The system [employer] generated this result transmitted ref erence range: 26 - 36 Seconds. The re ference range was not u sed to interpret this result as normal/abnor mal. Lab Interpretation (test Normal code = 62401-5) [facility] CenterPROTHROMBIN TIME / [id number] 00:35:36 Test Item Value Reference Range Interpretation Comments PROTIME PATIENT (test See_Comment H [Auto mated message] code = 5964-2) The system [employer] generated this result transmitted ref erence range: 10.1 - 1 2.6 Seconds. The reference range was not used to int erpret this result as normal/abnormal . INR (test code = 6301-6) Nor mal INR <1.1; Warfarin Therap eutic range 2.0 to 3. 0 or 2.5 to 3.5, dep ending upon the indica tions. Lab Interpretation (test Abnormal code = 40691-3) [facility] CenterFIBRINOGEN2021-04-18 00:35:36 Test Item Value Reference Range Interpretation Comments Fibrinogen (test code = 4135979783) 282 mg/dL 167-453 Lab Interpretation (test code = Normal 52962-6) [facility] CenterACTIVATED PARTIAL THRMPLAS [id number] 00:35:36 Test Item Value Reference Range Interpretation Comments APTT Patient (test code = See_Comment [ Automated message] 3173-2) The system [employer] generated this result transmitted ref erence range: 26 - 36 Seconds. The re ference range was not u sed to interpret this result as normal/abnor mal. Lab Interpretation (test Normal code = 19974-0) [facility] CenterType and Screen - ONCE [id number] 00:20:44 Test Item Value Reference Range Interpretation Comments ABO & RH (test code O POSITIVE Performe d at [facility] = 20) Laboratory [facility] [place] [address]77[address]Zrtd Free: [phone] A No. [id number] IAT (test code = Negative Performed a t [facility] 1185) Laboratory [facility] [address] [place] [address] [id number] Free: [phone] A No. [id number] [facility] CenterType and Screen - ONCE [id number] 00:20:44 Test Item Value Reference Range Interpretation Comments ABO & RH (test code O POSITIVE Performe d at [facility] = 20) Laboratory [facility] [address] [place] [address] s [id number] Free: [phone] A No. [id number] IAT (test code = Negative Performed a t [facility] 1185) Laboratory [facility] [address] [place] [address] s [address]Tnic Free: [phone] A No. [id number] [facility], [id number] 23:50:48 Test Item Value Reference Range Interpretation Comments AMMONIA (test code = 4314339488) <9 9-33 L Lab Interpretation (test code = Abnormal 19390-4) [facility], [id number] 23:50:48 Test Item Value Reference Range Interpretation Comments AMMONIA (test code = 9371572840) <9 9-33 L Lab Interpretation (test code = Abnormal 31227-2) [facility] WITH [id number] 23:43:51 Test Item Value Reference Range Interpretation Comments WBC (test code = See_Comment H [Automated 6690-2) message] The system which generated this result transmit farzad reference range : 4.30 - 11.10 10*3/?L. The reference range was not used to interpret this result as normal/abnormal . RBC (test code = See_Comment L [Automated 789-8) message] The system which generated this result transmit farzad reference range : 3.93 - 5.25 10*6/?L. The reference range was not used to interpret this result as normal/abnormal . HGB (test code = 7.5 g/dL 11.6-15.0 L 718-7) HCT (test code = 23.0 % 35.7-45.2 L 4544-3) MCV (test code = 94.7 fL 80.6-95.5 787-2) MCH (test code = 30.9 pg 25.9-32.8 785-6) MCHC (test code = 32.6 g/dL 31.6-35.1 786-4) RDW-SD (test code = 48.7 fL 39.0-49.9 91819-6) RDW-CV (test code = 14.0 % 12.0-15.5 788-0) PLT (test code = See_Comment [Automated 777-3) message] The system which generated this result transmit farzad reference range : 166 - 358 10*3/ ?L. The reference range was not u sed to interpret th is result as normal/abnormal . MPV (test code = 10.2 fL 9.5-12.9 31765-8) NRBC/100 WBC (test See_Comment [Automat ed code = 3512850086) message] The system which generated this result transmit farzad reference range : 0.0 - 10.0 /100 WBCs. The reference range was not used to interpret this result as normal/abnormal . NRBC x10^3 (test code <0.01 See_Comment [Auto mated = 0339911322) message] The system which generated this result transmit farzad reference range : 10*3/?L. The reference range was not used to interpret this result as normal/abnormal . GRAN MAT (NEUT) % 84.3 % (test code = 770-8) IMM GRAN % (test code 1.90 % = 4302707862) LYMPH % (test code = 7.5 % 736-9) MONO % (test code = 6.0 % 5905-5) EOS % (test code = 0.1 % 713-8) BASO % (test code = 0.2 % 706-2) GRAN MAT x10^3(ANC) 13.56 10*3/uL 1.88-7.09 H (test code = 3285799682) IMM GRAN x10^3 (test 0.30 10*3/uL 0.00-0.06 H code = 1911841636) LYMPH x10^3 (test code 1.20 10*3/uL 1.32-3.29 L = 731-0) MONO x10^3 (test code 0.96 10*3/uL 0.33-0.92 H = 742-7) EOS x10^3 (test code = <0.03 0.03-0.39 L 711-2) BASO x10^3 (test code 0.03 10*3/uL 0.01-0.07 = 704-7) Lab Interpretation Abnormal (test code = 19519-4) [facility] WITH [id number] 23:43:51 Test Item Value Reference Range Interpretation Comments WBC (test code = See_Comment H [Automated 6690-2) message] The system which generated this result transmit farzad reference range : 4.30 - 11.10 10*3/?L. The reference range was not used to interpret this result as normal/abnormal . RBC (test code = See_Comment L [Automated 789-8) message] The system which generated this result transmit farzad reference range : 3.93 - 5.25 10*6/?L. The reference range was not used to interpret this result as normal/abnormal . HGB (test code = 7.5 g/dL 11.6-15.0 L 718-7) HCT (test code = 23.0 % 35.7-45.2 L 4544-3) MCV (test code = 94.7 fL 80.6-95.5 787-2) MCH (test code = 30.9 pg 25.9-32.8 785-6) MCHC (test code = 32.6 g/dL 31.6-35.1 786-4) RDW-SD (test code = 48.7 fL 39.0-49.9 43370-3) RDW-CV (test code = 14.0 % 12.0-15.5 788-0) PLT (test code = See_Comment [Automated 777-3) message] The system which generated this result transmit farzad reference range : 166 - 358 10*3/ ?L. The reference range was not u sed to interpret th is result as normal/abnormal . MPV (test code = 10.2 fL 9.5-12.9 85352-1) NRBC/100 WBC (test See_Comment [Automat ed code = 1079321773) message] The system which generated this result transmit farzad reference range : 0.0 - 10.0 /100 WBCs. The reference range was not used to interpret this result as normal/abnormal . NRBC x10^3 (test code <0.01 See_Comment [Auto mated = 4247148878) message] The system which generated this result transmit farzad reference range : 10*3/?L. The reference range was not used to interpret this result as normal/abnormal . GRAN MAT (NEUT) % 84.3 % (test code = 770-8) IMM GRAN % (test code 1.90 % = 9221071962) LYMPH % (test code = 7.5 % 736-9) MONO % (test code = 6.0 % 5905-5) EOS % (test code = 0.1 % 713-8) BASO % (test code = 0.2 % 706-2) GRAN MAT x10^3(ANC) 13.56 10*3/uL 1.88-7.09 H (test code = 1689752512) IMM GRAN x10^3 (test 0.30 10*3/uL 0.00-0.06 H code = 7535265780) LYMPH x10^3 (test code 1.20 10*3/uL 1.32-3.29 L = 731-0) MONO x10^3 (test code 0.96 10*3/uL 0.33-0.92 H = 742-7) EOS x10^3 (test code = <0.03 0.03-0.39 L 711-2) BASO x10^3 (test code 0.03 10*3/uL 0.01-0.07 = 704-7) Lab Interpretation Abnormal (test code = 77637-0) [facility] + LACTIC [id number] 23:42:50 Test Item Value Reference Range Interpretation Comments PH (test code = 2) 7.35-7.45 H PCO2 (test code = See_Comment L [Automat ed 5641035190) message] The sy stem which generated this result transmitted reference range : 35 - 45 mmHg. The reference range was not used to interpret this result as normal/abnormal . PO2 (test code = See_Comment H [Automated 1618802598) message] The sy stem which generated this result transmitted reference range : 80 - 100 mmHg. The reference range was not used to interpret this result as normal/abnormal . HCO3 (test code = See_Comment L [Automate d 9545797843) message] The sy stem which generated this result transmitted reference range : 22 - 26 mEq/L. The reference range was not used to interpret this result as normal/abnormal . BE (test code = See_Comment L [Automated 4346243159) message] The sy stem which generated this result transmitted reference range : -3.0 - 3.0 mEq/ L. The reference r jourdan was not used to interpret this result as normal/abnormal . THB (test code = 11.0 g/dL 12.0-16.0 L 2023630143) %O2HB (test code = 99.1 % 94.0-99.0 H 1818991686) %COHB ART (test code = 0.3 % 0.0-1.5 9219281679) %METHB ART (test code = 0.3 % 0.4-1.5 L 3476144630) VOL%O2 ART (test code = 16.7 % 15.0-23.0 5227551893) NA (test code = 131 mmol/L 135-145 L 0134857929) K+ (test code = 5.2 mmol/L 3.5-5.0 H 0139696305) AC CA IONZ (test code = 4.40 mg/dL 4.50-5.30 L 2500158732) GLUCOSE (test code = 154 mg/dL 70-110 H 2232234199) LACTIC ACID (test code 1.32 mmol/L 0.50-2.20 = 1025660984) Lab Interpretation Abnormal (test code = 92847-9) [facility] + LACTIC [id number] 23:42:50 Test Item Value Reference Range Interpretation Comments PH (test code = 2) 7.35-7.45 H PCO2 (test code = See_Comment L [Automat ed 8675421872) message] The sy stem which generated this result transmitted reference range : 35 - 45 mmHg. The reference range was not used to interpret this result as normal/abnormal . PO2 (test code = See_Comment H [Automated 2818854793) message] The sy stem which generated this result transmitted reference range : 80 - 100 mmHg. The reference range was not used to interpret this result as normal/abnormal . HCO3 (test code = See_Comment L [Automate d 2014338703) message] The sy stem which generated this result transmitted reference range : 22 - 26 mEq/L. The reference range was not used to interpret this result as normal/abnormal . BE (test code = See_Comment L [Automated 4702658035) message] The sy stem which generated this result transmitted reference range : -3.0 - 3.0 mEq/ L. The reference r jourdan was not used to interpret this result as normal/abnormal . THB (test code = 11.0 g/dL 12.0-16.0 L 5293926772) %O2HB (test code = 99.1 % 94.0-99.0 H 8503917357) %COHB ART (test code = 0.3 % 0.0-1.5 4307153302) %METHB ART (test code = 0.3 % 0.4-1.5 L 6420589758) VOL%O2 ART (test code = 16.7 % 15.0-23.0 7566153919) NA (test code = 131 mmol/L 135-145 L 1335794993) K+ (test code = 5.2 mmol/L 3.5-5.0 H 4562753924) AC CA IONZ (test code = 4.40 mg/dL 4.50-5.30 L 3169574386) GLUCOSE (test code = 154 mg/dL 70-110 H 5553416965) LACTIC ACID (test code 1.32 mmol/L 0.50-2.20 = 1402377015) Lab Interpretation Abnormal (test code = 59302-0) [facility] Test Item Value Reference Range Interpretation Comments MAGNESIUM (test code = 2896802791) 2.3 mg/dL 1.7-2.4 Lab Interpretation (test code = Normal 00245-2) [facility] Test Item Value Reference Range Interpretation Comments MAGNESIUM (test code = 3531240572) 2.3 mg/dL 1.7-2.4 Lab Interpretation (test code = Normal 94843-8) [facility] [id number] 21:50:03 Test Item Value Reference Range Interpretation Comments TROPONIN I (test 0.004 ng/mL See_Comment [Automated code = 8673791548) message] The system which generated this result transmitted reference range : <=0.034. The reference range was not used to interpret this result as normal/abnormal . AMANDA (test code = Equal or Less than AMANDA) 0.034 ng/ml---Normal ?Note: Cardiac troponin begins to rise 3-4 hours after the onset of ischemia. Repeat in 4-6 hours if the sample was drawn within 3-4 hours of the onset of the symptom and found normal. Between 0.035 and 0.120 ng/mL--- Borderline. Questionable myocardial injury or necrosis ? ?Note: Serial measurement may be necessary to confirm or exclude the diagnosis of myocardial injury or necrosis; Clinical correlation (symptoms, EKGs, imaging studies, and others) required; Repeat in 4-6 hours if clinically indicated. ? Equal or Higher than 0.121 ng/mL---Abnormal. Myocardial Injury or Necrosis Likely ? Biotin has been reported to cause a negative bias, interpret results relative to patient's use of biotin. ? Lab Interpretation Normal (test code = 31780-4) [facility] [id number] 21:50:03 Test Item Value Reference Range Interpretation Comments TROPONIN I (test 0.004 ng/mL See_Comment [Automated code = 5825339972) message] The system which generated this result transmitted reference range : <=0.034. The reference range was not used to interpret this result as normal/abnormal . AMANDA (test code = Equal or Less than AMANDA) 0.034 ng/ml---Normal ?Note: Cardiac troponin begins to rise 3-4 hours after the onset of ischemia. Repeat in 4-6 hours if the sample was drawn within 3-4 hours of the onset of the symptom and found normal. Between 0.035 and 0.120 ng/mL--- Borderline. Questionable myocardial injury or necrosis ? ?Note: Serial measurement may be necessary to confirm or exclude the diagnosis of myocardial injury or necrosis; Clinical correlation (symptoms, EKGs, imaging studies, and others) required; Repeat in 4-6 hours if clinically indicated. ? Equal or Higher than 0.121 ng/mL---Abnormal. Myocardial Injury or Necrosis Likely ? Biotin has been reported to cause a negative bias, interpret results relative to patient's use of biotin. ? Lab Interpretation Normal (test code = 78429-1) [facility] (NA, K, CL, CO2, GLUCOSE, BUN, CREATININE, CA)2020-06-18 21:38:20 Test Item Value Reference Range Interpretation Comments NA (test code = 130 mmol/L 135-145 L 3850734094) K (test code = 5.4 mmol/L 3.5-5.0 H 3432239652) CL (test code = 103 mmol/L 98-108 6251085868) CO2 TOTAL (test code = 16 mmol/L 23-31 L 6700464341) AGAP (test code = 2-16 5665370518) BUN (test code = 96 mg/dL 7-23 H 1203773073) GLUCOSE (test code = 192 mg/dL 70-110 H 4305189376) CREATININE (test code = 2.48 mg/dL 0.50-1.04 H 4228707719) CALCIUM (test code = 7.9 mg/dL 8.6-10.6 L 2156154784) eGFR (test code = mL/min/1.73m2 1791080577) AMANDA (test code = AMANDA) Association of Glomerular Filtration Rate (GFR) and Staging of Kidney Disease* + --+ --+ ------+| GFR (mL/min/1.73 m2) ?| With Kidney Damage ?| ?Without Kidney Damage+ --------+ --------+ +| ?>90 ?| ?Stage one ?| ? Normal ?+ ---+ ---+ -------+| ?60-89 ?| ?Stage two ?| ? Decreased GFR ? + --+ --+ ------+| ?30-59 ?| ?Stage three ?| ? Stage three ? + --+ --+ ------+| ?15-29 ?| ?Stage four ? | ? Stage four ?+ ---+ ---+ -------+| ?<15 (or dialysis) ? ?| ?Stage five ? | ? Stage five ?+ ---+ ---+ -------+ *Each stage assumes the associated GFR level has been in effect for at least three months. ?Stages 1 to 5, with or without kidney disease, indicate chronic kidney disease. Notes: Determination of stages one and two (with eGFR >59mL/min/1.73 m2) requires estimation of kidney damage for at least three months as defined by structural or functional abnormalities of the kidney, manifested by either:Pathological abnormalities or Markers of kidney damage (including abnormalities in the composition of the blood or urine or abnormalities in imaging tests). Lab Interpretation Abnormal (test code = 23725-7) [facility] METABOLIC PANEL (NA, K, CL, CO2, GLUCOSE, BUN, CREATININE, CA)2020-06-18 21:38:20 Test Item Value Reference Range Interpretation Comments NA (test code = 130 mmol/L 135-145 L 6912955980) K (test code = 5.4 mmol/L 3.5-5.0 H 4747072922) CL (test code = 103 mmol/L 98-108 2201837495) CO2 TOTAL (test code = 16 mmol/L 23-31 L 3807747869) AGAP (test code = 2-16 5856003580) BUN (test code = 96 mg/dL 7-23 H 5575828912) GLUCOSE (test code = 192 mg/dL 70-110 H 1167254415) CREATININE (test code = 2.48 mg/dL 0.50-1.04 H 1345863361) CALCIUM (test code = 7.9 mg/dL 8.6-10.6 L 4874179688) eGFR (test code = mL/min/1.73m2 3076651663) AMANDA (test code = AMANDA) Association of Glomerular Filtration Rate (GFR) and Staging of Kidney Disease* + --+ --+ ------+| GFR (mL/min/1.73 m2) ?| With Kidney Damage ?| ?Without Kidney Damage+ --------+ --------+ +| ?>90 ?| ?Stage one ?| ? Normal ?+ ---+ ---+ -------+| ?60-89 ?| ?Stage two ?| ? Decreased GFR ? + --+ --+ ------+| ?30-59 ?| ?Stage three ?| ? Stage three ? + --+ --+ ------+| ?15-29 ?| ?Stage four ? | ? Stage four ?+ ---+ ---+ -------+| ?<15 (or dialysis) ? ?| ?Stage five ? | ? Stage five ?+ ---+ ---+ -------+ *Each stage assumes the associated GFR level has been in effect for at least three months. ?Stages 1 to 5, with or without kidney disease, indicate chronic kidney disease. Notes: Determination of stages one and two (with eGFR >59mL/min/1.73 m2) requires estimation of kidney damage for at least three months as defined by structural or functional abnormalities of the kidney, manifested by either:Pathological abnormalities or Markers of kidney damage (including abnormalities in the composition of the blood or urine or abnormalities in imaging tests). Lab Interpretation Abnormal (test code = 45095-5) [facility] + LACTIC [id number] 21:38:00 Test Item Value Reference Range Interpretation Comments PH (test code = 2) 7.35-7.45 PCO2 (test code = See_Comment L [Automat ed 1926016489) message] The sy stem which generated this result transmitted reference range : 35 - 45 mmHg. The reference range was not used to interpret this result as normal/abnormal . PO2 (test code = See_Comment H [Automated 4932801495) message] The sy stem which generated this result transmitted reference range : 80 - 100 mmHg. The reference range was not used to interpret this result as normal/abnormal . HCO3 (test code = See_Comment L [Automate d 3430019120) message] The sy stem which generated this result transmitted reference range : 22 - 26 mEq/L. The reference range was not used to interpret this result as normal/abnormal . BE (test code = See_Comment L [Automated 6810774170) message] The sy stem which generated this result transmitted reference range : -3.0 - 3.0 mEq/ L. The reference r jourdan was not used to interpret this result as normal/abnormal . THB (test code = 6.1 g/dL 12.0-16.0 LL 4784902609) %O2HB (test code = 98.1 % 94.0-99.0 5444371071) %COHB ART (test code = 1.5 % 0.0-1.5 9238450924) %METHB ART (test code = 0.1 % 0.4-1.5 L 5229588697) VOL%O2 ART (test code = 9.7 % 15.0-23.0 L 1730576886) NA (test code = 130 mmol/L 135-145 L 3400464593) K+ (test code = 5.4 mmol/L 3.5-5.0 H 1411088106) AC CA IONZ (test code = 4.40 mg/dL 4.50-5.30 L 0140314958) GLUCOSE (test code = 168 mg/dL 70-110 H 9278623698) LACTIC ACID (test code 2.09 mmol/L 0.50-2.20 = 9184241149) Lab Interpretation Abnormal (test code = 14460-4) [facility] + LACTIC [id number] 21:38:00 Test Item Value Reference Range Interpretation Comments PH (test code = 2) 7.35-7.45 PCO2 (test code = See_Comment L [Automat ed 0120923945) message] The sy stem which generated this result transmitted reference range : 35 - 45 mmHg. The reference range was not used to interpret this result as normal/abnormal . PO2 (test code = See_Comment H [Automated 6100814047) message] The sy stem which generated this result transmitted reference range : 80 - 100 mmHg. The reference range was not used to interpret this result as normal/abnormal . HCO3 (test code = See_Comment L [Automate d 8729129579) message] The sy stem which generated this result transmitted reference range : 22 - 26 mEq/L. The reference range was not used to interpret this result as normal/abnormal . BE (test code = See_Comment L [Automated 8227657317) message] The sy stem which generated this result transmitted reference range : -3.0 - 3.0 mEq/ L. The reference r jourdan was not used to interpret this result as normal/abnormal . THB (test code = 6.1 g/dL 12.0-16.0 LL 0395210151) %O2HB (test code = 98.1 % 94.0-99.0 6486822807) %COHB ART (test code = 1.5 % 0.0-1.5 0778993255) %METHB ART (test code = 0.1 % 0.4-1.5 L 9557873288) VOL%O2 ART (test code = 9.7 % 15.0-23.0 L 5001503291) NA (test code = 130 mmol/L 135-145 L 1626859831) K+ (test code = 5.4 mmol/L 3.5-5.0 H 5455237948) AC CA IONZ (test code = 4.40 mg/dL 4.50-5.30 L 7534197052) GLUCOSE (test code = 168 mg/dL 70-110 H 2818774487) LACTIC ACID (test code 2.09 mmol/L 0.50-2.20 = 8021051380) Lab Interpretation Abnormal (test code = 07476-7) [facility] WITH [id number] 21:35:59 Test Item Value Reference Range Interpretation Comments WBC (test code = See_Comment H [Automated 6690-2) message] The sy stem which generated this result transmitted reference range : 4.30 - 11.10 10*3/?L. The reference range was not used to interpret this result as normal/abnormal . RBC (test code = See_Comment L [Automated 789-8) message] The sy stem which generated this result transmitted reference range : 3.93 - 5.25 10*6/?L. The reference range was not used to interpret this result as normal/abnormal . HGB (test code = 4.9 g/dL 11.6-15.0 LL 718-7) HCT (test code = 15.1 % 35.7-45.2 L 4544-3) MCV (test code = 95.6 fL 80.6-95.5 H 787-2) MCH (test code = 31.0 pg 25.9-32.8 785-6) MCHC (test code = 32.5 g/dL 31.6-35.1 786-4) RDW-SD (test code = 50.7 fL 39.0-49.9 H 11604-5) RDW-CV (test code = 14.6 % 12.0-15.5 788-0) PLT (test code = See_Comment L [Automated 777-3) message] The sy stem which generated this result transmitted reference range : 166 - 358 10*3/ ?L. The reference r jourdan was not used to interpret this result as normal/abnormal . MPV (test code = 10.9 fL 9.5-12.9 64628-4) NRBC/100 WBC (test See_Comment [Automat ed code = 9251194521) message] The system which generated this result transmitted reference range : 0.0 - 10.0 /100 WBCs. The refer ence range was not u sed to interpret th is result as normal/abnormal . NRBC x10^3 (test code See_Comment [Auto mated = 4844093090) message] The s ystem which generated this result transmitted reference range : 10*3/?L. The reference range was not used to interpret this result as normal/abnormal . GRAN MAT (NEUT) % 60.7 % (test code = 770-8) IMM GRAN % (test code 4.70 % = 9901846732) LYMPH % (test code = 28.4 % 736-9) MONO % (test code = 5.8 % 5905-5) EOS % (test code = 0.2 % 713-8) BASO % (test code = 0.2 % 706-2) GRAN MAT x10^3(ANC) 9.13 10*3/uL 1.88-7.09 H (test code = 8510842796) IMM GRAN x10^3 (test 0.70 10*3/uL 0.00-0.06 H code = 7187600937) LYMPH x10^3 (test code 4.27 10*3/uL 1.32-3.29 H = 731-0) MONO x10^3 (test code 0.87 10*3/uL 0.33-0.92 = 742-7) EOS x10^3 (test code = 0.03 10*3/uL 0.03-0.39 711-2) BASO x10^3 (test code 0.03 10*3/uL 0.01-0.07 = 704-7) Lab Interpretation Abnormal (test code = 95499-7) [facility] WITH [id number] 21:35:59 Test Item Value Reference Range Interpretation Comments WBC (test code = See_Comment H [Automated 6690-2) message] The sy stem which generated this result transmitted reference range : 4.30 - 11.10 10*3/?L. The reference range was not used to interpret this result as normal/abnormal . RBC (test code = See_Comment L [Automated 119-8) message] The sy stem which generated this result transmitted reference range : 3.93 - 5.25 10*6/?L. The reference range was not used to interpret this result as normal/abnormal . HGB (test code = 4.9 g/dL 11.6-15.0 LL 718-7) HCT (test code = 15.1 % 35.7-45.2 L 4544-3) MCV (test code = 95.6 fL 80.6-95.5 H 787-2) MCH (test code = 31.0 pg 25.9-32.8 785-6) MCHC (test code = 32.5 g/dL 31.6-35.1 786-4) RDW-SD (test code = 50.7 fL 39.0-49.9 H 82445-6) RDW-CV (test code = 14.6 % 12.0-15.5 788-0) PLT (test code = See_Comment L [Automated 777-3) message] The sy stem which generated this result transmitted reference range : 166 - 358 10*3/ ?L. The reference r jourdan was not used to interpret this result as normal/abnormal . MPV (test code = 10.9 fL 9.5-12.9 77351-7) NRBC/100 WBC (test See_Comment [Automat ed code = 9850385812) message] The system which generated this result transmitted reference range : 0.0 - 10.0 /100 WBCs. The refer ence range was not u sed to interpret th is result as normal/abnormal . NRBC x10^3 (test code See_Comment [Auto mated = 7959642735) message] The s ystem which generated this result transmitted reference range : 10*3/?L. The reference range was not used to interpret this result as normal/abnormal . GRAN MAT (NEUT) % 60.7 % (test code = 770-8) IMM GRAN % (test code 4.70 % = 5237618632) LYMPH % (test code = 28.4 % 736-9) MONO % (test code = 5.8 % 5905-5) EOS % (test code = 0.2 % 713-8) BASO % (test code = 0.2 % 706-2) GRAN MAT x10^3(ANC) 9.13 10*3/uL 1.88-7.09 H (test code = 5599585006) IMM GRAN x10^3 (test 0.70 10*3/uL 0.00-0.06 H code = 3631080739) LYMPH x10^3 (test code 4.27 10*3/uL 1.32-3.29 H = 731-0) MONO x10^3 (test code 0.87 10*3/uL 0.33-0.92 = 742-7) EOS x10^3 (test code = 0.03 10*3/uL 0.03-0.39 711-2) BASO x10^3 (test code 0.03 10*3/uL 0.01-0.07 = 704-7) Lab Interpretation Abnormal (test code = 79653-7) [facility] 21:34:37Isaias Donald MD ? ? 06/18/2020 ?4:34 PMIntubationPerformed by: Isaias Donald MDAuthorized by: Isaias Donald MD Consent: ?Consent obtained: ?Emergent situation ?Alternatives discussed: ?No treatmentPre-procedure details: ?Patient status: ?Altered mental status ?Mallampati score: ?II ?Pretreatment medications: ?None ?Paralytics: ?Succinylcholine and rocuroniumProcedure details: ?Preoxygenation: ?Bag valve mask ?CPR in progress: yes ? ?Intubation method: ?Oral ?Oral intubation technique: ?Video-assisted ?Laryngoscope blade: ?Mac 4 ?Tube size (mm): ?7.5 ?Tube type: ?Cuffed ?Number of attempts: ?1 ?Ventilation between attempts: no ? ?Cricoid pressure: no ? ?Tube visualized through cords: yes ?Placement assessment: ?ETT to lip: ?21 ?Tube secured with: ?ETT morales ?Breath sounds: ?Equal ?Placement verification: chest rise and condensation ? ?CXR findings: ?ETT in proper placePost-procedure details: ?Patient tolerance of procedure: ?Tolerated well, no immediate complicationsUnFalls Community Hospital and ClinicIntubation2021-04-17 21:34:37Isaias Donald MD ? ? 06/18/2020 ?4:34 PMIntubationPerformed by: Isaias Donald MDAuthorized by: Isaias Donald MD Consent: ?Consent obtained: ?Emergent situation ?Alternatives discussed: ?No treatmentPre-procedure details: ?Patient status: ?Altered mental status ?Mallampati score: ?II ?Pretreatment medications: ?None ?Paralytics: ?Succinylcholine and rocuroniumProcedure details: ?Preoxygenation: ?Bag valve mask ?CPR in progress: yes ? ?Intubation method: ?Oral ?Oral intubation technique: ?Video-assisted ?Laryngoscope blade: ?Mac 4 ?Tube size (mm): ?7.5 ?Tube type: ?Cuffed ?Number of attempts: ?1 ?Ventilation between attempts: no ? ?Cricoid pressure: no ? ?Tube visualized through cords: yes ?Placement assessment: ?ETT to lip: ?21 ?Tube secured with: ?ETT morales ?Breath sounds: ?Equal ?Placement verification: chest rise and condensation ? ?CXR findings: ?ETT in proper placePost-procedure details: ?Patient tolerance of procedure: ?Tolerated well, no immediate complicationsUnFalls Community Hospital and ClinicCT HEAD WO [id number] 21:32:45 Right parietal scalp hematoma without underlying calvarial fracture oracute intracranial abnormality. Age- indeterminate moderate and mild endplate compression deformities of theL1 and L2 vertebra respectively, favored to be chronic. Otherwise, no cervical, thoracic or lumbar spine fracture or subluxation. Preliminary Report Dictated by Resident: Darren Ralph I, Ninoska Pinedo MD., have reviewedthis study and agree with theabove report.CT HEAD WITHOUT CONTRASTCT CERVICAL SPINE WITHOUT CONTRASTCT THORACIC SPINE WITHOUT CONTRASTCT LUMBAR SPINE WITHOUT CONTRAST HISTORY: Head trauma, minor (Age >= 65y) COMPARISON: None TECHNIQUE: Contiguous axial slices of the head and cervical spine wereobtained without contrast with coronal and sagittal reformats. Axial,coronal and sagittal reformats of the thoracic and lumbar spine wereobtained after performing enhanced CT thorax, abdomen and pelvis. FINDINGS: HEAD: No intracranial abnormality such as hemorrhage, edema, mass, mass-effect,midline shift, hydrocephalus or extra axial fluid collection isappreciated. The santana white matter differentiation is unremarkable. Patchyhypoattenuation in the biconvexity deep white matter is nonspecific andlikely represents ischemic small vessel change. The ventricles, sulci and basilar cisterns are unremarkable. The calvarium and skull base are intact. Right parietal scalp contusionwithout underlying calvarial fracture. The paranasal sinuses and mastoidair cells are clear. CERVICAL SPINE: The cervical curvatureis slightly straightened. Grade 1 anterolisthesis ofC3 over C4 and C7 over T1. The vertebral bodies are normal in height and inotherwise normal alignment. Fusion of the C5-C6 intervertebral bodiesacross the disc space. No facet fracture or subluxation is present. Thecraniocervical junction is intact. Multilevel degenerative changes of the cervical spine with marginalosteophytosis, endplate sclerosis,multilevel posterior disc osteophytecomplex and bilateral multilevel facet arthropathy. The prevertebral softtissues are unremarkable. THORACIC SPINE: The thoracic curvature is normal. The vertebral bodies are normal in heightand in normal alignment. No facet fracture or subluxation is present.Remote left fourth posterior rib fracture. LUMBAR SPINE: Transitional lumbosacral anatomy with complete sacralization of the [id number] vertebra. The lumbar curvature is normal. Age-indeterminate compression deformity of L1 superior endplate withapproximately 50% loss of L1 vertebral body height as well as the i nferiorendplate of L2 with approximately 20% loss of L2 vertebral body height. Thevertebral bodies are otherwise normal in height and in normal alignment. Nofacet fracture or subluxation is present. Spondylotic changes of the lumbar spine are most pronounced at the level ofL4-L5 with loss of intervertebral disc space, endplate sclerosis andmarginal osteophytosis. Pseudoarticulation of the L2-L3 and L3-L4 spinousprocesses is also noted and can be an independent source of back pain. [facility], Radiant Results Inft User - 06/18/2020 4:33 PM CDTCT HEAD WITHOUT CONTRASTCT CERVICAL SPINE WITHOUT CONTRASTCT THORACIC SPINE WITHOUT CONTRASTCT LUMBAR SPINE WITHOUT CONTRASTHISTORY: Head trauma, minor (Age >= 6 5y) COMPARISON: NoneTECHNIQUE: Contiguous axial slices of the head and cervical spine wereobtained without contrast with coronal and sagittal reformats. Axial,coronal and sagittal reformats of the thoracic and lumbar spine wereobtained after performing enhanced CT thorax, abdomen and pelvis.FINDINGS:HE AD:No intracranial abnormality such as hemorrhage, edema, mass, mass- effect,midline shift, hydrocephalus or extra axial fluid collection isappreciated.The santana white matter differentiation is unremarkable. Patchyhypoattenuation in the biconvexity deep white matter is nonspecific andlikely represents ischemic small vessel change.The ventricles, sulci and basilar cisterns are unremarkable.The calvariumand skull base are intact. Right parietal scalp contusionwithout underlying calvarial fracture. The paranasal sinuses and mastoidair cells are clear.CERVICAL SPINE:The cervical curvature is slightly straightened. Grade 1 anterolisthesis ofC3 over C4 and C7 over T1. The vertebral bodies are normal in height and inotherwise normal alignment. Fusion of the C5-C6 intervertebral bodiesacross the disc space. No facet fracture or subluxation is present. Thecraniocervical junction is intact.Multilevel degene rative changes of the cervical spine with marginalosteophytosis, endplate sclerosis, multilevel posterior disc osteophytecomplex and bilateral multilevel facet arthropathy. The prevertebral softtissuesare unremarkable.THORACIC SPINE:The thoracic curvature is normal. The vertebral bodies are normal in heightand in normal alignment. No facet fracture or subluxation is present.Remote left fourth posterior rib fracture.LUMBAR SPINE:Transitional lumbosacral anatomy with complete sacralization of the [id number] vertebra. The lumbar curvature is normal.Age-indeterminate compression deformity of L1 superiorendplate withapproximately 50% loss of L1 vertebral body height as well as the inferiorendplate of L2 with approximately 20% loss of L2 vertebral body height. Thevertebral bodies are otherwise normal in height and in normal alignment. Nofacet fracture or subluxation is present.Spondylotic changes of the lumbar spine are most pronounced at the level ofL4-L5 with loss of intervertebral disc space, endplate sclerosis andmarginal osteophytosis. Pseudoarticulation of the L2-L3 and L3-L4 spinousprocesses is also noted and can be an independent source of back pain.IMPRESSIONRight parietal scalp hematoma wi thout underlying calvarial fracture oracute intracranial abnormality.Age- indeterminate moderate and mild endplate compression deformities of theL1 and L2 vertebra respectively, favored to be chronic.Otherwise, no cervical, thoracic or lumbar spine fracture or subluxation. Preliminary Report Dictated by Resident: Darren Velasquez, Ninoska Pinedo MD., have reviewed this study and agree with theabove report.[facility] CONTRAST 2020-06-18 21:32:45 Right parietal scalp hematoma without underlying calvarial fracture oracute intracranial abnormality. Age-indeterminate moderate and mild endplate compression deformities of theL1 and L2 vertebra respectively, favored to be chronic. Otherwise, no cervical, thoracic or lumbar spine fracture or subluxation. Preliminary Report Dictated by Resident: Darren Ralph I, Ninoska Pinedo MD., have reviewedthis study and agree with theabove report.CT HEAD WITHOUT CONTRASTCT CERVICAL SPINE WITHOUT CONTRASTCT THORACIC SPINE WITHOUT CONTRASTCT LUMBAR SPINE WITHOUT CONTRAST HISTORY: Head trauma, minor (Age >= 65y) COMPARISON: None TECHNIQUE: Contiguous axial slices of the head and cervical spine wereobtained without contrast with coronal and sagittal reformats. Axial,coronal and sagittal reformats of the thoracic and lumbar spine wereobtained after performing enhanced CT thorax, abdomen and pelvis. FINDINGS: HEAD: No intracranial abnormality such as hemorrhage, edema, mass, mass- effect,midline shift,hydrocephalus or extra axial fluid collection isappreciated. The santana white matter differentiation is unremarkable. Patchyhypoattenuation in the biconvexity deep white matter is nonspecific andlikely represents ischemic small vessel change. The ventricles, sulci and basilar cisterns are unremarkable. The calvarium and skull base are intact. Right parietal scalp contusionwithout underlying calvarial fracture. The paranasal sinuses and mastoidair cells are clear. CERVICAL SPINE: The cervical curvatureis slightly straightened. Grade 1 anterolisthesis ofC3 over C4 and C7 over T1. The vertebral bodies are normal in height and inotherwise normal alignment. Fusion of the C5-C6 intervertebral bodiesacross the disc space. No facet fracture or subluxation is present. Thecraniocervical junction is intact. Multilevel degenerative changes of the cervical spine with marginalosteophytosis, endplate sclerosis,multilevel posterior disc osteophytecomplex and bilateral multilevel facet arthropathy. The prevertebral softtissues are unremarkable. THORACIC SPINE: The thoracic curvature is normal. The vertebral bodies are normal in heightand in normal alignment. No facet fracture or subluxation is present.Remote left fourth posterior rib fracture. LUMBAR SPINE: Transitional lumbosacral anatomy with complete sacralization of the [id number] vertebra. The lumbar curvature is normal. Age-indeterminate compression deformity of L1 superior endplate withapproximately 50% loss of L1 vertebral body height as well as the inferiorendplate of L2 with approximately 20% loss of L2 vertebral body height. Thevertebral bodies are otherwise normal in height and in normal alignment. Nofacet fracture or subluxation is present. Spondylotic changes of the lumbar spine are most pronounced at the level ofL4-L5 with loss of intervertebral disc space, endplate sclerosis andmarginal osteophytosis. Pseudoarticulation of the L2-L3 and L3-L4 spinousprocesses is also noted and can be an independent source of back pain. [facility], Radiant Results Inft User - 06/18/2020 4:33 PM CDTCT HEAD WITHOUT CONTRASTCT CERVICAL SPINE WITHOUT CONTRASTCT THORACIC SPINE WITHOUT CONTRASTCT LUMBAR SPINE WITHOUT CONTRASTHISTORY: Head trauma, minor (Age >= 65y) COMPARISON: NoneTECHNIQUE: Contiguous axial slices of the head and cervical spine wereobtained without contrast with coronal and sagittal reformats. Axial,coronal and sagittal reformats of the thoracic and lumbar spine wereobtained after performing enhanced CT thorax, abdomen and pelvis.FINDINGS:HEAD:No intracranial abnormality such as hemorrhage, edema, mass, mass-effect,midline shift, hydrocephalus or extra axial fluid collection isappreciated.The santana white matter differentiation is unremarkable. Patchyhypoattenuation in the biconvexity deep white matter is nonspecific andlikely represents ischemic small vessel change.The ventricles, sulci and basilar cisterns are unremarkable.The calvariumand skull base are intact. Right parietal scalp contusionwithout underlying calvarial fracture. The paranasal sinuses and mastoidair cells are clear.CERVICAL SPINE:The cervical curvature is slightly straightened. Grade 1 anterolisthesis ofC3 over C4 and C7 over T1. The vertebral bodies are normal in height and inotherwise normal alignment. Fusion of the C5-C6 intervertebral bodiesacross the disc space. No facet fracture or subluxation is present. Thecraniocervical junction is intact.Multilevel degenerative changes of the cervical spine with marginalosteophytosis, endplate sclerosis, multilevel posterior disc osteophytecomplex and bilateral multilevel facet arthropathy. The prevertebral softtissuesare unremarkable.THORACIC SPINE:The thoracic curvature is normal. The vertebral bodies are normal inheightand in normal alignment. No facet fracture or subluxation is present.Remote left fourth posterior rib fracture.LUMBAR SPINE:Transitional lumbosacral anatomy with complete sacralization of the L5lu mbar vertebra. The lumbar curvature is normal.Age-indeterminate compression deformity of L1 superiorendplate withapproximately 50% loss of L1 vertebral body height as well as the inferiorendplate of L2 with approximately 20% loss of L2 vertebral body height. Thevertebral bodies are otherwise normal in height and in normal alignment. Nofacet fracture or subluxation is present.Spondylotic changes of the lumbar spine are most pronounced at the level ofL4-L5 with loss of intervertebral disc space, endplate sclerosis andmarginal osteophytosis. Pseudoarticulation of the L2-L3 and L3-L4 spinousprocesses is also noted and can be an independent source of back pain.IMPRESSIONRight parietal scalp hematoma wi thout underlying calvarial fracture oracute intracranial abnormality.Age- indeterminate moderate and mild endplate compression deformities of theL1 and L2 vertebra respectively, favored to be chronic.Otherwise, no cervical, thoracic or lumbar spine fracture or subluxation. Preliminary Report Dictated by Resident: Ninoska Mo MD., have reviewed this study and agree with theabove report.[facility] 2020-06-18 21:32:45 Right parietal scalp hematoma without underlying calvarial fracture oracute intracranial abnormality. Age-indeterminate moderate and mild endplate compression deformities of theL1 and L2 vertebra respectively, favored to be chronic. Otherwise, no cervical, thoracic or lumbar spine fracture or subluxation. Preliminary Report Dictated by Resident: Ninoska Abad MD., have reviewedthis study and agree with theabove report.CT HEAD WITHOUT CONTRASTCT CERVICAL SPINE WITHOUT CONTRASTCT THORACIC SPINE WITHOUT CONTRASTCT LUMBAR SPINE WITHOUT CONTRAST HISTORY: Head trauma, minor (Age >= 65y) COMPARISON: None TECHNIQUE: Contiguous axial slices of the head and cervical spine wereobtained without contrast with coronal and sagittal reformats. Axial,coronal and sagittal reformats of the thoracic and lumbar spine wereobtained after performing enhanced CT thorax, abdomen and pelvis. FINDINGS: HEAD: No intracranial abnormality such as hemorrhage, edema, mass, mass- effect,midline shift,hydrocephalus or extra axial fluid collection isappreciated. The santana white matter differentiation is unremarkable. Patchyhypoattenuation in the biconvexity deep white matter is nonspecific andlikely represents ischemic small vessel change. The ventricles, sulci and basilar cisterns are unremarkable. The calvarium and skull base are intact. Right parietal scalp contusionwithout underlying calvarial fracture. The paranasal sinuses and mastoidair cells are clear. CERVICAL SPINE: The cervical curvatureis slightly straightened. Grade 1 anterolisthesis ofC3 over C4 and C7 over T1. The vertebral bodies are normal in height and inotherwise normal alignment. Fusion of the C5-C6 intervertebral bodiesacross the disc space. No facet fracture or subluxation is present. Thecraniocervical junction is intact. Multilevel degenerative changes of the cervical spine with marginalosteophytosis, endplate sclerosis,multilevel posterior disc osteophytecomplex and bilateral multilevel facet arthropathy. The prevertebral softtissues are unremarkable. THORACIC SPINE: The thoracic curvature is normal. The vertebral bodies are normal in heightand in normal alignment. No facet fracture or subluxation is present.Remote left fourth posterior rib fracture. LUMBAR SPINE: Transitional lumbosacral anatomy with complete sacralization of the [id number] vertebra. The lumbar curvature is normal. Age-indeterminate compression deformity of L1 superior endplate withapproximately 50% loss of L1 vertebral body height as well as the inferiorendplate of L2 with approximately 20% loss of L2 vertebral body height. Thevertebral bodies are otherwise normal in height and in normal alignment. Nofacet fracture or subluxation is present. Spondylotic changes of the lumbar spine are most pronounced at the level ofL4-L5 with loss of intervertebral disc space, endplate sclerosis andmarginal osteophytosis. Pseudoarticulation of the L2-L3 and L3-L4 spinousprocesses is also noted and can be an independent source of back pain. [facility], Radiant Results Inft User - 06/18/2020 4:33 PM CDTCT HEAD WITHOUT CONTRASTCT CERVICAL SPINE WITHOUT CONTRASTCT THORACIC SPINE WITHOUT CONTRASTCT LUMBAR SPINE WITHOUT CONTRASTHISTORY: Head trauma, minor (Age >= 65y) COMPARISON: NoneTECHNIQUE: Contiguous axial slices of the head and cervical spine wereobtained without contrast with coronal and sagittal reformats. Axial,coronal and sagittal reformats of the thoracic and lumbar spine wereobtained after performing enhanced CT thorax, abdomen and pelvis.FINDINGS:HEAD:No intracranial abnormality such as hemorrhage, edema, mass, mass-effect,midline shift, hydrocephalus or extra axial fluid collection isappreciated.The santana white matter differentiation is unremarkable. Patchyhypoattenuation in the biconvexity deep white matter is nonspecific andlikely represents ischemic small vessel change.The ventricles, sulci and basilar cisterns are unremarkable.The calvariumand skull base are intact. Right parietal scalp contusionwithout underlying calvarial fracture. The paranasal sinuses and mastoidair cells are clear.CERVICAL SPINE:The cervical curvature is slightly straightened. Grade 1 anterolisthesis ofC3 over C4 and C7 over T1. The vertebral bodies are normal in height and inotherwise normal alignment. Fusion of the C5-C6 intervertebral bodiesacross the disc space. No facet fracture or subluxation is present. Thecraniocervical junction is intact.Multilevel degenerative changes of the cervical spine with marginalosteophytosis, endplate sclerosis, multilevel posterior disc osteophytecomplex and bilateral multilevel facet arthropathy. The prevertebral softtissuesare unremarkable.THORACIC SPINE:The thoracic curvature is normal. The vertebral bodies are normal inheightand in normal alignment. No facet fracture or subluxation is present.Remote left fourth posterior rib fracture.LUMBAR SPINE:Transitional lumbosacral anatomy with complete sacralization of the L5lu mbar vertebra. The lumbar curvature is normal.Age-indeterminate compression deformity of L1 superiorendplate withapproximately 50% loss of L1 vertebral body height as well as the inferiorendplate of L2 with approximately 20% loss of L2 vertebral body height. Thevertebral bodies are otherwise normal in height and in normal alignment. Nofacet fracture or subluxation is present.Spondylotic changes of the lumbar spine are most pronounced at the level ofL4-L5 with loss of intervertebral disc space, endplate sclerosis andmarginal osteophytosis. Pseudoarticulation of the L2-L3 and L3-L4 spinousprocesses is also noted and can be an independent source of back pain.IMPRESSIONRight parietal scalp hematoma wi thout underlying calvarial fracture oracute intracranial abnormality.Age- indeterminate moderate and mild endplate compression deformities of theL1 and L2 vertebra respectively, favored to be chronic.Otherwise, no cervical, thoracic or lumbar spine fracture or subluxation. Preliminary Report Dictated by Resident: Darren Velasquez, Ninoska Pinedo MD., have reviewed this study and agree with theabove report.[facility] 2020-06-18 21:32:45 Right parietal scalp hematoma without underlying calvarial fracture oracute intracranial abnormality. Age-indeterminate moderate and mild endplate compression deformities of theL1 and L2 vertebra respectively, favored to be chronic. Otherwise, no cervical, thoracic or lumbar spine fracture or subluxation. Preliminary Report Dictated by Resident: Darren Ralph I, Ninoska Pinedo MD., have reviewedthis study and agree with theabove report.CT HEAD WITHOUT CONTRASTCT CERVICAL SPINE WITHOUT CONTRASTCT THORACIC SPINE WITHOUT CONTRASTCT LUMBAR SPINE WITHOUT CONTRAST HISTORY: Head trauma, minor (Age >= 65y) COMPARISON: None TECHNIQUE: Contiguous axial slices of the head and cervical spine wereobtained without contrast with coronal and sagittal reformats. Axial,coronal and sagittal reformats of the thoracic and lumbar spine wereobtained after performing enhanced CT thorax, abdomen and pelvis. FINDINGS: HEAD: No intracranial abnormality such as hemorrhage, edema, mass, mass- effect,midline shift,hydrocephalus or extra axial fluid collection isappreciated. The santana white matter differentiation is unremarkable. Patchyhypoattenuation in the biconvexity deep white matter is nonspecific andlikely represents ischemic small vessel change. The ventricles, sulci and basilar cisterns are unremarkable. The calvarium and skull base are intact. Right parietal scalp contusionwithout underlying calvarial fracture. The paranasal sinuses and mastoidair cells are clear. CERVICAL SPINE: The cervical curvatureis slightly straightened. Grade 1 anterolisthesis ofC3 over C4 and C7 over T1. The vertebral bodies are normal in height and inotherwise normal alignment. Fusion of the C5-C6 intervertebral bodiesacross the disc space. No facet fracture or subluxation is present. Thecraniocervical junction is intact. Multilevel degenerative changes of the cervical spine with marginalosteophytosis, endplate sclerosis,multilevel posterior disc osteophytecomplex and bilateral multilevel facet arthropathy. The prevertebral softtissues are unremarkable. THORACIC SPINE: The thoracic curvature is normal. The vertebral bodies are normal in heightand in normal alignment. No facet fracture or subluxation is present.Remote left fourth posterior rib fracture. LUMBAR SPINE: Transitional lumbosacral anatomy with complete sacralization of the [id number] vertebra. The lumbar curvature is normal. Age-indeterminate compression deformity of L1 superior endplate withapproximately 50% loss of L1 vertebral body height as well as the inferiorendplate of L2 with approximately 20% loss of L2 vertebral body height. Thevertebral bodies are otherwise normal in height and in normal alignment. Nofacet fracture or subluxation is present. Spondylotic changes of the lumbar spine are most pronounced at the level ofL4-L5 with loss of intervertebral disc space, endplate sclerosis andmarginal osteophytosis. Pseudoarticulation of the L2-L3 and L3-L4 spinousprocesses is also noted and can be an independent source of back pain. [facility], Radiant Results Inft User - 06/18/2020 4:33 PM CDTCT HEAD WITHOUT CONTRASTCT CERVICAL SPINE WITHOUT CONTRASTCT THORACIC SPINE WITHOUT CONTRASTCT LUMBAR SPINE WITHOUT CONTRASTHISTORY: Head trauma, minor (Age >= 65y) COMPARISON: NoneTECHNIQUE: Contiguous axial slices of the head and cervical spine wereobtained without contrast with coronal and sagittal reformats. Axial,coronal and sagittal reformats of the thoracic and lumbar spine wereobtained after performing enhanced CT thorax, abdomen and pelvis.FINDINGS:HEAD:No intracranial abnormality such as hemorrhage, edema, mass, mass-effect,midline shift, hydrocephalus or extra axial fluid collection isappreciated.The santana white matter differentiation is unremarkable. Patchyhypoattenuation in the biconvexity deep white matter is nonspecific andlikely represents ischemic small vessel change.The ventricles, sulci and basilar cisterns are unremarkable.The calvariumand skull base are intact. Right parietal scalp contusionwithout underlying calvarial fracture. The paranasal sinuses and mastoidair cells are clear.CERVICAL SPINE:The cervical curvature is slightly straightened. Grade 1 anterolisthesis ofC3 over C4 and C7 over T1. The vertebral bodies are normal in height and inotherwise normal alignment. Fusion of the C5-C6 intervertebral bodiesacross the disc space. No facet fracture or subluxation is present. Thecraniocervical junction is intact.Multilevel degenerative changes of the cervical spine with marginalosteophytosis, endplate sclerosis, multilevel posterior disc osteophytecomplex and bilateral multilevel facet arthropathy. The prevertebral softtissuesare unremarkable.THORACIC SPINE:The thoracic curvature is normal. The vertebral bodies are normal inheightand in normal alignment. No facet fracture or subluxation is present.Remote left fourth posterior rib fracture.LUMBAR SPINE:Transitional lumbosacral anatomy with complete sacralization of the L5lu mbar vertebra. The lumbar curvature is normal.Age-indeterminate compression deformity of L1 superiorendplate withapproximately 50% loss of L1 vertebral body height as well as the inferiorendplate of L2 with approximately 20% loss of L2 vertebral body height. Thevertebral bodies are otherwise normal in height and in normal alignment. Nofacet fracture or subluxation is present.Spondylotic changes of the lumbar spine are most pronounced at the level ofL4-L5 with loss of intervertebral disc space, endplate sclerosis andmarginal osteophytosis. Pseudoarticulation of the L2-L3 and L3-L4 spinousprocesses is also noted and can be an independent source of back pain.IMPRESSIONRight parietal scalp hematoma wi thout underlying calvarial fracture oracute intracranial abnormality.Age- indeterminate moderate and mild endplate compression deformities of theL1 and L2 vertebra respectively, favored to be chronic.Otherwise, no cervical, thoracic or lumbar spine fracture or subluxation. Preliminary Report Dictated by Resident: Ninoska Mo MD., have reviewed this study and agree with theabove report.[facility] [id number] 21:32:45 Right parietal scalp hematoma without underlying calvarial fracture oracute intracranial abnormality. Age-indeterminate moderate and mild endplate compression deformities of theL1 and L2 vertebra respectively, favored to be chronic. Otherwise, no cervical, thoracic or lumbar spine fracture or subluxat ion. Preliminary Report Dictated by Resident: Ninoska Abad MD., have reviewedthis study and agree with theabove report.CT HEAD WITHOUT CONTRASTCT CERVICAL SPINE WITHOUT CONTRASTCT THORACIC SPINE WITHOUT CONTRASTCT LUMBAR SPINE WITHOUT CONTRAST HISTORY: Head trauma, minor (Age >= 65y) COMPARISON: None TECHNIQUE: Contiguous axial slices of the head and cervical spine wereobtained without contrast with coronal and sagittal reformats. Axial,coronal and sagittal reformats of the thoracic and lumbar spine wereobtained after performing enhanced CT thorax, abdomen and pelvis. FINDINGS: HEAD: No intracranial abnormality such as hemorrhage, edema, mass, mass- effect,midline shift,hydrocephalus or extra axial fluid collection isappreciated. The santana white matter differentiation is unremarkable. Patchyhypoattenuation in the biconvexity deep white matter is nonspecific andlikely represents ischemic small vessel change. The ventricles, sulci and basilar cisterns are unremarkable. The calvarium and skull base are intact. Right parietal scalp contusionwithout underlying calvarial fracture. The paranasal sinuses and mastoidair cells are clear. CERVICAL SPINE: The cervical curvatureis slightly straightened. Grade 1 anterolisthesis ofC3 over C4 and C7 over T1. The vertebral bodies are normal in height and inotherwise normal alignment. Fusion of the C5-C6 intervertebral bodiesacross the disc space. No facet fracture or subluxation is present. Thecraniocervical junction is intact. Multilevel degenerative changes of the cervical spine with marginalosteophytosis, endplate sclerosis,multilevel posterior disc osteophytecomplex and bilateral multilevel facet arthropathy. The prevertebral softtissues are unremarkable. THORACIC SPINE: The thoracic curvature is normal. The vertebral bodies are normal in heightand in normal alignment. No facet fracture or subluxation is present.Remote left fourth posterior rib fracture. LUMBAR SPINE: Transitional lumbosacral anatomy with complete sacralization of the [id number] vertebra. The lumbar curvature is normal. Age-indeterminate compression deformity of L1 superior endplate withapproximately 50% loss of L1 vertebral body height as well as the inferiorendplate of L2 with approximately 20% loss of L2 vertebral body height. Thevertebral bodies are otherwise normal in height and in normal alignment. Nofacet fracture or subluxation is present. Spondylotic changes of the lumbar spine are most pronounced at the level ofL4-L5 with loss of intervertebral disc space, endplate sclerosis andmarginal osteophytosis. Pseudoarticulation of the L2-L3 and L3-L4 spinousprocesses is also noted and can be an independent source of back pain. [facility], Radiant Results Inft User - 06/18/2020 4:33 PM CDTCT HEAD WITHOUT CONTRASTCT CERVICAL SPINE WITHOUT CONTRASTCT THORACIC SPINE WITHOUT CONTRASTCT LUMBAR SPINE WITHOUT CONTRASTHISTORY: Head trauma, minor (Age >= 64y) COMPARISON: NoneTECHNIQUE: Contiguous axial slices of the head and cervical spine wereobtained without contrast with coronal and sagittal reformats. Axial,coronal and sagittal reformats of the thoracic and lumbar spine wereobtained after performing enhanced CT thorax, abdomen and pelvis.FINDINGS:HEAD:No intracranial abnormality such as hemorrhage, edema, mass, mass-effect,midline shift, hydrocephalus or extra axial fluid collection isappreciated.The santana white matter differentiation is unremarkable. Patchyhypoattenuation in the biconvexity deep white matter is nonspecific andlikely represents ischemic small vessel change.The ventricles, sulci and basilar cisterns are unremarkable.The calvariumand skull base are intact. Right parietal scalp contusionwithout underlying calvarial fracture. The paranasal sinuses and mastoidair cells are clear.CERVICAL SPINE:The cervical curvature is slightly straightened. Grade 1 anterolisthesis ofC3 over C4 and C7 over T1. The vertebral bodies are normal in height and inotherwise normal alignment. Fusion of the C5-C6 intervertebral bodiesacross the disc space. No facet fracture or subluxation is present. Thecraniocervical junction is intact.Multilevel degenerative changes of the cervical spine with marginalosteophytosis, endplate sclerosis, multilevel posterior disc osteophytecomplex and bilateral multilevel facet arthropathy. The prevertebral softtissuesare unremarkable.THORACIC SPINE:The thoracic curvature is normal. The vertebral bodies are normal inheightand in normal alignment. No facet fracture or subluxation is present.Remote left fourth posterior rib fracture.LUMBAR SPINE:Transitional lumbosacral anatomy with complete sacralization of the L5lu mbar vertebra. The lumbar curvature is normal.Age-indeterminate compression deformity of L1 superiorendplate withapproximately 50% loss of L1 vertebral body height as well as the inferiorendplate of L2 with approximately 20% loss of L2 vertebral body height. Thevertebral bodies are otherwise normal in height and in normal alignment. Nofacet fracture or subluxation is present.Spondylotic changes of the lumbar spine are most pronounced at the level ofL4-L5 with loss of intervertebral disc space, endplate sclerosis andmarginal osteophytosis. Pseudoarticulation of the L2-L3 and L3-L4 spinousprocesses is also noted and can be an independent source of back pain.IMPRESSIONRight parietal scalp hematoma wi thout underlying calvarial fracture oracute intracranial abnormality.Age- indeterminate moderate and mild endplate compression deformities of theL1 and L2 vertebra respectively, favored to be chronic.Otherwise, no cervical, thoracic or lumbar spine fracture or subluxation. Preliminary Report Dictated by Resident: Darren Velasquez, Ninoska Pinedo MD., have reviewed this study and agree with theabove report.[facility] 2020-06-18 21:32:45 Right parietal scalp hematoma without underlying calvarial fracture oracute intracranial abnormality. Age-indeterminate moderate and mild endplate compression deformities of theL1 and L2 vertebra respectively, favored to be chronic. Otherwise, no cervical, thoracic or lumbar spine fracture or subluxation. Preliminary Report Dictated by Resident: Darren Ralph I, Ninoska Pinedo MD., have reviewedthis study and agree with theabove report.CT HEAD WITHOUT CONTRASTCT CERVICAL SPINE WITHOUT CONTRASTCT THORACIC SPINE WITHOUT CONTRASTCT LUMBAR SPINE WITHOUT CONTRAST HISTORY: Head trauma, minor (Age >= 65y) COMPARISON: None TECHNIQUE: Contiguous axial slices of the head and cervical spine wereobtained without contrast with coronal and sagittal reformats. Axial,coronal and sagittal reformats of the thoracic and lumbar spine wereobtained after performing enhanced CT thorax, abdomen and pelvis. FINDINGS: HEAD: No intracranial abnormality such as hemorrhage, edema, mass, mass- effect,midline shift,hydrocephalus or extra axial fluid collection isappreciated. The santana white matter differentiation is unremarkable. Patchyhypoattenuation in the biconvexity deep white matter is nonspecific andlikely represents ischemic small vessel change. The ventricles, sulci and basilar cisterns are unremarkable. The calvarium and skull base are intact. Right parietal scalp contusionwithout underlying calvarial fracture. The paranasal sinuses and mastoidair cells are clear. CERVICAL SPINE: The cervical curvatureis slightly straightened. Grade 1 anterolisthesis ofC3 over C4 and C7 over T1. The vertebral bodies are normal in height and inotherwise normal alignment. Fusion of the C5-C6 intervertebral bodiesacross the disc space. No facet fracture or subluxation is present. Thecraniocervical junction is intact. Multilevel degenerative changes of the cervical spine with marginalosteophytosis, endplate sclerosis,multilevel posterior disc osteophytecomplex and bilateral multilevel facet arthropathy. The prevertebral softtissues are unremarkable. THORACIC SPINE: The thoracic curvature is normal. The vertebral bodies are normal in heightand in normal alignment. No facet fracture or subluxation is present.Remote left fourth posterior rib fracture. LUMBAR SPINE: Transitional lumbosacral anatomy with complete sacralization of the [id number] vertebra. The lumbar curvature is normal. Age-indeterminate compression deformity of L1 superior endplate withapproximately 50% loss of L1 vertebral body height as well as the inferiorendplate of L2 with approximately 20% loss of L2 vertebral body height. Thevertebral bodies are otherwise normal in height and in normal alignment. Nofacet fracture or subluxation is present. Spondylotic changes of the lumbar spine are most pronounced at the level ofL4-L5 with loss of intervertebral disc space, endplate sclerosis andmarginal osteophytosis. Pseudoarticulation of the L2-L3 and L3-L4 spinousprocesses is also noted and can be an independent source of back pain. [facility], Radiant Results Inft User - 06/18/2020 4:33 PM CDTCT HEAD WITHOUT CONTRASTCT CERVICAL SPINE WITHOUT CONTRASTCT THORACIC SPINE WITHOUT CONTRASTCT LUMBAR SPINE WITHOUT CONTRASTHISTORY: Head trauma, minor (Age >= 65y) COMPARISON: NoneTECHNIQUE: Contiguous axial slices of the head and cervical spine wereobtained without contrast with coronal and sagittal reformats. Axial,coronal and sagittal reformats of the thoracic and lumbar spine wereobtained after performing enhanced CT thorax, abdomen and pelvis.FINDINGS:HEAD:No intracranial abnormality such as hemorrhage, edema, mass, mass-effect,midline shift, hydrocephalus or extra axial fluid collection isappreciated.The santana white matter differentiation is unremarkable. Patchyhypoattenuation in the biconvexity deep white matter is nonspecific andlikely represents ischemic small vessel change.The ventricles, sulci and basilar cisterns are unremarkable.The calvariumand skull base are intact. Right parietal scalp contusionwithout underlying calvarial fracture. The paranasal sinuses and mastoidair cells are clear.CERVICAL SPINE:The cervical curvature is slightly straightened. Grade 1 anterolisthesis ofC3 over C4 and C7 over T1. The vertebral bodies are normal in height and inotherwise normal alignment. Fusion of the C5-C6 intervertebral bodiesacross the disc space. No facet fracture or subluxation is present. Thecraniocervical junction is intact.Multilevel degenerative changes of the cervical spine with marginalosteophytosis, endplate sclerosis, multilevel posterior disc osteophytecomplex and bilateral multilevel facet arthropathy. The prevertebral softtissuesare unremarkable.THORACIC SPINE:The thoracic curvature is normal. The vertebral bodies are normal inheightand in normal alignment. No facet fracture or subluxation is present.Remote left fourth posterior rib fracture.LUMBAR SPINE:Transitional lumbosacral anatomy with complete sacralization of the L5lu mbar vertebra. The lumbar curvature is normal.Age-indeterminate compression deformity of L1 superiorendplate withapproximately 50% loss of L1 vertebral body height as well as the inferiorendplate of L2 with approximately 20% loss of L2 vertebral body height. Thevertebral bodies are otherwise normal in height and in normal alignment. Nofacet fracture or subluxation is present.Spondylotic changes of the lumbar spine are most pronounced at the level ofL4-L5 with loss of intervertebral disc space, endplate sclerosis andmarginal osteophytosis. Pseudoarticulation of the L2-L3 and L3-L4 spinousprocesses is also noted and can be an independent source of back pain.IMPRESSIONRight parietal scalp hematoma wi thout underlying calvarial fracture oracute intracranial abnormality.Age- indeterminate moderate and mild endplate compression deformities of theL1 and L2 vertebra respectively, favored to be chronic.Otherwise, no cervical, thoracic or lumbar spine fracture or subluxation. Preliminary Report Dictated by Resident: Ninoska Mo MD., have reviewed this study and agree with theabove report.[facility] 2020-06-18 21:32:45 Right parietal scalp hematoma without underlying calvarial fracture oracute intracranial abnormality. Age-indeterminate moderate and mild endplate compression deformities of theL1 and L2 vertebra respectively, favored to be chronic. Otherwise, no cervical, thoracic or lumbar spine fracture or subluxation. Preliminary Report Dictated by Resident: Ninoska Abad MD., have reviewedthis study and agree with theabove report.CT HEAD WITHOUT CONTRASTCT CERVICAL SPINE WITHOUT CONTRASTCT THORACIC SPINE WITHOUT CONTRASTCT LUMBAR SPINE WITHOUT CONTRAST HISTORY: Head trauma, minor (Age >= 65y) COMPARISON: None TECHNIQUE: Contiguous axial slices of the head and cervical spine wereobtained without contrast with coronal and sagittal reformats. Axial,coronal and sagittal reformats of the thoracic and lumbar spine wereobtained after performing enhanced CT thorax, abdomen and pelvis. FINDINGS: HEAD: No intracranial abnormality such as hemorrhage, edema, mass, mass- effect,midline shift,hydrocephalus or extra axial fluid collection isappreciated. The santana white matter differentiation is unremarkable. Patchyhypoattenuation in the biconvexity deep white matter is nonspecific andlikely represents ischemic small vessel change. The ventricles, sulci and basilar cisterns are unremarkable. The calvarium and skull base are intact. Right parietal scalp contusionwithout underlying calvarial fracture. The paranasal sinuses and mastoidair cells are clear. CERVICAL SPINE: The cervical curvatureis slightly straightened. Grade 1 anterolisthesis ofC3 over C4 and C7 over T1. The vertebral bodies are normal in height and inotherwise normal alignment. Fusion of the C5-C6 intervertebral bodiesacross the disc space. No facet fracture or subluxation is present. Thecraniocervical junction is intact. Multilevel degenerative changes of the cervical spine with marginalosteophytosis, endplate sclerosis,multilevel posterior disc osteophytecomplex and bilateral multilevel facet arthropathy. The prevertebral softtissues are unremarkable. THORACIC SPINE: The thoracic curvature is normal. The vertebral bodies are normal in heightand in normal alignment. No facet fracture or subluxation is present.Remote left fourth posterior rib fracture. LUMBAR SPINE: Transitional lumbosacral anatomy with complete sacralization of the O2ustnup vertebra. The lumbar curvature is normal. Age-indeterminate compression deformity of L1 superior endplate withapproximately 50% loss of L1 vertebral body height as well as the inferiorendplate of L2 with approximately 20% loss of L2 vertebral body height. Thevertebral bodies are otherwise normal in height and in normal alignment. Nofacet fracture or subluxation is present. Spondylotic changes of the lumbar spine are most pronounced at the level ofL4-L5 with loss of intervertebral disc space, endplate sclerosis andmarginal osteophytosis. Pseudoarticulation of the L2-L3 and L3-L4 spinousprocesses is also noted and can be an independent source of back pain. [facility], Radiant Results Inft User - 06/18/2020 4:33 PM CDTCT HEAD WITHOUT CONTRASTCT CERVICAL SPINE WITHOUT CONTRASTCT THORACIC SPINE WITHOUT CONTRASTCT LUMBAR SPINE WITHOUT CONTRASTHISTORY: Head trauma, minor (Age >= 65y) COMPARISON: NoneTECHNIQUE: Contiguous axial slices of the head and cervical spine wereobtained without contrast with coronal and sagittal reformats. Axial,coronal and sagittal reformats of the thoracic and lumbar spine wereobtained after performing enhanced CT thorax, abdomen and pelvis.FINDINGS:HEAD:No intracranial abnormality such as hemorrhage, edema, mass, mass-effect,midline shift, hydrocephalus or extra axial fluid collection isappreciated.The santana white matter differentiation is unremarkable. Patchyhypoattenuation in the biconvexity deep white matter is nonspecific andlikely represents ischemic small vessel change.The ventricles, sulci and basilar cisterns are unremarkable.The calvariumand skull base are intact. Right parietal scalp contusionwithout underlying calvarial fracture. The paranasal sinuses and mastoidair cells are clear.CERVICAL SPINE:The cervical curvature is slightly straightened. Grade 1 anterolisthesis ofC3 over C4 and C7 over T1. The vertebral bodies are normal in height and inotherwise normal alignment. Fusion of the C5-C6 intervertebral bodiesacross the disc space. No facet fracture or subluxation is present. Thecraniocervical junction is intact.Multilevel degenerative changes of the cervical spine with marginalosteophytosis, endplate sclerosis, multilevel posterior disc osteophytecomplex and bilateral multilevel facet arthropathy. The prevertebral softtissuesare unremarkable.THORACIC SPINE:The thoracic curvature is normal. The vertebral bodies are normal inheightand in normal alignment. No facet fracture or subluxation is present.Remote left fourth posterior rib fracture.LUMBAR SPINE:Transitional lumbosacral anatomy with complete sacralization of the L5lu mbar vertebra. The lumbar curvature is normal.Age-indeterminate compression deformity of L1 superiorendplate withapproximately 50% loss of L1 vertebral body height as well as the inferiorendplate of L2 with approximately 20% loss of L2 vertebral body height. Thevertebral bodies are otherwise normal in height and in normal alignment. Nofacet fracture or subluxation is present.Spondylotic changes of the lumbar spine are most pronounced at the level ofL4-L5 with loss of intervertebral disc space, endplate sclerosis andmarginal osteophytosis. Pseudoarticulation of the L2-L3 and L3-L4 spinousprocesses is also noted and can be an independent source of back pain.IMPRESSIONRight parietal scalp hematoma wi thout underlying calvarial fracture oracute intracranial abnormality.Age- indeterminate moderate and mild endplate compression deformities of theL1 and L2 vertebra respectively, favored to be chronic.Otherwise, no cervical, thoracic or lumbar spine fracture or subluxation. Preliminary Report Dictated by Resident: Ninoska Mo MD., have reviewed this study and agree with theabove report.[facility] 2020-06-18 21:32:45 Right parietal scalp hematoma without underlying calvarial fracture oracute intracranial abnormality. Age-indeterminate moderate and mild endplate compression deformities of theL1 and L2 vertebra respectively, favored to be chronic. Otherwise, no cervical, thoracic or lumbar spine fracture or subluxation. Preliminary Report Dictated by Resident: Ninoska Abad MD., have reviewedthis study and agree with theabove report.CT HEAD WITHOUT CONTRASTCT CERVICAL SPINE WITHOUT CONTRASTCT THORACIC SPINE WITHOUT CONTRASTCT LUMBAR SPINE WITHOUT CONTRAST HISTORY: Head trauma, minor (Age >= 65y) COMPARISON: None TECHNIQUE: Contiguous axial slices of the head and cervical spine wereobtained without contrast with coronal and sagittal reformats. Axial,coronal and sagittal reformats of the thoracic and lumbar spine wereobtained after performing enhanced CT thorax, abdomen and pelvis. FINDINGS: HEAD: No intracranial abnormality such as hemorrhage, edema, mass, mass- effect,midline shift,hydrocephalus or extra axial fluid collection isappreciated. The santana white matter differentiation is unremarkable. Patchyhypoattenuation in the biconvexity deep white matter is nonspecific andlikely represents ischemic small vessel change. The ventricles, sulci and basilar cisterns are unremarkable. The calvarium and skull base are intact. Right parietal scalp contusionwithout underlying calvarial fracture. The paranasal sinuses and mastoidair cells are clear. CERVICAL SPINE: The cervical curvatureis slightly straightened. Grade 1 anterolisthesis ofC3 over C4 and C7 over T1. The vertebral bodies are normal in height and inotherwise normal alignment. Fusion of the C5-C6 intervertebral bodiesacross the disc space. No facet fracture or subluxation is present. Thecraniocervical junction is intact. Multilevel degenerative changes of the cervical spine with marginalosteophytosis, endplate sclerosis,multilevel posterior disc osteophytecomplex and bilateral multilevel facet arthropathy. The prevertebral softtissues are unremarkable. THORACIC SPINE: The thoracic curvature is normal. The vertebral bodies are normal in heightand in normal alignment. No facet fracture or subluxation is present.Remote left fourth posterior rib fracture. LUMBAR SPINE: Transitional lumbosacral anatomy with complete sacralization of the U1nsssfx vertebra. The lumbar curvature is normal. Age-indeterminate compression deformity of L1 superior endplate withapproximately 50% loss of L1 vertebral body height as well as the inferiorendplate of L2 with approximately 20% loss of L2 vertebral body height. Thevertebral bodies are otherwise normal in height and in normal alignment. Nofacet fracture or subluxation is present. Spondylotic changes of the lumbar spine are most pronounced at the level ofL4-L5 with loss of intervertebral disc space, endplate sclerosis andmarginal osteophytosis. Pseudoarticulation of the L2-L3 and L3-L4 spinousprocesses is also noted and can be an independent source of back pain. [facility], Radiant Results Inft User - 06/18/2020 4:33 PM CDTCT HEAD WITHOUT CONTRASTCT CERVICAL SPINE WITHOUT CONTRASTCT THORACIC SPINE WITHOUT CONTRASTCT LUMBAR SPINE WITHOUT CONTRASTHISTORY: Head trauma, minor (Age >= 64y) COMPARISON: NoneTECHNIQUE: Contiguous axial slices of the head and cervical spine wereobtained without contrast with coronal and sagittal reformats. Axial,coronal and sagittal reformats of the thoracic and lumbar spine wereobtained after performing enhanced CT thorax, abdomen and pelvis.FINDINGS:HEAD:No intracranial abnormality such as hemorrhage, edema, mass, mass-effect,midline shift, hydrocephalus or extra axial fluid collection isappreciated.The santana white matter differentiation is unremarkable. Patchyhypoattenuation in the biconvexity deep white matter is nonspecific andlikely represents ischemic small vessel change.The ventricles, sulci and basilar cisterns are unremarkable.The calvariumand skull base are intact. Right parietal scalp contusionwithout underlying calvarial fracture. The paranasal sinuses and mastoidair cells are clear.CERVICAL SPINE:The cervical curvature is slightly straightened. Grade 1 anterolisthesis ofC3 over C4 and C7 over T1. The vertebral bodies are normal in height and inotherwise normal alignment. Fusion of the C5-C6 intervertebral bodiesacross the disc space. No facet fracture or subluxation is present. Thecraniocervical junction is intact.Multilevel degenerative changes of the cervical spine with marginalosteophytosis, endplate sclerosis, multilevel posterior disc osteophytecomplex and bilateral multilevel facet arthropathy. The prevertebral softtissuesare unremarkable.THORACIC SPINE:The thoracic curvature is normal. The vertebral bodies are normal inheightand in normal alignment. No facet fracture or subluxation is present.Remote left fourth posterior rib fracture.LUMBAR SPINE:Transitional lumbosacral anatomy with complete sacralization of the L5lu mbar vertebra. The lumbar curvature is normal.Age-indeterminate compression deformity of L1 superiorendplate withapproximately 50% loss of L1 vertebral body height as well as the inferiorendplate of L2 with approximately 20% loss of L2 vertebral body height. Thevertebral bodies are otherwise normal in height and in normal alignment. Nofacet fracture or subluxation is present.Spondylotic changes of the lumbar spine are most pronounced at the level ofL4-L5 with loss of intervertebral disc space, endplate sclerosis andmarginal osteophytosis. Pseudoarticulation of the L2-L3 and L3-L4 spinousprocesses is also noted and can be an independent source of back pain.IMPRESSIONRight parietal scalp hematoma wi thout underlying calvarial fracture oracute intracranial abnormality.Age- indeterminate moderate and mild endplate compression deformities of theL1 and L2 vertebra respectively, favored to be chronic.Otherwise, no cervical, thoracic or lumbar spine fracture or subluxation. Preliminary Report Dictated by Resident: Darren Velasquez, Ninoska Pinedo MD., have reviewed this study and agree with theabove report.[facility] CenterXR [facility] 1 [id number] 21:22:46 Interval placement of endotracheal and esophagogastric tubes, as describedabove. Preliminary ReportDictated by Resident: Terence Gan MD., have reviewed this study and agree with theabove report.PROCEDURE: XR CHEST 1 VW CLINICAL INDICATION: tube placement TECHNIQUE: Frontalchest radiograph was obtained. COMPARISON: None FINDINGS: The endotracheal tube terminates 2.9 cm superior to the daxa.Esophogastric tube courses into the left upper quadrant and out [id number].Side-port projects over the stomach fundus. Right subclaviancentral venous catheter tip projects over the distal SVC. Resuscitationpads project over the left hemithorax and epigastrium. Cholecystectomyclips. The lungs are unchanged. The left costophrenic angle is not included in [id number]. No pneumothorax. Heart is enlarged. No acute osseous abnormality. [facility], Radiant Results Inft User - 06/18/2020 4:23 PM CDTPROCEDURE: XR CHEST 1 VWCLINICAL INDICATION: tube placement TECHNIQUE: Frontal chest radiograph was obtained.COMPARISON: NoneFINDINGS:The endotracheal tube terminates 2.9 cm superior to the daxa.Esophogastric tube courses into the left upper quadrant and out [id number]. Side-port projects over the stomach fundus. Right subclaviancentral venous catheter tip projects over the distal SVC. Resuscitationpads project over the left hemithorax and epigastrium. Cholecystectomyclips.The lungs are unchanged. The left costophrenic angle is not included in [id number]. No pneumothorax.Heart is enlarged. No acute osseous abnormality.IMPRESSIONInterval placement of endotracheal and es ophagogastric tubes, as describedabove.Preliminary Report Dictated by Resident: Terence Mcmahan MD., have reviewed this study and agree with theabove report.[facility] 1 [id number] 21:22:46 Interval placement of endotracheal and esophagogastric tubes, as describedabove. Preliminary ReportDictated by Resident: Terence Gan MD., have reviewed this study and agree with theabove report.PROCEDURE: XR CHEST 1 VW CLINICAL INDICATION: tube placement TECHNIQUE: Frontalchest radiograph was obtained. COMPARISON: None FINDINGS: The endotracheal tube terminates 2.9 cm superior to the daxa.Esophogastric tube courses into the left upper quadrant and out [id number].Side-port projects over the stomach fundus. Right subclaviancentral venous catheter tip projects over the distal SVC. Resuscitationpads project over the left hemithorax and epigastrium. Cholecystectomyclips. The lungs are unchanged. The left costophrenic angle is not included in [id number]. No pneumothorax. Heart is enlarged. No acute osseous abnormality. [facility], Radiant Results Inft User - 06/18/2020 4:23 PM CDTPROCEDURE: XR CHEST 1 VWCLINICAL INDICATION: tube placement TECHNIQUE: Frontal chest radiograph was obtained.COMPARISON: NoneFINDINGS:The endotracheal tube terminates 2.9 cm superior to the daxa.Esophogastric tube courses into the left upper quadrant and out [id number]. Side-port projects over the stomach fundus. Right subclaviancentral venous catheter tip projects over the distal SVC. Resuscitationpads project over the left hemithorax and epigastrium. Cholecystectomyclips.The lungs are unchanged. The left costophrenic angle is not included in [id number]. No pneumothorax.Heart is enlarged. No acute osseous abnormality.IMPRESSIONInterval placement of endotracheal and es ophagogastric tubes, as describedabove.Preliminary Report Dictated by Resident: Terence Mcmahan MD., have reviewed this study and agree with theabove report.[facility] CenterCT ABDOMEN PELVIS W WO [id number] 21:20:43 1. ?No evidence of bowel obstruction or inflammation. No CT findings toexplain the source of the GIbleed. Scattered colonic diverticulosiswithout evidence of diverticulitis. 2. ?The liver is cirrhotic in morphology. No suspicious hepatic lesions aredetected on this single phase exam. 3. ?Irregular nodular bilateral renal cortical morphology suggestsmultifocal renal cortical scarring. Irregular hypodensities within the midand inferior pole right renal cortex may represent irregular shapedcortical cysts, however, urinalysis correlation recommended to excludepyelonephritis. 4. ?Prior cholecystectomyand hysterectomy. 5. ?Advanced degenerative/senescent osseous changes, most pronounced at theright greater than left hips. No acute fracture is detected. Remoteposttraumatic changes of the left hemipelvis and right pubic sepsis. 6. ?Aortic atherosclerosis and coronary artery calcifications. Globalcardiomegaly. RL: [id number]: [id number] End of report. ORDERING PROVIDER: ?SANJAY DAY HISTORY: GI bleed TECHNIQUE: Axial CT images of the abdomen and pelvis were obtained afterthe administration of IV contrast. Coronal and sagittal reformations weregenerated and evaluated. CT scan is performed using the ALARA principle. Technical Quality: Adequate COMPARISON: None FINDINGS: Patchy ground glass opacities are seen within the bilateral lung bas esfavoring mild edema. No consolidative airspace disease. Cardiomegaly withdiffuse coronary artery calcifications. Liver demonstrates nodular morphologic contours with fissural widening andposterior right hepatic lobe notching suspicious for cirrhosis. No focalhepatic lesions are detected.Gallbladder surgically absent. Mild intrahepatic and extrahepatic biliaryductal dilation and be related to postcholecystectomy status. The spleen is normal in size and morphology. The pancreas appears mildlyatrophic without ductal dilation or peripancreatic fat stranding. ?Theadrenal glands glands are normal in size without nodularity. There is relatively symmetric nephrographic enhancement with irregularityof the bilateral renal contours suspicious for multifocal corticalscarring. Irregular shaped bandlike hypoattenuation in the right renal midand lower poles, possibly representing greater shape cortical cysts,although, pyelonephritis should also be considered. No hydronephrosis oneither side. There is less distal esophagus and stomach are within normal limits. Thesmall bowel is normal in caliber without evidence of obstruction orinflammation. Appendix is not discretely visualized however no pericecalinflammatory changes. Diffuse colonic diverticulosis without evidence ofdiverticulitis. No free intraperitoneal air or fluid. No focal fluid collections areidentified. No pathologically enlarged lymph nodes. A therosclerotic diseaseis seen in the aorta and its major branches. Urinary bladder is decompressed via Day catheter. The uterus is surgically absent. The necks are also not visualized and maybe surgically absent or atrophic. Mild diffuse body wall edema. There is degenerative changes in the spine.Chronic mild anterior compression deformities are seen at L1 and L2. 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 Osseous irregularity at the left sacral alar, anteriorleft iliac crest, and right pubic bone, most compatible with remoteposttraumatic remodeling. [facility], Radiant ResultsInft User - 06/18/2020 4:21 PM CDTORDERING PROVIDER: SANJAY ENGLISHEYHISTORY: GI bleed TECHNIQUE: Axial CT images of the abdomen and pelvis were obtained afterthe administration of IV contrast. Coronal and sagittal reformations weregenerated and evaluated.CT scan is performed using the ALARA principle.Technical Quality: AdequateCOMPARISON: NoneFINDINGS: Patchy ground glass opacities are seen within the bilateral lung basesfavoring mild edema. No consolidative airspace disease. Cardiomegaly withdiffuse coronary artery calcifications.Liver demonstrates nodular morphologic contours with fissural widening andposterior right hepatic lobe notching suspicious for cirrhosis. No focalhepatic lesions are detected.Gallbladder surgically absent. Mild intrahepatic and extrahepatic biliaryductal dilation and berelated to postcholecystectomy status.The spleen is normal in size and morphology. The pancreas appears mildlyatrophic without ductal dilation or peripancreatic fat stranding. Theadrenal glands glandsare normal in size without nodularity.There is relatively symmetric nephrographic enhancement with irregularityof the bilateral renal contours suspicious for multifocal corticalscarring. Irregular shaped bandlike hypoattenuation in the right renal midand lower poles, possibly representing greater shape cortical cysts,although, pyelonephritis should also be considered. No hydronephrosis oneither side.There is less distal esophagus and stomach are within normal limits. Thesmall bowel is normal in caliber without evidence of obstruction orinflammation. Appendix is not discretely visualized however no pericecalinflammatory changes. Diffuse colonic diverticulosis without evidence ofdiverticulitis.No free intraperitoneal air or fluid. No focal fluid collections areidentified. No pathologically enlargedlymph nodes. Atherosclerotic diseaseis seen in the aorta and its major branches.Urinary bladder is decompressed via Day catheter.The uterus is surgically absent. The necks are also not visualized andmaybe surgically absent or atrophic.Mild diffuse body wall edema. There is degenerative changes in the spine.Chronic mild anterior compression deformities are seen at L1 and L2. 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 Osseous irregularity at the left sacral alar, anteriorleft iliac crest, and right pubic bone, most compatible with remoteposttraumatic remodeling.IMPRESSION1. No evidence of bowel obstruction or inflammation. No CT findings toexplain the source of the GI bleed. Scattered colonic diverticulosiswithout evidence of diverticulitis.2. The liver is cirrhotic in morphology. No suspicious hepatic lesions aredetected on this single phase exam.3. Irregular nodularbilateral renal cortical morphology suggestsmultifocal renal cortical scarring. Irregular hypodensities within the midand inferior pole right renal cortex may represent irregular shapedcortical cysts, however, urinalysis correlation recommended to excludepyelonephritis.4. Prior cholecystectomy and hysterectomy.5. Advanced degenerative/senescent osseous changes, most pronounced at theright greater than left hips. No acute fracture is detected. Remoteposttraumatic changes of the left hemipelvis and r ight pubic sepsis.6. Aortic atherosclerosis and coronary artery calcifications. Globalcardiomegaly.RL: [id number]: [id number] of report. [facility] ClinicCT ABDOMEN PELVIS W WO [id number] 21:20:43 1. ?No evidence of bowel obstruction or inflammation. No CT findings toexplain the source of the GIbleed. Scattered colonic diverticulosiswithout evidence of diverticulitis. 2. ?The liver is cirrhotic in morphology. No suspicious hepatic lesions aredetected on this single phase exam. 3. ?Irregular nodular bilateral renal cortical morphology suggestsmultifocal renal cortical scarring. Irregular hypodensities within the midand inferior pole right renal cortex may represent irregular shapedcortical cysts, however, urinalysis correlation recommended to excludepyelonephritis. 4. ?Prior cholecystectomyand hysterectomy. 5. ?Advanced degenerative/senescent osseous changes, most pronounced at theright greater than left hips. No acute fracture is detected. Remoteposttraumatic changes of the left hemipelvis and right pubic sepsis. 6. ?Aortic atherosclerosis and coronary artery calcifications. Globalcardiomegaly. RL: [id number]: [id number] End of report. ORDERING PROVIDER: ?SANJAY DAY HISTORY: GI bleed TECHNIQUE: Axial CT images of the abdomen and pelvis were obtained afterthe administration of IV contrast. Coronal and sagittal reformations weregenerated and evaluated. CT scan is performed using the ALARA principle. Technical Quality: Adequate COMPARISON: None FINDINGS: Patchy ground glass opacities are seen within the bilateral lung bas esfavoring mild edema. No consolidative airspace disease. Cardiomegaly withdiffuse coronary artery calcifications. Liver demonstrates nodular morphologic contours with fissural widening andposterior right hepatic lobe notching suspicious for cirrhosis. No focalhepatic lesions are detected.Gallbladder surgically absent. Mild intrahepatic and extrahepatic biliaryductal dilation and be related to postcholecystectomy status. The spleen is normal in size and morphology. The pancreas appears mildlyatrophic without ductal dilation or peripancreatic fat stranding. ?Theadrenal glands glands are normal in size without nodularity. There is relatively symmetric nephrographic enhancement with irregularityof the bilateral renal contours suspicious for multifocal corticalscarring. Irregular shaped bandlike hypoattenuation in the right renal midand lower poles, possibly representing greater shape cortical cysts,although, pyelonephritis should also be considered. No hydronephrosis oneither side. There is less distal esophagus and stomach are within normal limits. Thesmall bowel is normal in caliber without evidence of obstruction orinflammation. Appendix is not discretely visualized however no pericecalinflammatory changes. Diffuse colonic diverticulosis without evidence ofdiverticulitis. No free intraperitoneal air or fluid. No focal fluid collections areidentified. No pathologically enlarged lymph nodes. A therosclerotic diseaseis seen in the aorta and its major branches. Urinary bladder is decompressed via Day catheter. The uterus is surgically absent. The necks are also not visualized and maybe surgically absent or atrophic. Mild diffuse body wall edema. There is degenerative changes in the spine.Chronic mild anterior compression deformities are seen at L1 and L2. 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 Osseous irregularity at the left sacral alar, anteriorleft iliac crest, and right pubic bone, most compatible with remoteposttraumatic remodeling. [facility], Radiant ResultsInft User - 06/18/2020 4:21 PM CDTORDERING PROVIDER: SANJAY Colón FOLEYHISTORY: GI bleed TECHNIQUE: Axial CT images of the abdomen and pelvis were obtained afterthe administration of IV contrast. Coronal and sagittal reformations weregenerated and evaluated.CT scan is performed using the ALARA principle.Technical Quality: AdequateCOMPARISON: NoneFINDINGS: Patchy ground glass opacities are seen within the bilateral lung basesfavoring mild edema. No consolidative airspace disease. Cardiomegaly withdiffuse coronary artery calcifications.Liver demonstrates nodular morphologic contours with fissural widening andposterior right hepatic lobe notching suspicious for cirrhosis. No focalhepatic lesions are detected.Gallbladder surgically absent. Mild intrahepatic and extrahepatic biliaryductal dilation and berelated to postcholecystectomy status.The spleen is normal in size and morphology. The pancreas appears mildlyatrophic without ductal dilation or peripancreatic fat stranding. Theadrenal glands glandsare normal in size without nodularity.There is relatively symmetric nephrographic enhancement with irregularityof the bilateral renal contours suspicious for multifocal corticalscarring. Irregular shaped bandlike hypoattenuation in the right renal midand lower poles, possibly representing greater shape cortical cysts,although, pyelonephritis should also be considered. No hydronephrosis oneither side.There is less distal esophagus and stomach are within normal limits. Thesmall bowel is normal in caliber without evidence of obstruction orinflammation. Appendix is not discretely visualized however no pericecalinflammatory changes. Diffuse colonic diverticulosis without evidence ofdiverticulitis.No free intraperitoneal air or fluid. No focal fluid collections areidentified. No pathologically enlargedlymph nodes. Atherosclerotic diseaseis seen in the aorta and its major branches.Urinary bladder is decompressed via Day catheter.The uterus is surgically absent. The necks are also not visualized andmaybe surgically absent or atrophic.Mild diffuse body wall edema. There is degenerative changes in the spine.Chronic mild anterior compression deformities are seen at L1 and L2. 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 Osseous irregularity at the left sacral alar, anteriorleft iliac crest, and right pubic bone, most compatible with remoteposttraumatic remodeling.IMPRESSION1. No evidence of bowel obstruction or inflammation. No CT findings toexplain the source of the GI bleed. Scattered colonic diverticulosiswithout evidence of diverticulitis.2. The liver is cirrhotic in morphology. No suspicious hepatic lesions aredetected on this single phase exam.3. Irregular nodularbilateral renal cortical morphology suggestsmultifocal renal cortical scarring. Irregular hypodensities within the midand inferior pole right renal cortex may represent irregular shapedcortical cysts, however, urinalysis correlation recommended to excludepyelonephritis.4. Prior cholecystectomy and hysterectomy.5. Advanced degenerative/senescent osseous changes, most pronounced at theright greater than left hips. No acute fracture is detected. Remoteposttraumatic changes of the left hemipelvis and r ight pubic sepsis.6. Aortic atherosclerosis and coronary artery calcifications. Globalcardiomegaly.RL: [id number]: [id number] of report. [facility] 21:18:36 Test Item Value Reference Range Interpretation Comments POCT GLU (test code = 0380684659) 153 mg/dL 70-110 H Lab Interpretation (test code = Abnormal 39301-6) [facility] GLUCOSE (AUTOMATED)2020-06-18 21:18:36 Test Item Value Reference Range Interpretation Comments POCT GLU (test code = 3606431070) 153 mg/dL 70-110 H Lab Interpretation (test code = Abnormal 52296-6) [facility] [id number] 21:06:36 Test Item Value Reference Range Interpretation Comments NT-proBNP (test code 8160 pg/mL See_Comment H [Autom ated = 1610025023) message] The system which generated this result transmitted reference range : <=450. The reference range was not used to interpret this result as normal/abnormal . AMANDA (test code = AMANDA) Biotin has been reported to cause a negative bias, interpret results relative to patient's use of biotin. Lab Interpretation Abnormal (test code = 84586-8) [facility] [id number] 21:06:36 Test Item Value Reference Range Interpretation Comments NT-proBNP (test code 8160 pg/mL See_Comment H [Autom ated = 9594676974) message] The system which generated this result transmitted reference range : <=450. The reference range was not used to interpret this result as normal/abnormal . AMANDA (test code = AMANDA) Biotin has been reported to cause a negative bias, interpret results relative to patient's use of biotin. Lab Interpretation Abnormal (test code = 27529-6) [facility] CenterPrep[facility] Packed RBC (in units), 1 Units 2020-06-18 21:02:40 Test Item Value Reference Range Interpretation Comments Cross Match Result Compatible (test code = 4409) ISBT Blood Type Code (test code = 784820) Unit Blood Type (test O Pos code = 4410) Unit Number (test [id number] code = 4411) Blood Expiration Date & Time (test code = 301389) Status Information Issued (test code = 4412) Product Red Blood Cells Identification (test code = 4413) Product Code (test [id number] Performed at [facility] code = 4414) [facility] Blood [address] Free: [phone] A No. [id number] [facility] Center[facility] Packed RBC (in units), 1 Units 2020-06-18 21:02:40 Test Item Value Reference Range Interpretation Comments Cross Match Result Compatible (test code = 4409) ISBT Blood Type Code (test code = 337351) Unit Blood Type (test O Pos code = 4410) Unit Number (test [id number] code = 4411) Blood Expiration Date & Time (test code = 172483) Status Information Issued (test code = 4412) Product Red Blood Cells Identification (test code = 4413) Product Code (test [id number] Performed at [facility] code = 4414) [facility] Blood [place] [address]Toll Free: [phone] A No. [id number] [facility] CenterType and Screen - ONCE [id number] 19:59:40 Test Item Value Reference Range Interpretation Comments ABO & RH (test code O Positive Performe d at [facility] = 20) Laboratory [facility] Blood [place] [address]Toll Free: [phone] A No. [id number] IAT (test code = Negative Performed a t [facility] 1185) Laboratory [facility] Blood Bank[address] [place], [place] [address]Toll Free: [phone] A No. [id number] [facility] and Screen - ONCE [id number] 19:59:40 Test Item Value Reference Range Interpretation Comments ABO & RH (test code O Positive Performe d at [facility] = 20) Laboratory [facility] Blood Bank[address] [place], [place] [address]Toll Free: [phone] A No. [id number] IAT (test code = Negative Performed a t [facility] 1185) Laboratory [facility] Blood Bank[address] [place] [phone] Free: [phone] A No. [id number] [facility]2021-04-17 19:57:42Isaias Donald MD ? ? 06/18/2020 ?2:57 PMCritical CarePerformed by: Isaias Donald MDAuthorized by: Isaias Donald MD Critical care provider statement: ?Critical care time (minutes): ?45 ?Critical care was necessary to treat or prevent imminent or life-threatening deterioration of the followingconditions: ?Sepsis and circulatory failure ?Critical care was time spent personally by me on the following activities: ?Ordering and performing treatments and interventions, ordering and review of laboratory studies, ordering and review of radiographic studies, pulse oximetry, blood draw for specimens and examination of patientUnCH[facility] [place]21-04-17 19:57:42 Isaias Donald MD ? ? 06/18/2020 ?2:57 PMCritical CarePerformed by: Isaias Donald MDAuthorized by: Isaias Donald MD Critical care provider statement: ?Critical care time (minutes): ?45 ?Critical care was necessary to treat or prevent imminent or life-threatening deterioration of the followingconditions: ?Sepsis and circulatory failure ?Critical care was time spent personally by me on the following activities: ?Ordering and performing treatments and interventions, ordering and review of laboratory studies, ordering and review of radiographic studies, pulse oximetry, blood draw for specimens and examination of patientUnFalls Community Hospital and ClinicXR CHEST 1 [id number] 19:53:59 Findings and impression: Placement of right subclavian central venous catheter with the tipprojecting over the distal SVC. No pneumothorax or pleural effusion.Otherwise, no interval change regarding mild bilateral interstitialabnormality. Heart size is enlarged. No acute osseous abnormality. Chronicdeformities of mid lateral left ribs. Cholecystectomy clips. Preliminary Report Dictated by Resident: Terence Malin MD., have reviewed this study and agree with theabove report.EXAM:XR CHEST 1 06/18/2020 2:30 PM HISTORY: 79 years-old female with central line placement COMPARISON: Same day radiograph. TECHNIQUE: AP chest radiograph. [facility], Radiant Results Inft User - :55 PM CDTEXAM: XR CHEST 1 VW 06/18/2020 2:30 PMHISTORY: 79 years-old female with central line placement COMPARISON: Same day radiograph.TECHNIQUE: AP chest radiograph.IMPRESSIONFindings and impression: Placement of right subclavian central venous catheter with the tipprojecting over the distal SVC. Nopneumothorax or pleural effusion.Otherwise, no interval change regarding mild bilateral interstitialabnormality. Heart size is enlarged. No acute osseous abnormality. Chronicdeformities of mid lateral left ribs.Cholecystectomy clips.Preliminary Report Dictated by Resident: Terence Hanley MD., have reviewed this study and agree with theabove report.[facility] CenterXR CHEST 1 [id number] 19:53:59Findings and impression: Placement of right subclavian central venous catheter with the tipprojecting over the distal SVC. No pneumothorax or pleural effusion.Otherwise, no interval change regarding mild bilateral interstitialabnormality. Heart size is enlarged. No acute osseous abnormality. Chronicdeformities of mid lateral left ribs. Cholecystectomy clips. Preliminary Report Dictated by Resident: Terence Malin MD., have reviewed this study and agree with theabove report.EXAM:XR CHEST 1 06/18/2020 2:30 PM HISTORY: 79 years-old female with central line placement COMPARISON: Same day radiograph. TECHNIQUE: AP chest radiograph. [facility], Radiant Results Inft User - :55 PM CDTEXAM: XR CHEST 1 06/18/2020 2:30 PMHISTORY: 79 years-old female with central line placement COMPARISON: Same day radiograph.TECHNIQUE: AP chest radiograph.IMPRESSIONFindings and impression: Placement of right subclavian central venous catheter with the tipprojecting over the distal SVC. Nopneumothorax or pleural effusion.Otherwise, no interval change regarding mild bilateral interstitialabnormality. Heart size is enlarged. No acute osseous abnormality. Chronicdeformities of mid lateral left ribs.Cholecystectomy clips.Preliminary Report Dictated by Resident: Terence Hanley MD., have reviewed this study and agree with theabove report.[facility] [id number] 19:47:24Isaias Donald MD ? ? 06/18/2020 ?2:53 PMCentral LinePerformed by: Isaias Donald MDAuthorized by: Isaias Donald MD Consent: ?Consent obtained: ?Verbal and emergent situation ?Consent given by:?PatientPre-procedure details: ?Hand hygiene: Hand hygiene performed prior to insertion ? ?Sterile b arrier technique: All elements of maximal sterile technique followed ? ?Skin preparation: ?2% chlorhexidineAnesthesia (see MAR for exact dosages): ?Anesthesia method: ?Local infiltration ?Local anesthetic: ?Lidocaine 1% w/o epiProcedure details: ?Location: ?R subclavian ?Site selection rationale: ?Pt has infected urine with unclean perineum. Also pt does not follow direcection and continously rotated neck, Easier to quickly place subclavian ?Procedural supplies: ?Triple lumen ?Catheter size: ?7.5 Fr ?Landmarks identified: yes ? ?Ultrasound guidance: no ? ?Number of attempts: ?2Post-procedure details: ?Post-procedure: ?Dressing applied and line sutured ?Assessment: ?Blood return through all ports ?Patient tolerance of procedure: ?Tolerated well, no immediate complicationsUnSid[facility] [id number] 19:47:24 Isaias Donald MD ? ? 06/18/2020 ?2:53 PMCentral LinePerformed by: Isaias Donald MDAuthorized by: Isaias Donald MD Consent: ?Consent obtained: ?Verbal and emergent situation ?Consent given by:?PatientPre-procedure details: ?Hand hygiene: Hand hygiene performed prior to insertion ? ?Sterile barrier technique: All elements of maximal sterile technique followed ? ?Skin preparation: ?2% chlorhexidineAnesthesia (see MAR for exact dosages): ?Anesthesia method: ?Local infiltration ?Local anesthetic: ?Lidocaine 1% w/o epiProcedure details: ?Location: ?R subclavian ?Site selection rationale: ?Pt has infected urine with unclean perineum. Also pt does not follow direcection and continously rotated neck, Easier to quickly place subclavian ?Procedural supplies: ?Triple lumen ?Catheter size: ?7.5 Fr ?Landmarks identified: yes ? ?Ultrasound guidance: no ? ?Number of attempts: ?2Post-procedure details: ?Post-procedure: ?Dressing applied and line sutured ?Assessment: ?Blood return through all ports ?Patient tolerance of procedure: ?Tolerated well, no immediate complicationsUnRock County Hospital WITH [id number] 18:59:29 Test Item Value Reference Range Interpretation Comments WBC (test code = See_Comment H [Automated 6690-2) message] The sy stem which generated this result transmitted reference range : 4.30 - 11.10 10*3/?L. The reference range was not used to interpret this result as normal/abnormal . RBC (test code = See_Comment L [Automated 789-8) message] The sy stem which generated this result transmitted reference range : 3.93 - 5.25 10*6/?L. The reference range was not used to interpret this result as normal/abnormal . HGB (test code = 5.8 g/dL 11.6-15.0 L 718-7) HCT (test code = 17.9 % 35.7-45.2 L 4544-3) MCV (test code = 94.7 fL 80.6-95.5 787-2) MCH (test code = 30.7 pg 25.9-32.8 785-6) MCHC (test code = 32.4 g/dL 31.6-35.1 786-4) RDW-SD (test code = 49.8 fL 39.0-49.9 04395-8) RDW-CV (test code = 14.4 % 12.0-15.5 788-0) PLT (test code = See_Comment [Automated 777-3) message] The sy stem which generated this result transmitted reference range : 166 - 358 10*3/ ?L. The reference r jourdan was not used to interpret this result as normal/abnormal . MPV (test code = 10.5 fL 9.5-12.9 74405-5) NRBC/100 WBC (test See_Comment [Automat ed code = [id number]) message] The system which generated this result transmitted reference range : 0.0 - 10.0 /100 WBCs. The refer ence range was not u sed to interpret th is result as normal/abnormal . NRBC x10^3 (test code <0.01 See_Comment [Auto mated = [id number]) message] The s ystem which generated this result transmitted reference range : 10*3/?L. The reference range was not used to interpret this result as normal/abnormal . GRAN MAT (NEUT) % 74.9 % (test code = 770-8) IMM GRAN % (test code 1.10 % = 5722939200) LYMPH % (test code = 16.4 % 736-9) MONO % (test code = 6.1 % 5905-5) EOS % (test code = 0.9 % 713-8) BASO % (test code = 0.6 % 706-2) GRAN MAT x10^3(ANC) 9.39 10*3/uL 1.88-7.09 H (test code = 5023139196) IMM GRAN x10^3 (test 0.14 10*3/uL 0.00-0.06 H code = 8648584843) LYMPH x10^3 (test code 2.06 10*3/uL 1.32-3.29 = 731-0) MONO x10^3 (test code 0.77 10*3/uL 0.33-0.92 = 742-7) EOS x10^3 (test code = 0.11 10*3/uL 0.03-0.39 711-2) BASO x10^3 (test code 0.07 10*3/uL 0.01-0.07 = 704-7) Lab Interpretation Abnormal (test code = 27861-5) [facility] WITH [id number] 18:59:29 Test Item Value Reference Range Interpretation Comments WBC (test code = See_Comment H [Automated 1090-2) message] The sy stem which generated this result transmitted reference range : 4.30 - 11.10 10*3/?L. The reference range was not used to interpret this result as normal/abnormal . RBC (test code = See_Comment L [Automated 579-8) message] The sy stem which generated this result transmitted reference range : 3.93 - 5.25 10*6/?L. The reference range was not used to interpret this result as normal/abnormal . HGB (test code = 5.8 g/dL 11.6-15.0 L 718-7) HCT (test code = 17.9 % 35.7-45.2 L 4544-3) MCV (test code = 94.7 fL 80.6-95.5 787-2) MCH (test code = 30.7 pg 25.9-32.8 785-6) MCHC (test code = 32.4 g/dL 31.6-35.1 786-4) RDW-SD (test code = 49.8 fL 39.0-49.9 27769-1) RDW-CV (test code = 14.4 % 12.0-15.5 788-0) PLT (test code = See_Comment [Automated 777-3) message] The sy stem which generated this result transmitted reference range : 166 - 358 10*3/ ?L. The reference r jourdan was not used to interpret this result as normal/abnormal . MPV (test code = 10.5 fL 9.5-12.9 28653-2) NRBC/100 WBC (test See_Comment [Automat ed code = 2775095397) message] The system which generated this result transmitted reference range : 0.0 - 10.0 /100 WBCs. The refer ence range was not u sed to interpret th is result as normal/abnormal . NRBC x10^3 (test code <0.01 See_Comment [Auto mated = 0581272206) message] The s ystem which generated this result transmitted reference range : 10*3/?L. The reference range was not used to interpret this result as normal/abnormal . GRAN MAT (NEUT) % 74.9 % (test code = 770-8) IMM GRAN % (test code 1.10 % = 3108742390) LYMPH % (test code = 16.4 % 736-9) MONO % (test code = 6.1 % 5905-5) EOS % (test code = 0.9 % 713-8) BASO % (test code = 0.6 % 706-2) GRAN MAT x10^3(ANC) 9.39 10*3/uL 1.88-7.09 H (test code = 3509366056) IMM GRAN x10^3 (test 0.14 10*3/uL 0.00-0.06 H code = 6317238104) LYMPH x10^3 (test code 2.06 10*3/uL 1.32-3.29 = 731-0) MONO x10^3 (test code 0.77 10*3/uL 0.33-0.92 = 742-7) EOS x10^3 (test code = 0.11 10*3/uL 0.03-0.39 711-2) BASO x10^3 (test code 0.07 10*3/uL 0.01-0.07 = 704-7) Lab Interpretation Abnormal (test code = 66383-7) [facility] [id number] 18:33:22 Test Item Value Reference Range Interpretation Comments TROPONIN I (test 0.004 ng/mL See_Comment [Automated code = 0244798924) message] The system which generated this result transmitted reference range : <=0.034. The reference range was not used to interpret this result as normal/abnormal . AMANDA (test code = Equal or Less than AMANDA) 0.034 ng/ml---Normal ?Note: Cardiac troponin begins to rise 3-4 hours after the onset of ischemia. Repeat in 4-6 hours if the sample was drawn within 3-4 hours of the onset of the symptom and found normal. Between 0.035 and 0.120 ng/mL--- Borderline. Questionable myocardial injury or necrosis ? ?Note: Serial measurement may be necessary to confirm or exclude the diagnosis of myocardial injury or necrosis; Clinical correlation (symptoms, EKGs, imaging studies, and others) required; Repeat in 4-6 hours if clinically indicated. ? Equal or Higher than 0.121 ng/mL---Abnormal. Myocardial Injury or Necrosis Likely ? Biotin has been reported to cause a negative bias, interpret results relative to patient's use of biotin. ? Lab Interpretation Normal (test code = 67829-4) [facility] [id number] 18:33:22 Test Item Value Reference Range Interpretation Comments TROPONIN I (test 0.004 ng/mL See_Comment [Automated code = 8961266442) message] The system which generated this result transmitted reference range : <=0.034. The reference range was not used to interpret this result as normal/abnormal . AMANDA (test code = Equal or Less than AMANDA) 0.034 ng/ml---Normal ?Note: Cardiac troponin begins to rise 3-4 hours after the onset of ischemia. Repeat in 4-6 hours if the sample was drawn within 3-4 hours of the onset of the symptom and found normal. Between 0.035 and 0.120 ng/mL--- Borderline. Questionable myocardial injury or necrosis ? ?Note: Serial measurement may be necessary to confirm or exclude the diagnosis of myocardial injury or necrosis; Clinical correlation (symptoms, EKGs, imaging studies, and others) required; Repeat in 4-6 hours if clinically indicated. ? Equal or Higher than 0.121 ng/mL---Abnormal. Myocardial Injury or Necrosis Likely ? Biotin has been reported to cause a negative bias, interpret results relative to patient's use of biotin. ? Lab Interpretation Normal (test code = 60426-5) [facility] 18:22:58 Test Item Value Reference Range Interpretation Comments APPEARANCE (test code = Turbid Clear A 1573992905) COLOR (test code = Yellow Yellow 8803712900) PH (test code = 4.8-8.0 3441222520) SP GRAVITY (test code = 1.003-1.030 9877363918) GLU U QUAL (test code = Normal Normal 3188084600) BLOOD (test code = 3+ Negative A 0472969999) KETONES (test code = Negative Negative 5172108068) PROTEIN (test code = 100 mg/dL Negative A 2887-8) UROBILIN (test code = Normal Normal 2853550559) BILIRUBIN (test code = Negative Negative 3743051454) NITRITE (test code = Negative Negative 9374536188) LEUK ROCHELLE (test code = 500/uL Negative A 4034847478) RBC/HPF (test code = See_Comment H [Autom ated message] 8203270723) The system [employer] generated this result transmit farzad reference range : 0 - 3 HPF. The refe rence range was not u sed to interpret th is result as normal/abnormal . WBC/HPF (test code = >182 See_Comment H [Autom ated message] 6185477245) The system [employer] generated this result transmit farzad reference range : 0 - 5 HPF. The refe rence range was not u sed to interpret th is result as normal/abnormal . BACTERIA (test code = Many Negative A 9436012142) SQ EPITH (test code = HPF 1710397316) WBC CLUMPS (test code = See_Comment H [Au tomated message] 5858307155) The system [employer] generated this result transmit farzad reference range : <=1 HPF. The refere nce range was not u sed to interpret th is result as normal/abnormal . YEAST BUD (test code = See_Comment H [Aut omated message] 6863778007) The system [employer] generated this result transmit farzad reference range : <=1 HPF. The refere nce range was not u sed to interpret th is result as normal/abnormal . Lab Interpretation (test Abnormal code = 13563-4) [facility] 18:22:58 Test Item Value Reference Range Interpretation Comments APPEARANCE (test code = Turbid Clear A 9504968408) COLOR (test code = Yellow Yellow 1154570864) PH (test code = 4.8-8.0 1668950454) SP GRAVITY (test code = 1.003-1.030 9492903666) GLU U QUAL (test code = Normal Normal 5130462083) BLOOD (test code = 3+ Negative A 9674018028) KETONES (test code = Negative Negative 9620742368) PROTEIN (test code = 100 mg/dL Negative A 2887-8) UROBILIN (test code = Normal Normal 4329652131) BILIRUBIN (test code = Negative Negative 8832986815) NITRITE (test code = Negative Negative 1097431603) LEUK ROCHELLE (test code = 500/uL Negative A 4660777533) RBC/HPF (test code = See_Comment H [Autom ated message] 8457932941) The system [employer] generated this result transmit farzad reference range : 0 - 3 HPF. The refe rence range was not u sed to interpret th is result as normal/abnormal . WBC/HPF (test code = >182 See_Comment H [Autom ated message] 1346058873) The system [employer] generated this result transmit farzad reference range : 0 - 5 HPF. The refe rence range was not u sed to interpret th is result as normal/abnormal . BACTERIA (test code = Many Negative A 3637274338) SQ EPITH (test code = HPF 8665780058) WBC CLUMPS (test code = See_Comment H [Au tomated message] 5823275672) The system [employer] generated this result transmit fazrad reference range : <=1 HPF. The refere nce range was not u sed to interpret th is result as normal/abnormal . YEAST BUD (test code = See_Comment H [Aut omated message] 0263325326) The system [employer] generated this result transmit farzad reference range : <=1 HPF. The refere nce range was not u sed to interpret th is result as normal/abnormal . Lab Interpretation (test Abnormal code = 01293-0) [facility]. METABOLIC PANEL ([id number])2020-06-18 18:21:12 Test Item Value Reference Range Interpretation Comments NA (test code = 133 mmol/L 135-145 L 6098000409) K (test code = 5.2 mmol/L 3.5-5.0 H 7395793625) CL (test code = 102 mmol/L 98-108 3542773905) CO2 TOTAL (test code = 20 mmol/L 23-31 L 8647375498) AGAP (test code = 2-16 8163364665) BUN (test code = 94 mg/dL 7-23 H 5949111441) GLUCOSE (test code = 146 mg/dL 70-110 H 2179282413) CREATININE (test code = 2.60 mg/dL 0.50-1.04 H 8114208328) TOTAL BILI (test code = 0.8 mg/dL 0.1-1.2 3599540441) CALCIUM (test code = 8.7 mg/dL 8.6-10.6 6108921653) T PROTEIN (test code = 5.9 g/dL 6.3-8.2 L 4101362195) ALBUMIN (test code = 2.9 g/dL 3.5-5.0 L 3439104533) ALK PHOS (test code = 131 U/L 34-122 H 9315585554) ALTv (test code = 10 U/L 5-35 1742-6) AST(SGOT) (test code = 23 U/L 13-40 7148775845) eGFR (test code = mL/min/1.73m2 8711657215) AMANDA (test code = AMANDA) Association of Glomerular Filtration Rate (GFR) and Staging of Kidney Disease* + --+ --+ ------+| GFR (mL/min/1.73 m2) ?| With Kidney Damage ?| ?Without Kidney Damage+ --------+ --------+ +| ?>90 ?| ?Stage one ?| ? Normal ?+ ---+ ---+ -------+| ?60-89 ?| ?Stage two ?| ? Decreased GFR ? + --+ --+ ------+| ?30-59 ?| ?Stage three ?| ? Stage three ? + --+ --+ ------+| ?15-29 ?| ?Stage four ? | ? Stage four ?+ ---+ ---+ -------+| ?<15 (or dialysis) ? ?| ?Stage five ? | ? Stage five ?+ ---+ ---+ -------+ *Each stage assumes the associated GFR level has been in effect for at least three months. ?Stages 1 to 5, with or without kidney disease, indicate chronic kidney disease. Notes: Determination of stages one and two (with eGFR >59mL/min/1.73 m2) requires estimation of kidney damage for at least three months as defined by structural or functional abnormalities of the kidney, manifested by either:Pathological abnormalities or Markers of kidney damage (including abnormalities in the composition of the blood or urine or abnormalities in imaging tests). Lab Interpretation Abnormal (test code = 06252-3) [facility] METABOLIC PANEL ([id number])2020-06-18 18:21:12 Test Item Value Reference Range Interpretation Comments NA (test code = 133 mmol/L 135-145 L 3695658888) K (test code = 5.2 mmol/L 3.5-5.0 H 6010166119) CL (test code = 102 mmol/L 98-108 1410318106) CO2 TOTAL (test code = 20 mmol/L 23-31 L 8131102270) AGAP (test code = 2-16 6283687964) BUN (test code = 94 mg/dL 7-23 H 7073319543) GLUCOSE (test code = 146 mg/dL 70-110 H 1633070387) CREATININE (test code = 2.60 mg/dL 0.50-1.04 H 3046608569) TOTAL BILI (test code = 0.8 mg/dL 0.1-1.8 4750382964) CALCIUM (test code = 8.7 mg/dL 8.6-10.6 2559327061) T PROTEIN (test code = 5.9 g/dL 6.3-8.2 L 8039457845) ALBUMIN (test code = 2.9 g/dL 3.5-5.0 L 1305048122) ALK PHOS (test code = 131 U/L 34-122 H 3432475247) ALTv (test code = 10 U/L 5-35 1742-6) AST(SGOT) (test code = 23 U/L 13-40 6846987509) eGFR (test code = mL/min/1.73m2 4023489322) AMANDA (test code = AMANDA) Association of Glomerular Filtration Rate (GFR) and Staging of Kidney Disease* + --+ --+ ------+| GFR (mL/min/1.73 m2) ?| With Kidney Damage ?| ?Without Kidney Damage+ --------+ --------+ +| ?>90 ?| ?Stage one ?| ? Normal ?+ ---+ ---+ -------+| ?60-89 ?| ?Stage two ?| ? Decreased GFR ? + --+ --+ ------+| ?30-59 ?| ?Stage three ?| ? Stage three ? + --+ --+ ------+| ?15-29 ?| ?Stage four ? | ? Stage four ?+ ---+ ---+ -------+| ?<15 (or dialysis) ? ?| ?Stage five ? | ? Stage five ?+ ---+ ---+ -------+ *Each stage assumes the associated GFR level has been in effect for at least three months. ?Stages 1 to 5, with or without kidney disease, indicate chronic kidney disease. Notes: Determination of stages one and two (with eGFR >59mL/min/1.73 m2) requires estimation of kidney damage for at least three months as defined by structural or functional abnormalities of the kidney, manifested by either:Pathological abnormalities or Markers of kidney damage (including abnormalities in the composition of the blood or urine or abnormalities in imaging tests). Lab Interpretation Abnormal (test code = 09992-2) [facility] 18:20:52 Test Item Value Reference Range Interpretation Comments LIPASE (test code = 7622397436) 100 U/L 0-220 Lab Interpretation (test code = Normal 39372-5) [facility] 18:20:52 Test Item Value Reference Range Interpretation Comments LIPASE (test code = 0310997447) 100 U/L 0-220 Lab Interpretation (test code = Normal 39626-6) [facility] CenterCOVID[facility] (ID NOW RAPID TESTING)2020-06-18 18:18:29 Test Item Value Reference Range Interpretation Comments SARS-CoV-2 Rapid ID NOW Not Detected Not Detected (test code = 67583-2) AMANDA (test code = AMANDA) ID NOW COVID-19 Assay is an isothermal nucleic acid amplification test intended for the qualitative detection of nucleic acid from SARS-CoV-2 viral RNA in nasopharyngeal (ORTHOTIC FITTER) specimens. It is used under Emergency Use Authorization (EUA) by FDA. The limit of detection (LOD) of the assay is 125 Genome Equivalents/mL. A positive result is indicative of the presence of SARS-CoV-2 RNA. ?Clinical correlation with patient history and other diagnostic information is necessary to determine patient infection status. A negative (Not Detected) result does not preclude SARS-CoV-2 infection. In patients with clinical symptoms and other tests that are consistent with SARS-CoV-2 infection, negative results should be treated as presumptive negative and a new specimen should be tested with alternative PCR molecular test. Invalid: Please collect a new specimen for repeat patient testing if clinically indicated. Lab Interpretation Normal (test code = 81887-5) [facility] (ID NOW RAPID TESTING)2020-06-18 18:18:29 Test Item Value Reference Range Interpretation Comments SARS-CoV-2 Rapid ID NOW Not Detected Not Detected (test code = 13371-4) AMANDA (test code = AMANDA) ID NOW COVID-19 Assay is an isothermal nucleic acid amplification test intended for the qualitative detection of nucleic acid from SARS-CoV-2 viral RNA in nasopharyngeal (ORTHOTIC FITTER) specimens. It is used under Emergency Use Authorization (EUA) by FDA. The limit of detection (LOD) of the assay is 125 Genome Equivalents/mL. A positive result is indicative of the presence of SARS-CoV-2 RNA. ?Clinical correlation with patient history and other diagnostic information is necessary to determine patient infection status. A negative (Not Detected) result does not preclude SARS-CoV-2 infection. In patients with clinical symptoms and other tests that are consistent with SARS-CoV-2 infection, negative results should be treated as presumptive negative and a new specimen should be tested with alternative PCR molecular test. Invalid: Please collect a new specimen for repeat patient testing if clinically indicated. Lab Interpretation Normal (test code = 64341-2) [facility] Center[facility] Whole [id number] 17:48:57 Test Item Value Reference Range Interpretation Comments LACTIC ACID (test code = 3.57 mmol/L 0.50-2.20 H 0520729470) Lab Interpretation (test code = Abnormal 99921-8) [facility] CenterL[facility] Whole [id number] 17:48:57 Test Item Value Reference Range Interpretation Comments LACTIC ACID (test code = 3.57 mmol/L 0.50-2.20 H 5920239774) Lab Interpretation (test code = Abnormal 36545-0) [facility]"
--- NOTE | 2021-05-15 11:57 | ER ---
Nurse's Notes [facility] Name: Soledad Cardenas Age: 80 yrs Sex: Female : 1940 Arrival Date: 05/15/2021 Time: 10:04 Bed 3 Private MD: Diagnosis: Cardiopulmonary Arrest Presentation: 05/15 10:24 Chief complaint: EMS states: [facility] states they got a call at 0920 for an ab2 unresponsive patient. 0928 EMS arrived on scene and intiated CPR. CPR in progress with BVM on arrival. Care prior to arrival: Oral intubation, CPR via thumper performed by EMS and is still in progress Medication(s) given: 4 epi CLAIMS PROCESSOR. Compressions began at 09:28. 10:24 Method Of Arrival: EMS: [facility] ab2 10:24 Acuity: ANDRIA 1 ab2 10:45 Coronavirus screen: Vaccine status: At this time, unable to obtain information related ab2 to travel outside the [place] unable to assess. Ebola Screen: Unable to complete the Ebola screening because:. Initial Sepsis Screen: Does the patient have a suspected source of infection?. Initial Sepsis Screen: Does the patient meet any 2 criteria? No. Patient's initial sepsis screen is negative. Risk Assessment: Do you want to hurt yourself or someone else? Unable to obtain. Onset of symptoms is unknown. Triage Assessment: 09:58 General: Appears distressed, Behavior is unresponsive. Pain: Noted to be unresponsive, ab2 unable to assess. EENT:. Neuro: Level of Consciousness is unresponsive, Oriented to none Pupils are fixed, dilated. Cardiovascular: Capillary refill is > 3 seconds Clubbing of nail beds is present Rhythm is PEA. Respiratory: Airway via oral intubation. Derm: Skin is fragile, Skin is dry, Skin temperature is cool. Musculoskeletal:. Historical: - Allergies: 10:32 PENICILLINS; jl7 - PMHx: 10:32 Hyperlipidemia; Hypertension; Hypothyroidism; jl7 Screenin:44 Nutritional screening: No deficits noted. ab2 Assessment: 09:57 Reassessment: Pt arrives via [facility]. Pt unresponsive, Pawan machine doing ab2 automatic compressions, oral airway placed by EMS, EMS manually oxygenating patient on arrival with BVM. 09:57 CPR assessment: unresponsive, Ambu ventilation. CPR assessment: pupils fixed \T\ dilated, ab2 no respiratory effort, cyanotic. Cardiac rhythm is PEA. General: Behavior is unresponsive. Neuro: Level of Consciousness is unresponsive, Oriented to none. Cardiovascular: Rhythm is PEA. Respiratory: Airway via oral airway. GI: Abdomen is round. Derm: Skin is dry, Skin is dusky, mottled, Skin temperature is cool. 09:57 Reassessment: IO noted to left jeffrey, placed by EMS prior to arrival. ab2 09:59 Reassessment: Pulse check completed at this time, no pulse palpated. PEA rhythm on the ab2 monitor. Compressions resumed, BVM ongoing via RT at bedside. 10:01 Reassessment: Pulse check completed at this time, no pulse palpated, PEA rhythm on ab2 monitor. BVM ongoing. 10:02 Reassessment: EPI given per verbal order Dr. Conti at bedside. ab2 10:03 Reassessment: Pulse check completed, no pulse palpated, rhythm is PEA on monitor. ab2 Compressions resumed, BVM ongoing via respiratory at bedside. 10:05 Reassessment: Pulse check completed, no pulse palpated, PEA rhythm on monitor. ab2 Compressions resumed, BVM ongoing visa RT. Verbal order for EPI given per Dr. Conti verbal order at bedside. 10:07 Reassessment: Pulse check completed, no pulse palpated. PEA rhythm on monitor. ab2 Compressions resumed, BVM ongoing via RT. EPI given per verbal order of Dr. Conti whom is at bedside. 10:08 Reassessment: Blood sugar obtained 142. Dr. Conti intubated patient using 7.5 tube ab2 and 23cm at the lip. Pt being manually oxygenated by RT at this time. 10:09 Reassessment: Pulse check completed, no pulse palpated, PEA rhythm on monitor. Pt ab2 remains being manually oxygenated by RT, compressions resumed. 50 bicarb given per physician, Dr. Conti verbal order whom is at bedside. Additional 20 gauge IV intiated into the left forearm. 10:11 Reassessment: Pulse check completed, no pulse palpated. PEA rhythm on monitor. Pt ab2 remains being manually oxygenated by RT. Compression resumed. 10:13 Reassessment: Pulse check completed, no pulse palpated. PEA rhythm on monitor, ab2 compression resumed. EPI given per verbal order from Dr. Cnoti whom is at bedside. 10:15 Reassessment: Pulse check completed, no pulse palpated. PEA rhythm on monitor. ab2 Compressions resumed. Pt being manually oxygenated by RT. 10:16 Reassessment: Dr. Conti at bedside. Pulse check performed and no pulse was palpated. ab2 PEA rhythm on monitor. Dr. Conti called time of . 11:45 Reassessment: home at bedside to take patient. son at bedside. ab2 Vital Signs: 09:57 BP 0 / 0; Pulse 0; Resp 16 A; Pulse Ox 68% on BVM; ab2 10:16 BP 0 / 0; Pulse 0; Resp 0; ab2 Pro[place] Coma Score: 09:57 Eye Response: none(1). Verbal Response: none(1). Motor Response: none(1). Total: 3. ab2 10:16 Eye Response: none(1). Verbal Response: none(1). Motor Response: none(1). Total: 3. ab2 10:29 Eye Response: none(1). Verbal Response: none(1). Motor Response: none(1). Total: 3. kdr ED Course: 09:58 Arm band placed on left wrist. ab2 10:04 Patient arrived in ED. em1 10:08 Assisted provider with intubation using 7.5 mm ETT via oral route. ET tube secured at ab2 23cm at the lips. Intubated by Nabor Conti MD Placement verified by auscultating bilateral breath sounds. 10:09 Inserted saline lock: 20 gauge in left forearm, using aseptic technique. ab2 10:17 Patient has correct armband on for positive identification. Placed in gown. Bed in low ab2 position. Side rails up X2. 10:18 Nabor Conti MD is Attending Physician. kdr 10:19 [address] [facility] to have dedicated driver come to er. bd 10:23 Renny Castellanos is Primary Nurse. ab2 10:28 Triage completed. ab2 11:56 Nabor Conti MD is Pronouncing Provider. kdr Administered Medications: No medications were administered Outcome: 12:00 Patient left the ED. ab2 Signatures: Kirsten Chacon Kevin, MD MD kdr Urbano Cardenas em1 Sallie Portillo, RN RN jl7 Renny Castellanos ab2 Corrections: (The following items were deleted from the chart) 10:53 09:59 Reassessment: Pulse check completed at this time, no pulse palpated. PEA rhythm ab2 on the monitor. BVM ongoing ab2 10:54 09:59 Reassessment: Pulse check completed at this time, no pulse palpated. PEA rhythm ab2 on the monitor. BVM ongoing ab2 : 10:28 CPR assessment: unresponsive, Ambu ventilation, ab2 ab2 : 10:28 Cardiac rhythm is PEA ab2 ab2 : 10:28 General: Behavior is unresponsive. ab2 ab2 : 10:28 Neuro: Level of Consciousness is unresponsive, Oriented to none ab2 ab2 10:28 Cardiovascular: Rhythm is PEA ab2 ab2 10:28 Respiratory: Airway via oral airway ab2 ab2 10:28 EENT: ab2 ab2 : 10:28 CPR assessment: pupils fixed \T\ dilated, no respiratory effort, cyanotic, ab2 ab2 : 10:28 GI: Abdomen is round ab2 ab2 : 10:28 Derm: Skin is dry, Skin is dusky, mottled, Skin temperature is cool ab2 ab2 : 10:28 EENT: ab2 ab2 : 10:28 EENT: ab2 ab2
--- NOTE | 2021-05-15 11:58 | EDPHYS ---
Physician Documentation [facility] Name: Soledad Cardenas Age: 80 yrs Sex: Female : 1940 Arrival Date: 05/15/2021 Time: 10: Bed 3 Private MD: ED Physician Nabor Conti HPI: 05/15 10:29 This 80 yrs old Female presents to ER via EMS with complaints of CPR. kdr 10:29 This 80 yrs old Female presents to ER via EMS with complaints of CPR. kdr 10:29 Preceding the arrest, the patient collapsed. The arrest occurred at home. Pre-hospital kdr course: The arrest was witnessed Bystanders at the scene did not perform CPR. EMS care prior to arrival: initiation of ACLS, peripheral IV, I/O access left tibia. intubation orally, with a EOA, ACLS details: Initial rhythm was PEA. The presenting rhythm is PEA. Airway: oral intubation, LMA, Medications given by EMS prior to arrival -. The patient has not experienced similar symptoms in the past. It is unknown whether or not the patient has recently seen a physician. EMS reports that the patient had been involved in her usual morning activity. Her son had just given her her morning medications and see then slumped over. She became unresponsive. According to the son, she seemed to be convulsing. EMS was called and arrived about 8 minutes later. ACLS was initiated. Patient did not respond to treatment.. Historical: - Allergies: 10:32 PENICILLINS; jl7 - PMHx: 10:32 Hyperlipidemia; Hypertension; Hypothyroidism; jl7 ROS: 10:29 Constitutional: Unable to obtain as the patient is in cardiopulmonary arrest kdr 10:29 Unable to obtain ROS due to obtunded state, patient is on ventilator. Exam: 10:29 Constitutional: This is a well developed, well nourished patient who is a Julio tube in kdr place and an IO in the right tibia. He has no pulse and is unresponsive in a PEA rhythm Head/Face: Normocephalic, atraumatic. Neck: Trachea midline, no thyromegaly or masses palpated, and no cervical lymphadenopathy. Supple, full range of motion without nuchal rigidity, or vertebral point tenderness. No Meningismus. Chest/axilla: Normal chest wall appearance and motion. Nontender with no deformity. No lesions are appreciated. 10:29 Eyes: Pupils: are fixed and dilated. 10:29 Cardiovascular: Edema: pedal edema, that is moderate, that is marked. Vital Signs: 09:57 BP 0 / 0; Pulse 0; Resp 16 A; Pulse Ox 68% on BVM; ab2 10:16 BP 0 / 0; Pulse 0; Resp 0; ab2 Cornelio Coma Score: 09:57 Eye Response: none(1). Verbal Response: none(1). Motor Response: none(1). Total: 3. ab2 10:16 Eye Response: none(1). Verbal Response: none(1). Motor Response: none(1). Total: 3. ab2 10:29 Eye Response: none(1). Verbal Response: none(1). Motor Response: none(1). Total: 3. kdr MDM: 10:29 Data reviewed: vital signs, nurses notes, lab test result(s). Counseling: I had a kdr detailed discussion with the patient and/or guardian regarding: the historical points, exam findings, and any diagnostic results supporting the discharge/admit diagnosis, Discharge to morgue/medical laboratory technologist. 10:39 ED course: Extensive efforts by EMS and the ED staff and some 50+ minutes of kdr resuscitation, the patient continued to be in PEA without any sign of life or response to the interventions being given. I discussed with the family the current situation and extended resuscitation time and lack of any reasonable pulse or response to medication interventions. They agreed that termination of resuscitation would be appropriate at this time. Patient was pronounced at 10:16 AM. 11:57 Patient medically screened. kdr 05/15 10:20 Order name: Glucose, Ancillary Testing EDMS Administered Medications: No medications were administered Disposition: 10:38 . kdr Disposition Summary: 05/15/21 11:57 Patient Location: Home kdr Pronouncing Physician: Nabor Conti kdr Time of : 10:16 05/15/2021 kdr Diagnosis - Cardiopulmonary Arrest kdr Signatures: Dispatcher [employer] EDMS Nabor Conti MD MD kdr Sallie Portillo RN RN jl7
[2021-05-15 12:10] VITALS: BP 0/0
== END 2021-05-15 12:00 | disposition expired ==
LOC: ER 09:59
DX: I46.9 Cardiac arrest, cause unspecified (principal); I10 Essential (primary) hypertension; E78.5 Hyperlipidemia, unspecified; E03.9 Hypothyroidism, unspecified; Z88.0 Allergy status to penicillin
CPT/HCPCS: 82947; 31500; 92950; 99291; 99292; J0171